=== PATIENT | female | born 1995 | race Caucasian/White ===

== ENCOUNTER 2024-04-29 18:01 | Emergency (ER) | payer MEDICAID, SELFPAY ==
[2024-04-29 18:05] VITALS: BP 157/106; PULSE 69; RESP 18; TEMP 36.6; O2SAT 100; BMI 26.2
[2024-04-29 18:58] VITALS: BMI 26.4
[2024-04-29 18:59] VITALS: BP 113/78; PULSE 74; O2SAT 100
--- NOTE | 2024-04-29 19:07 | RAD_ITS ---
PROCEDURE: CHEST 1 VIEW (PORTABLE) REASON FOR EXAM: 28-year-old female, chest pain, hypertension. TECHNIQUE: Frontal view of the chest. COMPARISON: None. FINDINGS: The heart size is normal. No focal consolidation, pleural effusion or pneumothorax. The bones are unremarkable. RAD/Chest 1 View (Portable) IMPRESSION: NEGATIVE CHEST. Reading Location: [id number]
--- NOTE | 2024-04-29 19:07 | EKG12_ITS ---
Test Reason : DYSRHYTHMIA Blood Pressure : */* mmHG Vent. Rate : 63 BPM Atrial Rate : 63 BPM P-R Int : 142 ms QRS Dur : 82 ms QT Int : 408 ms P-R-T Axes : 72 68 65 degrees QTcB Int : 417 ms Normal sinus rhythm with sinus arrhythmia Normal ECG Confirmed by Darrell Siddiqi ([id number]), news videotape editor JAS CALLEJAS ([id number]) on 04/30/2024 10:59:47 AM Referred By: MAXWELL Confirmed By: Darrell Siddiqi
--- NOTE | 2024-04-29 19:09 | EX.ED.DYSGE1 ---
HPI History of Present Illness Chief Complaint: Neuro S/Sx Narrative Narrative: 28-year-old female past medical history of ADHD recently changed to Concerta, presents with headache that she rates 9 out of 10 as well as chest pain and pressure and left facial numbness as well as left arm pain and numbness. The symptoms began while she was at work at [employer]. 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 She is not really describing numbness but states that it feels funky. No exacerbating or alleviating factors. She was concerned because her blood pressure was elevated as well. This was after she had taken Excedrin. She said her blood pressure was in the 140s to 150s. [facility] Medical History no medical history Home Medications ?Medication ?Instructions ?Recorded ?Last Taken ?Type buspirone 15 mg tablet 15 mg PO DAILY 04/29/24 Unknown History desvenlafaxine succinate 25 mg 25 mg PO DAILY 04/29/24 Unknown History tablet,extended release 24 hr (Pristiq) Allergy/AdvReac Type Severity Reaction Status Date / Time acetaminophen (From Percocet) Allergy Anaphylaxis Verified 04/29/24 18:05 cephalexin (From Keflex) Allergy Hives Verified 04/29/24 18:05 codeine Allergy Anaphylaxis Verified 04/29/24 18:05 oxycodone (From Percocet) Allergy Anaphylaxis Verified 04/29/24 18:05 Family History no significant family his Surgical History no surgical history Social History Smoking Status: Former smoker ROS ROS ED ROS Narrative Constitutional: No fever, no chills. HEENT: No sore throat. No neck pain. No loss of vision. Cardiovascular: Positive chest pain. No palpitations. No pedal edema. Respiratory: No cough, no shortness of breath. Abdominal: No abdominal pain. No nausea. No vomiting. Genitourinary: No dysuria. No hematuria. Musculoskeletal: No myalgias. No arthralgias. Neurologic: Positive headaches. No dizziness. No lightheadedness. Left facial feeling funny/numbness, left arm pain and numbness. Skin: No rash. No change in color. EXAM Physical Exam Narrative Exam Narrative: Afebrile. Vital signs noted. Nontoxic-appearing. Cardiovascular examination reveals a regular rate and rhythm. Lungs are clear to auscultation bilaterally. Abdomen is soft and nontender without guarding or rebound. Positive bowel sounds. Neurological examination is nonfocal and nonlateralizing. NIH stroke scale is 0. No pedal edema. Patient was tearful prior to examination. Const Vital Signs: 04/29/24 18:05 04/29/24 18:59 04/29/24 19:10 Temperature 98 F Temperature Source Temporal Pulse Rate 69 74 Respiratory Rate 18 Blood Pressure 157/106 H 113/78 Blood Pressure Mean 123 89 Pulse Ox 100 100 100 Oxygen Delivery Method Room Air Room Air Room Air 04/29/24 20:03 04/29/24 22:00 Temperature Temperature Source Pulse Rate 58 L 67 Respiratory Rate 18 18 Blood Pressure 127/78 H 110/70 Blood Pressure Mean 94 83 Pulse Ox 100 99 Oxygen Delivery Method Room Air Room Air MDM MDM MDM Narrative Medical decision making narrative: Differential diagnosis includes but not limited to stroke versus intracranial hemorrhage versus mass versus atypical migraine. Her blood pressure may be elevated from her ADH meds in combination with her taking Excedrin which has caffeine. Her blood pressure has normalized to 113/78 currently and was 117 systolic while I was in the room. I do not feel that she meets stroke team criteria, and she is outside the window for [place] K greater than 4 hours. Additionally she does not have a debilitating deficit. She will be given Compazine and Benadryl as well as IV fluids and comprehensive workup was pursued. I will obtain a CT of the brain to rule out mass or hemorrhage. Regarding her chest pain, comprehensive workup was pursued EKG was obtained and interpreted by myself independently as normal sinus rhythm with sinus arrhythmia at 63 bpm without other ectopy, no acute ST changes, no STEMI. I reviewed her laboratory work and she has normal white count of 5.7 with hemoglobin 12.2, hematocrit 35.5, platelet count normal at 159. BMP is grossly unremarkable, initial high-sensitivity troponin is less than 6. Chest x-ray interpreted by myself independently in 1 view shows no acute process, no pneumonia or pneumothorax. I reviewed the radiology report which confirms my independent interpretation. Additionally I reviewed the radiology report of the CT of the brain and there is no acute process, no hemorrhage or mass. Upon repeat examination, she states she is feeling improved. She no longer has facial numbness or arm pain. She thinks the IV fluids helped. She has normal blood pressure currently. At this point in time, as well as her second troponin is normal, I do feel that she could be discharged to follow-up. I feel this is probably more of an atypical migraine as her headache has improved with Compazine and Benadryl as well as the IV fluids. Her symptoms have essentially resolved. I do not feel that she requires observation or admission for stroke workup as she had a negative NIH stroke scale as well. Her repeat troponin is also less than 6. Her initial 1 had been less than 6 as stated previously. At this point in time, as her symptoms have essentially resolved I feel she can be discharged to follow-up with her primary care provider. Return instructions reviewed. Disposition is discharged home in stable condition. History & Record Review Discussion w/independent historian: Patient Lab Data Attestation: I reviewed the patient's lab results. Labs: Laboratory Results - last 24 hr 04/29/24 04/29/24 19:23 21:31 WBC 5.7 RBC 3.98 L Hgb 12.2 Hct 35.5 L MCV 89.2 MCH 30.7 MCHC 34.4 RDW Std Deviation 40.3 RDW Coeff of Kimberly 12.4 Plt Count 159 MPV 11.6 Immature Gran % (Auto) 0.400 Neut % (Auto) 62.8 Lymph % (Auto) 28.4 [place] % (Auto) 8.2 Eos % (Auto) 0.0 Baso % (Auto) 0.2 Absolute Neuts (auto) 3.6 Absolute Lymphs (auto) 1.62 Nucleated RBC % 0 Sodium 136 Potassium 4.2 Chloride 103 Carbon Dioxide 21.5 Anion Gap 11 BUN 11 Creatinine 0.70 Estim Creat Clear Calc 133.14 Est GFR (MDRD) Non-Af 121 BUN/Creatinine Ratio 15.9 Glucose 97 Calcium 8.9 Troponin T High Sens < 6 Troponin T Hi Sens 2 Hr < 6 Radiography Diagnostic Testing: Clinical Impression(s) from Imaging Studies Chest X-Ray 04/29/24 19:07 IMPRESSION: NEGATIVE CHEST. Reading Location: [id number] Brain CT 04/29/24 19:35 IMPRESSION: 1. No acute intracranial finding. 2. 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 If not recently performed, nonemergent brain MRI could be obtained for further characterization. Reading Location: [facility] Discharge Plan Triage Chief Complaint: Neuro S/Sx ED Provider: Moody Serrano Dx/Rx/DC Orders Clinical Impression: Chest pain, Headache, Facial paresthesia, Left arm pain Instructions: ED Chest Pain, Uncertain Cause, ED Pain, Acute, Uncertain Cause, ED Paraesthesias Prescriptions: No Action buspirone 15 mg tablet 15 mg PO DAILY desvenlafaxine succinate [Pristiq] 25 mg tablet extended release 24 hr 25 mg PO DAILY Primary Care Provider: Vianney Morse Referrals: Vianney Morse, [employer] [facility] [Primary Care Provider] - 3-5 Days if not improving Activity Restrictions/Additional Instructions: Return to the emergency department with new or worsening symptoms including chest pain, shortness of breath, fever, increased numbness or pain of your arm or face. Print Language: Palestinian Disposition Disposition: Home, Self Care
[2024-04-29 19:10] VITALS: O2SAT 100
[2024-04-29] MEDS: 0.9% Normal Saline (1000mL) 1,000 ML 999 ML IV (19:24)
[2024-04-29] MEDS: DiphenhydrAMINE 50 MG/ML Syringe 25 MG IV (19:25)
[2024-04-29] MEDS: proCHLORPERazine 10 MG/2 ML Vial IV (19:25)
--- NOTE | 2024-04-29 19:35 | CT_ITS ---
EXAM: BRAIN/HEAD WITHOUT CONTRAST CLINICAL HISTORY: 28 y/o F with HEADACHE. Left sided facial and arm numbness. COMPARISON: None. TECHNIQUE: Routine CT imaging of the head without IV contrast. Additional multiplanar reformats were obtained. Dose reduction techniques were used including intermediate exposure control (AEC),iterative reconstruction technique, and/or mA and/or KV dose adjustments based on patient's size. FINDINGS: No acute intracranial hemorrhage or mass effect. The lepe-white matter interfaces are maintained. Tiny pineal cyst. Mild scattered secretions throughout the visualized paranasal sinuses. Trace fluid within the right mastoid air cells. The orbits are unremarkable. No acute calvarial fracture or scalp hematoma. CT/Brain/Head without Contrast IMPRESSION: 1. No acute intracranial finding. 2. 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 If not recently performed, nonemergent brain MRI could be obtained for further characterization. Reading Location: [id number]
[2024-04-29 19:46] LABS: Absolute Lymphocyte Count 1.62 X10^3/uL (0.83-4.51); Absolute Neutrophil Count 3.6 X10^3/uL (2.0-7.7); Basophil# 0.01 X10^3/uL; Basophil% 0.2 % (0-1); Hematocrit 35.5 % (37-47); Hemoglobin 12.2 g/dL (12.0-15.0); Lymphocyte # 1.62 X10^3/ul (0.83-4.51); Lymphocyte % 28.4 % (19-41); Mean Corp Hgb Conc 34.4 g/dL (32-36); Mean Corpuscular Hgb 30.7 pg (27.0-32.0); Mean Corpuscular Volume 89.2 fL (81-99); Mean Platelet Vol. 11.6 fl (6.2-12.0); Monocyte# 0.47 X10^3/uL; Monocyte% 8.2 % (0-10); NRBC Flagged by Analyzer 0 % (0-5); Neutrophil # 3.58 X10^3/uL (2.7-7.7); Neutrophil % 62.8 % (47-70); Platelet Count 159 K/mm3 (150-450); RBC Distribution Width CV 12.4 % (11.6-14.6); RBC Distribution Width SD 40.3 fl (35.1-43.9); Red Blood Count 3.98 M/mm3 (4.2-5.4); White Blood Count 5.7 K/mm3 (4.4-11.0)
[2024-04-29 20:03] VITALS: BP 127/78; PULSE 58; RESP 18; O2SAT 100
[2024-04-29 20:24] LABS: Troponin T High Sensitivity < 6 ng/L (<=14)
[2024-04-29 20:39] LABS: Anion Gap 11 (5-15); BUN 11 mg/dL (4-19); BUN/Creat Ratio 15.9 RATIO (10-20); Calcium,Total 8.9 mg/dL (7.6-11.0); Carbon Dioxide 21.5 mmol/L (21.0-32.0); Chloride 103 mmol/L (98-108); EST Glomerular Filtration Rate 121 (>60); Estimated Creatinine Clearance 133.14 ml/min (50-250); Glucose 97 mg/dL (70-99); Potassium 4.2 mmol/L (3.3-5.1); Sodium Level 136 mmol/L (133-145)
[2024-04-29 22:00] VITALS: BP 110/70; PULSE 67; RESP 18; O2SAT 99
[2024-04-29 22:27] LABS: Troponin T High Sens 2 HR < 6 ng/L (<=14)
[2024-04-29 22:35] VITALS: BP 110/70; PULSE 58; RESP 18; TEMP 36.6; O2SAT 99
== END 2024-04-29 22:38 | disposition home or self-care (01) ==
PROVIDERS: Emergency Provider Emergency Medicine; PCP Nurse Practitioner Family; Visit Provider Emergency Medicine
DX: R07.9 Chest pain, unspecified (principal); R51.9 Headache, unspecified; M79.602 Pain in left arm; R20.2 Paresthesia of skin; Z79.899 Other long term (current) drug therapy; Z87.891 Personal history of nicotine dependence
CPT/HCPCS: 70450; 71045; 80048; 84484; 85025; 93005; 96361; 96374; 96375; 96376; 99285; A4216

== ENCOUNTER 2024-12-13 17:26 | Emergency (ER) | payer MEDICAID, SELFPAY ==
[2024-12-13 17:27] VITALS: BP 127/76; PULSE 76; RESP 16; TEMP 37.1; O2SAT 99; BMI 26.6
--- NOTE | 2024-12-13 17:44 | EDS_ITS ---
HPI HPI - Female History of Present Illness Chief Complaint: Vag Bleeding Detail of Chief Complaint: Vaginal bleeding started this afternoon Informant: patient Pain Pain: Positive for Pelvic Pain Onset: Today Context: Sudden Onset Timing: Continuous and Waxes and wanes Quality: Positive for Cramping Location: - (Pelvic region) Current Severity: Mild Maximum Severity: Severe Worsened by: Movement, [place] and - (Passage of clots while on the restroom) Relieved by: - (Nothing) Bleeding Issue: Positive for Vaginal bleeding and Passing clots Onset: Today and Hours Context: Sudden Onset Timing: Continuous Current Severity: Heavy Maximum Severity: Heavy Associated Symptoms Associated Symptoms: Positive for Dysuria, Frequency and Missed Period (Last normal menstrual period November 09.); Negative for Urgency or Hematuria Test: - Sexually: Positive for Active Control: No control P: 2 Ab: 2 Narrative Narrative: Patient is a 29-year-old G4, P2 Ab2 female who was last spontaneous miscarriage was 1 year ago. Youngest child is 5 years of age. She does not know her blood type. Her PERIANESTHESIA MANAGER is located in [place]. She states she lives in the area. She had abrupt onset of cramping pain with vaginal bleeding and passage of clots. She does not use any form of control. She is sexually active. She does not report frequency, dysuria. He denies nausea, vomit or diarrhea. She reported orthostatic symptoms. Prior similar symptoms: Yes Recent Illness/Hospitalization: No PFSH PFSH Home Medications ?Medication ?Instructions ?Recorded ?Last Taken ?Type NK 12/13/24 Unknown History Allergy/AdvReac Type Severity Reaction Status Date / Time acetaminophen (From Percocet) Allergy Anaphylaxis Verified 04/29/24 18:05 cephalexin (From Keflex) Allergy Hives Verified 12/13/24 17:29 codeine Allergy Anaphylaxis Verified 12/13/24 17:29 oxycodone (From Percocet) Allergy Anaphylaxis Verified 12/13/24 17:29 Family History no significant family his Surgical History no surgical history Social History (Updated 12/13/24 @ 17:[address] Osvaldo Mccauley MD) household members: children Smoking Status: Former smoker ROS ROS ED Constitutional Constitutional ED: Denies chills, fever(s), subjective or sweats Cardiovascular Cardiovascular: Denies chest pain or palpitations Respiratory/Chest Respiratory/Chest: Denies cough, dyspnea or dyspnea on exertion Gastrointestinal Gastrointestinal: Reports abdominal pain; Denies constipation, diarrhea, melena, nausea or vomiting Genitourinary Genitourinary ED: Reports dysuria and urinary frequency Musculoskeletal Musculoskeletal: Denies arthralgias, myalgias or neck pain Integumentary Denies rash Hematologic/Lymphatic Hematologic/Lymphatic: Denies easy bleeding or easy bruising EXAM Physical Exam Const Vital Signs: 12/13/24 17:27 Temperature 98.8 F Temperature Source Oral Pulse Rate 76 Respiratory Rate 16 Blood Pressure 127/76 H Blood Pressure Mean 93 Pulse Ox 99 Oxygen Delivery Method Room Air Positive well nourished and well developed Constitutional Narrative: Patient is diet. She is pale. She is fair skinned. General Appearance ED: well developed and pallor HEENT Reports moist mucous membranes Negative for trauma or tenderness Eyes PERRL and EOMs intact bilaterally General Eye ED: Negative for pale conjunctiva Neck no lymphadenopathy, supple and no JVD Resp normal respiratory effort and clear to auscultation bilaterally Cardio regular rate, regular rhythm, S1 normal heart sound, no murmurs and no JVD GI soft to palpation, non-distended and no masses; Negative for normal to inspection, nondistended, normoactive bowel sounds or non-tender Auscultation: hypoactive bowel sounds Palpation: tender suprapubic Narrative: External genitalia normal. Vaginal mucosa is normal. There is some slight blood coming from the os. Os is irregular in shape. Negative Sandeep's sign. Uterus is upper end of normal in size. No adnexal mass or tenderness noted. Back/Spine no CVA tenderness Extremity normal to inspection and full ROM Neuro oriented x3 and CN's II-XII intact bilaterally Sensorium / Orientation: alert Psych Psych Narrative: Quiet. Affect is flat. Skin no rashes or lesions noted and no wounds General Skin Exam: pallor; Negative for jaundice MDM MDM MDM Narrative Medical decision making narrative: Patient with abnormal vaginal bleeding since she is late with respect to her menses will obtain hCG to rule out . If this may represent complete versus incomplete or threatened AB. If not may represent dysfunctional uterine bleeding. Will need to perform pelvic exam. Pending on laboratory results and pelvic exam findings patient may need an ultrasound Lab Data Attestation: I reviewed the patient's lab results. Lab results narrative: CBC is unremarkable. Prior H&H was 12.2 and 35.5. Urine reveals microscopic hematuria. There is no evidence infection. Serum test is negative. Labs: Laboratory Results - last 24 hr 12/13/24 17:55 WBC 7.3 RBC 4.37 Hgb 13.8 Hct 39.9 MCV 91.3 MCH 31.6 MCHC 34.6 RDW Std Deviation 40.8 RDW Coeff of Kimberly 12.2 Plt Count 187 MPV 10.9 Immature Gran % (Auto) 0.300 Neut % (Auto) 63.6 Lymph % (Auto) 26.8 [place] % (Auto) 6.3 Eos % (Auto) 2.9 Baso % (Auto) 0.1 Absolute Neuts (auto) 4.6 Absolute Lymphs (auto) 1.95 Nucleated RBC % 0 Serum , Qual NEGATIVE Urine Color Straw Urine Clarity Clear Urine pH 7.0 Ur Specific [place] 1.010 Urine Protein 15 H Urine Glucose (UA) Normal Urine Ketones Negative Urine Occult Blood 250 H Urine Nitrite Negative Urine Bilirubin Negative Urine Urobilinogen Normal Ur Leukocyte Esterase Negative Urine RBC 25-50 SEEN Urine WBC 0 SEEN Ur Squamous Epith Cells 0 SEEN Urine Bacteria 0 SEEN Urine Mucus 0 SEEN Blood Type A POSITIVE Treatment and Re-Evaluation Narrative: Patient was informed of the negative test negative anemia that she has dysfunctional uterine bleeding. Recommend follow-up with her PERIANESTHESIA MANAGER. She was given specific indications to return Discharge Plan Triage Chief Complaint: Vag Bleeding ED Provider: Osvaldo Mccauley Dx/Rx/DC Orders Clinical Impression: Bleeding, uterine, dysfunctional, Pelvic cramping Instructions: ED Dysfunctional Uterine Bleeding Prescriptions: No Action NK Primary Care Provider: Vianney Morse Referrals: Vianney Morse, [employer]ATOR-C [Primary Care Provider, Family Practice] - As Needed Print Language: Mongolian Disposition Disposition: Home, Self Care
--- OUTSIDE RECORDS SUMMARY | 2024-12-13 17:47 | XMS RPT_ITS | CCD ---
Author Organization [facility] Team Providers Care Professor Of Surgery Name Role Phone ROMULO ASHLI Blank Unavailable Unavailable REFERRED, SELF Unavailable Unavailable JUSTIN SEBASTIANBRIAN Blank Unavailable Unavailable COOPERRIDER II, ANNE MARIE H Unavailable Unavailabl e COOPERRIDER II, ANNE MARIE H Unavailable Unavailabl e Vianney Morse Unavailable Vianney Morse Primary Care Provider Vianney Morse Primary Care Provider NORMA DO, LUISA N Admitting Unavailable NORMA DO, LUISA N Attending Unavailable NORMA DO, LUISA N Consulting Unavailable NONE, NONE Consulting Unavailable MORSE, VIANNEY Primary Care Unavailable NORMA DO, LUISA N Admitting Unavailable NORMA DO, LUISA N Attending Unavailable NORMA DO, LUISA N Consulting Unavailable MORSE, VIANNEY Consulting Unavailable MORSE, VIANNEY Primary Care Unavailable NORMA DO, LUISA N Admitting Unavailable NORMA DO, LUISA N Attending Unavailable NORMA DO, LUISA N Consulting Unavailable MORSE, VIANNEY Consulting Unavailable Johanna [phone], [place] [phone] Co nsulting Unavailable MORSE, VIANNEY Primary Care Unavailable NORMA DO, LUISA N Admitting Unavailable NORMA DO, LUISA N Attending Unavailable NORMA DO, LUISA N Consulting Unavailable MORSE, VIANNEY Consulting Unavailable MORSE, VIANNEY Primary Care Unavailable DIPAK VIVAS Attending Unavailable DIPAK VIVAS Consulting Unavailable DIPAK VIVAS Admitting Unavailable NORMA DO, LUISA N Consulting Unavailable DIPAK VIVAS Procedure Practitioner Unavail able BENITO HAMILTON MD Consulting Unavailabl e MORSE, VIANNEY Consulting Unavailable MORSE, VIANNEY Primary Care Unavailable NORMA DO, LUISA N Consulting Unavailable NORMA DO, LUISA N Admitting Unavailable NORMA DO, LUISA N Attending Unavailable MORSE, VIANNEY Consulting Unavailable REINA MIRELES MD Attending Unavailable CHI ZIEGLER, REINA Barry Consulting Unavailable CHI ZIEGLER, REINA Barry Admitting Unavailable NONE, NONE Primary Care Unavailable NONE, NONE Consulting Unavailable NORMA DO, LUISA N Consulting Unavailable NORMA DO, LUISA N Admitting Unavailable NORMA DO, LUISA N Attending Unavailable NONE, NONE Consulting Unavailable NORMA DO, LUISA N Consulting Unavailable NORMA DO, LUISA N Admitting Unavailable NORMA DO, LUISA N Attending Unavailable NONE, NONE Consulting Unavailable Free, Text Entry Unavailable Unavailable Inman, Brady Unavailable Unavailable Morse HIGH SCALER-TWO NEEDLE MACHINE OPERATOR, Vianney Primary Care Provider Norma DO, Luisa Unavailable Norma DO, Luisa Unavailable Morse HIGH SCALER-TWO NEEDLE MACHINE OPERATOR, Vianney Primary Care Provider Norma DO, Luisa Unavailable [phone] Morse HIGH SCALER - [facility], Vianney Primary Care Provider TONI PHAM Referring Unavailable VIANNEY MORSE Primary Care Unavailable TONI PHAM Referring Unavailable LITO, VIANNEY Primary Care Unavailable Vianney Morse Unavailable Tee Loyd Unavailable Unavailable Morse H[facility] SCALER-[facility], Vianney Primary Care Provider Norma DO, Luisa N Unavailable [phone] Tee Loyd Attending Unavaila ble Pending, Provider Primary Care Unavailable Morse HIGH SCALER-TWO NEEDLE MACHINE OPERATOR, Vianney Obregon Primary Care Provi yanna Morse H[facility] SCALER-[facility], Vianney Primary Care Provider JANELLE BARRAGAN Referring Unavailable VIANNEY MORSE Primary Care Unavailable JANELLE BARRAGAN Referring Unavailable VIANNEY MORSE Primary Care Unavailable Moody Serrano MD Emergency Provider [phone] Lito CHARGEBACK ANALYST-C, Vianney Primary Care Provider [phone] Morse [facility] SCALER-[facility], Vianney Primary Care Provider Norma DO, Luisa N Unavailable STACI SOLIZ Attending Unavailable SELF, SELF Referring Unavailable VIANNEY MORSE Primary Care Unavailable TONI BURCH Attending Unavailable TONI BURCH Admitting Unavailable MORSE, VIANNEY Primary Care Unavailable TONI BURCH Referring Unavailable TONI BURCH Attending Unavailable MORSE, VIANNEY Primary Care Unavailable MORSE, VIANNEY Primary Care Unavailable TENNILLE BOYCE Attending Unavailable MORSE, VIANNEY Referring Unavailable TONI BURCH Referring Unavailable TONI BURCH Attending Unavailable MORSE, VIANNEY Primary Care Unavailable Morse HIGH SCALER-TWO NEEDLE MACHINE OPERATOR, Vianney Primary Care Provider Luisa Green DO Bree Unavailable MORSE, VIANNEY Primary Care Unavailable TONI BURCH Admitting Unavailable MORSE, VIANNEY Primary Care Unavailable MARCIN, TONI Attending Unavailable BURCH, TONI Referring Unavailable SELF, SELF Referring Unavailable MORSE, VIANNEY Attending Unavailable MORSE, VIANNEY Primary Care Unavailable STACI SOLIZ Attending Unavailable MORSE, VIANNEY Primary Care Unavailable SELF, SELF Referring Unavailable MORSE, VIANNEY Attending Unavailable MORSE, VIANNEY Primary Care Unavailable SELF, SELF Referring Unavailable MORSE, VIANNEY Attending Unavailable MORSE, VIANNEY Primary Care Unavailable SELF, SELF Referring Unavailable MARCIN, TONI Attending Unavailable MORSE, VIANNEY Primary Care Unavailable MORSE, VIANNEY Referring Unavailable SELF, SELF Referring Unavailable MORSE, VIANNEY Primary Care Unavailable MORSE, VIANNEY Attending Unavailable SELF, SELF Referring Unavailable MORSE, VIANNEY Primary Care Unavailable TONI BURCH Attending Unavailable MORSE, VIANNEY Primary Care Unavailable Moody Serrano Attending Unavailable Morse, Vianney Primary Care Unavailable Allergies Allergy Classification Reported Allergen(s) Allergy Type Date of Onset Reaction(s) Facility Acetaminophen / oxyCODONE (3 sources) Acetaminophen / oxyCODONE Drug Allergy 4 Anaphylaxis, Hives, Itching, Swelling [facility] Repository Cephalosporins (antibiotic) (1 source) Cephalexin Drug Allergy 1 Diarrhea [facility] Work Phone: Opioid Agonists (1 source) Codeine Drug Allergy [facility] (20 sources) acetaminophen / oxyCODONE; Translations: [OXYCODONE-ACETAM INOPHEN] Drug Allergy 4 Anaphylaxis, Hives, Itching, Swelling [facility] Repository (20 sources) codeine; Translations: [CODEINE] Drug Allergy 3 Itching [facility] Repository (20 sources) Cephalexin Drug Allergy 1 Diarrhea [facility] Work Phone: (1 source) Acetaminophen / oxyCODONE Drug Allergy Facial Swelling [facility] (1 source) ALLERGIES NOT ON FILE; Translations: [ALLERGIES NOT ON FILE] Propensity to adverse reactions (disorder) [facility] 2 Repository (1 source) Acetaminophen Drug Allergy 5 Anaphylaxis [facility] (1 source) oxyCODONE Drug Allergy 5 Anaphylaxis [facility] (1 source) Acetaminophen Drug Allergy 5 [facility] Repository (1 source) Cephalexin Drug Allergy 5 [facility] Repository (1 source) oxyCODONE Drug Allergy 5 [facility] Repository Medications Current Medications Medication Drug Class(es) Dates Sig (Normalized) Sig (Original) amLODIPine 2.5 mg oral tablet (3 sources) Dihydropyridine Calcium Channel Kiera Start: 06-05-2024 take 1 tablet by mouth once daily amLODIPine (Norvasc) 2.5 MG tablet Indications: Raynaud's phenomenon without gangrene , Fluctuating blood pressure Take 1 tablet by mouth daily. 30 tablet 5 06/05/2024 Active amoxicillin 875 mg / clavulanate 125 mg oral tablet (1 source) Penicillin-class Antibacterial Start: 10-11-2018 End: 10-21-2018 take 1 tablet by mouth every twelve hours amoxicillin-clavu lanate 875-125 MG Tab tablet Indications: Acute recurrent maxillary sinusitis Take 1 tablet by mouth every 12 hours for 10 days. 20 tablet 0 10/11/2018 10/21/2018 Active Azithromycin 250 Mg Po Tabs (1 source) Macrolide Antimicrobial Start: 02-05-2018 End: 02-10-2018 azithromycin (ZITHROMAX Z-JEFF) 250 MG Tab tablet Indications: Upper respiratory tract infection, unspecified type Take 2 tablets on Day 1, then 1 tablet every day (days 2 to 5) until gone. 6 tablet 0 02/05/2018 02/10/2018 Active busPIRone hydrochloride 15 mg oral tablet (20 sources) Start: 06-16-2024 take 1 tablet by mouth twice daily busPIRone 15 MG tablet Take 1 tablet by mouth 2 times daily. 06/16/2024 Active Start: 04-29-2024 take 1 tablet by kobe once daily Buspirone 15 mg tablet Active 15 mg PO DAILY April 29, 2024 12:00am Start: 11-09-2023 End: 06-05-2024 take 1 tablet by mouth twice daily busPIRone 15 MG tablet Indications: Anxiety Take 1 tablet by mouth 2 times daily. 180 tablet 1 11/09/2023 06/05/2024 Discontinued (Duplicate (suppress cancel msg)) Start: 11-15-2022 End: 11-07-2023 take 1 tablet by mouth three times daily busPIRone 10 MG tablet Indications: Anxiety Take 1 tablet by mouth 3 times daily. 270 tablet 1 05/23/2023 Active Start: 09-27-2021 End: 11-14-2022 take 1 tablet by mouth twice daily busPIRone 10 MG tablet Indications: Anxiety and depression Take 1 tablet by mouth 2 times daily. 60 tablet 5 09/27/2021 11/14/2022 Discontinued (Reorder) End: 07-05-2024 take 10 mg by mouth twice daily busPIRone HCl 7.5 MG t ablet Take 10 mg by mouth 2 times daily. 07/05/2024 Discontinued End: 05-23-2023 take 1 tablet by mouth three times daily as needed busPIRone 15 MG tablet Take 1 tablet by mouth 3 times daily as needed. 05/23/2023 Discontinued (Therapy completed) cefdinir 300 mg oral capsule (1 source) Cephalosporin Antibacterial Start: 06-05-2024 End: 06-15-2024 take 1 capsule by mouth every twelve hours Cefdinir (OMNICEF) 300 MG capsule Indications: Infection of left inner ear Take 1 capsule by mouth every 12 hours for 10 days. 20 capsule 06/05/2024 06/15/2024 Active ciprofloxacin 500 mg oral tablet (1 source) Quinolone Antimicrobial Start: 03-16-2022 End: 03-23-2022 take 1 tablet by mouth twice daily ciprofloxacin (CIPRO) 500 MG tablet Indications: Frequent UTI Take 1 tablet by mouth 2 times daily for 7 days 14 tablet 0 03/16/2022 03/23/2022 Active colestipol hydrochloride 1000 mg oral tablet (6 sources) Bile Acid Sequestrant Start: 11-09-2023 End: 11-09-2023 take 1 tablet by mouth twice daily colestipol 1 g tablet Indications: Diarrhea, unspecified type Take 1 tablet by mouth 2 times daily. 60 tablet 5 11/09/2023 Active 24 hr desvenlafaxine succinate 25 mg extended release oral tablet (20 sources) Serotonin and Norepinephrine Reuptake Inhibitor Start: 04-29-2024 take 1 tablet by mouth once daily, then take 1 tablet by mouth every twenty-four hours Desvenlafaxine Succinate (Pristiq) 25 mg tablet extended release 24 hr Active 25 mg PO DAILY April 29, 2024 12:00am Start: 11-09-2023 End: 06-05-2024 take 1 tablet by mouth once daily desvenlafaxine succinate 50 MG Tab SR 24 HR Indications: Moderate episode of recurrent major depressive disorder Take 1 tablet by mouth daily. 90 tablet 1 11/09/2023 06/05/2024 Discontinued (Duplicate (suppress cancel msg)) Start: 11-15-2022 End: 11-07-2023 take 1 tablet by mouth once daily desvenlafaxine succinate 50 MG Tab SR 24 HR Indications: Moderate episode of recurrent major depressive disorder Take 1 tablet by mouth daily. 90 tablet 1 05/23/2023 Active Start: 11-02-2022 End: 11-15-2022 desvenlafaxine succinate 50 MG Tab SR 24 HR Start: 05-11-2022 End: 05-23-2023 take 1 tablet by mouth once daily desvenlafaxine succinate 25 MG Tab SR 24 HR Take 1 tablet by mouth daily. 05/11/2022 05/23/2023 Discontinued (Therapy completed) Desvenlafaxine E R 50 MG Tab SR 24 HR Take by mouth. Active diclofenac sodium 75 mg delayed release oral tablet (2 sources) Nonsteroidal Anti-inflammatory Drug Start: 07-05-2024 take 1 tablet by mouth every twelve hours as needed for pain diclofenac EC [address] tablet Indications: Chronic bilateral low back pain, unspecified whether sciatica present Take 1 tablet by mouth every 12 hours as needed for Moderate Pain. 60 tablet 07/05/2024 Active hydrOXYzine hydrochloride 25 mg oral tablet (14 sources) Antihistamine Start: 10-16-2017 End: 04-09-2019 take 1 tablet by mouth three times daily as needed for anxiety hydrOXYzine HCl 25 MG Tab tablet Indications: Anxiety Take 1 tablet by mouth 3 times daily as needed for Anxiety or Insomnia. 60 tablet 5 07/30/2018 Active metroNIDAZOLE 500 mg oral tablet (3 sources) Nitroimidazole Antimicrobial Start: 08-08-2023 metroNIDAZOLE 500 MG tablet 08/08/2023 Active Multiple Vitamin (multivitamin) tablet (6 sources) take 1 tablet by mouth once daily Multiple Vitamin (multivitamin) tablet Take 1 tablet by mouth daily. Active naratriptan 2.5 mg oral tablet (20 sources) Serotonin-1b and Serotonin-1d Receptor Agonist Start: 10-11-2018 End: 08-09-2023 take 1 tablet by mouth once daily as needed naratriptan 2.5 MG tablet Indications: Chronic migraine without aura without status migrainosus, not intractable Take 1 tablet by mouth daily as needed (migraine). max 5mg/day; may repeat in 4 hr x1 5 tablet 11 08/09/2023 Active omeprazole 20 mg delayed release oral capsule (20 sources) Proton Pump Inhibitor Start: 11-09-2023 take 1 capsule by mouth once daily omeprazole [address] capsule Indications: Gastroesophageal reflux disease without esophagitis , Hiatal hernia Take 1 capsule by mouth daily. 90 capsule 1 11/09/2023 Active Start: 05-13-2023 End: 11-07-2023 take 1 capsule by mouth once daily omeprazole [address] capsule Indications: Gastroesophageal reflux disease without esophagitis , Hiatal hernia Take 1 capsule by mouth daily. 90 capsule 1 05/23/2023 Active Start: 09-27-2021 End: 11-15-2022 take 1 capsule by mouth once daily omeprazole [address] capsule Indications: Epigastric pain Take 1 capsule by mouth daily. 30 capsule 2 09/27/2021 11/15/2022 Discontinued (Patient Preference) Start: 11-06-2020 End: 04-21-2021 take 1 capsule by mouth once daily omeprazole [address] capsule Take 1 capsule by mouth daily. 14 capsule 0 11/06/2020 04/21/2021 Discontinued (Therapy completed) sulfamethoxazole 800 mg / trimethoprim 160 mg oral tablet (3 sources) Dihydrofolate Reductase Inhibitor Antibacterial, Sulfonamide Antimicrobial Start: 02-21-2023 End: 02-28-2023 take 1 tablet by mouth twice daily Sulfamethoxazole-trimethoprim (Bactrim DS) 800-160 MG per tablet Indications: Acute cystitis without hematuria Take 1 tablet by mouth 2 times daily for 7 days. 14 tablet 0 02/21/2023 02/28/2023 Active Start: 09-27-2021 End: 10-04-2021 take 1 tablet by mouth twice daily sulfamethoxazole-trimethoprim (Bactrim D S) 800-160 MG per tablet Indications: Acute cystitis with hematuria Take 1 tablet by mouth 2 times daily for 7 days. 14 tablet 0 09/27/2021 10/04/2021 Active Start: 09-14-2020 End: 09-21-2020 take 1 tablet by mouth twice daily sulfamethoxazole-trimethoprim 800-160 MG per tablet Indications: Acute cystitis without hematuria Take 1 tablet by mouth 2 times daily for 7 days. 14 tablet 0 09/14/2020 09/21/2020 Active traZODone hydrochloride 50 mg oral tablet (15 sources) Serotonin Reuptake Inhibitor Start: 10-16-2017 End: 04-09-2019 take 1 tablet by mouth at bedtime traZODone 50 MG Tab Indications: Primary insomnia Take 1 tablet by mouth at bedtime. 90 tablet 1 07/30/2018 Active 24 hr venlafaxine 75 mg extended release oral capsule (11 sources) Serotonin and Norepinephrine Reuptake Inhibitor Start: 07-30-2018 End: 04-09-2019 take 1 capsule by mouth once daily venlafaxine (Effexor XR) 75 MG Cap SR 24HR capsule XR Indications: Anxiety , Moderate episode of recurrent major depressive disorder Take 1 capsule by mouth daily. 90 capsule 1 04/09/2019 Active Completed/Discontinued Medications Medication Drug Class(es) Dates Sig (Normalized) Sig (Original) 24 hr amphetamine aspartate 5 mg / amphetamine sulfate 5 mg / dextroamphetamine saccharate 5 mg / dextroamphetamine sulfate 5 mg extended release oral capsule (3 sources) Central Nervous System Stimulant Start: 07-20-2023 End: 08-19-2023 take 1 capsule by mouth once daily in the morning amphetamine-dextro amphetamine XR 20 MG Cap SR 24HR capsule Indications: Attention deficit hyperactivity disorder (ADHD), unspecified ADHD type Take 1 capsule by mouth daily every morning. 30 capsule 07/20/2023 08/09/2023 Discontinued (Therapy completed) Atogepant (Qulipta) 30 MG tablet (4 sources) Start: 08-09-2023 End: 09-08-2023 take 1 tablet by mouth once daily Atogepant (Qulipta) 30 MG tablet Indications: Chronic migraine without aura without status migrainosus, not intractable Take 30 mg by mouth daily. 30 tablet 3 08/09/2023 09/08/2023 Discontinued (Stop Taking at Discharge) Start: 08-09-2023 take 1 tablet by kobe th once daily Atogepant (Qulipta) 30 MG tablet Indications: Chronic migraine without aura without status migrainosus, not intractable Take 30 mg by mouth daily. 30 tablet 3 08/09/2023 Active 24 hr buPROPion hydrochloride 300 mg extended release oral tablet (8 sources) Aminoketone Start: 06-24-2021 End: 11-15-2022 take 1 tablet by mouth once daily in the morning buPROPion 300 MG tablet XL Indications: Anxiety and depression Take 1 tablet by mouth daily every morning. 90 tablet 1 09/27/2021 11/15/2022 Discontinued (Patient Preference) Start: 04-21-2021 take 1 tablet by kobe th once daily in the morning buPROPion 150 MG tablet XL Indications: Anxiety and depression Take 1 tablet by mouth daily every morning. 30 tablet 0 04/21/2021 Active calcium chloride 0.0014 meq/ml / potassium chloride 0.004 meq/ml / sodium chloride 0.103 meq/ml / sodium lactate 0.028 meq/ml injectable solution (1 source) Start: 04-28-2022 End: 04-29-2022 Lactated ringers IV solution cephalexin 500 mg oral capsule (2 sources) Cephalosporin Antibacterial Start: 09-06-2020 End: 09-15-2020 take 1 capsule by mouth three times daily cephalexin 500 mg oral capsule ; 1 cap(s) orally 3 times a day Quantity: 30 Refills: 0 Ordered: 05-Sep-2020 Brady Inman Start: 05-Sep-2020 End: 14-Sep-2020 Generic Substitution Allowed Comments: Finish all this medication unless otherwise directed by prescriber. Comment on above: Finish all this medi cation unless otherwise directed by prescriber. chlordiazePOXIDE hydrochloride 5 mg / clidinium bromide 2.5 mg oral capsule (1 source) Anticholinergic, Benzodiazepine Start: 04-28-2022 End: 11-15-2022 chlordiazepoxide- clidinium (Librax) 5-2.5 MG capsule Indications: Irritable bowel syndrome with diarrhea Take 1 capsule by mouth 3 times daily. 30 capsule 1 04/28/2022 11/15/2022 Discontinued (Patient Preference) citalopram 40 mg oral tablet (11 sources) Serotonin Reuptake Inhibitor Start: 04-08-2021 End: 11-15-2022 take 1 tablet by mouth once daily citalopram 40 MG tablet Indications: Anxiety and depression Take 1 tablet by mouth daily. 90 tablet 1 09/27/2021 11/15/2022 Discontinued (Patient Preference) Start: 08-18-2020 take 1 tablet by kobe th once daily citalopram 40 MG tablet Take 40 mg by mouth daily. 0 08/18/2020 Active Start: 11-19-2019 End: 09-14-2020 take 1 tablet by mouth once daily citalopram 20 MG tablet Take 1 tablet by mouth daily. 0 11/19/2019 09/14/2020 Discontinued (Patient Preference) dextromethorphan hydrobromide 15 mg / guaiFENesin 400 mg / pseudoephedrine hydrochloride 60 mg oral tablet (8 sources) alpha-Adrenergic Agonist, Uncompetitive A-anhhop-B-aspartate Receptor Antagonist, Sigma-1 Agonist Start: 01-08-2024 End: 06-05-2024 take 1 tablet by mouth every six hours as needed axdkdspxrayhsno-etgbwwlmredsmflz-zllkZVK esin (Capmist DM) 60-15-400 MG tablet Indications: Viral illness Take 1 tablet by mouth every 6 hours as needed for Cold Symptoms. 30 tablet 01/08/2024 06/05/2024 Discontinued (Therapy completed) Start: 03-05-2023 End: 08-09-2023 take 1 tablet by mouth every six hours as needed iuivxiyxbcgambc-hgpycrsnqnpyumtk-sorzYIH esin (Capmist DM) 60-15-400 MG tablet Indications: Upper respiratory tract infection, unspecified type Take 1 tablet by mouth every 6 hours as needed. 30 tablet 03/05/2023 08/09/2023 Discontinued (Therapy completed) dicyclomine hydrochloride 20 mg oral tablet (4 sources) Anticholinergic Start: 01-19-2022 End: 11-15-2022 take 1 tablet by mouth every six hours dicyclomine 20 MG tablet TAKE 1 TABLET BY MOUTH EVERY 6 HOURS 360 tablet 1 01/19/2022 11/15/2022 Discontinued (Patient Preference) Start: 12-08-2021 take 1 tablet by kobe th every six hours dicyclomine 20 MG tablet Take 1 tablet by mouth every 6 hours. 120 tablet 1 12/08/2021 Active escitalopram 20 mg oral tablet (5 sources) Serotonin Reuptake Inhibitor Start: 02-05-2018 End: 07-30-2018 take 1 tablet by mouth once daily escitalopram 20 MG Tab tablet Indications: Anxiety , Severe episode of recurrent major depressive disorder, without psychotic features Take 1 tablet by mouth daily. 90 tablet 1 02/05/2018 07/30/2018 Discontinued (Alternate therapy) Start: 10-16-2017 End: 02-05-2018 take 1 tablet by mouth once daily escitalopram (LEXAPRO) 10 MG Tab tablet Indications: Anxiety , Severe episode of recurrent major depressive disorder, without psychotic features Take 1 tablet by mouth daily. 30 tablet 1 10/16/2017 02/05/2018 Discontinued Ethinyl Estradiol / ethynodiol (12 sources) Progestin, Estrogen Start: 10-11-2018 End: 04-09-2019 take 1 tablet by mouth once daily ethynodiol-ethinyl estradiol (ZOVIA 1/35E, 28,) 1-35 MG-MCG Tab Indications: Dysfunctional uterine bleeding Take 1 tablet by mouth daily. 3 Package 3 10/11/2018 04/09/2019 Discontinued (Therapy completed) Start: 10-11-2018 take 1 tablet by kobe th once daily ethynodiol-ethinyl estradiol (ZOVIA 1/35E, 28,) 1-35 MG-MCG Tab Indications: Dysfunctional uterine bleeding Take 1 tablet by mouth daily. 3 Package 3 10/11/2018 Active Start: 07-30-2018 End: 10-11-2018 take 1 tablet by mouth once daily ethynodiol-ethinyl estradiol (ZOVIA 1/35E, 28,) 1-35 MG-MCG Tab Indications: Dysfunctional uterine bleeding Take 1 tablet by mouth daily. 3 Package 3 07/30/2018 10/11/2018 Discontinued (Reorder) Start: 07-30-2018 take 1 tablet by kobe th once daily ethynodiol-ethinyl estradiol (ZOVIA 1/35E, 28,) 1-35 MG-MCG Tab Indications: Dysfunctional uterine bleeding Take 1 tablet by mouth daily. 3 Package 3 07/30/2018 Active Start: 06-28-2018 End: 07-30-2018 take 1 tablet by mouth once daily, then take 1 tablet by mouth three times daily, then take 1 tablet by mouth twice daily, then take 1 tablet by mouth once daily ethynodiol-ethinyl estradiol (ZOVIA 1/35E, 28,) 1-35 MG-MCG Tab Indications: Dysfunctional uterine bleeding Take 1 tablet by mouth daily. 1 tab PO tid x3 days, then 1 tab PO bid 5 days, then 1 tab PO qd until all active tabs given, skip inert tabs 1 Package 0 06/28/2018 07/30/2018 Discontinued (Reorder) Start: 06-28-2018 take 1 tablet by kobe th once daily, then take 1 tablet by mouth three times daily, then take 1 tablet by mouth twice daily, then take 1 tablet by mouth once daily ethynodiol-ethinyl estradiol (ZOVIA 1/35E, 28,) 1-35 MG-MCG Tab Indications: Dysfunctional uterine bleeding Take 1 tablet by mouth daily. 1 tab PO tid x3 days, then 1 tab PO bid 5 days, then 1 tab PO qd until all active tabs given, skip inert tabs 1 Package 0 06/28/2018 Active Ethinyl Estradiol / norgestimate (3 sources) Progestin, Estrogen Start: 02-05-2018 End: 06-28-2018 take 1 tablet by mouth once daily norgestimate-ethinyl estradiol (ORTHO TRI-CYCLEN LO) 0.18/0.215/0.25 MG-25 MCG Tab Indications: Encounter for initial prescription of contraceptive pills Take 1 tablet by mouth daily. Note for RPh: Generic for Ortho Tri-Cyclen Lo 3 Package 3 02/05/2018 06/28/2018 Discontinued Start: 02-05-2018 take 1 tablet by kobe th once daily norgestimate-ethinyl estradiol (ORTHO TRI-CYCLEN LO) 0.18/0.215/0.25 MG-25 MCG Tab Indications: Encounter for initial prescription of contraceptive pills Take 1 tablet by mouth daily. Note for RPh: Generic for Ortho Tri-Cyclen Lo 3 Package 3 02/05/2018 Active famotidine 20 mg oral tablet (1 source) Histamine-2 Receptor Antagonist Start: 11-21-2019 End: 09-14-2020 take 1 tablet by mouth twice daily faMOTIdine (Pepcid) 20 MG tablet Indications: Gastroesophageal reflux disease without esophagitis Take 1 tablet by mouth 2 times daily. 60 tablet 2 11/21/2019 09/14/2020 Discontinued (Patient Preference) fluconazole 150 mg oral tablet (4 sources) Azole Antifungal Start: 06-05-2024 End: 06-05-2024 take 1 tablet by mouth once Fluconazole (Diflucan) 150 MG tablet Indications: Yeast infection Take 1 tablet by mouth once for 1 dose. 1 tablet 06/05/2024 06/05/2024 Start: 09-27-2021 End: 09-27-2021 take 1 tablet by mouth once fluconazole (Diflucan) 150 MG tablet Indications: Antibiotic-induced yeast infection Take 1 tablet by mouth once for 1 dose. 1 tablet 0 09/27/2021 09/27/2021 Start: 09-14-2020 End: 09-15-2020 take 1 tablet by mouth once daily fluconazole 150 MG tablet Take 1 tablet by mouth daily for 1 day. 1 tablet 0 09/14/2020 09/15/2020 Active Start: 10-11-2018 End: 10-11-2018 take 1 tablet by mouth once fluconazole (DIFLUCAN) 150 MG Tab tablet Indications: Antibiotic-induced yeast infection Take 1 tablet by mouth once for 1 dose. 1 tablet 0 10/11/2018 10/11/2018 GI cocktail: alum/mag hydrox-simethicone(30ml)+lidocaine 2%(10ml) oral suspension 40 mL (1 source) Start: 05-13-2023 End: 05-13-2023 take 1 dose by mouth once 40 mL, Oral, ONCE, 1 dose, On Mon05/13/23 at 1900 1 ml HYDROmorphone hydrochlo ride 1 mg/ml cartridge (2 sources) Opioid Agonist Start: 09-08-2023 End: 09-08-2023 0.5 mg, Intravenous, EVERY 15 MINUTES NEEDED, 3 doses, Starting on Mon09/08/23 at 1432, Until Mon09/08/23 at 1907, Severe Pain, Recovery Start: 08-04-2023 End: 08-04-2023 1 mg, Intravenous, ONCE, 1 d ose, On Mon08/04/23 at 1600 Indocyanine green (IC-GREEN) topical/IV 1.25 mg (1 source) Start: 09-08-2023 End: 09-08-2023 take 1 dose intravenously once 1.25 mg, Intravenous, ONCE, 1 dose, On Mon09/08/23 at 1030, Give as soon as iv is placed in preop , Pre-op/Pre-Proc iohexol (OMNIPAQUE) 350 MG/ML injection 75 mL (1 source) Start: 09-15-2023 End: 09-15-2023 75 mL, Intravenous, ONCE, 1 dose, On Mon09/15/23 at 1815, Extravasation Risk, Radiology Procedure 24 hr methylphenidate hydrochloride 36 mg extended release oral tablet (20 sources) Central Nervous System Stimulant Start: 12-16-2023 End: 06-05-2024 take 1 tablet by mouth once daily in the morning methylphenidate ER 36 MG tablet Take 1 tablet by mouth daily every morning. 12/16/2023 06/05/2024 Discontinued Start: 12-08-2023 End: 07-05-2024 take 1 tablet by mouth once daily in the morning methylphenidate ER 18 MG tablet Take 1 tablet by mouth daily every morning. 12/08/2023 07/05/2024 Discontinued Start: 11-09-2023 End: 02-07-2024 take 1 capsule by mouth once daily methylphenidate LA 20 MG capsule Indications: Attention deficit hyperactivity disorder (ADHD), unspecified ADHD type Take 1 capsule by mouth daily. 30 capsule 01/08/2024 02/07/2024 Active Start: 11-07-2023 End: 09-08-2023 take 1 capsule by mouth once daily methylphenidate LA 20 MG capsule Indications: Attention deficit hyperactivity disorder (ADHD), unspecified ADHD type Take 1 capsule by mouth daily. 30 capsule 11/07/2023 09/08/2023 Discontinued (Stop Taking at Discharge) Start: 10-08-2023 End: 09-08-2023 take 1 capsule by mouth once daily methylphenidate LA 20 MG capsule Indications: Attention deficit hyperactivity disorder (ADHD), unspecified ADHD type Take 1 capsule by mouth daily. 30 capsule 10/08/2023 09/08/2023 Discontinued (Stop Taking at Discharge) Start: 09-08-2023 End: 12-07-2023 take 1 capsule by mouth once daily methylphenidate LA 20 MG capsule Indications: Attention deficit hyperactivity disorder (ADHD), unspecified ADHD type Take 1 capsule by mouth daily. 30 capsule 09/08/2023 11/07/2023 Discontinued (Reorder) Start: 07-24-2023 End: 08-09-2023 methylphenidate LA 10 MG cap susanna 07/24/2023 08/09/2023 Discontinued (Therapy completed) Start: 02-21-2023 End: 09-01-2023 take 1 capsule by mouth once daily methylphenidate LA 20 MG capsule Indications: Attention deficit hyperactivity disorder (ADHD), unspecified ADHD type Take 1 capsule by mouth daily. 30 capsule 05/05/2023 05/22/2023 Discontinued (Reorder) Start: 11-15-2022 End: 02-14-2023 take 1 capsule by mouth once daily methylphenidate LA 20 MG capsule Indications: Attention deficit hyperactivity disorder (ADHD), unspecified ADHD type Take 1 capsule by mouth daily. 30 capsule 0 01/14/2023 02/14/2023 Discontinued (Reorder) Start: 10-17-2022 End: 11-15-2022 methylphenidate LA 10 MG cap susanna Multiple Vitamin (multivitamin) capsule (1 source) End: 09-14-2020 take 1 capsule by mouth once daily Multiple Vitamin (multivitamin) capsule Take 1 capsule by mouth daily. vitamin 0 09/14/2020 Discontinued (Patient Preference) norethindrone 0.35 mg oral tablet (1 source) Start: 11-19-2019 End: 09-14-2020 take 1 tablet by mouth once daily norethindrone 0.35 MG tablet Take 1 tablet by mouth daily. 0 11/19/2019 09/14/2020 Discontinued (Patient Preference) 2 ml ondansetron 2 mg/ml injection (20 sources) Serotonin-3 Receptor Antagonist Start: 09-08-2023 End: 09-08-2023 4 mg, Intravenous, ONCE NEEDED, 1 dose, Starting on Mon09/08/23 at 1432, Until Mon09/08/23 at 1504, Nausea / Vomiting, Recovery Start: 08-04-2023 End: 08-04-2023 4 mg, Intravenous, ONCE, 1 d ose, On Mon08/04/23 at 1600 Start: 08-04-2023 take 1 tablet by kobe th every eight hours as needed Ondansetron 4 MG Tab Dispersible tablet Take 1 tablet by mouth every 8 hours as needed for Nausea / Vomiting. 21 tablet 08/04/2023 Active Start: 05-13-2023 End: 05-13-2023 take 1 dose by mouth once 4 mg, Oral, ONCE, 1 dose, On 05/13/23 at 1900 Start: 10-28-2020 End: 11-15-2022 take 1 tablet by mouth every eight hours as needed for nausea and nausea ondansetron (Zofran ODT) 4 MG Tab Dispersible tablet Indications: Nausea Take 1 tablet by mouth every 8 hours as needed for Nausea / Vomiting. 30 tablet 0 04/21/2021 11/15/2022 Discontinued (Patient Preference) pantoprazole 40 mg delayed release oral tablet (1 source) Proton Pump Inhibitor Start: 05-13-2023 End: 05-13-2023 take 1 dose by mouth once 40 mg, Oral, ONCE, 1 dose, On 05/13/23 at 1945, Swallow whole; do not crush or chew., Indications: GERD promethazine hydrochloride 25 mg oral tablet (1 source) Phenothiazine Start: 11-06-2020 End: 04-21-2021 take 1 tablet by mouth every six hours as needed promethazine 25 MG tablet Take 1 tablet by mouth every 6 hours as needed (Nausea/Vomiting). 10 tablet 1 11/06/2020 04/21/2021 Discontinued (Therapy completed) sincalide (KINEVAC) 1.2 mcg in Sodium chloride 0.9%, with overfill 111.2 mL (total volume) IVPB (1 source) Start: 08-17-2023 End: 08-17-2023 1.2 mcg (rounded from 1.218 mcg = 0.015 mcg/kg 81.2 kg Order-specific weight), Intravenous, at 148.3 mL/hr, Administer over 45 Minutes, ONCE, 1 dose, On April 08/17/23 at 0830, 134mL/hour over 45 minutes, Radiology Procedure 1000 ml sodium chloride 9 mg/ml injection (4 sources) Start: 09-15-2023 End: 09-15-2023 75 mL, Intravenous, ONCE, 1 dose, On 09/15/23 at 1815, Radiology Procedure Start: 09-08-2023 End: 09-08-2023 Intravenous, at 100 mL/hr, C ONTINUOUS, Starting on Mon09/08/23 at 1030, Until Mon09/08/23 at 1907, With extension tubing, Pre-op/Pre-Proc Start: 08-04-2023 End: 08-04-2023 1,000 mL, Intravenous, at 99 9 mL/hr, ONCE, 1 dose, On Mon08/04/23 at 1600 Tc-99 mebrofenin (CHOLETEC) 1.5-5 millicurie (1 source) Start: 08-17-2023 End: 08-17-2023 1.5-5 millicurie, Intravenous, ONCE, 1 dose, On Mon08/17/23 at 0830 traMADol hydrochloride 50 mg oral tablet (12 sources) Opioid Agonist Start: 09-08-2023 take 1 dose by mouth once 50 mg, Oral, ONCE NEEDED, 1 dose, Starting on Mon09/08/23 at 1435, Until Mon09/08/23 at 1505, Moderate Pain, Severe Pain Start: 08-04-2023 End: 06-05-2024 take 1 tablet by mouth every six hours as needed traMADol 50 MG tablet Indications: Acute postoperative abdominal pain Take 1 tablet by mouth every 6 hours as needed for up to 3 days. 10 tablet 09/15/2023 06/05/2024 Discontinued (Therapy completed) VERIFY LINKED PATCH PLACEMEN T (1 source) Start: 09-08-2023 End: 09-08-2023 Other, EVERY 12 HOURS, First dose on Mon09/08/23 at 1100, Until Discontinued, Confirm continued adhesion of scopolamine 1.5 mg/72hr patch at documented site. Problems Active Problems Problem Classification Problem Date Documented Da te Episodic/Chronic Abdominal hernia (4 sources) Hiatal hernia; Translations: [Diaphragmatic hernia without obstruction or gangrene] Onset: 5 05-23-2023 Episodic Anxiety disorders (12 sources) Anxiety; Translations: [Mixed anxiety and depressive disorder] Onset: Chronic Attention-deficit, conduct, and disruptive behavior disorders (5 sources) Attention deficit hyperactivity disorder; Translations: [Attention-deficit hyperactivity disorder, unspecified type] 11-15-2022 Chronic Attention-deficit, conduct, and disruptive behavior disorders (2 sources) Attention-deficit hyperactivity disorder, unspecified type; Translations: [Attention-deficit hyperactivity disorder, unspecified type] Onset: 4 Chronic Calculus of urinary tract (2 sources) Renal colic; Translations: [Unspecified renal colic] Onset: 3 Episodic Conditions associated with dizziness or vertigo (1 source) Infection involving inner ear; Translations: [Labyrinthitis, left ear] 06-05-2024 Episodic Contraceptive and procreative management (1 source) Contraception Episodic E Codes: Natural/environment (1 source) Overexertion from prolonged static or awkward postures, initial encounter; Translations: [Overexertion from prolonged static or awkward postures, init] Onset: 3 Episodic Esophageal disorders (5 sources) Gastroesophageal reflux disease; Translations: [Gastro-esophageal reflux disease without esophagitis] Onset: 5 05-13-2023 Chronic Headache; including migraine (3 sources) Migraine without aura, not refractory ; Translations: [Chronic migraine without aura, not intractable, without status migrainosus] Chronic Headache; including migraine (1 source) Headache; Translations: [Headache] 04-29-2024 Episodic Menstrual disorders (2 sources) Irregular periods; Translations: [Irregular menstruation, unspecified] 11-09-2023 Chronic Miscellaneous mental health disorders (3 sources) Primary insomnia; Translations: [Primary insomnia] Chronic Mood disorders (10 sources) Severe recurrent major depression without psychotic features; Translations: [Recurrent major depressive episodes, moderate ] Onset: 5 11-15-2022 Chronic Mycoses (3 sources) Mycosis; Translations: [Opportunistic mycosis] Episodic Nausea and vomiting (1 source) Nausea; Translations: [Nausea] Episodic Nonmalignant breast conditions (1 source) Breast tenderness; Translations: [Breast tenderness] Episodic Nonspecific chest pain (2 sources) Chest pain; Translations: [Chest pain, unspecified] Onset: 5 04-29-2024 Episodic Other bone disease and musculoskeletal deformities (3 sources) Osteochondropathy; Translations: [Other specified osteochondropathies, right ankle and foot] Onset: 4 03-06-2023 Chronic Other bone disease and musculoskeletal deformities (1 source) Other specified osteochondropathies, right ankle and foot; Translations: [Other specified osteochondropathies, right ankle and foot] Onset: 4 Chronic Other circulatory disease (2 sources) Raynaud's phenomenon; Translations: [Raynaud's syndrome without gangrene] 06-05-2024 Chronic Other circulatory disease (2 sources) Raynaud's syndrome without gangrene; Translations: [Raynaud's syndrome without gangrene] Onset: 5 Chronic Other circulatory disease (2 sources) Blood pressure alteration; Translations: [Other disorder of circulatory system] 06-05-2024 Episodic Other circulatory disease (2 sources) Other disorder of circulatory system; Translations: [Other disorder of circulatory system] Onset: 5 Episodic Other connective tissue disease (1 source) Pain in left arm; Translations: [Pain in left arm] 04-29-2024 Episodic Other female genital disorders (3 sources) Dysfunctional uterine bleeding; Translations: [Dysfunctional uterine bleeding] Chronic Other gastrointestinal disorders (3 sources) Irritable bowel syndrome with diarrhea; Translations: [Irritable bowel syndrome with diarrhea] Chronic Other gastrointestinal disorders (3 sources) Abdominal bloating; Translations: [Abdominal distension (gaseous)] Episodic Other gastrointestinal disorders (3 sources) Constipation; Translations: [Constipation, unspecified] Episodic Other gastrointestinal disorders (2 sources) Functional diarrhea; Translations: [Functional diarrhea] Episodic Other gastrointestinal disorders (1 source) Diarrhea; Translations: [Diarrhea, unspecified] 11-09-2023 Episodic Other gastrointestinal disorders (2 sources) Diarrhea, unspecified; Translations: [Diarrhea, unspecified] Onset: 5 Episodic Other injuries and conditions due to external causes (1 source) Personal history of other (healed) physical injury and trauma; Translations: [Personal history of oth (healed) physical injury and trauma] Onset: 3 Episodic Other injuries and conditions due to external causes (1 source) Unspecified injury of right ankle, initial encounter; Translations: [Unspecified injury of right ankle, initial encounter] Onset: 3 Episodic Other lower respiratory disease (1 source) Cough; Translations: [Acute cough] 03-05-2023 Episodic Other nervous system disorders (3 sources) Difficulty walking; Translations: [Difficulty in walking, not elsewhere classified] Onset: 4 03-06-2023 Chronic Other nervous system disorders (1 source) Difficulty in walking, not elsewhere classified; Translations: [Difficulty in walking, not elsewhere classified] Onset: 4 Chronic Other nervous system disorders (1 source) Facial paresthesia; Translations: [Paresthesia of skin] 04-29-2024 Episodic Other nervous system disorders (1 source) Numbness of hand; Translations: [Anesthesia of skin] 06-05-2024 Episodic Other nervous system disorders (2 sources) Anesthesia of skin; Translations: [Anesthesia of skin] Onset: 5 Episodic Other nervous system disorders (2 sources) Paresthesia of skin; Translations: [Paresthesia of skin] Onset: 5 Episodic Other nervous system disorders (2 sources) Paresthesia of lower extremity; Translations: [Anesthesia of skin] 07-24-2024 Episodic Other non-traumatic joint disorders (1 source) Pain in right ankle and joints of right foot; Translations: [Pain in right ankle] Onset: 3 Episodic Other nutritional; endocrine; and metabolic disorders (20 sources) Obesity, unspecified; Translations: [Obese class I] Onset: 8 10-16-2017 Chronic Other nutritional; endocrine; and metabolic disorders (1 source) Body mass index 30+ - obesity; Translations: [Obesity (BMI 30-39.9)] Chronic Other nutritional; endocrine; and metabolic disorders (20 sources) Obese class II; Translations: [Obesity, unspecified] Onset: 0 08-08-2019 Chronic Other nutritional; endocrine; and metabolic disorders (1 source) Weight loss; Translations: [Abnormal weight loss] Episodic Other nutritional; endocrine; and metabolic disorders (8 sources) Obese class I; Translations: [Obesity (BMI 30.0-34.9)] Onset: 8 10-16-2017 Other upper respiratory infections (4 sources) Upper respiratory infection; Translations: [Sore throat symptom] 03-05-2023 Episodic Residual codes; unclassified (1 source) Tobacco use; Translations: [Tobacco use] Onset: 3 Episodic Residual codes; unclassified (1 source) Other specified postprocedural states; Translations: [Other specified postprocedural states] Onset: 3 Episodic Spondylosis; intervertebral disc disorders; other back problems (1 source) Chronic low back pain; Translations: [Chronic bilateral low back pain, unspecified whether sciatica present] 07-05-2024 Episodic Unclassified (2 sources) LOWER BACK AND ABD PAIN LEG PAIN 09-06-2020 Comment on above: LOWER BACK AND ABD P AIN LEG PAIN Unclassified (2 sources) RIGHT FOOT PAIN - FELL 11-16-2022 Comment on above: RIGHT FOOT PAIN - FE LL Unclassified (1 source) Sprain of right ankle, unspecified ligament, initial encounter 11-16-2022 Unclassified (1 source) Sprain of right foot, initial encounter 11-16-2022 Urinary tract infections (7 sources) Urinary tract infectious disease; Translations: [Urinary tract infection, site not specified] Onset: 3 09-06-2020 Episodic Past or Other Problems Problem Classification Problem Date Documented Date Episodic/Chronic Abdominal pain (13 sources) Suprapubic pain; Translations: [Epigastric pain] Onset: 08-04-2023 Episodic Biliary tract disease (6 sources) Biliary colic; Translations: [Calculus of bile duct without cholangitis or cholecystitis without obstruction] Onset: 09-06-2023 08-31-2023 Episodic Blindness and vision defects (2 sources) Regular astigmatism, unspecified eye; Translations: [Myopia, bilateral] Onset: 12-18-2013 Episodic Early or threatened labor (20 sources) labor without delivery, third trimester; Translations: [Threatened premature labor - not delivered ] Onset: 08-09-2019 Episodic Genitourinary symptoms and ill-defined conditions (11 sources) Other nonspecific findings on examination of urine; Translations: [Scalding pain on urination ] Onset: 09-02-2019 Episodic Mood disorders (20 sources) Mood disorders Onset: 04-21-2021 Resolved: 11-09-2023 04-21-2021 Other complications of (2 sources) Cervical incompetence, antepartum condition or complication; Translations: [CERV INCOMPETENCE-AP] Onset: 08-15-2019 Episodic Other connective tissue disease (3 sources) Pain in right foot; Translations: [Pain in right foot] Onset: 09-27-2023 Episodic Other female genital disorders (1 source) Vaginal bleeding; Translations: [Vaginal bleeding] Episodic Other nervous system disorders (1 source) Acute abdominal pain; Translations: [Other acute postprocedural pain] 09-15-2023 Episodic Other nervous system disorders (2 sources) Other acute postprocedural pain; Translations: [Other acute postprocedural pain] Onset: 09-15-2023 Episodic Other non-traumatic joint disorders (3 sources) Instability of joint of right ankle; Translations: [Other instability, right ankle] Onset: 03-06-2023 03-06-2023 Episodic Other non-traumatic joint disorders (1 source) Other instability, right ankle; Translations: [Other instability, right ankle] Onset: 03-06-2023 Episodic Other and delivery including normal (8 sources) Encounter for supervision of other normal , third trimester; Translations: [ state, incidental] Onset: 07-23-2019 Episodic Sprains and strains (8 sources) Sprain of ankle; Translations: [Sprain of ankle, unspecified site] Onset: 11-16-2022 11-16-2022 Episodic Viral infection (3 sources) Viral disease; Translations: [Viral infection, unspecified] Onset: 01-08-2024 01-08-2024 Episodic Results Test Name Value Interpretation Reference Range Facility EMG & NERVE CONDUCTIONon Tennille Boyce MD 07/24/2024 11:43 AM Tennille Boyce MD 07/24/2024 11:42 AM Study: EMG/NCS right lower extremity Date: 07/24/2024 Patient Name: Ashlie Malvae Patient : 1995 Reason for study: 28 y.o. female who presents with lower back pain radiating into the right leg. Preliminary Impression: This is a normal study. There is no electrodiagnostic evidence found of a neuropathy or of a lumbar radiculopathy involving the right lower extremity. Final, full report to be scanned as soon as possible. [facility] 12 Lead EKGon 04-29-2024 12 Lead EKG [facility] Cardi[facility] Services [address] [place] [address] 12 Lead EKG 04/29/24 1916 MR#: [id number] Acct: [id number] Name: ASHLIE MALAVE Rep #: [id number] : 1995 28 From: Dipak Siddiqi MD Attending Dr: Status: DEP ER Ordering Dr: Moody Serrano MD Date: 04/29/24 Location: ED Sex: F C Admitted: Test Reason : DYSRHYTHMIA Blood Pressure : */* mmHG Vent. Rate : 63 BPM Atrial Rate : 63 BPM P-R Int : 142 ms QRS Dur : 82 ms QT Int : 408 ms P-R-T Axes : 72 68 65 degrees QTcB Int : 417 ms Normal sinus rhythm with sinus arrhythmia Normal ECG Confirmed by Dipak Siddiqi ([id number]), design editor JAS CALLEJAS ([id number]) on 04/30/2024 10:59:47 AM Referred By: AR Confirmed By: Dipak Siddiqi 04/30/24 1059 Date Dipak Siddiqi MD CC: MANOJ Morse; Dr. Moody Serrano MD Signed Normal [facility] Absolute neutrophil countOrd ered By: Moody Serrano on 04-29-2024 Neutrophils (Bld) [#/Vol] 3.6 10*3/uL 2.0-7.7 [facility] Anion gap in Serum or Plasma Ordered By: Moody Serrano on 04-29-2024 Anion gap [Moles/Vol] 11 mmol/L 07-04 [facility] BUN/creatinine ratioOrdered By: Moody Serrano on 04-29-2024 Urea nitrogen/Creatinine [Mass ratio] 15.9 mg/mg 12-09 [facility] Basic Metabolic Profile (BMP )on 04-29-2024 BUN/CRE 15.9 RATIO Normal 12-09 [facility] Comment on above: Performed By: #### L 100.0100, L500.2500, L501.4021 #### [facility] [address] [place], [place], [id number] Calcium [Mass/Vol] 8.9 mg/dL Normal 7.6-11.0 [facility] Comment on above: Performed By: #### L 100.0100, L500.2500, L501.4021 #### [facility] [address] [place], [address] Chloride [Moles/Vol] 103 mmol/L Normal 98-[address] [facility] Comment on above: Performed By: #### L 100.0100, L500.2500, [id number] #### [facility] [address] [place], [address] CO2 [Moles/Vol] 21.5 mmol/L Normal 21.0-32.0 [facility] Comment on above: Performed By: #### L 100.0100, L500.2500, [id number] #### [facility] [address] [place], [address] Creatinine [Mass/Vol] 0.70 mg/dL Normal 0.70-1.20 [facility] Comment on above: Performed By: #### L 100.0100, L500.2500, [id number] #### [facility] [address] [place], [address] ECRCL 133.14 ml/min Normal 50-250 [facility] Comment on above: Performed By: #### L 100.0100, L500.2500, [id number] #### [facility] [address] [place], [address] GAP 11 Normal 5-15 [facility] Comment on above: Performed By: #### L 100.0100, L500.2500, [id number] #### [facility] [address] [place], [address] GFR/1.73 sq M.predicted among non-blacks MDRD (S/P/Bld) [Vol rate/Area] 121 mL/min/{1.73_m2} Normal >60 [facility] Comment on above: Result Comment: mL/m in/1.73m2 CKD-EPI Creatinine Equation (2020) Performed By: #### L 100.0100, L500.2500, [id number] #### [facility] [address] [place], [address] Glucose [Mass/Vol] 97 mg/dL Normal 70-99 [facility] Comment on above: Performed By: #### L 100.0100, L500.2500, [id number] #### [facility] [address] [place], [address] Potassium [Moles/Vol] 4.2 mmol/L Normal 3.3-5.1 [facility] Comment on above: Performed By: #### L 100.0100, L500.2500, [id number] #### [facility] [address] [place], [address] Sodium [Moles/Vol] 136 mmol/L Normal 133-145 [facility] Comment on above: Performed By: #### L 100.0100, L500.2500, [id number] #### [facility] [address] [place], [address] Urea nitrogen [Mass/Vol] 11 mg/dL Normal 4-19 [facility] Comment on above: Performed By: #### L 100.0100, L500.2500, [id number] #### [facility] [address] [place], [address] Basophil percentageOrdered B y: Moody Reodica on 04-29-2024 Basophils/100 WBC (Bld) 0.2 % 0-1 [facility] Brain/Head without Contrasto n 04-29-2024 Brain/Head without Contrast [facility] Imaging Services [address] [place] [address] Brain/Head without Contrast MR#: [id number] Acct: [id number] Name: CHINOASHLIE DEBORAH Rep #: [id number] : 1995 F 28 From: Marlyn Gamble nd, MD PCP: MANOJ Mackay Status: REG ER Study: Brain/Head without Contrast Date of Exam: 04/20 Exam# [id number] Ordering Dr: Moody Serrano MD EXAM: BRAIN/HEAD WITHOUT CONTRAST CLINICAL HISTORY: 28 y/o F with HEADACHE. Left sided facial and arm numbness. COMPARISON: None. TECHNIQUE: Routine CT imaging of the head without IV contrast. Additional multiplanar reformats were obtained. Dose reduction techniques were used including intermediate exposure control (AEC),iterative reconstruction technique, and/or mA and/or KV dose adjustments based on patient's size. FINDINGS: No acute intracranial hemorrhage or mass effect. The lepe-white matter interfaces are maintained. Tiny pineal cyst. Mild scattered secretions throughout the visualized paranasal sinuses. Trace fluid within the right mastoid air cells. The orbits are unremarkable. No acute calvarial fracture or scalp hematoma. CT/Brain/Head without Contrast IMPRESSION: 1. No acute intracranial finding. 2. 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 If not recently performed, nonemergent brain MRI could be obtained for further characterization. Reading Location: [facility] CC: JEANETTE-C Vianney Morse; Dr. Moody Serrano MD Pulmonology Technician: Signed Normal [facility] CBC W/Diff, Automatedon 04-20 Absolute Lymph 1.62 X10 3/uL Normal 0.83-4.51 [facility] Comment on above: Performed By: #### L 100.0100, L500.2500, L501.4021 #### [facility] [address] [place], [address] Absolute Neut 3.6 X10 3/uL Normal 2.0-7.7 [facility] Comment on above: Performed By: #### L 100.0100, L500.2500, L501.4021 #### [facility] [address] [place], [address] Basophils/100 WBC (Bld) 0.2 % Normal 0-1 [facility] Comment on above: Performed By: #### L 100.0100, L500.2500, L501.4021 #### [facility] [address] [place], [address] Eosinophils/100 WBC (Bld) 0.0 % Normal 0-5 [facility] Comment on above: Performed By: #### L 100.0100, L500.2500, L501.4021 #### [facility] [address] [place], [address] Erythrocyte distribution width (RBC) [Ratio] 12.4 % Normal 11.6-14.6 [facility] Comment on above: Performed By: #### L 100.0100, L500.2500, L501.4021 #### [facility] [address] [place], [address] Hematocrit (Bld) [Volume fraction] 35.5 % Low 37-47 [facility] Comment on above: Performed By: #### L 100.0100, L500.2500, L501.4021 #### [facility] [address] [place], [address] Hemoglobin (Bld) [Mass/Vol] 12.2 g/dL Normal 12.0-15.0 [facility] Comment on above: Performed By: #### L 100.0100, L500.2500, L501.4021 #### [facility] [address] [place], [address] IG% 0.400 Normal 0.0-0.9 [facility] Comment on above: Result Comment: IG% - Immature Granulocytes (promyelocytes, myelocytes and metamyelocytes) > 1% indicates that a LEFT SHIFT is Present. Performed By: #### L 100.0100, L500.2500, L501.4021 #### [facility] [address] [place], [address] Lymphocytes/100 WBC (Bld) 28.4 % Normal 19-41 [facility] Comment on above: Performed By: #### L 100.0100, L500.2500, L501.4021 #### [facility] [address] [place], [address] MCH (RBC) [Entitic mass] 30.7 pg Normal 27.0-32.0 [facility] Comment on above: Performed By: #### L 100.0100, L500.2500, L501.4021 #### [facility] [address] [place], [address] MCHC (RBC) [Mass/Vol] 34.4 g/dL Normal 32-36 [facility] Comment on above: Performed By: #### L 100.0100, L500.2500, L501.4021 #### [facility] [address] [place], [address] MCV (RBC) [Entitic vol] 89.2 fL Normal 81-99 [facility] Comment on above: Performed By: #### L 100.0100, L500.2500, L501.4021 #### [facility] [address] [place], [address] Monocytes/100 WBC (Bld) 8.2 % Normal 0-10 [facility] Comment on above: Performed By: #### L 100.0100, L500.2500, L501.4021 #### [facility] [address] [place], [address] Neutrophils/100 WBC (Bld) 62.8 % Normal 47-70 [facility] Comment on above: Performed By: #### L 100.0100, L500.2500, L501.4021 #### [facility] [address] [place], [address] Nucleated RBC (Bld) [#/Vol] 0 10*3/uL Normal 0-5 [facility] Comment on above: Performed By: #### L 100.0100, L500.2500, L501.4021 #### [facility] [address] [place], [address] Platelet mean volume (Bld) [Entitic vol] 11.6 fL Normal 6.2-12.0 [facility] Comment on above: Performed By: #### L 100.0100, L500.2500, L501.4021 #### [facility] [address] [place], [address] Platelets (Bld) [#/Vol] 159 10*3/uL Normal 150-450 [facility] Comment on above: Performed By: #### L 100.0100, L500.2500, L501.4021 #### [facility] [address] [place], [address] RBC (Bld) [#/Vol] 3.98 10*6/uL Low 4.2-5.4 [facility] Comment on above: Performed By: #### L 100.0100, L500.2500, L501.4021 #### [facility] [address] [place], [address] RDW SD 40.3 fl Normal 35.1-43.9 [facility] Comment on above: Performed By: #### L 100.0100, L500.2500, L501.4021 #### [facility] [address] [place], [address] WBC (Bld) [#/Vol] 5.7 10*3/uL Normal 4.4-11.0 [facility] Comment on above: Performed By: #### L 100.0100, L500.2500, L501.4021 #### [facility] [address] [place], [address] Carbon dioxide, total [Moles /volume] in Central venous bloodOrdered By: Moody Serrano on 04-29-2024 CO2 [Moles/Vol] 21.5 mmol/L 21.0-32.0 [facility] Chest 1 View (Portable)on Chest 1 View (Portable) [facility] [address] [place] [address] Chest 1 View (Portable) MR#: [id number] Acct: [id number] Name: ASHLIE MALAVE Rep #: [id number] : 1995 F 28 From: Marlyn Gamble nd, MD PCP: MANOJ Mackay Status: REG ER Study: Chest 1 View (Portable) Date of Exam: 04/29/24 Exam# [id number] Ordering Dr: Moody Serrano MD PROCEDURE: CHEST 1 VIEW (PORTABLE) REASON FOR EXAM: 28-year-old female, chest pain, hypertension. TECHNIQUE: Frontal view of the chest. COMPARISON: None. FINDINGS: The heart size is normal. No focal consolidation, pleural effusion or pneumothorax. The bones are unremarkable. RAD/Chest 1 View (Portable) IMPRESSION: NEGATIVE CHEST. Reading Location: [facility] CC: CHARGEBACK ANALYST-C Vianney Morse; Dr. Moody Serrano MD Pulmonology Technician: Signed Normal [facility] Chloride assayOrdered By: Roc Serrano on 04-29-2024 Chloride [Moles/Vol] 103 mmol/L 98-[address] [facility] Emergency Department Summary on 04-29-2024 Emergency Department Summary [facility] Medical Records Department [address] [place] [address] Emergency Department Summary 04/29/24 MR#: [id number] Acct: [id number] Name: ASHLIE MALAVE Rep #: [id number] : 1995 28 From: Moody Serrano MD PCP: MANOJ Mackay Status:REG ER Location: ED HPI History of Present Illness Chief Complaint: Neuro S/Sx Narrative Narrative: 28-year-old female past medical history of ADHD recently changed to Concerta, presents with headache that she rates 9 out of 10 as well as chest pain and pressure and left facial numbness as well as left arm pain and numbness. The symptoms began while she was at work at [employer]. 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 She is not really describing numbness but states that it feels funky. No exacerbating or alleviating factors. She was concerned because her blood pressure was elevated as well. This was after she had taken Excedrin. She said her blood pressure was in the 140s to 150s. PFSH [facility] Medical History no medical history Home Medications ???Medication ???Instructions ???Recorded ???Last Taken ???Type buspirone 15 mg tablet 15 mg PO DAILY 04/29/24 Unknown Hi story desvenlafaxine succinate 25 mg 25 mg PO DAILY 04/29/24 Unknown Hi story tablet,extended release 24 hr (Pristiq) Allergy/AdvReac Type Severity Reaction Status Date / Time acetaminophen (From Percocet) Allergy Anaphylaxis Verified 04/29/24 18:05 cephalexin (From Keflex) Allergy Hives Verified 04/29/24 18:05 codeine Allergy Anaphylaxis Verified 04/29/24 18:05 oxycodone (From Percocet) Allergy Anaphylaxis Verified 04/29/24 18:05 Family History no significant family his Surgical History no surgical history Social History Smoking Status: Former smoker ROS ROS ED ROS Narrative Constitutional: No fever, no chills. HEENT: No sore throat. No neck pain. No loss of vision. Cardiovascular: Positive chest pain. No palpitations. No pedal edema. Respiratory: No cough, no shortness of breath. Abdominal: No abdominal pain. No nausea. No vomiting. Genitourinary: No dysuria. No hematuria. Musculoskeletal: No myalgias. No arthralgias. Neurologic: Positive headaches. No dizziness. No lightheadedness. Left facial feeling funny/numbness, left arm pain and numbness. Skin: No rash. No change in color. EXAM Physical Exam Narrative Exam Narrative: Afebrile. Vital signs noted. Nontoxic-appearing. Cardiovascular examination reveals a regular rate and rhythm. Lungs are clear to auscultation bilaterally. Abdomen is soft and nontender without guarding or rebound. Positive bowel sounds. Neurological examination is nonfocal and nonlateralizing. NIH stroke scale is 0. No pedal edema. Patient was tearful prior to examination. Const Vital Signs: 04/29/24 18:05 04/29/24 18:59 04/29/24 19:10 Temperature 98 F Temperature Source Temporal Pulse Rate 69 74 Respiratory Rate 18 Blood Pressure 157/106 H 113/78 Blood Pressure Mean 123 89 Pulse Ox 100 100 100 Oxygen Delivery Method Room Air Room Air Room Air 04/29/24 20:03 04/29/24 22:00 Temperature Temperature Source Pulse Rate 58 L 67 Respiratory Rate 18 18 Blood Pressure 127/78 H 110/70 Blood Pressure Mean 94 83 Pulse Ox 100 99 Oxygen Delivery Method Room Air Room Air MDM MDM MDM Narrative Medical decision making narrative: Differential diagnosis includes but not limited to stroke versus intracranial hemorrhage versus mass versus atypical migraine. Her blood pressure may be elevated from her ADH meds in combination with her taking Excedrin which has caffeine. Her blood pressure has normalized to 113/78 currently and was 117 systolic while I was in the room. I do not feel that she meets stroke team criteria, and she is outside the window for [place] K greater than 4 hours. Additionally she does not have a debilitating deficit. She will be given Compazine and Benadryl as well as IV fluids and comprehensive workup was pursued. I will obtain a CT of the brain to rule out mass or hemorrhage. Regarding her chest pain, comprehensive workup was pursued EKG was obtained and interpreted by myself independently as normal sinus rhythm with sinus arrhythmia at 63 bpm without other ectopy, no acute ST changes, no STEMI. I reviewed her laboratory work and she has normal white count of 5.7 with hemoglobin 12.2, hematocrit 35.5, platelet count normal at 159. BMP is grossly unremarkable, initial high-sensitivity troponin is less than 6. Chest x-ray interpreted by myself (more content not included)... Normal [facility] Eosinophil percentageOrdered By: Moody Serrano on 04-29-2024 Eosinophils/100 WBC (Bld) 0.0 % 0-5 [facility] Erythrocyte distribution wid th ratioOrdered By: Moody Serrano on 04-29-2024 Erythrocyte distribution width (RBC) [Ratio] 12.4 % 11.6-14.6 [facility] Erythrocyte distribution wid th standard deviationOrdered By: Moody Serrano on 04-29-2024 Erythrocyte distribution width (RBC) [Entitic vol] 40.3 fL 35.1-43.9 [facility] Estimation of creatinine milagro aranceOrdered By: Moody Serrano on 04-29-2024 Estimated Creatinine Clearance Calc 133.14 ml/min 50-250 [facility] GFR/1.73 sq M.predicted rosa g non-blacks MDRD (S/P/Bld) [Vol rate/Area]Ordered By: Moody Serrano on 04-29-2024 Estimated GFR (MDRD) Non-Af Amer 121 >60 [facility] Comment on above: mL/min/1.73m2 CKD-EP I Creatinine Equation (2020) Hematocrit Auto (Bld) [Volum e fraction]Ordered By: Moody Serrano on 04-29-2024 Hematocrit (Bld) [Volume fraction] 35.5 % Low 37-47 [facility] Hemoglobin measurementOrdere d By: Moody Serrano on 04-29-2024 Hemoglobin (Bld) [Mass/Vol] 12.2 g/dL 12.0-15.0 [facility] Immature granulocytes/100 WB C Auto (Bld)Ordered By: Moody Serrano on 04-29-2024 Immature granulocytes/100 WBC (Bld) 0.400 % 0.0-0.9 [facility] Comment on above: IG% - Immature Granu locytes (promyelocytes, myelocytes and metamyelocytes) > 1% indicates that a LEFT SHIFT is Present. L499.0042on 04-29-2024 Trop T High Sen < 6 Normal <=14 [facility] Comment on above: Performed By: #### L 499.0042 #### [facility] [address] [place], [address] L499.0043on 04-29-2024 Trop T High Sen Normal <=14 [facility] Comment on above: Result Comment: Canc elled via OM: Order cancelled - Patient discharged Performed By: #### L 499.0043 #### [facility] [address] [place], [address] L501.4021on 04-29-2024 Trop T High Sen < 6 Normal <=14 [facility] Comment on above: Performed By: #### L 100.0100, L500.2500, L501.4021 #### [facility] [address] [place], [address] Lymphocytes Auto (Unsp spec) [#/Vol]Ordered By: Moody Serrano on 04-29-2024 Lymphocytes (Bld) [#/Vol] 1.62 10*3/uL 0.83-4.51 [facility] Lymphocytes/100 WBC Auto (Un sp spec)Ordered By: Moody Serrano on 04-29-2024 Lymphocytes/100 WBC (Bld) 28.4 % 19-41 [facility] MCV (mean corpuscular volume ) determinationOrdered By: Moody Serrano on 04-29-2024 MCV (RBC) [Entitic vol] 89.2 fL 81-99 [facility] Mean corpuscular hemoglobin (MCH) determinationOrdered By: Moody Serrano on 04-29-2024 MCH (RBC) [Entitic mass] 30.7 pg 27.0-32.0 [facility] Mean corpuscular hemoglobin concentration (MCHC) determinationOrdered By: Moody Serrano on 04-29-2024 MCHC (RBC) [Mass/Vol] 34.4 g/dL 32-36 [facility] Mean platelet volume determi nationOrdered By: Moody Serrano on 04-29-2024 Platelet mean volume (Bld) [Entitic vol] 11.6 fL 6.2-12.0 [facility] Monocyte percentageOrdered B y: Moody Serrano on 04-29-2024 Monocytes/100 WBC (Bld) 8.2 % 0-10 [facility] Neutrophil percentageOrdered By: Moody Serrano on 04-29-2024 Neutrophils/100 WBC (Bld) 62.8 % 47-70 [facility] No Panel InformationOrdered By: Moody Serrano on 04-29-2024 Troponin T High Sensitivity < 6 ng/L <14 [facility] Nucleated red blood cell per centageOrdered By: Moody Serrano on 04-29-2024 Nucleated RBC/100 WBC (Bld) [Ratio] 0 % 0-5 [facility] Platelet countOrdered By: Roc Serrano on 04-29-2024 Platelets (Bld) [#/Vol] 159 10*3/uL 150-450 [facility] Potassium (Unsp spec) [Mass/ Vol]Ordered By: Moody Serrano on 04-29-2024 Potassium [Moles/Vol] 4.2 mmol/L 3.3-5.1 [facility] RBC Auto (Bld) [#/Vol]Ordere d By: Moody Serrano on 04-29-2024 RBC (Bld) [#/Vol] 3.98 10*6/uL Low 4.2-5.4 [facility] Serum creatinine measurement (mass/volume)Ordered By: Moody Serrano on 04-29-2024 Creatinine [Mass/Vol] 0.70 mg/dL 0.70-1.20 [facility] Serum glucose measurement (m ass/volume)Ordered By: Moody Serrano on 04-29-2024 Glucose [Mass/Vol] 97 mg/dL 70-99 [facility] Serum or plasma calcium rudy urement (mass/volume)Ordered By: Moody Serrano on 04-29-2024 Calcium [Mass/Vol] 8.9 mg/dL 7.6-11.0 [facility] Serum or plasma urea nitroge n measurement (mass/volume)Ordered By: Moody Serrano on 04-29-2024 Urea nitrogen [Mass/Vol] 11 mg/dL 4-19 [facility] Sodium levelOrdered By: Moody Serrano on 04-29-2024 Sodium [Moles/Vol] 136 mmol/L 133-145 [facility] Troponin T.cardiac High sens itivity method [Mass/Vol]Ordered By: Moody Serrano on 04-29-2024 Troponin T High Sensitivity 2 Hour < 6 ng/L <14 [facility] White blood cell (WBC) count Ordered By: Moody Serrano on 04-29-2024 WBC (Bld) [#/Vol] 5.7 10*3/uL 4.4-11.0 [facility] HCG ( test) Ql (U)O rdered By: Pita Suazo on 01-08-2024 HCG.beta subunit [Moles/Vol] Negative [facility] Interpretation and review of laboratory results Normal [facility] POCT URINE DIPSTICK AUTOMATE DOrdered By: Camelia Pelletier on 01-08-2024 Amorphous sediment LM Ql (Urine sed) [facility] Appearance (U) clear [facility] Bacteria LM Ql (Urine sed) [facility] Bilirubin Ql (U) Negative [facility] Casts LM.LPF (Urine sed) [#/Area] [facility] Color (U) yellow [facility] Crystals LM Nom (Urine sed) [facility] Epithelial cells.squamous LM.HPF (Urine sed) [#/Area] [facility] Flow cytometry specialist review [place] (Unsp spec) [Interp] [facility] Glucose Auto test strip (U) [Mass/Vol] Negative mg/dL [facility] Ketones [Mass/Vol] Negative mg/dL [facility] Leukocyte esterase Qn (U) [facility] Leukocyte esterase Test strip Ql (U) Negative [facility] Microscopic observation Gram stain Nom (Bronch spec) [facility] Nitrite Ql (U) Negative [facility] pH (U) 6.0 [pH] 5 - 7 [facility] Protein Ql (U) Negative mg/dL [facility] RBC LM.HPF (Urine sed) [#/Area] [facility] RBC Ql (U) Negative [facility] Specific gravity (U) [Rel density] 1.015 1.001 - 1.035 [facility] Transitional cells LM Ql (Urine sed) [facility] Urobilinogen Qn (U) 0.2 [facility] WBC LM.HPF (Urine sed) [#/Area] [facility] URINE CULTUREon 01-08-2024 Bacteria identified Cx Nom (U) SPECIMEN DESCRIPTION URINE CLEAN CATCH CULTURE NO GROWTH 2 DAYS * Result Note: Testing performed at [place], [place] [address] * REPORT STATUS 01/10/2024 * Result Note: FINAL * Normal [facility] Comment on above: Performed By: #### A URNC #### Testing performed at [address] [address] BETA HCG, QUAL, BLOODon - HCG ( test) Ql Negative NEGATIVE A [facility] CBCon 09-15-2023 ABSOLUTE BAS 0.0 10*3/uL Normal 0.0-0.2 [facility] Comment on above: Performed By: #### C MPF, ACBC #### Testing performed at [address] [address] ABSOLUTE EOS 0.0 10*3/uL Normal 0.0-0.7 [facility] Comment on above: Performed By: #### C MPF, ACBC #### Testing performed at [address] [address] ABSOLUTE NEUTROPHIL COUNT 5.6 10*3/uL Normal 1.4-6.5 [facility] Comment on above: Performed By: #### C MPF, ACBC #### Testing performed at [address] [address] Basophils/100 WBC (Bld) 0.0 % Normal 0.0-2.0 [facility] Comment on above: Performed By: #### C MPF, ACBC #### Testing performed at [address] [place] [address] DTYPE AUTO DIFF Normal [facility] Comment on above: Performed By: #### C MPF, ACBC #### Testing performed at [address] [address] Eosinophils/100 WBC (Bld) 0.0 % Normal 0.0-11.0 [facility] Comment on above: Performed By: #### C MPF, ACBC #### Testing performed at [address] [address] Lymphocytes (Bld) [#/Vol] 0.2 10*3/uL Low 1.2-3.4 [facility] Comment on above: Performed By: #### C MPF, ACBC #### Testing performed at [address] [place] [address] Lymphocytes/100 WBC (Bld) 3.2 % Low 20.0-55.0 [facility] Comment on above: Performed By: #### C MPF, ACBC #### Testing performed at [address] [address] Monocytes (Bld) [#/Vol] 0.5 10*3/uL Normal 0.0-0.7 [facility] Comment on above: Performed By: #### C MPF, ACBC #### Testing performed at [address] [place] [address] Monocytes/100 WBC (Bld) 7.7 % Normal 0.0-10.0 [facility] Comment on above: Performed By: #### C MPF, ACBC #### Testing performed at [address] [place] [address] Neutrophils/100 WBC (Bld) 89.1 % High 37.0-75.0 [facility] Comment on above: Performed By: #### C MPF, ACBC #### Testing performed at [address] [place] [address] Erythrocyte distribution width (RBC) [Ratio] 12.8 % Normal 11.5-14.5 [facility] Comment on above: Performed By: #### C MPF, ACBC #### Testing performed at [address] [place] [address] Hematocrit (Bld) [Volume fraction] 38.3 % Normal 36.0-48.0 [facility] Comment on above: Performed By: #### C MPF, ACBC #### Testing performed at [address] [place] [address] Hemoglobin (Bld) [Mass/Vol] 13.1 g/dL Normal 12.0-16.0 [facility] Comment on above: Performed By: #### C MPF, ACBC #### Testing performed at [address] [place] [address] MCH (RBC) [Entitic mass] 30.3 pg Normal 26.0-35.0 [facility] Comment on above: Performed By: #### C MPF, ACBC #### Testing performed at [address] [address] MCHC (RBC) [Mass/Vol] 34.1 g/dL Normal 27.0-37.0 [facility] Comment on above: Performed By: #### C MPF, ACBC #### Testing performed at [address] [address] MCV (RBC) [Entitic vol] 88.7 fL Normal 80.0-100.0 [facility] Comment on above: Performed By: #### C MPF, ACBC #### Testing performed at [address] [address] Platelet mean volume (Bld) [Entitic vol] 9.0 fL Normal 7.4-11.0 [facility] Comment on above: Performed By: #### C MPF, ACBC #### Testing performed at [address] [address] Platelets (Bld) [#/Vol] 146 10*3/uL Normal 130-400 [facility] Comment on above: Performed By: #### C MPF, ACBC #### Testing performed at [address] [address] RBC (Bld) [#/Vol] 4.32 10*6/uL Normal 4.0-5.4 [facility] Comment on above: Performed By: #### C MPF, ACBC #### Testing performed at [address] [address] WBC (Bld) [#/Vol] 6.3 10*3/uL Normal 3.6-11.0 [facility] Comment on above: Performed By: #### C MPF, ACBC #### Testing performed at [address] [address] CBC, EDIF, PLATELETon 2023 ABSOLUTE BASOPHIL COUNT 0.0 10*3/uL 0.0 - 0.2 10*3/uL [facility] Basophils/100 WBC (Bld) 0.0 % 0.0 - 2.0 % [facility] Differential cell count method Nom (Bld) AUTO DIFF % [facility] Eosinophils (Bld) [#/Vol] 0.0 10*3/uL 0.0 - 0.7 10*3/uL [facility] Eosinophils/100 WBC (Bld) 0.0 % 0.0 - 11.0 % [facility] Erythrocyte distribution width (RBC) [Ratio] 12.8 % 11.5 - 14.5 % [facility] Hematocrit (Bld) [Volume fraction] 38.3 % 36.0 - 48.0 % [facility] Hemoglobin (Bld) [Mass/Vol] 13.1 g/dL [facility] Interpretation and review of laboratory results Abnormal [facility] Lymphocytes (Bld) [#/Vol] 0.2 10*3/uL Low 1.2 - 3.4 10*3/uL [facility] [facility] Lymphocytes/100 WBC (Bld) 3.2 % Low 20.0 - 55.0 % [facility] MCH (RBC) [Entitic mass] 30.3 pg 26.0 - 35.0 PG [facility] MCHC (RBC) [Mass/Vol] 34.1 g/dL [facility] MCV (RBC) [Entitic vol] 88.7 fL A [facility] Monocytes (Bld) [#/Vol] 0.5 10*3/uL 0.0 - 0.7 10*3/uL [facility] Monocytes/100 WBC (Bld) 7.7 % 0.0 - 10.0 % [facility] Neutrophils (Bld) [#/Vol] 5.6 10*3/uL 1.4 - 6.5 10*3/uL [facility] Neutrophils/100 WBC (Bld) 89.1 % High 37.0 - 75.0 % [facility] Platelet mean volume (Bld) [Entitic vol] 9.0 fL [facility] Platelets (Bld) [#/Vol] 146 10*3/uL 130 - 400 10*3/uL [facility] RBC (Bld) [#/Vol] 4.32 10*6/uL 4.0 - 5.4 10*6/uL [facility] WBC (Bld) [#/Vol] 6.3 10*3/uL 3.6 - 11.0 10*3/uL [facility] CHEM 7 FASTINGon 09-15-2023 Chloride [Moles/Vol] 104 mmol/L Normal 98-107 [facility] Comment on above: Result Comment: Tito raya note: Triglyceride levels of 600mg/dL or higher may positively bias chloride results by approximately 2.1 mmol Performed By: #### C ESTEBAN, DIVYA #### Testing performed at [address] [address] CO2 [Moles/Vol] 23 mmol/L Normal 22-30 [facility] Comment on above: Performed By: #### C MPF, ACBC #### Testing performed at [address] [address] Creatinine [Mass/Vol] 0.70 mg/dL Normal 0.70-1.20 [facility] Comment on above: Performed By: #### C MPF, ACANJEL #### Testing performed at [address] [address] EST. GFR, 130 ml/min/1.73sq.m [facility] Comment on above: Performed By: #### C MPF, ACBC #### Testing performed at [address] [address] EST. GFR,Non 108 ml/min/1.73sq.m [facility] Comment on above: Performed By: #### C MPF, ACANJEL #### Testing performed at [address] [address] GFR Information Average GFR for 20-2 9 years old = 116. Normal [facility] Comment on above: Result Comment: Director Of Recreation Therapy alonzo Kidney disease, GFR = <60. Kidney failure, GFR = <15. The GFR estimate is not adjusted for extreme body surface area or acute process, nor has it been validated for women or ethnic groups other than and . Performed By: #### C MPF, ACBC #### Testing performed at [address] [address] Glucose [Mass/Vol] 103 mg/dL High 70-100 [facility] Comment on above: Result Comment: NORMAL <100 mg/dL PREDIABETES 101-126 mg/dL DIABETES 126 mg/dL or higher Performed By: #### C ESTEBAN, ACBC #### Testing performed at [facility] [address] [place] [address], [place] [address] Potassium [Moles/Vol] 4.1 mmol/L Normal 3.5-5.1 [facility] Comment on above: Performed By: #### C MPF, ACBC #### Testing performed at [address] [address] Sodium [Moles/Vol] 134 mmol/L Low 137-145 [facility] Comment on above: Performed By: #### C MPF, ACBC #### Testing performed at [address] [address] Urea nitrogen [Mass/Vol] 9 mg/dL Normal 7-20 [facility] Comment on above: Performed By: #### C MPF, ACBC #### Testing performed at [address] [address] CHEM 7 (LYTES,BUN,CREA,GLUC) on 09-15-2023 Chloride [Moles/Vol] 104 mmol/L [facility] Comment on above: Please note: Triglyc eride levels of 600mg/dL or higher may positively bias chloride results by approximately 2.1 mmol CO2 [Moles/Vol] 23 mmol/L [facility] Creatinine [Mass/Vol] 0.70 mg/dL [facility] GFR COMMENT Average GFR for 20-2 9 years old = 116. [facility] Comment on above: Chronic Kidney disea se, GFR = <60. Kidney failure, GFR = <15. The GFR estimate is not adjusted for extreme body surface area or acute process, nor has it been validated for women or ethnic groups other than and . GFR/1.73 sq M.predicted among blacks MDRD (S/P/Bld) [Vol rate/Area] 130 mL/min/{1.73_m2} ml/min/1.73sq .m [facility] GFR/1.73 sq M.predicted among non-blacks MDRD (S/P/Bld) [Vol rate/Area] 108 mL/min/{1.73_m2} ml/min/1.73sq .m [facility] Glucose post fast [Mass/Vol] 103 mg/dL High [facility] Comment on above: NORMAL <100 mg/dL PREDIABETES 101-126 mg/dL DIABETES 126 mg/dL or higher Potassium [Moles/Vol] 4.1 mmol/L [facility] Sodium [Moles/Vol] 134 mmol/L Low [facility] Urea nitrogen [Mass/Vol] 9 mg/dL [facility] CT ABDOMEN/PELVIS WITH CONTR Viktor 09-15-2023 CT ABDOMEN/PELVIS WITH CONTRAST EXAMINATION: CT ABDOMEN/PELVIS WITH CONTRAST, 09/15/2023 4:19 PM CDT HISTORY: post op pain . Recent cholecystectomy. COMPARISON: Ultrasound right upper quadrant 08/04/2023. CT abdomen pelvis 10/28/2020. TECHNIQUE: CT scan of the abdomen and pelvis was performed with 75 mL Omnipaque [address] dose reduction technique was used, including Automated Exposure Control. FINDINGS: Lower chest: Lung bases clear, no acute process. ABDOMEN: Normal liver enhancement. Previous cholecystectomy without fluid collection in the stu hepatis or around the liver right upper quadrant area. No biliary dilatation. Minimal pneumoperitoneum. Adrenal glands, pancreas, spleen and straight normal enhancement. Spleen mildly prominent at 14.3 cm craniocaudad similar to previous. Normal symmetric renal enhancement without mass or hydronephrosis. Normal ureters. Graft no bowel distention wall thickening or edema. Normal-appearing appendix. Pelvis: Free fluid in the cul-de-sac and adnexal areas. Low-density without walled off rim-enhancing collection. No definite uterine or ovarian pathology. Normal fluid-filled bladder. Minimal pneumoperitoneum underneath the right pelvic wall. No inguinal pathology. MUSCULOSKELETAL: Subcutaneous gas pelvic wall without fluid collection, hematoma or abscess. IMPRESSION: 1. Interval cholecystectomy without right upper quadrant stu hepatis fluid collection. No biliary dilatation. No acute abnormality in the abdomen. Spleen is enlarged similar to previous. 2. Small amount of low-density free fluid in the pelvis with walled off rim-enhancing collection. Possible be due to unrelated ruptured ovarian cyst are similar finding although no cyst seen on CT. 3. Subcutaneous emphysema abdominal pelvic wall and minimal pneumoperitoneum likely related to surgery. No subcutaneous fluid collection suggesting abscess or hematoma. Normal [facility] CT Abdomen and Pelvis W cont rast Malachi 09-15-2023 IMPRESSION: 1. Interval cholecystectomy without right upper quadrant stu hepatis fluid collection. No biliary dilatation. No acute abnormality in the abdomen. Spleen is enlarged similar to previous. 2. Small amount of low-density free fluid in the pelvis with walled off rim-enhancing collection. Possible be due to unrelated ruptured ovarian cyst are similar finding although no cyst seen on CT. 3. Subcutaneous emphysema abdominal pelvic wall and minimal pneumoperitoneum likely related to surgery. No subcutaneous fluid collection suggesting abscess or hematoma. RADIOLOGY EXAMINATION: CT ABDOMEN/PELVIS WITH CONTRAST, 09/15/2023 4:19 PM CDT HISTORY: post op pain . Recent cholecystectomy. COMPARISON: Ultrasound right upper quadrant 08/04/2023. CT abdomen pelvis 10/28/2020. TECHNIQUE: CT scan of the abdomen and pelvis was performed with 75 mL Omnipaque [address] dose reduction technique was used, including Automated Exposure Control. FINDINGS: Lower chest: Lung bases clear, no acute process. ABDOMEN: Normal liver enhancement. Previous cholecystectomy without fluid collection in the stu hepatis or around the liver right upper quadrant area. No biliary dilatation. Minimal pneumoperitoneum. Adrenal glands, pancreas, spleen and straight normal enhancement. Spleen mildly prominent at 14.3 cm craniocaudad similar to previous. Normal symmetric renal enhancement without mass or hydronephrosis. Normal ureters. Graft no bowel distention wall thickening or edema. Normal-appearing appendix. Pelvis: Free fluid in the cul-de-sac and adnexal areas. Low-density without walled off rim-enhancing collection. No definite uterine or ovarian pathology. Normal fluid-filled bladder. Minimal pneumoperitoneum underneath the right pelvic wall. No inguinal pathology. MUSCULOSKELETAL: Subcutaneous gas pelvic wall without fluid collection, hematoma or abscess. RADIOLOGY Stefano Morse MD - 09/15/2023 EXAMINATION: CT ABDOMEN/PELVIS WITH CONTRAST, 09/15/2023 4:19 PM CDT HISTORY: post op pain . Recent cholecystectomy. COMPARISON: Ultrasound right upper quadrant 08/04/2023. CT abdomen pelvis 10/28/2020. TECHNIQUE: CT scan of the abdomen and pelvis was performed with 75 mL Omnipaque [address] dose reduction technique was used, including Automated Exposure Control. FINDINGS: Lower chest: Lung bases clear, no acute process. ABDOMEN: Normal liver enhancement. Previous cholecystectomy without fluid collection in the stu hepatis or around the liver right upper quadrant area. No biliary dilatation. Minimal pneumoperitoneum. Adrenal glands, pancreas, spleen and straight normal enhancement. Spleen mildly prominent at 14.3 cm craniocaudad similar to previous. Normal symmetric renal enhancement without mass or hydronephrosis. Normal ureters. Graft no bowel distention wall thickening or edema. Normal-appearing appendix. Pelvis: Free fluid in the cul-de-sac and adnexal areas. Low-density without walled off rim-enhancing collection. No definite uterine or ovarian pathology. Normal fluid-filled bladder. Minimal pneumoperitoneum underneath the right pelvic wall. No inguinal pathology. MUSCULOSKELETAL: Subcutaneous gas pelvic wall without fluid collection, hematoma or abscess. IMPRESSION IMPRESSION: 1. Interval cholecystectomy without right upper quadrant stu hepatis fluid collection. No biliary dilatation. No acute abnormality in the abdomen. Spleen is enlarged similar to previous. 2. Small amount of low-density free fluid in the pelvis with walled off rim-enhancing collection. Possible be due to unrelated ruptured ovarian cyst are similar finding although no cyst seen on CT. 3. Subcutaneous emphysema abdominal pelvic wall and minimal pneumoperitoneum likely related to surgery. No subcutaneous fluid collection suggesting abscess or hematoma. [facility] Radiology Study observation (narrative) [facility] CT Abdomen and Pelvis W cont rast IVOrdered By: Stefano Morse on 09-15-2023 [facility] Work Phone: HCG ( test) Qlon [facility] HEPATIC FUNCTION PANELon Albumin [Mass/Vol] 4.8 g/dL [facility] ALP [Catalytic activity/Vol] 70 U/L [facility] ALT [Catalytic activity/Vol] 101 U/L High BANNERF [facility] AST [Catalytic activity/Vol] 97 U/L High [facility] Bilirubin [Mass/Vol] 1.2 mg/dL [facility] Bilirubin.direct [Mass/Vol] 0.0 mg/dL [facility] Protein [Mass/Vol] 7.9 g/dL [facility] LIPASEon 09-15-2023 Lipase [Catalytic activity/Vol] 38 U/L 23 - 300 U/L [facility] LIPASE,SERUMon 09-15-2023 LIPASE,SERUM 38 U/L Normal 23-300 [facility] Comment on above: Performed By: #### C MPF, ACBC #### Testing performed at [address] [place] [address] LIVER PANELon 09-15-2023 Albumin [Mass/Vol] 4.8 g/dL Normal 2.9-5.3 [facility] Comment on above: Performed By: #### C MPF, ACBC #### Testing performed at [address] [place] [address] ALP [Catalytic activity/Vol] 70 U/L Normal 38-126 [facility] Comment on above: Performed By: #### C MPF, ACBC #### Testing performed at [address] [place] [address] ALT [Catalytic activity/Vol] 101 U/L High <35 [facility] Comment on above: Performed By: #### C MPF ACBC #### Testing performed at [address] [address] AST [Catalytic activity/Vol] 97 U/L High 14-36 [facility] Comment on above: Performed By: #### C MPF ACBC #### Testing performed at [address] [place] [address] Bilirubin [Mass/Vol] 1.2 mg/dL Normal 0.2-1.3 [facility] Comment on above: Performed By: #### C MPF ACBC #### Testing performed at [address] [address] Bilirubin.indirect [Mass/Vol] 0.0 mg/dL Normal 0.0-0.4 [facility] Comment on above: Performed By: #### C MPF, ACBC #### Testing performed at [address] [place] [address] Protein [Mass/Vol] 7.9 g/dL Normal 6.3-8.2 [facility] Comment on above: Performed By: #### C MPF, ACBC #### Testing performed at [address] [place] [address] No Panel Informationon 09-14 Interpretation and review of laboratory results Abnormal [facility] SERUM HCG QUALon 09-15-2023 SERUM BETA HCG,QUAL Negative Normal NEGATIVE [facility] Comment on above: Performed By: #### DIVYA PEREZ #### Testing performed at [address] [place] [address] URINALYSIS, MACROon 09-15-19 24 Bilirubin Ql (U) Negative NEGATIVE [facility] Clarity (U) CLEAR CLEAR [facility] Color (U) YELLOW YELLOW [facility] Glucose Test strip (U) [Mass/Vol] Negative NEGATIVE mg/dl [facility] Hemoglobin Ql (U) Negative NEGATIVE [facility] Interpretation and review of laboratory results Abnormal [facility] Ketones (U) [Mass/Vol] mg/dL Abnormal NEGAT DB mg/dl [facility] Leukocyte esterase Test strip Ql (U) Negative NEGATIVE [facility] Nitrite Ql (U) Negative NEGATIVE [facility] pH (U) 6.0 [pH] 5.0 - 7.0 [facility] Protein Ql (U) Negative NEGATIVE mg/dl [facility] Specific gravity (U) [Rel density] 1.025 1.010 - 1.025 [facility] Urobilinogen (U) [Mass/Vol] 0.2 mg/dL [facility] URINE MACROSCOPICon 09-15-19 24 Bilirubin Ql (U) Negative Normal NEGATIVE [facility] Comment on above: Performed By: #### DIVYA PEREZ #### Testing performed at [address] [place] [address] Clarity (U) CLEAR Normal CLEAR [facility] Comment on above: Performed By: #### DIVYA PEREZ #### Testing performed at [address] [place] [address] Color (U) YELLOW Normal YELLOW [facility] Comment on above: Performed By: #### DIVYA PEREZ #### Testing performed at [address] [place] [address] Glucose Ql (U) Negative Normal NEGATIVE [facility] Comment on above: Performed By: #### DIVYA PEREZ #### Testing performed at [address] [place] [address] pH (U) 6.0 [pH] Normal 5.0-7.0 [facility] Comment on above: Performed By: #### C MPF, ACBC #### Testing performed at [address] [place] [address] URINE HEMOGLOBIN Negative Normal NEGATIVE [facility] Comment on above: Performed By: #### C MPF, ACBC #### Testing performed at [address] [place] [address] URINE KETONE >160 Abnormal NEGATIVE [facility] Comment on above: Performed By: #### C MPF, ACBC #### Testing performed at [address] [place] [address] URINE LEUKOTEST Negative Normal NEGATIVE [facility] Comment on above: Performed By: #### C MPF, ACBC #### Testing performed at [address] [address] URINE NITRATES Negative Normal NEGATIVE [facility] Comment on above: Performed By: #### C MPF, ACBC #### Testing performed at [address] [address] URINE SPEC GRAVITY 1.025 Normal 1.010-1.025 [facility] Comment on above: Performed By: #### C MPF, ACBC #### Testing performed at [address] [place] [address] URINE TOTAL PROTEIN Negative Normal NEGATIVE [facility] Comment on above: Performed By: #### C MPF, ACBC #### Testing performed at [address] [place] [address] Urobilinogen Qn (U) 0.2 {Dunia'U}/dL Normal 0.2-1.0 [facility] Comment on above: Performed By: #### C MPF, ACBC #### Testing performed at [address] [place] [address] CBCon 09-08-2023 ABSOLUTE BAS 0.0 10*3/uL Normal 0.0-0.2 [facility] Comment on above: Performed By: #### C MPF, ACBC #### Testing performed at [address] [place] [address] ABSOLUTE EOS 0.0 10*3/uL Normal 0.0-0.7 [facility] Comment on above: Performed By: #### C MPF, ACBC #### Testing performed at [address] [place] [address] ABSOLUTE NEUTROPHIL COUNT 3.9 10*3/uL Normal 1.4-6.5 [facility] Comment on above: Performed By: #### C MPF, ACBC #### Testing performed at [address] [place] [address] Basophils/100 WBC (Bld) 0.0 % Normal 0.0-2.0 [facility] Comment on above: Performed By: #### C MPF, ACBC #### Testing performed at [address] [place] [address] DTYPE AUTO DIFF Normal [facility] Comment on above: Performed By: #### C MPF, ACBC #### Testing performed at [address] [place] [address] Eosinophils/100 WBC (Bld) 0.0 % Normal 0.0-11.0 [facility] Comment on above: Performed By: #### C MPF, ACBC #### Testing performed at [address] [place] [address] Lymphocytes (Bld) [#/Vol] 1.4 10*3/uL Normal 1.2-3.4 [facility] Comment on above: Performed By: #### C MPF, ACBC #### Testing performed at [address] [place] [address] Lymphocytes/100 WBC (Bld) 24.6 % Normal 20.0-55.0 [facility] Comment on above: Performed By: #### C MPF, ACBC #### Testing performed at [address] [place] [address] Monocytes (Bld) [#/Vol] 0.3 10*3/uL Normal 0.0-0.7 [facility] Comment on above: Performed By: #### C MPF, ACBC #### Testing performed at [address] [place] [address] Monocytes/100 WBC (Bld) 6.0 % Normal 0.0-10.0 [facility] Comment on above: Performed By: #### C MPF, ACBC #### Testing performed at [address] [place] [address] Neutrophils/100 WBC (Bld) 69.4 % Normal 37.0-75.0 [facility] Comment on above: Performed By: #### C MPF, ACBC #### Testing performed at [address] [place] [address] Erythrocyte distribution width (RBC) [Ratio] 13.0 % Normal 11.5-14.5 [facility] Comment on above: Performed By: #### C MPF, ACBC #### Testing performed at [address] [place] [address] Hematocrit (Bld) [Volume fraction] 39.7 % Normal 36.0-48.0 [facility] Comment on above: Performed By: #### C MPF, ACBC #### Testing performed at [address] [place] [address] Hemoglobin (Bld) [Mass/Vol] 13.3 g/dL Normal 12.0-16.0 [facility] Comment on above: Performed By: #### C MPF, ACBC #### Testing performed at [address] [place] [address] MCH (RBC) [Entitic mass] 30.2 pg Normal 26.0-35.0 [facility] Comment on above: Performed By: #### C MPF, ACBC #### Testing performed at [address] [place] [address] MCHC (RBC) [Mass/Vol] 33.4 g/dL Normal 27.0-37.0 [facility] Comment on above: Performed By: #### C MPF, ACBC #### Testing performed at [address] [place] [address] MCV (RBC) [Entitic vol] 90.6 fL Normal 80.0-100.0 [facility] Comment on above: Performed By: #### C MPF, ACBC #### Testing performed at [address] [place] [address] Platelet mean volume (Bld) [Entitic vol] 9.3 fL Normal 7.4-11.0 [facility] Comment on above: Performed By: #### C MPF, ACBC #### Testing performed at [address] [place] [address] Platelets (Bld) [#/Vol] 153 10*3/uL Normal 130-400 [facility] Comment on above: Performed By: #### C MPF, ACBC #### Testing performed at [address] [address] RBC (Bld) [#/Vol] 4.39 10*6/uL Normal 4.0-5.4 [facility] Comment on above: Performed By: #### C MPF, ACBC #### Testing performed at [address] [address] WBC (Bld) [#/Vol] 5.6 10*3/uL Normal 3.6-11.0 [facility] Comment on above: Performed By: #### C MPF, ACBC #### Testing performed at [address] [address] CBC, EDIF, PLATELETon 2023 ABSOLUTE BASOPHIL COUNT 0.0 10*3/uL 0.0 - 0.2 10*3/uL [facility] Basophils/100 WBC (Bld) 0.0 % 0.0 - 2.0 % [facility] Differential cell count method Nom (Bld) AUTO DIFF % [facility] Eosinophils (Bld) [#/Vol] 0.0 10*3/uL 0.0 - 0.7 10*3/uL [facility] Eosinophils/100 WBC (Bld) 0.0 % 0.0 - 11.0 % [facility] Erythrocyte distribution width (RBC) [Ratio] 13.0 % 11.5 - 14.5 % [facility] Hematocrit (Bld) [Volume fraction] 39.7 % 36.0 - 48.0 % [facility] Hemoglobin (Bld) [Mass/Vol] 13.3 g/dL [facility] Lymphocytes (Bld) [#/Vol] 1.4 10*3/uL 1.2 - 3.4 10*3/uL [facility] Lymphocytes/100 WBC (Bld) 24.6 % 20.0 - 55.0 % [facility] MCH (RBC) [Entitic mass] 30.2 pg 26.0 - 35.0 PG [facility] MCHC (RBC) [Mass/Vol] 33.4 g/dL [facility] MCV (RBC) [Entitic vol] 90.6 fL A [facility] Monocytes (Bld) [#/Vol] 0.3 10*3/uL 0.0 - 0.7 10*3/uL [facility] Monocytes/100 WBC (Bld) 6.0 % 0.0 - 10.0 % [facility] Neutrophils (Bld) [#/Vol] 3.9 10*3/uL 1.4 - 6.5 10*3/uL [facility] Neutrophils/100 WBC (Bld) 69.4 % 37.0 - 75.0 % [facility] Platelet mean volume (Bld) [Entitic vol] 9.3 fL [facility] Platelets (Bld) [#/Vol] 153 10*3/uL 130 - 400 10*3/uL [facility] RBC (Bld) [#/Vol] 4.39 10*6/uL 4.0 - 5.4 10*6/uL [facility] WBC (Bld) [#/Vol] 5.6 10*3/uL 3.6 - 11.0 10*3/uL [facility] CMP FASTINGon 09-08-2023 A:G RATIO 1.5 RATIO Normal [facility] Comment on above: Performed By: #### C MPF ACBC #### Testing performed at [address] [address] ALBUMIN 4.5 G/dl Normal 3.5-5.0 [facility] Comment on above: Performed By: #### C MPF ACBC #### Testing performed at [address] [address] ALP [Catalytic activity/Vol] 29 U/L Low 38-126 [facility] Comment on above: Performed By: #### C MPF, ACBC #### Testing performed at [address] [address] ALT [Catalytic activity/Vol] 17 U/L Normal <35 [facility] Comment on above: Performed By: #### C MPF, ACBC #### Testing performed at [address] [place] [address] AST [Catalytic activity/Vol] 28 U/L Normal 14-36 [facility] Comment on above: Performed By: #### C MPF, ACBC #### Testing performed at [address] [place] [address] Bilirubin [Mass/Vol] 0.8 mg/dL Normal 0.2-1.3 [facility] Comment on above: Performed By: #### C MPF, ACBC #### Testing performed at [address] [address] Calcium [Mass/Vol] 9.1 mg/dL Normal 8.4-10.2 [facility] Comment on above: Performed By: #### C MPF, ACBC #### Testing performed at [address] [address] Chloride [Moles/Vol] 107 mmol/L Normal 98-107 [facility] Comment on above: Result Comment: Tito raya note: Triglyceride levels of 600mg/dL or higher may positively bias chloride results by approximately 2.1 mmol Performed By: #### C MPF, ACBC #### Testing performed at [address] [address] CO2 [Moles/Vol] 25 mmol/L Normal 22-30 [facility] Comment on above: Performed By: #### C MPF, ACBC #### Testing performed at [address] [address] Creatinine [Mass/Vol] 0.63 mg/dL Low 0.70-1.20 [facility] Comment on above: Performed By: #### C MPF, ACBC #### Testing performed at [address] [place] [address] EST. GFR, 147 ml/min/1.73sq.m [facility] Comment on above: Performed By: #### C MPF, ACBC #### Testing performed at [address] [place] [address] EST. GFR,Non 121 ml/min/1.73sq.m [facility] Comment on above: Performed By: #### C MPF, ACBC #### Testing performed at [address] [address] GFR Information Average GFR for 20-2 9 years old = 116. Normal [facility] Comment on above: Result Comment: Director Of Recreation Therapy alonzo Kidney disease, GFR = <60. Kidney failure, GFR = <15. The GFR estimate is not adjusted for extreme body surface area or acute process, nor has it been validated for women or ethnic groups other than and . Performed By: #### C MPF, ACBC #### Testing performed at [address] [address] Glucose [Mass/Vol] 94 mg/dL Normal 70-100 [facility] Comment on above: Result Comment: NORMAL <100 mg/dL PREDIABETES 101-126 mg/dL DIABETES 126 mg/dL or higher Performed By: #### C MPF, ACBC #### Testing performed at [address] [address] Potassium [Moles/Vol] 4.2 mmol/L Normal 3.5-5.1 [facility] Comment on above: Performed By: #### C MPF, ACBC #### Testing performed at [address] [address] Protein [Mass/Vol] 7.5 g/dL Normal 6.3-8.2 [facility] Comment on above: Performed By: #### C MPF, ACBC #### Testing performed at [address] [address] Sodium [Moles/Vol] 138 mmol/L Normal 137-145 [facility] Comment on above: Performed By: #### C MPF, ACBC #### Testing performed at [address] [address] Urea nitrogen [Mass/Vol] 10 mg/dL Normal 7-20 [facility] Comment on above: Performed By: #### C MPF, ACBC #### Testing performed at [address] [address] COMPREHENSIVE METABOLIC PANE Kevin 09-08-2023 Albumin [Mass/Vol] 4.5 G/dl 3.5 - 5.0 G/dl [facility] Albumin/Globulin [Mass ratio] 1.5 {ratio} RATIO [facility] ALP [Catalytic activity/Vol] 29 U/L Low [facility] ALT [Catalytic activity/Vol] 17 U/L NINF [facility] AST [Catalytic activity/Vol] 28 U/L [facility] Bilirubin [Mass/Vol] 0.8 mg/dL [facility] Calcium [Mass/Vol] 9.1 mg/dL [facility] Chloride [Moles/Vol] 107 mmol/L [facility] Comment on above: Please note: Triglyc eride levels of 600mg/dL or higher may positively bias chloride results by approximately 2.1 mmol CO2 [Moles/Vol] 25 mmol/L [facility] Creatinine [Mass/Vol] 0.63 mg/dL Low [facility] GFR COMMENT Average GFR for 20-2 9 years old = 116. [facility] Comment on above: Chronic Kidney disea se, GFR = <60. Kidney failure, GFR = <15. The GFR estimate is not adjusted for extreme body surface area or acute process, nor has it been validated for women or ethnic groups other than and . GFR/1.73 sq M.predicted among blacks MDRD (S/P/Bld) [Vol rate/Area] 147 mL/min/{1.73_m2} ml/min/1.73sq .m [facility] GFR/1.73 sq M.predicted among non-blacks MDRD (S/P/Bld) [Vol rate/Area] 121 mL/min/{1.73_m2} ml/min/1.73sq .m [facility] Glucose post fast [Mass/Vol] 94 mg/dL [facility] Comment on above: NORMAL <100 mg/dL PREDIABETES 101-126 mg/dL DIABETES 126 mg/dL or higher Interpretation and review of laboratory results Abnormal [facility] Potassium [Moles/Vol] 4.2 mmol/L [facility] Protein [Mass/Vol] 7.5 g/dL [facility] Sodium [Moles/Vol] 138 mmol/L [facility] Urea nitrogen [Mass/Vol] 10 mg/dL [facility] HCG ( test) Ql (U)o n 09-08-2023 HCG.beta subunit [Moles/Vol] Negative [facility] Comment on above: lot#[id number],exp,internal control OK [facility] TYPE AND SCREEN CROSSMATCH C ONVERTIBLEon 09-08-2023 TYPE AND SCREEN CROSSMATCH CONVERTIBLE WORKUP EXPIRES 09/11/2023,2359 ABO/RH(D) A POSITIVE ANTIBODY SCREEN NEGATIVE ARM BAND NUMBER [id number] Normal [facility] Comment on above: Performed By: #### C MPF, ACBC #### Testing performed at [facility] [address] [place] [address] TYPE AND SCREEN - POSSIBLE T RANSFUSIONon 09-08-2023 ABO and Rh group Nom (Bld ) Positive [facility] ARM BAND NUMBER [id number] [facility] Blood group antibody screen Ql Negative [facility] EXPIRATION DATE 09/11/2023,235 [facility] BMP FASTINGon 09-01-2023 Anion gap [Moles/Vol] 6 mmol/L Low 8-16 [facility] Comment on above: Performed By: #### P T, BMPF, HEMOG, SHCGT, PTT #### Testing performed at [address] [address] Calcium [Mass/Vol] 9.3 mg/dL Normal 8.4-10.2 [facility] Comment on above: Performed By: #### P T, BMPF, HEMOG, SHCGT, PTT #### Testing performed at [address] [address] Chloride [Moles/Vol] 104 mmol/L Normal 98-107 [facility] Comment on above: Result Comment: Pleracheal raya note: Triglyceride levels of 600mg/dL or higher may positively bias chloride results by approximately 2.1 mmol Performed By: #### P T, BMPF, HEMOG, SHCGT, PTT #### Testing performed at [address] [address] CO2 [Moles/Vol] 28 mmol/L Normal 22-30 [facility] Comment on above: Performed By: #### P T, BMPF, HEMOG, SHCGT, PTT #### [place] [address] Creatinine [Mass/Vol] 0.80 mg/dL Normal 0.7-1.2 [facility] Comment on above: Performed By: #### P T, BMPF, HEMOG, SHCGT, PTT #### [place] [address] EST. GFR, 112 ml/min/1.73sq.m [facility] Comment on above: Performed By: #### P T, BMPF, HEMOG, SHCGT, PTT #### [place] [address] EST. GFR,Non 92 ml/min/1.73sq.m [facility] Comment on above: Performed By: #### P T, BMPF, HEMOG, SHCGT, PTT #### [place] [address] GFR Information Average GFR for 20-2 9 years old = 116. Normal [facility] Comment on above: Result Comment: Director Of Recreation Therapy alonzo Kidney disease, GFR = <60. Kidney failure, GFR = <15. The GFR estimate is not adjusted for extreme body surface area or acute process, nor has it been validated for women or ethnic groups other than and . Testing performed at [place] [address] Performed By: #### P T, BMPF, HEMOG, SHCGT, PTT #### [place] [address] Glucose [Mass/Vol] 113 mg/dL High 70-100 [facility] Comment on above: Result Comment: NORMAL <100 mg/dL PREDIABETES 101-126 mg/dL DIABETES 126 mg/dL or higher Performed By: #### P T, BMPF, HEMOG, SHCGT, PTT #### [place] [address] Potassium [Moles/Vol] 4.1 mmol/L Normal 3.5-5.1 [facility] Comment on above: Performed By: #### P T, BMPF, HEMOG, SHCGT, PTT #### [place] [address] Sodium [Moles/Vol] 138 mmol/L Normal 137-145 [facility] Comment on above: Performed By: #### P T, BMPF, HEMOG, SHCGT, PTT #### [place] [address] Urea nitrogen [Mass/Vol] 11 mg/dL Normal 7-20 [facility] Comment on above: Performed By: #### P T, BMPF, HEMOG, SHCGT, PTT #### [place] [address] CBC(NO DIFF)on 09-01-2023 Erythrocyte distribution width (RBC) [Ratio] 13.1 % Normal 11.5-14.5 [facility] Comment on above: Performed By: #### P T, BMPF, HEMOG, SHCGT, PTT #### [place] [address] Hematocrit (Bld) [Volume fraction] 40.0 % Normal 36.0-48.0 [facility] Comment on above: Performed By: #### P T, BMPF, HEMOG, SHCGT, PTT #### [place] [address] Hemoglobin (Bld) [Mass/Vol] 13.3 g/dL Normal 12.0-16.0 [facility] Comment on above: Performed By: #### P T, BMPF, HEMOG, SHCGT, PTT #### [place] [address] MCH (RBC) [Entitic mass] 30.7 pg Normal 26.0-35.0 [facility] Comment on above: Performed By: #### P T, BMPF, HEMOG, SHCGT, PTT #### [place] [address] MCHC (RBC) [Mass/Vol] 33.3 g/dL Normal 27.0-37.0 [facility] Comment on above: Performed By: #### P T, BMPF, HEMOG, SHCGT, PTT #### [place] [address] MCV (RBC) [Entitic vol] 92.2 fL Normal 80.0-100.0 [facility] Comment on above: Performed By: #### P T, BMPF, HEMOG, SHCGT, PTT #### [place] [address] Platelet mean volume (Bld) [Entitic vol] 9.3 fL Normal 7.4-11.0 [facility] Comment on above: Result Comment: Test ing performed at [place] [address] Performed By: #### P T, BMPF, HEMOG, SHCGT, PTT #### [place] [address] Platelets (Bld) [#/Vol] 171 10*3/uL Normal 130-400 [facility] Comment on above: Performed By: #### P T, BMPF, HEMOG, SHCGT, PTT #### [place] [address] RBC (Bld) [#/Vol] 4.34 10*6/uL Normal 4.0-5.4 [facility] Comment on above: Performed By: #### P T, BMPF, HEMOG, SHCGT, PTT #### [place] [address] WBC (Bld) [#/Vol] 5.3 10*3/uL Normal 3.6-11.0 [facility] Comment on above: Performed By: #### P T, BMPF, HEMOG, SHCGT, PTT #### [place] [address] PROTIMEon 09-01-2023 INR Coag (PPP) [Relative time] 1.01 {INR} Normal 0.85-1.10 [facility] Comment on above: Result Comment: 2.0-3.0 THERAPEUTIC RANGE 2.5-3.5 MECHANICAL VALVE RANGE Testing performed at [place] [address] Performed By: #### P T, BMPF, HEMOG, SHCGT, PTT #### [place] [address] PT Coag (PPP) [Time] 13.4 s Normal 11.8-14.4 [facility] Comment on above: Performed By: #### P T, BMPF, HEMOG, SHCGT, PTT #### [place] [address] PTTon 09-01-2023 aPTT Coag (Bld) [Time] 29.0 s Normal 22.4-34.7 [facility] Comment on above: Result Comment: CARDIAC AND PE/DVT THERAPUTIC RANGE 69-97 SEC VASCULAR/THREATENED LIMB THERAPUTIC RANGE 80-112 SEC Testing performed at [place] [address] Performed By: #### P T, BMPF, HEMOG, SHCGT, PTT #### [place] [address] SERUM HCG QUALon 09-01-2023 SERUM BETA HCG,QUAL Negative Normal [facility] Comment on above: Result Comment: Test ing performed at [place] [address] Performed By: #### P T, BMPF, HEMOG, SHCGT, PTT #### [place] [address] TYPE AND SCREEN CROSSMATCH C ONVERTIBLEon 09-01-2023 TYPE AND SCREEN CROSSMATCH CONVERTIBLE WORKUP EXPIRES 09/09/2023,2359 ABO/RH(D) A POSITIVE ANTIBODY SCREEN NEGATIVE ARM BAND NUMBER [id number] Testing performed at [place] [address] Normal [facility] Comment on above: Performed By: #### T SCC #### [place] [address] NM Liver and Biliary ducts a nd Gallbladder Views W sincalide and W radionuclide Malachi 08-17-2023 IMPRESSION: Normal hepatic biliary scintigraphy and gallbladder ejection fraction. RADIOLOGY HIDA SCAN WITH GALLBLADDER EJECTION FRACTION HISTORY: Abdominal Pain. COMPARISON: Ultrasound 08/04/2023. METHOD: Following IV injection of 4.26 mCi of [id number]-Bwypzjt c, anterior imaging of the abdomen was acquired for 60 minutes. After the gallbladder was visualized the patient was injected IV with 1.2 mcg of Kinevac and the gallbladder ejection fraction was calculated. FINDINGS: There is satisfactory uptake of radiopharmaceutical by the liver. The gallbladder, bile duct, and bowel are seen in the expected period of time and sequence. The gallbladder ejection fraction is normal at 53%. RADIOLOGY Umberto Tavares MD - 08/17/2023 HIDA SCAN WITH GALLBLADDER EJECTION FRACTION HISTORY: Abdominal Pain. COMPARISON: Ultrasound 08/04/2023. METHOD: Following IV injection of 4.26 mCi of lulckqvmsf-29w-Agvqlze c, anterior imaging of the abdomen was acquired for 60 minutes. After the gallbladder was visualized the patient was injected IV with 1.2 mcg of Kinevac and the gallbladder ejection fraction was calculated. FINDINGS: There is satisfactory uptake of radiopharmaceutical by the liver. The gallbladder, bile duct, and bowel are seen in the expected period of time and sequence. The gallbladder ejection fraction is normal at 53%. IMPRESSION IMPRESSION: Normal hepatic biliary scintigraphy and gallbladder ejection fraction. [facility] Radiology Study observation (narrative) [facility] NM Liver and Biliary ducts a nd Gallbladder Views W sincalide and W radionuclide IVOrdered By: Umberto Tavares on 08-17-2023 [facility] Work Phone: NUC HEPATOBILIARY WITH EJECT ION FRACTIONon 08-17-2023 NUC HEPATOBILIARY WITH EJECTION FRACTION HIDA SCAN WITH GALLBLADDER EJECTION FRACTION HISTORY: Abdominal Pain. COMPARISON: Ultrasound 08/04/2023. METHOD: Following IV injection of 4.26 mCi of rgqfdbfpyh-79d-Xtxwccy c, anterior imaging of the abdomen was acquired for 60 minutes. After the gallbladder was visualized the patient was injected IV with 1.2 mcg of Kinevac and the gallbladder ejection fraction was calculated. FINDINGS: There is satisfactory uptake of radiopharmaceutical by the liver. The gallbladder, bile duct, and bowel are seen in the expected period of time and sequence. The gallbladder ejection fraction is normal at 53%. IMPRESSION: Normal hepatic biliary scintigraphy and gallbladder ejection fraction. Normal [facility] C REACTIVE PROTEINon 024 CRP [Mass/Vol] 6.5 mg/L 0 - 10 MG/L [facility] CRP [Mass/Vol] 6.5 mg/L Normal 0-10 [facility] Comment on above: Performed By: #### E SR, CMPF, PT, LIPA2, CREACT, MG, ACBC #### Testing performed at [address] [address] CBCon 08-04-2023 ABSOLUTE BAS 0.0 10*3/uL Normal 0.0-0.2 [facility] Comment on above: Performed By: #### E SR, CMPF, PT, LIPA2, CREACT, MG, ACBC #### Testing performed at [address] [address] ABSOLUTE EOS 0.0 10*3/uL Normal 0.0-0.7 [facility] Comment on above: Performed By: #### E SR, CMPF, PT, LIPA2, CREACT, MG, ACBC #### Testing performed at [address] [address] ABSOLUTE NEUTROPHIL COUNT 4.7 10*3/uL Normal 1.4-6.5 [facility] Comment on above: Performed By: #### E SR, CMPF, PT, LIPA2, CREACT, MG, ACBC #### Testing performed at [address] [address] Basophils/100 WBC (Bld) 0.0 % Normal 0.0-2.0 [facility] Comment on above: Performed By: #### E SR, CMPF, PT, LIPA2, CREACT, MG, ACBC #### Testing performed at [address] [address] DTYPE AUTO DIFF Normal [facility] Comment on above: Performed By: #### E SR, CMPF, PT, LIPA2, CREACT, MG, ACBC #### Testing performed at [address] [address] Eosinophils/100 WBC (Bld) 0.0 % Normal 0.0-11.0 [facility] Comment on above: Performed By: #### E SR, CMPF, PT, LIPA2, CREACT, MG, ACBC #### Testing performed at [address] [address] Lymphocytes (Bld) [#/Vol] 1.4 10*3/uL Normal 1.2-3.4 [facility] Comment on above: Performed By: #### E SR, CMPF, PT, LIPA2, CREACT, MG, ACBC #### Testing performed at [address] [address] Lymphocytes/100 WBC (Bld) 21.8 % Normal 20.0-55.0 [facility] Comment on above: Performed By: #### E SR, CMPF, PT, LIPA2, CREACT, MG, ACBC #### Testing performed at [address] [address] Monocytes (Bld) [#/Vol] 0.4 10*3/uL Normal 0.0-0.7 [facility] Comment on above: Performed By: #### E SR, CMPF, PT, LIPA2, CREACT, MG, ACBC #### Testing performed at [address] [address] Monocytes/100 WBC (Bld) 6.6 % Normal 0.0-10.0 [facility] Comment on above: Performed By: #### E SR, CMPF, PT, LIPA2, CREACT, MG, ACBC #### Testing performed at [address] [address] Neutrophils/100 WBC (Bld) 71.6 % Normal 37.0-75.0 [facility] Comment on above: Performed By: #### E SR, CMPF, PT, LIPA2, CREACT, MG, ACBC #### Testing performed at [address] [address] Erythrocyte distribution width (RBC) [Ratio] 13.4 % Normal 11.5-14.5 [facility] Comment on above: Performed By: #### E SR, CMPF, PT, LIPA2, CREACT, MG, ACBC #### Testing performed at [address] [address] Hematocrit (Bld) [Volume fraction] 39.7 % Normal 36.0-48.0 [facility] Comment on above: Performed By: #### E SR, CMPF, PT, LIPA2, CREACT, MG, ACBC #### Testing performed at [address] [address] Hemoglobin (Bld) [Mass/Vol] 13.3 g/dL Normal 12.0-16.0 [facility] Comment on above: Performed By: #### E SR, CMPF, PT, LIPA2, CREACT, MG, ACBC #### Testing performed at [address] [address] MCH (RBC) [Entitic mass] 30.4 pg Normal 26.0-35.0 [facility] Comment on above: Performed By: #### E SR, CMPF, PT, LIPA2, CREACT, MG, ACBC #### Testing performed at [address] [address] MCHC (RBC) [Mass/Vol] 33.5 g/dL Normal 27.0-37.0 [facility] Comment on above: Performed By: #### E SR, CMPF, PT, LIPA2, CREACT, MG, ACBC #### Testing performed at [address] [address] MCV (RBC) [Entitic vol] 90.7 fL Normal 80.0-100.0 [facility] Comment on above: Performed By: #### E SR, CMPF, PT, LIPA2, CREACT, MG, ACBC #### Testing performed at [address] [address] Platelet mean volume (Bld) [Entitic vol] 8.8 fL Normal 7.4-11.0 [facility] Comment on above: Performed By: #### E SR, CMPF, PT, LIPA2, CREACT, MG, ACBC #### Testing performed at [address] [address] Platelets (Bld) [#/Vol] 205 10*3/uL Normal 130-400 [facility] Comment on above: Performed By: #### E SR, CMPF, PT, LIPA2, CREACT, MG, ACBC #### Testing performed at [address] [address] RBC (Bld) [#/Vol] 4.37 10*6/uL Normal 4.0-5.4 [facility] Comment on above: Performed By: #### E SR, CMPF, PT, LIPA2, CREACT, MG, ACBC #### Testing performed at [address] [address] WBC (Bld) [#/Vol] 6.6 10*3/uL Normal 3.6-11.0 [facility] Comment on above: Performed By: #### E SR, CMPF, PT, LIPA2, CREACT, MG, ACBC #### Testing performed at [address] [address] CBC, EDIF, PLATELETon 2023 ABSOLUTE BASOPHIL COUNT 0.0 10*3/uL 0.0 - 0.2 10*3/uL [facility] Basophils/100 WBC (Bld) 0.0 % 0.0 - 2.0 % [facility] Differential cell count method Nom (Bld) AUTO DIFF % [facility] Eosinophils (Bld) [#/Vol] 0.0 10*3/uL 0.0 - 0.7 10*3/uL [facility] Eosinophils/100 WBC (Bld) 0.0 % 0.0 - 11.0 % [facility] Erythrocyte distribution width (RBC) [Ratio] 13.4 % 11.5 - 14.5 % [facility] Hematocrit (Bld) [Volume fraction] 39.7 % 36.0 - 48.0 % [facility] Hemoglobin (Bld) [Mass/Vol] 13.3 g/dL [facility] Lymphocytes (Bld) [#/Vol] 1.4 10*3/uL 1.2 - 3.4 10*3/uL [facility] Lymphocytes/100 WBC (Bld) 21.8 % 20.0 - 55.0 % [facility] MCH (RBC) [Entitic mass] 30.4 pg 26.0 - 35.0 PG [facility] MCHC (RBC) [Mass/Vol] 33.5 g/dL [facility] MCV (RBC) [Entitic vol] 90.7 fL A [facility] Monocytes (Bld) [#/Vol] 0.4 10*3/uL 0.0 - 0.7 10*3/uL [facility] Monocytes/100 WBC (Bld) 6.6 % 0.0 - 10.0 % [facility] Neutrophils (Bld) [#/Vol] 4.7 10*3/uL 1.4 - 6.5 10*3/uL [facility] Neutrophils/100 WBC (Bld) 71.6 % 37.0 - 75.0 % [facility] Platelet mean volume (Bld) [Entitic vol] 8.8 fL [facility] Platelets (Bld) [#/Vol] 205 10*3/uL 130 - 400 10*3/uL [facility] RBC (Bld) [#/Vol] 4.37 10*6/uL 4.0 - 5.4 10*6/uL [facility] WBC (Bld) [#/Vol] 6.6 10*3/uL 3.6 - 11.0 10*3/uL [facility] CMP FASTINGon 08-04-2023 A:G RATIO 1.6 RATIO Normal [facility] Comment on above: Performed By: #### E SR, CMPF, PT, LIPA2, CREACT, MG, ACBC #### [place] [address] ALBUMIN 5.1 G/dl High 3.5-5.0 [facility] Comment on above: Performed By: #### E SR, CMPF, PT, LIPA2, CREACT, MG, ACBC #### [place] [address] ALP [Catalytic activity/Vol] 41 U/L Normal 38-126 [facility] Comment on above: Performed By: #### E SR, CMPF, PT, LIPA2, CREACT, MG, ACBC #### Testing performed at [address] [address] ALT [Catalytic activity/Vol] 22 U/L Normal <35 [facility] Comment on above: Performed By: #### E SR, CMPF, PT, LIPA2, CREACT, MG, ACBC #### Testing performed at [address] [address] AST [Catalytic activity/Vol] 24 U/L Normal 14-36 [facility] Comment on above: Performed By: #### E SR, CMPF, PT, LIPA2, CREACT, MG, ACBC #### Testing performed at [address] [address] Bilirubin [Mass/Vol] 1.0 mg/dL Normal 0.2-1.3 [facility] Comment on above: Performed By: #### E SR, CMPF, PT, LIPA2, CREACT, MG, ACBC #### Testing performed at [address] [address] Calcium [Mass/Vol] 9.6 mg/dL Normal 8.4-10.2 [facility] Comment on above: Performed By: #### E SR, CMPF, PT, LIPA2, CREACT, MG, ACBC #### Testing performed at [address] [address] Chloride [Moles/Vol] 104 mmol/L Normal 98-107 [facility] Comment on above: Result Comment: Tito raya note: Triglyceride levels of 600mg/dL or higher may positively bias chloride results by approximately 2.1 mmol Performed By: #### E SR, CMPF, PT, LIPA2, CREACT, MG, ACBC #### Testing performed at [address] [address] CO2 [Moles/Vol] 28 mmol/L Normal 22-30 [facility] Comment on above: Performed By: #### E SR, CMPF, PT, LIPA2, CREACT, MG, ACBC #### Testing performed at [address] [address] Creatinine [Mass/Vol] 0.80 mg/dL Normal 0.70-1.20 [facility] Comment on above: Performed By: #### E SR, CMPF, PT, LIPA2, CREACT, MG, ACBC #### Testing performed at [address] [address] EST. GFR, 112 ml/min/1.73sq.m [facility] Comment on above: Performed By: #### E SR, CMPF, PT, LIPA2, CREACT, MG, ACBC #### Testing performed at [address] [address] EST. GFR,Non 92 ml/min/1.73sq.m [facility] Comment on above: Performed By: #### E SR, CMPF, PT, LIPA2, CREACT, MG, ACBC #### Testing performed at [address] [address] GFR Information Average GFR for 20-2 9 years old = 116. [facility] Comment on above: Result Comment: Director Of Recreation Therapy alonzo Kidney disease, GFR = <60. Kidney failure, GFR = <15. The GFR estimate is not adjusted for extreme body surface area or acute process, nor has it been validated for women or ethnic groups other than and . Performed By: #### E SR, CMPF, PT, LIPA2, CREACT, MG, ACBC #### Testing performed at [address] [address] Glucose [Mass/Vol] 111 mg/dL High 70-100 [facility] Comment on above: Result Comment: NORMAL <100 mg/dL PREDIABETES 101-126 mg/dL DIABETES 126 mg/dL or higher Performed By: #### E SR, CMPF, PT, LIPA2, CREACT, MG, ACBC #### Testing performed at [address] [address] Potassium [Moles/Vol] 3.6 mmol/L Normal 3.5-5.1 [facility] [facility] Comment on above: Performed By: #### E SR, CMPF, PT, LIPA2, CREACT, MG, ACBC #### Testing performed at [address] [address] Protein [Mass/Vol] 8.2 g/dL Normal 6.3-8.2 [facility] Comment on above: Performed By: #### E SR, CMPF, PT, LIPA2, CREACT, MG, ACBC #### Testing performed at [address] [address] Sodium [Moles/Vol] 140 mmol/L Normal 137-145 [facility] Comment on above: Performed By: #### E SR, CMPF, PT, LIPA2, CREACT, MG, ACBC #### Testing performed at [address] [address] Urea nitrogen [Mass/Vol] 10 mg/dL Normal 7-20 [facility] Comment on above: Performed By: #### E SR, CMPF, PT, LIPA2, CREACT, MG, ACBC #### Testing performed at [address] [address] COMPREHENSIVE METABOLIC PANE Kevin 08-04-2023 Albumin [Mass/Vol] 5.1 G/dl High 3.5 - 5.0 G/dl [facility] Albumin/Globulin [Mass ratio] 1.6 {ratio} RATIO [facility] ALP [Catalytic activity/Vol] 41 U/L [facility] ALT [Catalytic activity/Vol] 22 U/L NINF [facility] AST [Catalytic activity/Vol] 24 U/L [facility] Bilirubin [Mass/Vol] 1.0 mg/dL [facility] Calcium [Mass/Vol] 9.6 mg/dL [facility] Chloride [Moles/Vol] 104 mmol/L [facility] Comment on above: Please note: Triglyc eride levels of 600mg/dL or higher may positively bias chloride results by approximately 2.1 mmol CO2 [Moles/Vol] 28 mmol/L [facility] Creatinine [Mass/Vol] 0.80 mg/dL [facility] GFR COMMENT Average GFR for 20-2 9 years old = 116. [facility] Comment on above: Chronic Kidney disea se, GFR = <60. Kidney failure, GFR = <15. The GFR estimate is not adjusted for extreme body surface area or acute process, nor has it been validated for women or ethnic groups other than and . GFR/1.73 sq M.predicted among blacks MDRD (S/P/Bld) [Vol rate/Area] 112 mL/min/{1.73_m2} ml/min/1.73sq .m [facility] GFR/1.73 sq M.predicted among non-blacks MDRD (S/P/Bld) [Vol rate/Area] 92 mL/min/{1.73_m2} ml/min/1.73sq .m [facility] Glucose post fast [Mass/Vol] 111 mg/dL High [facility] Comment on above: NORMAL <100 mg/dL PREDIABETES 101-126 mg/dL DIABETES 126 mg/dL or higher Interpretation and review of laboratory results Abnormal [facility] Potassium [Moles/Vol] 3.6 mmol/L [facility] Protein [Mass/Vol] 8.2 g/dL [facility] Sodium [Moles/Vol] 140 mmol/L [facility] Urea nitrogen [Mass/Vol] 10 mg/dL [facility] ESRon 08-04-2023 ESR (Bld) [Velocity] 4 mm/h Normal 0-15 [facility] Comment on above: Performed By: #### E SR, CMPF, PT, LIPA2, CREACT, MG, ACBC #### Testing performed at [address] [address] LACTATE, BLOODon 08-04-2023 Lactate [Moles/Vol] 0.7 mmol/L 0.7 - 2. 0 mmol/L [facility] LACTATE,BLOODon 08-04-2023 Lactate [Moles/Vol] 0.7 mmol/L Normal 0.7-2.0 [facility] Comment on above: Performed By: #### C MPF, ACBC #### Testing performed at [address] [address] LIPASEon 08-04-2023 Lipase [Catalytic activity/Vol] 43 U/L 23 - 300 U/L [facility] LIPASE,SERUMon 08-04-2023 LIPASE,SERUM 43 U/L Normal 23-300 [facility] Comment on above: Performed By: #### E SR, CMPF, PT, LIPA2, CREACT, MG, ACBC #### Testing performed at [address] [address] MAGNESIUMon 08-04-2023 Magnesium [Mass/Vol] 2.1 mg/dL [facility] Magnesium [Mass/Vol] 2.1 mg/dL Normal 1.6-2.3 [facility] Comment on above: Performed By: #### E SR, CMPF, PT, LIPA2, CREACT, MG, ACBC #### Testing performed at [address] [address] No Panel Informationon 08-03 [facility] PROTIMEon 08-04-2023 INR Coag (PPP) [Relative time] 0.94 {INR} Normal 0.85-1.10 [facility] Comment on above: Result Comment: 2.0-3.0 THERAPEUTIC RANGE 2.5-3.5 MECHANICAL VALVE RANGE Performed By: #### E SR, CMPF, PT, LIPA2, CREACT, MG, ACBC #### Testing performed at [address] [address] PT Coag (PPP) [Time] 12.7 s Normal 11.8-14.4 [facility] Comment on above: Performed By: #### E SR, CMPF, PT, LIPA2, CREACT, MG, ACBC #### Testing performed at [address] [place] [address] PROTIME-INRon 08-04-2023 INR Coag (PPP) [Relative time] 0.94 {INR} 0.85 - 1.10 [facility] Comment on above: 2.0-3.0 THERAPEUTIC RANGE 2.5-3.5 MECHANICAL VALVE RANGE PT Coag (PPP) [Time] 12.7 s [facility] SEDIMENTATION RATE, AUTOMATE Don 08-04-2023 ESR (Bld) [Velocity] 4 mm/h [facility] US ABDOMEN RUQ/LIVER/GBon US ABDOMEN RUQ/LIVER/GB EXAM: US ABDOMEN RUQ/LIVER/GB HISTORY: ruq abd pain r/o cholecystitis COMPARISON: 11/06/2020 TECHNIQUE: Limited right upper quadrant ultrasound, utilizing grayscale and Doppler imaging. FINDINGS: Right pleural space: No effusion. Liver: Increased echogenicity and coarse echotexture. Gallbladder: No gallbladder wall thickening or pericholecystic fluid. No cholelithiasis. Focal tenderness: No right upper quadrant tenderness. Intrahepatic biliary ducts: No intrahepatic biliary duct dilatation. Extra hepatic biliary duct measures 2 mm. Pancreas: No abnormality demonstrated. Right kidney: Normal cortical echogenicity. No hydronephrosis. The right kidney measures 12.3 cm in length. Peritoneal space: No ascites visualized within the right upper quadrant. Additional findings: None. IMPRESSION: No cholelithiasis. Hepatic steatosis. Normal [facility] US Abdomen RUQon 08-04-2023 IMPRESSION: No cholelithiasis. Hepatic steatosis. RADIOLOGY EXAM: US ABDOMEN RUQ/LIVER/GB HISTORY: ruq abd pain r/o cholecystitis COMPARISON: 11/06/2020 TECHNIQUE: Limited right upper quadrant ultrasound, utilizing grayscale and Doppler imaging. FINDINGS: Right pleural space: No effusion. Liver: Increased echogenicity and coarse echotexture. Gallbladder: No gallbladder wall thickening or pericholecystic fluid. No cholelithiasis. Focal tenderness: No right upper quadrant tenderness. Intrahepatic biliary ducts: No intrahepatic biliary duct dilatation. Extra hepatic biliary duct measures 2 mm. Pancreas: No abnormality demonstrated. Right kidney: Normal cortical echogenicity. No hydronephrosis. The right kidney measures 12.3 cm in length. Peritoneal space: No ascites visualized within the right upper quadrant. Additional findings: None. RADIOLOGY Sarah Dwyer MD - 08/04/2023 EXAM: US ABDOMEN RUQ/LIVER/GB HISTORY: ruq abd pain r/o cholecystitis COMPARISON: 11/06/2020 TECHNIQUE: Limited right upper quadrant ultrasound, utilizing grayscale and Doppler imaging. FINDINGS: Right pleural space: No effusion. Liver: Increased echogenicity and coarse echotexture. Gallbladder: No gallbladder wall thickening or pericholecystic fluid. No cholelithiasis. Focal tenderness: No right upper quadrant tenderness. Intrahepatic biliary ducts: No intrahepatic biliary duct dilatation. Extra hepatic biliary duct measures 2 mm. Pancreas: No abnormality demonstrated. Right kidney: Normal cortical echogenicity. No hydronephrosis. The right kidney measures 12.3 cm in length. Peritoneal space: No ascites visualized within the right upper quadrant. Additional findings: None. IMPRESSION IMPRESSION: No cholelithiasis. Hepatic steatosis. [facility] Radiology Study observation (narrative) [facility] US Abdomen RUQOrdered By: Aarti triana Reymundo on 08-04-2023 [employer] Work Phone: MR ANKLE RIGHT WO IV CONTRAS Ton 03-06-2023 MR ANKLE RIGHT WO IV CONTRAST Interpreted By: Sam Sommer, STUDY: MRI of the right ankle without IV contrast; 03/06/2023 2:52 pm INDICATION: Signs/Symptoms:RIGHT ANKLE INSTABILITY RIGHT ANKLE SPRAIN RIGHT ANKLE PAIN. COMPARISON: 12/26/2022 ACCESSION NUMBER(S): [id number] ORDERING CLINICIAN: JANELLE BARRAGAN TECHNIQUE: MR imaging of the right ankle was obtained without the administration of intravenous contrast medium. FINDINGS: TENDONS: The extensor tendons are intact and demonstrate a normal course. There is mild tibialis posterior tenosynovitis. Otherwise, the flexor tendons are intact and demonstrate a normal course. Postsurgical changes favoring prior peroneal retinacular reconstruction. There is a supramalleolar peroneus brevis split tear with distal reconstitution. The peroneus longus tendon is intact. The peroneal tendons are intact and demonstrate a normal course. There is mild Achilles tendinosis. Otherwise, the Achilles tendon is intact. The plantar aponeurosis is intact. LIGAMENTS: The anterior talofibular ligament is mildly irregular suggestive of chronic sprain and likely reconstruction given fibular hardware. The calcaneofibular, and posterior talofibular ligaments are intact. The anterior and posterior tibiofibular ligaments are intact. The deep and superficial components of the deltoid ligament are intact. The spring ligament is intact. JOINTS: There is no dislocation. There is no joint effusion. The articular cartilage of the ankle joint is normal. There is no osteochondral defect in the talar dome. OSSEOUS STRUCTURES: The bone marrow signal is normal. There is no fracture or contusion. There is no marrow replacing lesion. SOFT TISSUES: There is no muscle atrophy or tear. The tarsal tunnel is normal. The sinus tarsi is normal with preservation of fat signal. IMPRESSION: Postsurgical changes in the region of the anterior talofibular ligament and superior peroneal retinaculum. No complication is evident. 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 Supramalleolar peroneus brevis split tear with distal reconstitution. Mild Achilles tendinosis. Mild tibialis posterior tenosynovitis. MACRO: None Signed by: Sam Sommer 03/06/2023 5:19 PM Dictation workstation: [id number] [facility] MR Ankle - right WO contrast on 03-06-2023 Postsurgical changes in the region of the anterior talofibular ligament and superior peroneal retinaculum. No complication is evident. 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 Supramalleolar peroneus brevis split tear with distal reconstitution. Mild Achilles tendinosis. Mild tibialis posterior tenosynovitis. MACRO: None Signed by: Sam Sommer 03/06/2023 5:19 PM Dictation workstation: [id number] MMODAL Interpreted By: Sam Sommer, STUDY: MRI of the right ankle without IV contrast; 03/06/2023 2:52 pm INDICATION: Signs/Symptoms:RIGHT ANKLE INSTABILITY RIGHT ANKLE SPRAIN RIGHT ANKLE PAIN. COMPARISON: 12/26/2022 ACCESSION NUMBER(S): [id number] ORDERING CLINICIAN: JANELLE BARRAGAN TECHNIQUE: MR imaging of the right ankle was obtained without the administration of intravenous contrast medium. FINDINGS: TENDONS: The extensor tendons are intact and demonstrate a normal course. There is mild tibialis posterior tenosynovitis. Otherwise, the flexor tendons are intact and demonstrate a normal course. Postsurgical changes favoring prior peroneal retinacular reconstruction. There is a supramalleolar peroneus brevis split tear with distal reconstitution. The peroneus longus tendon is intact. The peroneal tendons are intact and demonstrate a normal course. There is mild Achilles tendinosis. Otherwise, the Achilles tendon is intact. The plantar aponeurosis is intact. LIGAMENTS: The anterior talofibular ligament is mildly irregular suggestive of chronic sprain and likely reconstruction given fibular hardware. The calcaneofibular, and posterior talofibular ligaments are intact. The anterior and posterior tibiofibular ligaments are intact. The deep and superficial components of the deltoid ligament are intact. The spring ligament is intact. JOINTS: There is no dislocation. There is no joint effusion. The articular cartilage of the ankle joint is normal. There is no osteochondral defect in the talar dome. OSSEOUS STRUCTURES: The bone marrow signal is normal. There is no fracture or contusion. There is no marrow replacing lesion. SOFT TISSUES: There is no muscle atrophy or tear. The tarsal tunnel is normal. The sinus tarsi is normal with preservation of fat signal. [facility] Sam Sommer MD - 03/06/2023 Interpreted By: Sam Sommer, STUDY: MRI of the right ankle without IV contrast; 03/06/2023 2:52 pm INDICATION: Signs/Symptoms:RIGHT ANKLE INSTABILITY RIGHT ANKLE SPRAIN RIGHT ANKLE PAIN. COMPARISON: 12/26/2022 ACCESSION NUMBER(S): [id number] ORDERING CLINICIAN: JANELLE BARRAGAN TECHNIQUE: MR imaging of the right ankle was obtained without the administration of intravenous contrast medium. FINDINGS: TENDONS: The extensor tendons are intact and demonstrate a normal course. There is mild tibialis posterior tenosynovitis. Otherwise, the flexor tendons are intact and demonstrate a normal course. Postsurgical changes favoring prior peroneal retinacular reconstruction. There is a supramalleolar peroneus brevis split tear with distal reconstitution. The peroneus longus tendon is intact. The peroneal tendons are intact and demonstrate a normal course. There is mild Achilles tendinosis. Otherwise, the Achilles tendon is intact. The plantar aponeurosis is intact. LIGAMENTS: The anterior talofibular ligament is mildly irregular suggestive of chronic sprain and likely reconstruction given fibular hardware. The calcaneofibular, and posterior talofibular ligaments are intact. The anterior and posterior tibiofibular ligaments are intact. The deep and superficial components of the deltoid ligament are intact. The spring ligament is intact. JOINTS: There is no dislocation. There is no joint effusion. The articular cartilage of the ankle joint is normal. There is no osteochondral defect in the talar dome. OSSEOUS STRUCTURES: The bone marrow signal is normal. There is no fracture or contusion. There is no marrow replacing lesion. SOFT TISSUES: There is no muscle atrophy or tear. The tarsal tunnel is normal. The sinus tarsi is normal with preservation of fat signal. IMPRESSION: Postsurgical changes in the region of the anterior talofibular ligament and superior peroneal retinaculum. No complication is evident. 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 Supramalleolar peroneus brevis split tear with distal reconstitution. Mild Achilles tendinosis. Mild tibialis posterior tenosynovitis. MACRO: None Signed by: Sam Sommer 03/06/2023 5:19 PM Dictation workstation: [id number] [facility] Work Phone: Radiology Study observation (narrative) [facility] Work Phone: MR Ankle - right WO contrast Ordered By: Sam Sommer on 03-06-2023 [facility] Work Phone: POCT INFLUENZA, A Bon 2023 FLUAV RNA JAVIER+probe Ql (Unsp spec) Negative Negative, Not Tested, Invalid [facility] FLUBV RNA JAVEIR+probe Ql (Unsp spec) Negative Negative, Not Tested, Invalid [facility] Interpretation and review of laboratory results Normal [facility] POCT RAPID STREP Aon 024 Interpretation and review of laboratory results Normal [facility] S. pyogenes Ag Ql (Throat) Negative (+/-) [facility] SARS-CoV-2 (COVID-19) RNA NA A+probe Ql (Unsp spec)on 03-05-2023 NARRATIVE -1 This test was performed using lateral flow immunoassay and has been approved as Emergency Use Authorization (EUA). This test does not differentiate between SARS-CoV and SARS-CoV2. [facility] SARS-CoV-2 (COVID-19) Ag IA.rapid Ql (Resp) Not detected NOT DETECTED [facility] Comment on above: Negative results verenice uld be treated as presumptive and confirmation with a molecular assay, if necessary, for patient management, may be performed. Negative results do not rule out SARSCoV-2 infection and should not be used as the sole basis for treatment or patient management decisions, including infection control decisions. Negative results should be considered in the context of a patient's recent exposures, history and the presence of clinical signs and symptoms consistent with COVID-19. [facility] XR ANKLE RIGHT 3+ VIEWSon XR ANKLE RIGHT 3+ VIEWS Interpreted By: Mariluz Moyer, STUDY: XR ANKLE RIGHT 3+ VIEWS; 12/26/2022 11:32 am INDICATION: Signs/Symptoms:pain in rt ankle. COMPARISON: 11/16/2022 ACCESSION NUMBER(S): [id number] ORDERING CLINICIAN: JANELLE BARRAGAN FINDINGS: 2 screws are again noted transfixing the lateral malleolus. The hardware is intact. No perihardware lucency is seen. No acute fracture or dislocation is noted. Well corticated bony density seen adjacent to the medial malleolus. IMPRESSION: Postsurgical changes in the distal fibula with intact hardware. MACRO: None Signed by: Mariluz Moyer 12/27/2022 5:39 PM Dictation workstation: [id number] [facility] Comment on above: Order Comment: stand ing ANKLE, COMPLETE, MIN 3 VIEWS on 11-16-2022 ANKLE, COMPLETE, MIN 3 VIEWS STUDY: Right foot and ankle radiographs; [INSERT month/day/year xx/x/xxxx and Time x:xx using AM or PM)] HISTORY: Pain in right ankle, and joints of right foot, post rolled ankle. TECHNIQUE: Three views of the right foot and three views of the right ankle. COMPARISON: None Available. FINDINGS: Right Foot: There is no displaced fracture. The alignment is anatomic. No soft tissue abnormality is seen. Right Ankle: There are postoperative changes to the distal fibula. There is no displaced fracture. The alignment is anatomic. No soft tissue abnormality is seen. IMPRESSION: Right Foot: No acute osseous abnormalities. Right Ankle: No acute osseous abnormalities. Signed by Richie Minor MD Electronically signed by: RICHIE MINOR MD [facility] FOOT COMPLETE, MIN 3 VIEWSon 11-16-2022 FOOT COMPLETE, MIN 3 VIEWS STUDY: Right foot and ankle radiographs; [INSERT month/day/year xx/x/xxxx and Time x:xx using AM or PM)] HISTORY: Pain in right ankle, and joints of right foot, post rolled ankle. TECHNIQUE: Three views of the right foot and three views of the right ankle. COMPARISON: None Available. FINDINGS: Right Foot: There is no displaced fracture. The alignment is anatomic. No soft tissue abnormality is seen. Right Ankle: There are postoperative changes to the distal fibula. There is no displaced fracture. The alignment is anatomic. No soft tissue abnormality is seen. IMPRESSION: Right Foot: No acute osseous abnormalities. Right Ankle: No acute osseous abnormalities. Signed by Richie Minor MD Electronically signed by: RICHIE MINOR MD [facility] Provider Note - ED v3on 09 Provider Note - ED v3 Provider Note: Results/Vital Signs: Pediatric Clinical Scoring (JADEN) is no recent JADEN charted on this account Chart Review: ED NOTES ED NOTES: Source of Information: Patient. EMR was reviewed for previous records. HPI: Injury to right ankle and foot. This 27-year-old white female presents to the ED with complaint of injury to her right ankle and foot that occurred last night when she stepped off of arrival to high and rolled her right ankle she continues to have pain of her ankle and the dorsal aspect of her foot. She states that she is working her ankle a couple of times and has had 2 ankle surgeries due to ligament injuries. Denies any numbness tingling weakness or loss of function. She denies any other injuries. PMH: Anxiety, depression, ADHD, ankle fracture x2 PSH: Surgery x2 Social Hx: The patient denies any use of alcohol or illicit drugs. Patient admits to vaping nicotine. Fam: MEDS: Noted in the EMR. ALLERGIES: Percocet PHYSICAL EXAM: General: Patient alert, awake, oriented X3, appears to be in no obvious distress, nontoxic, cooperative Skin: Warm. Dry. Intact. No rash. Eyes: PEARTLA, EOMIs intact, sclera white, conjunctiva clear HEENT: Atraumatic. Normo-cephalic. Oral and nasal mucosa pink and moist. Neck: Supple without meningismus, no lymphadenopathy. CV: Regular rate and rhythm without murmurs, heaves, lifts or thrills. Respiratory: Nonlabored breathing. There are no retractions or tachypnea. Lungs are clear to auscultation bilaterally. GI: Soft, nontender, without gross distention, bowel sounds present in all 4 quadrants. There is no pulsatile masses. There is no CVA tenderness. No rebound, rigidity or guarding. MUSC: Evaluation of right lower extremity reveals distal pulses are +2/4 and present at the dorsalis pedis and tibialis. Cap refill less than 2 seconds and light touch sensations intact. Patient has no proximal fibular tenderness. Patient has minimal swelling without obvious deformity of the ankle patient does complain of pain with palpation of the medial and lateral malleolus as well as the dorsal aspect of the foot. There is no tenderness along the fifth metatarsal. Neuro: Cranial nerves II - XII grossly intact. No focal neurologic deficits are noted on exam. Lower extremities: There is no peripheral edema bilaterally, negative Homans sign. No palpable cords. Distal pulses are +2/4 and present in both lower extremities. Psych: Maintains eye contact. Cooperative. ED course: This 27-year-old white female complains of injury to her right ankle and foot that occurred last night after she stepped off of a curb. Patient admits to having 2 previous ankle surgeries due to ligament injuries. On exam she had no obvious deformity of the ankle and she does tenderness of the medial lateral malleolus and also over the dorsal aspect of the foot. No proximal fibular tenderness noted. Patient had x-rays of the foot and ankle performed these were negative for acute abnormality. Patient was treated with an Aircast and crutches and referred to orthopedic surgeon for follow-up. This chart was dictated with the use of [employer] software within the framework of the current electronic medical records software. Attempts were made to edit in real time, given time constraints there is the potential for inaccuracies in my dictation. Tee Loyd, HISTORY OF PRESENTING ILLNESS ASHLIE is a 27 year old Female and was seen by me at 16-Nov-2022 09:07 for a chief complaint of ankle pain/injury (Patient to ED reference ankle pain. Patient was stepping off railroad tie and rolled her right ankle. She is still having pain and has history of 2 surgeries on the ankle in the past. Treated with Tylenol.)(1). Triage Information: Most recent Vital Sign Value Date Temp (F): 97.2 11-16-2022 09:02 Temp (C): 36.2 11-16-2022 09:02 Heart Rate (beats/min): 80 11-16-2022 09:02 Respirations (breaths/min): 16 11-16-2022 09:02 SpO2 (%): 100 11-16-2022 09:02 BP Systolic (mm Hg): 145 11-16-2022 09:02 BP Diastolic (mm Hg): 96 11-16-2022 09:02 PAST MEDICAL HISTORY CURRENT OR FORMER SUBSTANCE USE: Tobacco/Nicotine Use: light user (uses <10 cig/day, OR <0.5 ppd, OR 1 can/pouch loose leaf tobacco per week, OR <0.5 vape pods per day) Alcohol Use: denies Drug Use: denies,ALLERGIES/I (more content not included)... Normal [facility] Risk Screen - Adult Emergenc yon 11-16-2022 Risk Screen - Adult Emergency Preferred Language: Preferred Language: Preferred Language for Discussing Health Care (patient/designee)Engl sharon Patient Preferred Pharmacy: Patient Preferred Pharmacy Statement: I have reviewed and updated the patient's preferred pharmacy selection for today's visit. Advanced Directives: Advance Directive/DNRno Advance Directive Information Givenpatient/family declined Family Violence Adult: Abuse Screen: Are you or have you been threatened or abused physically, emotionally, or sexually by anyoneno Learning Assessment (Patient): Learning Assessment (Patient): Patient is Able to be Assessed for Learningyes Factors Influencing Readiness to Learnacuteness of illness Factors that Impact Ability to Learnnone Devices/Methods Used to Communicatenone Learning Preferenceswritten material; verbal instruction Cultural Considerationsnone Developmental Considerationsnone Yarsani Considerationsnone Learning Assessment (Other Learner): Learning Assessment (Other Learner): Other learner availableno Pressure Injury/TB/Substance: Pressure Injury: Do you have a coughno Smoking Statuslight user (uses <10 cig/day, OR <0.5 ppd, OR 1 can/pouch loose leaf tobacco per week, OR <0.5 vape pods per day) Tobacco Cessation Education (provide if tobacco use within the last 12 mos) patient declined Alcohol Usedenies Drug Usedenies Drug 2 Usedenies Admission Risk Screen: Significant IndicatorsComplete CAGE: CAGE: Is this an injured [place] a [place] [place]): no Electronic Signatures: Hillary Michel) (Signed 16-Nov-2022 09:08) Authored: Preferred Language, Patient Preferred Pharmacy, Advanced Directives, Family Violence Adult, Learning Assessment (Patient), Learning Assessment (Other Learner), Pressure Injury/TB/Substance, Pressure Injury, CAGE Last Updated: 16-Nov-2022 09:08 by Hillary Michel (RN) [facility] Triage - EDon 11-16-2022 Triage - ED Quick Triage: Are You no Have You Given In The Last 6 Weeksno Are You Currently Breastfeedingno The patient and/or guardian verbally acknowledges placement for services into the following (when Urgent Care Service hours are operating):emergency department Chart Review: ARRIVAL INFORMATION Mode of Arrival: private vehicle CHIEF COMPLAINT ASHLIE MALAVE is a Female patient with a chief complaint of ankle pain/injury (Patient to ED reference ankle pain. Patient was stepping off railroad tie and rolled her right ankle. She is still having pain and has history of 2 surgeries on the ankle in the past. Treated with Tylenol.). Onset of the Complaint: 15-Nov-2022 20:00 Triage Date/Time: 16-Nov-2022 09:02 NATA: 4 Pain Rating (0-10): 7 = Severe Vital Signs: Temperature: 97.2F ( 36.2C) taken temporal Blood Pressure: 145/96 Mean: Heart Rate: 80 Respiratory Rate: 16 Pulse Oximetry: 100% on room air, no respiratory support. Height: 5 feet 8.00 inches. 172.7 CM Weight: 205.6 pounds. Calculated 93.3 kg. (stated) Calculated BMI (kg/m2): 31.282 Calculated BSA (m2) 2.12 Manisha Coma Scale: Best Eye Response: (E4) spontaneous Best Motor Response: (M6) obeys commands Best Verbal Response: (V5) oriented Manisha Score: 15 Manisha Assessment Qualifiers: patient not sedated/intubated Cough lasting greater than 3 weeks: no Allergies: yes Last menstrual period: 14-Nov-2022 Patient has homicidal thoughts: no Risk Screens Suicide Risk Screen In the Past Month: Have you wished you were or wished you could go to sleep and not wake up no In the Past Month: Have you had any actual thoughts of killing yourself no In Your Lifetime: Have you ever done anything, started to do anything, or prepared to do anything to end your life no Ventura Fall Scale Screening Has the patient fallen before (or is the patient in the ED as a result of a fall) has not had a fall Does the patient have an impaired gait does not have impaired gait Is the patient cognitively impaired not cognitively impaired Interventions: Ventura Fall Interventions: LOW INTERVENTIONS: *patient oriented to surroundings and call system, * patient/family falls education completed and documented, *patients fall status communicated during bedside handoff, *whiteboard updated, *mode of toileting discussed with patient, *bed in low position with brakes locked, *call light in reach, * non-skid footwear TRAVEL HISTORY Travel History Coronavirus Screening: no exposure or symptoms Travel Exposure History: NO travel to International locations in the past 30 days PAIN Pain Scale Used: KAREN Pain Rating (0-10): 7 = Severe Past Medical History: Past Medical History Reviewedyes Electronic Signatures: Mick Guthrie (EMT-P) (Signed 16-Nov-2022 09:05) Entered: Risk Screens, Pain, Travel History, Chart Review, Scores Authored: Quick Triage, Risk Screens, Pain, Travel History, Chart Review, Scores Hillary Michel (RN) (Signed 16-Nov-2022 09:12) Authored: Quick Triage, Chart Review, Past Medical History Last Updated: 16-Nov-2022 09:12 by Hillary Michel (RN) [facility] DIAGNOSTIC COLONOSCOPYon [facility] Gastroenterology Patient Name: Ashile Malave Procedure Date: 04/28/2022 11:00 AM Date of : 1995 Admit Type: Outpatient Age: 26 Room: Procedure Room #2 Gender: Female Note Status: Finalized Attending MD: Stefano Cuadra Jr., DO, [id number] Instrument Name: [id number] Procedure: Colonoscopy Attending Participation: I personally performed the entire procedure. Indications: Screening for colorectal malignant neoplasm, Incidental - Generalized abdominal pain Providers: Stefano Cuadra Jr., DO Referring MD: Vianney Morse APRN-TOREY Complications: No immediate complications. Estimated Blood Loss: Estimated blood loss: none. Medicines: See the Anesthesia note for documentation of the administered medications Procedure: Pre-Anesthesia Assessment: - Prior to the procedure, a History and Physical was performed, and patient medications and allergies were reviewed. The patient is competent. The risks and benefits of the procedure and the sedation options and risks were discussed with the patient. All questions were answered and informed consent was obtained. Patient identification and proposed procedure were verified by the physician in the pre-procedure area. Mental Status Examination: alert and oriented. Respiratory Examination: clear to auscultation. CV Examination: normal. Prophylactic Antibiotics: The patient does not require prophylactic antibiotics. Prior Anticoagulants: The patient has taken no anticoagulant or antiplatelet agents. ASA Grade Assessment: II - A patient with mild systemic disease. After reviewing the risks and benefits, the patient was deemed in satisfactory condition to undergo the procedure. The anesthesia plan was to use moderate sedation / analgesia (conscious sedation). Immediately prior to administration of medications, the patient was re-assessed for adequacy to receive sedatives. The heart rate, respiratory rate, oxygen saturations, blood pressure, adequacy of pulmonary ventilation, and response to care were monitored throughout the procedure. The physical status of the patient was re-assessed after the procedure. After I obtained informed consent, the scope was passed under direct vision. Throughout the procedure, the patient's blood pressure, pulse, and oxygen saturations were monitored continuously. CO2 was used. The Colonoscope was introduced through the anus and advanced to the cecum, identified by the appendiceal orifice, ileocecal valve and palpation. The colonoscopy was performed without difficulty. The patient tolerated the procedure well. The quality of the bowel preparation was good. Anatomical landmarks were photographed. Findings: The perianal and digital rectal examinations were normal. The colon (entire examined portion) appeared normal. Impression: - The entire examined colon is normal. - No specimens collected. Recommendation: - Discharge patient to home (ambulatory). - Resume previous diet. - Continue present medications. - Repeat colonoscopy in 7 years for surveillance. Procedure Code(s): --- Professional --- 24932, Colonoscopy, flexible; diagnostic, including collection of specimen(s) by brushing or washing, when performed (separate procedure) Diagnosis Code(s): --- Professional --- Z12.11, Encounter for screening for malignant neoplasm of colon CPT copyright 2021 [employer]. All rights reserved. The codes documented in this report are preliminary and upon private branch exchange repairer review may be revised to meet current compliance requirements. Dr. Stefano Cuadra Jr, D.O. Stefano Cuadra Jr., DO 04/28/2022 11:20:30 AM This report freeman (more content not included)... LAB, [facility] DIAGNOSTIC UPPER ENDOSCOPYon 04-28-2022 [facility] Gastroenterology Patient Name: Ashlie Malave Procedure Date: 04/28/2022 10:42 AM Date of : 1995 Admit Type: Outpatient Age: 26 Room: Procedure Room #2 Gender: Female Note Status: Finalized Attending MD: Stefano Cuadra Jr., DO, [id number] Instrument Name: [id number] - [id number] Procedure: Upper GI endoscopy Attending Participation: I personally performed the entire procedure. Indications: Epigastric abdominal pain, Heartburn Providers: Stefano Cuadra Jr., DO Referring MD: Stefano Cuadra Jr., DO, Amber Campbell, HIGH SCALER-TOREY Complications: No immediate complications. Estimated Blood Loss: Estimated blood loss: none. Medicines: See the Anesthesia note for documentation of the administered medications Procedure: Pre-Anesthesia Assessment: - Prior to the procedure, a History and Physical was performed, and patient medications and allergies were reviewed. The patient is competent. The risks and benefits of the procedure and the sedation options and risks were discussed with the patient. All questions were answered and informed consent was obtained. Patient identification and proposed procedure were verified by the physician in the pre-procedure area. Mental Status Examination: alert and oriented. Airway Examination: normal oropharyngeal airway and neck mobility. Respiratory Examination: clear to auscultation. CV Examination: normal. Prophylactic Antibiotics: The patient does not require prophylactic antibiotics. Prior Anticoagulants: The patient has taken no anticoagulant or antiplatelet agents. ASA Grade Assessment: II - A patient with mild systemic disease. After reviewing the risks and benefits, the patient was deemed in satisfactory condition to undergo the procedure. The anesthesia plan was to use moderate sedation / analgesia (conscious sedation). Immediately prior to administration of medications, the patient was re-assessed for adequacy to receive sedatives. The heart rate, respiratory rate, oxygen saturations, blood pressure, adequacy of pulmonary ventilation, and response to care were monitored throughout the procedure. The physical status of the patient was re-assessed after the procedure. After obtaining informed consent, the endoscope was passed under direct vision. Throughout the procedure, the patient's blood pressure, pulse, and oxygen saturations were monitored continuously. CO2 was used. The Endoscope was introduced through the mouth, and advanced to the third part of duodenum. The upper GI endoscopy was accomplished without difficulty. The patient tolerated the procedure well. Findings: The nasopharynx was normal. A gaping lower esophageal sphincter was found. A medium-sized hiatal hernia was present. The entire examined stomach was normal. The examined duodenum was normal. Impression: - Normal nasopharynx. - Gaping lower esophageal sphincter. - Medium-sized hiatal hernia. - Normal stomach. - Normal examined duodenum. - No specimens collected. Recommendation: - Discharge patient to home (ambulatory). - Resume previous diet. Procedure Code(s): --- Professional --- 08435, Esophagogastroduodenos copy, flexible, transoral; diagnostic, including collection of specimen(s) by brushing or washing, when performed (separate procedure) Diagnosis Code(s): --- Professional --- K22.89, Other specified disease of esophagus K44.9, Diaphragmatic hernia without obstruction or gangrene R10.13, Epigastric pain R12, Heartburn CPT copyright 2021 [employer]. All right (more content not included)... LAB, [facility] No Panel Informationon 04-28 Radiology Study observation (narrative) [facility] CT ABDOMEN PELVIS WO CONTRAS Ton 03-31-2022 CT ABDOMEN PELVIS WO CONTRAST EXAMINATION: CT OF THE ABDOMEN AND PELVIS WITHOUT CONTRAST 03/30/2022 3:33 pm TECHNIQUE: CT of the abdomen and pelvis was performed without the administration of intravenous contrast. Multiplanar reformatted images are provided for review. Automated exposure control, iterative reconstruction, and/or weight based adjustment of the mA/kV was utilized to reduce the radiation dose to as low as reasonably achievable. COMPARISON: None. HISTORY: ORDERING SYSTEM PROVIDED HISTORY: Frequent UTI TECHNOLOGIST PROVIDED HISTORY: Is the patient ?->No FINDINGS: Lower Chest: Visualized portion of the lower chest demonstrates no acute abnormality. Organs: Unenhanced spleen, liver, pancreas adrenal glands gallbladder and kidneys are unremarkable. GI/Bowel: Stomach and small bowel normal. Appendix normal. Large bowel not well-distended distally otherwise unremarkable. No inflammatory change, free fluid or air within the abdomen or pelvis. Pelvis: Urinary bladder and uterus unremarkable. Peritoneum/Retroperito neum: Negative Bones/Soft Tissues: Negative IMPRESSION: Unremarkable unenhanced CT abdomen and pelvis. No nephrolithiasis. Interpreted by: Corey Khan DO Signed by: Corey Khan DO 03/31/22 Final result Normal [facility] Cult,Urineon 03-18-2022 Cult,Urine Specimen Description .URINE Culture NO SIGNIFICANT GROWTH Report Status FINAL 03/17/2022 Normal [facility] Comment on above: Performed By: #### U RC #### [facility] [address] [place] [id number] Director Of Science: Nigel Morales MD [facility] [address] [place] [address] Director Of Science: Mick Del Toro MD Urinalysis w/ Microon 2022 Bacteria 2+ Abnormal NONE [facility] Comment on above: Performed By: #### U AMIC #### [facility] [address] [place] [address] Director Of Science: Mick Del Toro MD Bilirubin, SemiQt,Ur Negative Normal NEG [facility] Comment on above: Performed By: #### U AMIC #### [facility] [address] [place] [address] Director Of Science: Mick Del Toro MD Blood, Urine Negative Normal NEG [facility] Comment on above: Performed By: #### U AMIC #### [facility] [address] [place] [address] Dr[address] [place], [place] [id number] Director Of Science: Mick Del Toro MD Clarity (U) Clear Normal CLEAR [facility] Comment on above: Performed By: #### U AMIC #### [facility] [address] [place] [address] Director Of Science: Mick Del Toro MD Color (U) Yellow Normal YEL [facility] Comment on above: Performed By: #### U AMIC #### [facility] [address] [place] [address] Director Of Science: Mick Del Toro MD Epithelial cells LM Ql (Urine sed) 2 TO 5 Normal 0-25 [facility] Comment on above: Performed By: #### U AMIC #### [facility] [address] [place] [address] Director Of Science: Mick Del Toro MD Glucose Ql (U) Negative Normal NEG [facility] Comment on above: Performed By: #### U AMIC #### [facility] [address] [place] [address] Dr[place], [place] [id number] Director Of Science: Mick Del Toro MD Ketones Ql (U) Negative Normal NEG [facility] in Hospital Comment on above: Performed By: #### U AMIC #### [facility] [address] [place] [address] [place], [place] [id number] Director Of Science: Mick Del Toro MD Leukocyte esterase Test strip Ql (U) Negative Normal NEG [facility] Comment on above: Performed By: #### U AMIC #### [facility] [address] [place] [address] Dr. [place], [place] [id number] Director Of Science: Mick Del Toro MD Nitrite,Ur Negative Normal [facility] Comment on above: Performed By: #### U AMIC #### [facility] [address] [place] [address] [place] [address] Director Of Science: Mick Del Toro MD PH,Ur 6.0 Normal 5.0-9.0 [facility] Comment on above: Performed By: #### U AMIC #### [facility] [address] [place] [address] [place] [address] Director Of Science: Mick Del Toro MD Protein Ql (U) Negative Normal NEG [facility] Comment on above: Performed By: #### U AMIC #### [facility] [address] [place] [address] [place], [place] [id number] Director Of Science: Mick Del Toro MD Spec. [place],Ur >1.030 High 1.010-1.020 [facility] Comment on above: Performed By: #### U AMIC #### [facility] [address] [place] [address] [place], [place] [id number] Director Of Science: Mick Del Toro MD Urine RBC's None Normal 0-2 [facility] Comment on above: Performed By: #### U AMIC #### [facility] [address] [place], [place] [id number] Director Of Science: Mick Del Toro MD Urine WBC's 0 TO 2 Normal 0-5 [facility] Comment on above: Performed By: #### U AMIC #### [facility] [address] [place], [place] [id number] Director Of Science: Mick Del Toro MD Urobilinogen,Ur Normal Normal NORM [facility] Comment on above: Performed By: #### U AMIC #### [facility] [address] [place], [place] [id number] Director Of Science: Mick Del Toro MD Urinalysis with Microscopico n 03-16-2022 Bacteria, UA 2+ Abnormal None [facility] Bilirubin Urine Negative NEGATIVE [facility] Color, UA Yellow Yellow [facility] Epithelial Cells UA 2 TO 5 [facility] Glucose, Ur Negative NEGATIVE [facility] Interpretation and review of laboratory results Abnormal [facility] Ketones Ql (U) Negative NEGATIVE [facility] Leukocyte esterase Test strip Ql (U) Negative NEGATIVE [facility] Nitrite, Urine Negative NEGATIVE [facility] pH, UA 6.0 5.0 - 9.0 [facility] Protein, UA Negative NEGATIVE [facility] RBC, UA None [facility] Specific [place], UA High 1.010 - 1.020 B ON [facility] Turbidity UA Clear Clear [facility] Urine Hgb Negative NEGATIVE [facility] Urobilinogen, Urine Normal Normal [facility] WBC, UA 0 TO 2 [facility] POCT URINE DIPSTICK AUTOMATE Don 09-27-2021 Amorphous sediment LM Ql (Urine sed) [facility] Appearance (U) Cloudy [facility] Bacteria LM Ql (Urine sed) [facility] Bilirubin Ql (U) Negative [facility] Casts LM.LPF (Urine sed) [#/Area] [facility] Color (U) Dark Yellow [facility] Crystals LM Nom (Urine sed) [facility] Epithelial cells.squamous LM.HPF (Urine sed) [#/Area] [facility] Flow cytometry specialist review [place] (Unsp spec) [Interp] [facility] Glucose Auto test strip (U) [Mass/Vol] Negative mg/dL [facility] Ketones [Mass/Vol] Negative mg/dL [facility] Leukocyte esterase Qn (U) [facility] Leukocyte esterase Test strip Ql (U) Negative [facility] Microscopic observation Gram stain Nom (Bronch spec) [facility] Nitrite Ql (U) Negative [facility] pH (U) 6.0 [pH] [facility] Protein Ql (U) Negative mg/dL [facility] RBC LM.HPF (Urine sed) [#/Area] [facility] RBC Ql (U) Mod [facility] Specific gravity (U) [Rel density] >=1.030 [facility] Transitional cells LM Ql (Urine sed) [facility] Urobilinogen Qn (U) 0.2 [facility] WBC LM.HPF (Urine sed) [#/Area] [facility] CBC W Auto Differential pane l (Bld)on 09-08-2019 Basophils (Bld) [#/Vol] 0.01 10*3/uL Normal <=0.70 [facility] Comment on above: Performed By: #### H IVRAP, #### [facility] [address] [place] [address] Staff Radiation Therapist - Fabiola CERDA [id number] Basophils/100 WBC (Bld) 0.1 % Normal <=2.0 [facility] Comment on above: Performed By: #### H IVRAP, #### [facility] [address] [place] [address] Staff Radiation Therapist - Fabiola CERDA [id number] Eosinophils (Bld) [#/Vol] 0.00 10*3/uL Normal <=0.70 [facility] Comment on above: Performed By: #### Ben IVBERNARD, #### [address] [place] [address] Staff Radiation Therapist - Fabiola CERDA [id number] Eosinophils/100 WBC (Bld) 0.0 % Normal <=10.0 [facility] Comment on above: Performed By: #### Ben BOSTONRACourtney, #### [address] [place] [address] Staff Radiation Therapist - Fabiola CERDA [id number] Erythrocyte distribution width (RBC) [Entitic vol] 47.0 fL High 36.4-46.3 [facility] Comment on above: Performed By: #### Ben IVRACourtney, #### [place] [address] Staff Radiation Therapist - Fabiola CERDA [id number] Hematocrit (Bld) [Volume fraction] 36.0 % Low 37.0-47.0 [facility] Comment on above: Performed By: #### Ben STUART, #### [place] [address] Staff Radiation Therapist - Fabiola CERDA [id number] Hemoglobin (Bld) [Mass/Vol] 12.1 g/dL Normal 12.0-16.0 [facility] Comment on above: Performed By: #### Ben IVRACourtney, #### [address] [place] [address] Staff Radiation Therapist - Fabiola CERDA [id number] Immature granulocytes (Bld) [#/Vol] 0.09 10*3/uL Normal <=0.10 [facility] Comment on above: Performed By: #### Ben IVRACourtney, #### [address] [place] [address] Staff Radiation Therapist - Fabiola BLAKEIA [id number] Immature granulocytes/100 WBC (Bld) 0.70 % Normal <=1.50 [facility] Comment on above: Performed By: #### Ben STUART, #### [place] [address] [place] [address] Staff Radiation Therapist - Fabiola CERDA [id number] Lymphocytes (Bld) [#/Vol] 1.71 10*3/uL Normal 1.20-3.40 [facility] Comment on above: Performed By: #### Ben STUART, #### [address] [place] [address] Staff Radiation Therapist - Fabiola [id number] Lymphocytes/100 WBC (Bld) 13.6 % Low 20.0-40.0 [facility] Comment on above: Performed By: #### Ben IVBERNARD, #### [address] [place] [address] Staff Radiation Therapist - Fabiola CERDA [id number] MCH (RBC) [Entitic mass] 29.4 pg Normal 27.0-31.0 [facility] Comment on above: Performed By: #### Ben STUART, #### [address] [place] [address] Staff Radiation Therapist - Fabiola CERDA [id number] MCHC (RBC) [Mass/Vol] 33.6 g/dL Normal 32.0-36.0 [facility] Comment on above: Performed By: #### Ben STUART, #### [address] [place] [address] Staff Radiation Therapist - Fabiola CERDA [id number] MCV (RBC) [Entitic vol] 87.4 fL Normal 80.0-100.0 [facility] Comment on above: Performed By: #### Ben IVRACourtney, #### [address] [place] [address] Staff Radiation Therapist - Fabiola BLAKEIA [id number] Monocytes (Bld) [#/Vol] 0.86 10*3/uL High 0.10-0.60 [facility] Comment on above: Performed By: #### Ben STUART, #### [address] [facility] [address] [facility] [place] [address] Staff Radiation Therapist - Fabiola BLAKEIA [id number] Monocytes/100 WBC (Bld) 6.9 % Normal <=8.0 [facility] Comment on above: Performed By: #### Ben STUART, #### [address] [place] [address] Staff Radiation Therapist - Fabiola BLAKEIA [id number] Neutrophils (Bld) [#/Vol] 9.87 10*3/uL High 1.40-6.50 [facility] Comment on above: Performed By: #### Ben STUART, #### [address] [place] [address] Staff Radiation Therapist - Fabiola BLAKEIA [id number] Neutrophils/100 WBC (Bld) 78.7 % High 50.0-70.0 [facility] Comment on above: Performed By: #### Ben STUART, #### [address] [place] [address] Staff Radiation Therapist - Fabiola CERDA [id number] Nucleated RBC (Bld) [#/Vol] 0.00 10*3/uL Normal <=0.10 [facility] Comment on above: Performed By: #### Ben STUART, #### [address] [place] [address] Staff Radiation Therapist - Fabiola CERDA [id number] Platelet mean volume (Bld) [Entitic vol] 10.6 fL Normal 9.0-13.0 [facility] Comment on above: Performed By: #### Ben STUART, #### [address] [place] [address] Staff Radiation Therapist - Fabiola BLAKEIA [id number] Platelets (Bld) [#/Vol] 158 10*3/uL Normal 130-400 [facility] Comment on above: Performed By: #### Ben STUART, #### [facility] [address] [place] [address] Staff Radiation Therapist - Fabiola CERDA [id number] RBC (Bld) [#/Vol] 4.12 10*6/uL Normal 4.00-6.30 [facility] Comment on above: Performed By: #### Ben STUART, #### [place] [address] [place] [address] Staff Radiation Therapist - Fabiola CERDA [id number] WBC (Bld) [#/Vol] 12.54 10*3/uL High 4.80-10.80 [facility] Comment on above: Performed By: #### Ben STUART, #### [address] [place] [address] Staff Radiation Therapist - Fabiola CERDA [id number] Drugs identified Screen Nom (U)on 09-08-2019 Amphetamines Ql (U) Not detected Normal CUTOFF = 500 K [facility] Comment on above: Performed By: #### Ben STUART, #### [place] [address] [place] [address] Staff Radiation Therapist - Fabiola CERDA [id number] Barbiturates Ql (U) Not detected Normal CUTOFF = 200 K [facility] Comment on above: Performed By: #### Ben IVBERNARD, #### [facility] [address] [place] [address] Staff Radiation Therapist - Fabiola CERDA [id number] Benzodiazepines Ql (U) Not detected Normal CUTOFF = 15 0 [facility] Comment on above: Performed By: #### Ben IVBERNARD, #### [facility] [address] [place] [address] Staff Radiation Therapist - Fabiola CERDA [id number] Cocaine Ql (U) Not detected Normal CUTOFF = 150 [facility] Comment on above: Performed By: #### H IVRAP, #### [facility] [address] [place] [address] Staff Radiation Therapist - Fabiola CERDA [id number] [facility] abuse screening provides only a preliminary analytical test result. A more specific alternate chemical method must be used in order to obtain a confimed analytical result. Clinical consideration and professional judgment should be applied to any drug of abuse test result, particularly when preliminary positive results are obtained. Normal [facility] Comment on above: Performed By: #### H IVRAP, #### [facility] [address] [place] [address] Staff Radiation Therapist - Fabiola CERDA [id number] Methadone Ql (U) Not detected Normal CUTOFF = 200 [facility] Comment on above: Performed By: #### H IVRACourtney, #### [facility] [address] [place] [address] Staff Radiation Therapist - Fabiola CERDA [id number] Opiates Ql (U) Not detected Normal CUTOFF = 300 [facility] Comment on above: Performed By: #### H IVRAP, #### [facility] [address] [place] [address] Staff Radiation Therapist - Fabiola CERDA [id number] oxyCODONE Ql (U) Not detected Normal CUTOFF = 100 [facility] Comment on above: Performed By: #### H IVRAP, #### [facility] [address] [place] [address] Staff Radiation Therapist - Fabiola CERDA [id number] Phencyclidine Ql (U) Not detected Normal CUTOFF = 25 [facility] Comment on above: Performed By: #### H IVRAP, #### [facility] [address] [place] [address] Staff Radiation Therapist - Fabiola CERDA [id number] Tetrahydrocannabinol Ql (U) Not detected Normal CUTOFF = 50 [facility] Comment on above: Performed By: #### H IVRAP, 47636-8 #### [facility] [address] [place] [address] Staff Radiation Therapist - Fabiola CERDA [id number] Urinalysis panel Auto (U)on 09-08-2019 Bacteria LM.HPF (Urine sed) [#/Area] Negative Normal TRACE [facility] Comment on above: Performed By: #### 4 0667-8 #### [facility] [address] [place] [address] Staff Radiation Therapist - Fabiola CERDA [id number] Bilirubin Ql (U) Negative Normal NEGATIVE [facility] Comment on above: Performed By: #### 4 0667-8 #### [facility] [address] [place] [address] Staff Radiation Therapist - Fabiola CERDA [id number] Clarity (U) CLEAR Normal CLEAR [facility] Comment on above: Performed By: #### 4 0667-8 #### [facility] [address] [place] [address] Staff Radiation Therapist - Fabiola CEDRA [id number] Color (U) YELLOW Normal YELLOW [facility] Comment on above: Performed By: #### 4 0667-8 #### [facility] [address] [place] [address] Staff Radiation Therapist - Fabiola CERDA [id number] Glucose Ql (U) Negative Normal NEGATIVE [facility] Comment on above: Performed By: #### 4 0667-8 #### [facility] [address] [place] [address] Staff Radiation Therapist - Fabiola CERDA [id number] Hemoglobin Ql (U) Negative Normal NEGATIVE [facility] Comment on above: Performed By: #### 4 0667-8 #### [facility] [address] [place] [address] Staff Radiation Therapist - Fabiola CERDA [id number] HMICRO MICROSCOPIC Normal [facility] Comment on above: Performed By: #### 4 0667-8 #### [facility] [address] [place] [address] Staff Radiation Therapist - Fabiola CERDA [id number] Hyaline casts (Urine sed) [#/Area] 0-8 Normal 0-8 [facility] Comment on above: Performed By: #### 4 0667-8 #### [facility] [address] [place] [address] Staff Radiation Therapist - Fabiola CERDA [id number] KETONE 2+ Abnormal NEGATIVE [facility] Comment on above: Performed By: #### 4 0667-8 #### [facility] [address] [place] [address] Staff Radiation Therapist - Fabiola CERDA [id number] Leukocyte esterase Test strip Ql (U) 1+ Abnormal TRACE [facility] Comment on above: Performed By: #### 4 0667-8 #### [facility] [address] [place], [place] [address] [place] [address] Staff Radiation Therapist - Fabiola BLAKEIA [id number] Nitrite Ql (U) Negative Normal NEGATIVE [facility] Comment on above: Performed By: #### 4 0667-8 #### [facility] [address] [place] [address] Staff Radiation Therapist - Fabiola BLAKEIA [id number] pH (U) 7.5 [pH] Normal 5.5-7.5 [facility] Comment on above: Performed By: #### 4 0667-8 #### [facility] [address] [place] [address] Staff Radiation Therapist - Fabiola BLAKEIA [id number] Protein Ql (U) Negative Normal NEGATIVE [facility] Comment on above: Performed By: #### 4 0667-8 #### [facility] [address] [place], [place] [address] [place] [address] Staff Radiation Therapist - Fabiola CERDA [id number] RBC LM.HPF (Urine sed) [#/Area] NONE SEEN Normal 0-4 [facility] Comment on above: Performed By: #### 4 0667-8 #### [facility] [address] [place] [address] Staff Radiation Therapist - Fabiola CERDA [id number] Specific gravity (U) [Rel density] 1.019 Normal 1.010-1.035 [facility] Comment on above: Performed By: #### 4 0667-8 #### [facility] [address] [place] [address] Staff Radiation Therapist - Fabiola CERDA [id number] SQUAMOUS EPITHELIALS 6-10 Abnormal 0-5 [facility] Comment on above: Performed By: #### 4 0667-8 #### [facility] [address] [place] [address] Staff Radiation Therapist - Fabiola CERDA [id number] Urobilinogen Qn (U) 1.0 {Dunia'U}/dL Normal <=1.0 [facility] Comment on above: Result Comment: 1.0 E.U./dL Performed By: #### 4 0667-8 #### [place] [address] [place] [address] Staff Radiation Therapist - aFbiola CERDA [id number] WBC LM.HPF (Urine sed) [#/Area] 6-10 Abnormal 0-5 [facility] Comment on above: Performed By: #### 4 0667-8 #### [facility] [address] [place] [address] Staff Radiation Therapist - Faibola CERDA [id number] CULTURE URINEon 09-04-2019 CULTURE URINE COLONY COUNT = ZERO COLONY FORMING UNITS, ML ISOL NO GROWTH OBSERVED AFTER 1 DAY NO PATHOGENS GROWN AFTER 2 DAYS Normal [facility] Comment on above: Performed By: #### H IVRAP, #### [facility] [address] [place] [address] Staff Radiation Therapist - Fabiola CERDA [id number] CULTURE GROUP B STREP ONLYon 09-03-2019 CULTURE GROUP B STREP ONLY Negative Normal [facility] Comment on above: Performed By: #### H IVRAP, #### [facility] [address] [place] [address] Staff Radiation Therapist - Fabiola CERDA [id number] CBC W Auto Differential pane l (Bld)on 09-01-2019 Basophils (Bld) [#/Vol] 0.01 10*3/uL Normal <=0.70 [facility] Comment on above: Performed By: #### H IVRACourtney, #### [facility] [address] [place] [address] Staff Radiation Therapist - Fabiola BLAKEIA [id number] Basophils/100 WBC (Bld) 0.1 % Normal <=2.0 [facility] Comment on above: Performed By: #### Ben IVRACourtney, #### [address] [place] [address] Staff Radiation Therapist - Fabiola CERDA [id number] Eosinophils (Bld) [#/Vol] 0.00 10*3/uL Normal <=0.70 [facility] Comment on above: Performed By: #### Ben IVRACourtney, #### [address] [facility] [place] [address] Staff Radiation Therapist - Fabiola BLAKEIA [id number] Eosinophils/100 WBC (Bld) 0.0 % Normal <=10.0 [facility] Comment on above: Performed By: #### Ben IVRACourtney, #### [address] [place] [address] Staff Radiation Therapist - Fabiola CERDA [id number] Erythrocyte distribution width (RBC) [Entitic vol] 46.6 fL High 36.4-46.3 [facility] Comment on above: Performed By: #### Ben IVRAP, #### [address] [place] [address] Staff Radiation Therapist - Fabiola CERDA [id number] Hematocrit (Bld) [Volume fraction] 32.8 % Low 37.0-47.0 [facility] Comment on above: Performed By: #### Ben IVRAP, #### [address] [place] [address] Staff Radiation Therapist - Fabiola BLAKEIA [id number] Hemoglobin (Bld) [Mass/Vol] 11.3 g/dL Low 12.0-16.0 [facility] Comment on above: Performed By: #### Ben STUART, #### [place] [address] [place] [address] Staff Radiation Therapist - Fabiola BLAKEIA [id number] Immature granulocytes (Bld) [#/Vol] 0.07 10*3/uL Normal <=0.10 [facility] Comment on above: Performed By: #### Ben STUART, #### [address] [place] [address] Staff Radiation Therapist - Fabiola CERDA [id number] Immature granulocytes/100 WBC (Bld) 0.80 % Normal <=1.50 [facility] Comment on above: Performed By: #### Ben STUART, #### [address] [place] [address] Staff Radiation Therapist - Fabiola CERDA [id number] Lymphocytes (Bld) [#/Vol] 1.47 10*3/uL Normal 1.20-3.40 [facility] Comment on above: Performed By: #### Ben STUART, #### [address] [place] [address] Staff Radiation Therapist - Fabiola CERDA [id number] Lymphocytes/100 WBC (Bld) 16.5 % Low 20.0-40.0 [facility] Comment on above: Performed By: #### Ben IVBERNARD, #### [address] [place] [address] Staff Radiation Therapist - Fabiola CERDA [id number] MCH (RBC) [Entitic mass] 30.0 pg Normal 27.0-31.0 [facility] Comment on above: Performed By: #### Ben STUART, #### [address] [place] [address] Staff Radiation Therapist - Fabiola CERDA [id number] MCHC (RBC) [Mass/Vol] 34.5 g/dL Normal 32.0-36.0 [facility] Comment on above: Performed By: #### Ben STUART, #### [place] [address] [place] [address] Staff Radiation Therapist - Fabiola CERDA [id number] MCV (RBC) [Entitic vol] 87.0 fL Normal 80.0-100.0 [facility] Comment on above: Performed By: #### Ben STUART, #### [address] [place] [address] Staff Radiation Therapist - Fabiola CERDA [id number] Monocytes (Bld) [#/Vol] 0.68 10*3/uL High 0.10-0.60 [facility] Comment on above: Performed By: #### Ben STUART, #### [place] [address] [place] [address] Staff Radiation Therapist - Fabiola CERDA [id number] Monocytes/100 WBC (Bld) 7.6 % Normal <=8.0 [facility] Comment on above: Performed By: #### Ben STUART, #### [address] [place] [address] Staff Radiation Therapist - Fabiola CERDA [id number] Neutrophils (Bld) [#/Vol] 6.70 10*3/uL High 1.40-6.50 [facility] Comment on above: Performed By: #### Ben STUART, #### [place] [address] [place] [address] Staff Radiation Therapist - Fabiola CERDA [id number] Neutrophils/100 WBC (Bld) 75.0 % High 50.0-70.0 [facility] Comment on above: Performed By: #### Ben STUART, #### [place] [address] [place] [address] Staff Radiation Therapist - Fabiola CERDA [id number] Nucleated RBC (Bld) [#/Vol] 0.00 10*3/uL Normal <=0.10 [facility] Comment on above: Performed By: #### Ben STUART, #### [facility] [address] [place] [address] Staff Radiation Therapist - Fabiola CERDA [id number] Platelet mean volume (Bld) [Entitic vol] 10.9 fL Normal 9.0-13.0 [facility] Comment on above: Performed By: #### Ben STUART, #### [address] [place] [address] Staff Radiation Therapist - Fabiola CERDA [id number] Platelets (Bld) [#/Vol] 156 10*3/uL Normal 130-400 [facility] Comment on above: Performed By: #### Ben STUART, #### [place] [address] [place] [address] Staff Radiation Therapist - Fabiola CERDA [id number] RBC (Bld) [#/Vol] 3.77 10*6/uL Low 4.00-6.30 [facility] Comment on above: Performed By: #### Ben IVBERNARD, #### [address] [place] [address] Staff Radiation Therapist - Fabiola CERDA [id number] WBC (Bld) [#/Vol] 8.93 10*3/uL Normal 4.80-10.80 [facility] Comment on above: Performed By: #### Ben IVRACourtney, #### [address] [place] [address] Staff Radiation Therapist - Fabiola ECRDA [id number] CREATININEon 09-01-2019 Creatinine [Mass/Vol] 0.46 mg/dL Low 0.51-0.95 [facility] Comment on above: Performed By: #### 4 0667-8 #### [address] [place] [address] Staff Radiation Therapist - [facility] [id number] Creatinine [Mass/Vol]on 08-20 GFR/1.73 sq M.predicted MDRD (S/P/Bld) [Vol rate/Area] mL/min/{1.73_m2} Normal >=59 [facility] Comment on above: Performed By: #### 4 0667-8 #### [facility] [address] [place] [address]. [place] [address] Staff Radiation Therapist - [facility] [id number] HGFR GLOMERULAR FILTRATIO N RATE INTERPRETATION~The eGFR is calculated using the MDRD equation.~This equation has been validated in patients with chronic kidney disease;~however, it underestimates the GFR in healthy patients with GFR's over 60 mL/min.~The equation is not valid in children under the age of 18.~NOTE: Criteria for Chronic Kidney Disease:~ ~1. Kidney damage for at least three months, as defined~by structural or functional abnormalities of the kidney,~with or without decreased glomerular filtration rate, manifested by either:~* Pathological abnormalities or~* Markers of Kidney damage, including abnormalities in~the composition of the blood or urine or abnormalities in imaging tests.~ ~2. GFR <60 mL/min/1.73 m squared for at least three months, with or without kidney damage.~ Normal [facility] Comment on above: Performed By: #### 4 0667-8 #### [address] [place] [address] Staff Radiation Therapist - [facility] [id number] LDHon 09-01-2019 LDH Pyruvate to lactate reaction [Catalytic activity/Vol] 175 U/L Normal 84-246 [facility] Comment on above: Performed By: #### 5 7021-8 #### [address] [place] [address] Staff Radiation Therapist - [facility] [id number] ROM TESTon 09-01-2019 ROM Negative Normal NEGATIVE [facility] Comment on above: Performed By: #### H IVRAP, [address]-1 #### [address], [place] [address] Staff Radiation Therapist - Fabiola CERDA [id number] SGOT Viktor 09-01-2019 AST [Catalytic activity/Vol] 15 U/L Normal 15-37 [facility] Comment on above: Performed By: #### 4 0667-8 #### [facility] [address] [place] [address] Staff Radiation Therapist - Fabiola CERDA [id number] SGPT Crow 09-01-2019 ALT [Catalytic activity/Vol] 14 U/L Normal 14-59 [facility] Comment on above: Performed By: #### 4 0667-8 #### [facility] [address] [place] [address] Staff Radiation Therapist - Fabiola CERDA [id number] URIC ACIDon 09-01-2019 Urate [Mass/Vol] 4.9 mg/dL Normal 2.6-6.0 [facility] Comment on above: Performed By: #### 4 0667-8 #### [facility] [address] [place] [address] Staff Radiation Therapist - Fabiola CERDA [id number] URINALYSIS with MICROSCOPICo n 09-01-2019 AMMONIUM URATES Normal NONE SEEN [facility] Comment on above: Performed By: #### H IVRAP, #### [facility] [address] [place] [address] Staff Radiation Therapist - Fabiola CERDA [id number] AMORPHOUS PHOSPHATES Normal NONE SEEN [facility] Comment on above: Performed By: #### H IVRAP, #### [facility] [address] [place] [address] Staff Radiation Therapist - Fabiola CERDA [id number] AMORPHOUS URATES Normal NONE SEEN [facility] Comment on above: Performed By: #### H IVRAP, #### [facility] [address] [place] [address] Staff Radiation Therapist - Fabiola CERDA [id number] BACTERIA TRACE Normal TRACE [facility] Comment on above: Performed By: #### H IVRAP, #### [facility] [address] [place] [address] Staff Radiation Therapist - [facility]St[facility] CenterR[facility] [id number] Bilirubin Ql (U) Negative Normal NEGATIVE [facility] Comment on above: Performed By: #### H IVRAP, #### [facility] [address] [place] [address] Staff Radiation Therapist - [facility] [id number] CALCIUM CARBONATES Normal NONE SEEN [facility] Comment on above: Performed By: #### H IVRAP, #### [facility] [address] [place] [address] Staff Radiation Therapist - [facility] [id number] CALCIUM OXALATES Normal FEW [facility] Comment on above: Performed By: #### H IVRAP, #### [facility] [address] [place] [address] Staff Radiation Therapist - [place] [id number] CALCIUM PHOSPHATES Normal NONE SEEN [facility] Comment on above: Performed By: #### H IVRAP, #### [facility] [address] [place] [address] Staff Radiation Therapist - [facility] [id number] CHOLESTEROL CRYSTALS Normal NONE SEEN [facility] Comment on above: Performed By: #### H IVRAP, #### [facility] [address] [place] [address] Staff Radiation Therapist - [facility] [id number] Clarity (U) CLOUDY Abnormal CLEAR [facility] Comment on above: Performed By: #### H IVRAP, #### [facility] [address] [place] [address] Staff Radiation Therapist - [facility] [id number] Coarse Granular Casts LM.LPF (Urine sed) [#/Area] Normal NONE SEEN [facility] Comment on above: Performed By: #### H IVRAP, #### [facility] [address] [place] [address] Staff Radiation Therapist - Fabiola BLAKEIA [id number] Color (U) YELLOW Normal YELLOW [facility] Comment on above: Performed By: #### H IVRACourtney, #### [facility] [address] [place] [address] Staff Radiation Therapist - Fabiola CERDA [id number] CYSTINE CRYSTALS Normal NONE SEEN [facility] Comment on above: Performed By: #### H IVRACourtney, #### [facility] [address] [place] [address] Staff Radiation Therapist - Fabiola CERDA [id number] Epithelial cells.renal LM.HPF (Urine sed) [#/Area] 0-5 Abnormal NONE SEEN [facility] Comment on above: Performed By: #### Ben IVRACourtney, #### [facility] [address] [place] [address] Staff Radiation Therapist - Fabiola CERDA [id number] Fatty casts LM.LPF (Urine sed) [#/Area] Normal NONE SEEN [facility] Comment on above: Performed By: #### Ben IVBERNARD, #### [facility] [address] [place] [address] Staff Radiation Therapist - [place] CERDA [id number] Fine Granular Casts LM.LPF (Urine sed) [#/Area] Normal NONE SEEN [facility] Comment on above: Performed By: #### Ben IVRACourtney, #### [facility] [address] [place] [address] Staff Radiation Therapist - Fabiola BLAKEIA [id number] Glucose Ql (U) Negative Normal NEGATIVE [facility] Comment on above: Performed By: #### H IVRACourtney, #### [facility] [address] [place] [address] Staff Radiation Therapist - Fabiola CERDA [id number] Hemoglobin Ql (U) Negative Normal NEGATIVE [facility] Comment on above: Performed By: #### H IVRAP, #### [facility] [address] [place] [address] Staff Radiation Therapist - Fabiola [id number] HIPPURIC ACID AI Normal NONE SEEN [facility] Comment on above: Performed By: #### H IVRAP, #### [facility] [address] [place] [address] Staff Radiation Therapist - Fabiola CERDA [id number] HMICRO MICROSCOPIC Normal [facility] Comment on above: Performed By: #### H IVRAP, #### [facility] [address] [place] [address] Staff Radiation Therapist - Fabiola [id number] Hyaline casts (Urine sed) [#/Area] 0-8 Normal 0-8 [facility] Comment on above: Performed By: #### H IVRACourtney, #### [facility] [address] [place] [address] Staff Radiation Therapist - Fabiola [id number] KETONE TRACE Abnormal NEGATIVE [facility] Comment on above: Performed By: #### H IVRACourtney, #### [facility] [address] [place] [address] Staff Radiation Therapist - Fabiola [id number] LEUCINE CRYSTALS Normal NONE SEEN [facility] Comment on above: Performed By: #### H IVRAP, #### [facility] [address] [place] [address] Staff Radiation Therapist - Fabiola CERDA [id number] Leukocyte esterase Test strip Ql (U) 2+ Abnormal TRACE [facility] Comment on above: Performed By: #### H IVRAP, #### [facility] [address] [place] [address] Staff Radiation Therapist - Fabiola CERDA [id number] MONOSODIUM URATES Normal NONE SEEN [facility] Comment on above: Performed By: #### H IVRAP, #### [facility] [address] [place] [address] Staff Radiation Therapist - Fabiola CERDA [id number] MUCOUS TRACE Normal TRACE [facility] Comment on above: Performed By: #### Ben STUART, #### [facility] [address] [place] [address] Staff Radiation Therapist - Fabiola CERDA [id number] Nitrite Ql (U) Negative Normal NEGATIVE [facility] Comment on above: Performed By: #### Ben STUART, #### [facility] [address] [place] [address]. [place] [address] Staff Radiation Therapist - Fabiola CERDA [id number] pH (U) 6.5 [pH] Normal 5.5-7.5 [facility] Comment on above: Performed By: #### Ben STUART, #### [facility] [address] [place] [address] Staff Radiation Therapist - Fabiola CERDA [id number] Protein Ql (U) Negative Normal NEGATIVE [facility] Comment on above: Performed By: #### Ben STUART, #### [facility] [address] [place] [address]. [place] [address] Staff Radiation Therapist - Fabiola CERDA [id number] RBC casts LM.LPF (Urine sed) [#/Area] Normal NONE SEEN [facility] Comment on above: Performed By: #### Ben STUART, #### [facility] [address] [place] [address]. [place] [address] Staff Radiation Therapist - Fabiola CERDA [id number] RBC LM.HPF (Urine sed) [#/Area] 0-4 Normal 0-4 [facility] Comment on above: Performed By: #### Ben STUART, #### [facility] [address] [place] [address]. [place] [address] Staff Radiation Therapist - Fabiola CERDA [id number] Specific gravity (U) [Rel density] 1.017 Normal 1.010-1.035 [facility] Comment on above: Performed By: #### H IVRAP, #### [facility] [address] [place] [address] Staff Radiation Therapist - Fabiola CERDA [id number] SPERM Normal [facility] Comment on above: Performed By: #### H IVRAP, #### [facility] [address] [place] [address] Staff Radiation Therapist - Fabiola CERDA [id number] SQUAMOUS EPITHELIALS >15 Abnormal 0-5 [facility] Comment on above: Performed By: #### H IVRAP, #### [facility] [address] [place] [address] Staff Radiation Therapist - Fabiola CERDA [id number] STARCH CRYSTALS Normal NONE SEEN [facility] Comment on above: Performed By: #### Ben IVRAP, #### [facility] [address] [place] [address] Staff Radiation Therapist - Fabiola CERDA [id number] SULFONAMIDES Normal NONE SEEN [facility] Comment on above: Performed By: #### H IVRAP, #### [facility] [address] [place] [address] Staff Radiation Therapist - Fabiola CERDA [id number] Transitional cells LM.LPF (Urine sed) [#/Area] Normal NONE SEEN [facility] Comment on above: Performed By: #### H IVRAP, #### [facility] [address] [place] [address] Staff Radiation Therapist - Fabiola CERDA [id number] TRICHOMONAS Normal NONE SEEN [facility] Comment on above: Performed By: #### H IVRAP, #### [facility] [address] [place] [address] Staff Radiation Therapist - Fabioal CERDA [id number] TRIPLE PHOSPHATES Normal NONE SEEN [facility] Comment on above: Performed By: #### H IVRAP, #### [facility] [address] [place] [address] Staff Radiation Therapist - Fabiola CERDA [id number] TYROSINE CRYSTALS Normal NONE SEEN [facility] Comment on above: Performed By: #### Ben IVBERNARD, #### [facility] [address] [place] [address] Staff Radiation Therapist - Fabiola CERDA [id number] URIC ACID CRYSTALS Normal NONE SEEN [facility] Comment on above: Performed By: #### Ben IVRACourtney, #### [facility] [address] [place] [address] Staff Radiation Therapist - Fabiola CERDA [id number] Urobilinogen Qn (U) 1.0 {Dunia'U}/dL Normal <=1.0 [facility] Comment on above: Result Comment: 1.0 E.U./dL Performed By: #### Ben STUART, #### [facility] [address] [place] [address] Staff Radiation Therapist - Fabiola CERDA [id number] Waxy casts LM Ql (Urine sed) Normal NONE SEEN [facility] Comment on above: Performed By: #### Ben IVBERNARD, #### [facility] [address] [place] [address] Staff Radiation Therapist - Fabiola CERDA [id number] WBC casts LM.LPF (Urine sed) [#/Area] Normal NONE SEEN [facility] Comment on above: Performed By: #### Ben IVRACourtney, #### [facility] [address] [place] [address] Staff Radiation Therapist - Fabiola CERDA [id number] WBC LM.HPF (Urine sed) [#/Area] 20-50 Abnormal 0-5 [facility] Comment on above: Performed By: #### Ben IVRACourtney, #### [facility] [address] [place] [address] Staff Radiation Therapist - Fabiola [id number] YEAST BUDDING Normal NONE SEEN [facility] Comment on above: Performed By: #### Ben STUART, #### [facility] [address] [place] [address] Staff Radiation Therapist - Fabiola CERDA [id number] YEAST PSEUDOHYPHAE Normal NONE SEEN [facility] Comment on above: Performed By: #### Ben STUART, #### [facility] [address] [place] [address] Staff Radiation Therapist - Fabiola CERDA [id number] URINE PROTEIN to CREAT RATIO RANDOMon 09-01-2019 Creatinine (U) [Mass/Vol] 154.00 mg/dL Normal [facility] Comment on above: Performed By: #### Ben STUART, #### [facility] [address] [place] [address] Staff Radiation Therapist - Fabiola CERDA [id number] Protein Ql (U) 13 mg/dL High <=12 [facility] Comment on above: Performed By: #### Ben STUART, #### [facility] [address] [place] [address] Staff Radiation Therapist - Fabiola CERDA [id number] URINE MA/CR RATIO 0.1 mg/mg Normal <=0.2 [facility] Comment on above: Result Comment: A mi lligram per milligram protein to creatinine ratio of 0.2 or less is normal, whereas a ratio of 3.5 or greater is in the nephrotic range. Performed By: #### H SADE, #### [facility] [address] [place] [address] Staff Radiation Therapist - Fabiola CERDA [id number] CULTURE URINEon 08-17-2019 Bacteria identified Cx Nom (U) NO GROWTH OBSERVED AFTER 2 DAYS Normal [facility] Comment on above: Performed By: #### 4 0667-8 #### [facility] [address] [place] [address] Staff Radiation Therapist - Fabiola CERDA [id number] CULTURE GROUP B STREP ONLYon 08-16-2019 CULTURE GROUP B STREP ONLY Negative Normal [facility] Comment on above: Performed By: #### H IVRAP, 98372-8 #### [facility] [address] [place] [address] Staff Radiation Therapist - Fabiola CERDA [id number] GLUCOSE CHALLENGEon 08-15-19 20 Glucose 1 Hr post dose glucose [Mass/Vol] 112 mg/dL Normal 70-140 [facility] Comment on above: Performed By: #### 5 7021-8 #### [place] [address] [place] [address] Staff Radiation Therapist - Faboila CERDA [id number] Glucose 1 Hr post dose gluco se [Mass/Vol]on 08-15-2019 HGLUCHAL NOTE: If patient massiel ue is equal to or exceeds 140 mg/dL, the 3 HR Oral Glucose Tolerance Test is recommended. Normal [facility] Comment on above: Performed By: #### 5 7021-8 #### [address] [place] [address] Staff Radiation Therapist - Fabiola CERDA [id number] CULTURE URINEon 08-10-2019 Bacteria identified Cx Nom (U) COLONY COUNT = ZERO COLONY FORMING UNITS, ML ISOL NO GROWTH OBSERVED AFTER 1 DAY NO GROWTH OBSERVED AFTER 2 DAYS Normal [facility] Comment on above: Performed By: #### 4 0667-8 #### [address] [place] [address] Staff Radiation Therapist - Fabiola CERDA [id number] CBC W Auto Differential pane l (Bld)on 08-08-2019 Basophils (Bld) [#/Vol] 0.01 10*3/uL Normal <=0.70 [facility] Comment on above: Performed By: #### 5 7021-8 #### [facility] [address] [place] [address] Staff Radiation Therapist - Fabiola CERDA [id number] Basophils/100 WBC (Bld) 0.1 % Normal <=2.0 [facility] Comment on above: Performed By: #### 5 7021-8 #### [facility] [address] [place] [address] Staff Radiation Therapist - Fabiola BLAKEIA [id number] Eosinophils (Bld) [#/Vol] 0.00 10*3/uL Normal <=0.70 [facility] Comment on above: Performed By: #### 5 7021-8 #### [place] [address] [place] [address] Staff Radiation Therapist - Fabiola BLAKEIA [id number] Eosinophils/100 WBC (Bld) 0.0 % Normal <=10.0 [facility] Comment on above: Performed By: #### 5 7021-8 #### [address] [place] [address] Staff Radiation Therapist - Fabiola BLAKEIA [id number] Erythrocyte distribution width (RBC) [Entitic vol] 44.1 fL Normal 36.4-46.3 [facility] Comment on above: Performed By: #### 5 7021-8 #### [address] [facility] [place] [address] Staff Radiation Therapist - Fabiola BLAKEIA [id number] Hematocrit (Bld) [Volume fraction] 33.6 % Low 37.0-47.0 [facility] Comment on above: Performed By: #### 5 7021-8 #### [address] [place] [address] Staff Radiation Therapist - aFbiola BLAKEIA [id number] Hemoglobin (Bld) [Mass/Vol] 11.4 g/dL Low 12.0-16.0 [facility] Comment on above: Performed By: #### 5 7021-8 #### [address] [place] [address] Staff Radiation Therapist - Fabiola BLAKEIA [id number] Immature granulocytes (Bld) [#/Vol] 0.06 10*3/uL Normal <=0.10 [facility] Comment on above: Performed By: #### 5 7021-8 #### [address] [place] [address] Staff Radiation Therapist - Fabiola BLAKEIA [id number] Immature granulocytes/100 WBC (Bld) 0.70 % Normal <=1.50 [facility] Comment on above: Performed By: #### 5 7021-8 #### [place] [address] [place] [address] Staff Radiation Therapist - Fabiola BLAKEIA [id number] Lymphocytes (Bld) [#/Vol] 1.51 10*3/uL Normal 1.20-3.40 [facility] Comment on above: Performed By: #### 5 7021-8 #### [place] [address] [place] [address] Staff Radiation Therapist - Fabiola BLAKEIA [id number] Lymphocytes/100 WBC (Bld) 17.2 % Low 20.0-40.0 [facility] Comment on above: Performed By: #### 5 7021-8 #### [place] [address] [place] [address] Staff Radiation Therapist - Fabiola BLAKEIA [id number] MCH (RBC) [Entitic mass] 29.8 pg Normal 27.0-31.0 [facility] Comment on above: Performed By: #### 5 7021-8 #### [address] [place] [address] Staff Radiation Therapist - Fabiola BLAKEIA [id number] MCHC (RBC) [Mass/Vol] 33.9 g/dL Normal 32.0-36.0 [facility] Comment on above: Performed By: #### 5 7021-8 #### [address] [place] [address] Staff Radiation Therapist - Fabiola BLAKEIA [id number] MCV (RBC) [Entitic vol] 88.0 fL Normal 80.0-100.0 [facility] Comment on above: Performed By: #### 5 7021-8 #### [place] [address] [place] [address] Staff Radiation Therapist - Fabiola Beatty CLIA [id number] Monocytes (Bld) [#/Vol] 0.64 10*3/uL High 0.10-0.60 [facility] Comment on above: Performed By: #### 5 7021-8 #### [address] [place] [address] Staff Radiation Therapist - Fabiola BLAKEIA [id number] Monocytes/100 WBC (Bld) 7.3 % Normal <=8.0 [facility] Comment on above: Performed By: #### 5 7021-8 #### [address] [place] [address] Staff Radiation Therapist - Fabiola BLAKEIA [id number] Neutrophils (Bld) [#/Vol] 6.56 10*3/uL High 1.40-6.50 [facility] Comment on above: Performed By: #### 5 7021-8 #### [address] [place] [address] Staff Radiation Therapist - Fabiola BLAKEIA [id number] Neutrophils/100 WBC (Bld) 74.7 % High 50.0-70.0 [facility] Comment on above: Performed By: #### 5 7021-8 #### [address] [place] [address] Staff Radiation Therapist - Fabiola BLAKEIA [id number] Nucleated RBC (Bld) [#/Vol] 0.00 10*3/uL Normal <=0.10 [facility] Comment on above: Performed By: #### 5 7021-8 #### [address] [place] [address] Staff Radiation Therapist - Fabiola BLAKEIA [id number] Platelet mean volume (Bld) [Entitic vol] 10.8 fL Normal 9.0-13.0 [facility] Comment on above: Performed By: #### 5 7021-8 #### [address] [place] [address] Staff Radiation Therapist - Fabiola BLAKEIA [id number] Platelets (Bld) [#/Vol] 132 10*3/uL Normal 130-400 [facility] Comment on above: Performed By: #### 5 7021-8 #### [facility] [address] [place] [address] Staff Radiation Therapist - Fabiola CERDA [id number] RBC (Bld) [#/Vol] 3.82 10*6/uL Low 4.00-6.30 [facility] Comment on above: Performed By: #### 5 7021-8 #### [facility] [address] [place] [address] Staff Radiation Therapist - Fabiola CERDA [id number] WBC (Bld) [#/Vol] 8.78 10*3/uL Normal 4.80-10.80 [facility] Comment on above: Performed By: #### 5 7021-8 #### [facility] [address] [place] [address] Staff Radiation Therapist - Fabiola CERDA [id number] CREATININEon 08-08-2019 Creatinine [Mass/Vol] 0.49 mg/dL Low 0.51-0.95 [facility] Comment on above: Performed By: #### 1 742-6, 2160-0, 1919-8, 3083-1, 22257-6 #### [facility] [address] [place] [address] Staff Radiation Therapist - Fabiola CERDA [id number] Creatinine [Mass/Vol]on 07-21 GFR/1.73 sq M.predicted MDRD (S/P/Bld) [Vol rate/Area] mL/min/{1.73_m2} Normal >=59 [facility] Comment on above: Performed By: #### 1 742-6, 2160-0, 0-8, 3083-1, 33181-9 #### [facility] [address] [place] [address] Staff Radiation Therapist - Fabiola CERDA [id number] HGFR GLOMERULAR FILTRATIO N RATE INTERPRETATION~The eGFR is calculated using the MDRD equation.~This equation has been validated in patients with chronic kidney disease;~however, it underestimates the GFR in healthy patients with GFR's over 60 mL/min.~The equation is not valid in children under the age of 18.~NOTE: Criteria for Chronic Kidney Disease:~ ~1. Kidney damage for at least three months, as defined~by structural or functional abnormalities of the kidney,~with or without decreased glomerular filtration rate, manifested by either:~* Pathological abnormalities or~* Markers of Kidney damage, including abnormalities in~the composition of the blood or urine or abnormalities in imaging tests.~ ~2. GFR <60 mL/min/1.73 m squared for at least three months, with or without kidney damage.~ Normal [facility] Comment on above: Performed By: #### 1 742-6, 2160-0, 1919-8, 3083-, 44278-2 #### [facility] [address] [place] [address] Staff Radiation Therapist - Fabiola CERDA [id number] LDHon 08-08-2019 LDH Pyruvate to lactate reaction [Catalytic activity/Vol] 182 U/L Normal 84-246 [facility] Comment on above: Performed By: #### 1 742-6, 2160-0, 1919-8, 3083-, 09257-4 #### [facility] [address] [place] [address] Staff Radiation Therapist - Fabiola Rogerio CERDA [id number] SGOT Viktor 08-08-2019 AST [Catalytic activity/Vol] 11 U/L Low 15-37 [facility] Comment on above: Performed By: #### 1 742-6, 2160-0, 8, 3083-, 35037-4 #### [facility] [address] [place] [address] Staff Radiation Therapist - Fabiola CERDA [id number] SGPT Crow 08-08-2019 ALT [Catalytic activity/Vol] 18 U/L Normal 14-59 [facility] Comment on above: Performed By: #### 1 742-6, 2160-0, 0-8, 3084-1, 25099-1 #### [facility] [address] [place] [address] Staff Radiation Therapist [facility] [id number] URIC ACIDon 08-08-2019 Urate [Mass/Vol] 4.8 mg/dL Normal 2.6-6.0 [facility] Comment on above: Performed By: #### 1 742-6, 2160-0, 1920-8, 3084-1, 28239-3 #### [facility] [address] [facility] [place] [address] Staff Radiation Therapist - [facility] [id number] URINE PROTEIN to CREAT RATIO RANDOMon 08-08-2019 Creatinine (U) [Mass/Vol] 253.00 mg/dL Normal [facility] Comment on above: Performed By: #### 4 0667-8 #### [address] [place] [address] Staff Radiation Therapist - [facility] [id number] Protein Ql (U) 29 mg/dL High <=12 [facility] Comment on above: Performed By: #### 4 0667-8 #### [facility] [address] [place] [address] Staff Radiation Therapist - [facility] [id number] URINE MA/CR RATIO 0.1 mg/mg Normal <=0.2 [facility] Comment on above: Result Comment: A mi lligram per milligram protein to creatinine ratio of 0.2 or less is normal, whereas a ratio of 3.5 or greater is in the nephrotic range. Performed By: #### 4 0667-8 #### [facility] [address] [place] [address] Staff Radiation Therapist - [facility] [id number] Urinalysis panel Auto (U)on 08-08-2019 Bacteria LM.HPF (Urine sed) [#/Area] Negative Normal TRACE [facility] Comment on above: Performed By: #### 5 0564-4 #### [facility] [address] [facility] [place] [address] Staff Radiation Therapist - [facility] [id number] Bilirubin Ql (U) Negative Normal NEGATIVE [facility] Comment on above: Performed By: #### 5 0564-4 #### [facility] [address] [place] [address] Staff Radiation Therapist - Fabiola CERDA [id number] Clarity (U) CLEAR Normal CLEAR [facility] Comment on above: Performed By: #### 5 0564-4 #### [facility] [address] [place] [address] Staff Radiation Therapist - Fabiola CERDA [id number] Color (U) YELLOW Normal YELLOW [facility] Comment on above: Performed By: #### 5 0564-4 #### [facility] [address] [place] [address] Staff Radiation Therapist - Fabiola CERDA [id number] Glucose Ql (U) Negative Normal NEGATIVE [facility] Comment on above: Performed By: #### 5 0564-4 #### [facility] [address] [place] [address] Staff Radiation Therapist - Fabiola CERDA [id number] Hemoglobin Ql (U) Negative Normal NEGATIVE [facility] Comment on above: Performed By: #### 5 0564-4 #### [facility] [address] [place] [address] Staff Radiation Therapist - Fabiola CERDA [id number] HMICRO MICROSCOPIC Normal [facility] Comment on above: Performed By: #### 5 0564-4 #### [facility] [address] [place] [address] Staff Radiation Therapist - Fabiola CERDA [id number] Hyaline casts (Urine sed) [#/Area] 10-20 Abnormal 0-8 [facility] Comment on above: Performed By: #### 5 0564-4 #### [facility] [address] [place] [address] Staff Radiation Therapist - Fabiola CERDA [id number] KETONE 3+ Abnormal NEGATIVE [facility] Comment on above: Performed By: #### 5 0564-4 #### [facility] [address] [place] [address] Staff Radiation Therapist - Fabiola CERDA [id number] Leukocyte esterase Test strip Ql (U) TRACE Normal TRACE [facility] Comment on above: Performed By: #### 5 0564-4 #### [facility] [address] [place] [address] Staff Radiation Therapist - Fabiola CERDA [id number] MUCOUS MODERATE Abnormal TRACE [facility] Comment on above: Performed By: #### 5 0564-4 #### [facility] [address] [place] [address] Staff Radiation Therapist - Fabiola BLAKEIA [id number] Nitrite Ql (U) Negative Normal NEGATIVE [facility] Comment on above: Performed By: #### 5 0564-4 #### [facility] [address] [place] [address]. [place] [address] Staff Radiation Therapist - Fabiola CERDA [id number] pH (U) 5.5 [pH] Normal 5.5-7.5 [facility] Comment on above: Performed By: #### 5 0564-4 #### [facility] [address] [place] [address]. [place] [address] Staff Radiation Therapist - Fabiola CERDA [id number] Protein Ql (U) Negative Normal NEGATIVE [facility] Comment on above: Performed By: #### 5 0564-4 #### [facility] [address] [place] [address]. [place] [address] Staff Radiation Therapist - Fabiola CERDA [id number] RBC LM.HPF (Urine sed) [#/Area] 0-4 Normal 0-4 [facility] Comment on above: Performed By: #### 5 0564-4 #### [facility] [address] [place] [address]. [place] [address] Staff Radiation Therapist - Fabiola CERDA [id number] Specific gravity (U) [Rel density] 1.023 Normal 1.010-1.035 [facility] Comment on above: Performed By: #### 5 0564-4 #### [facility] [address] [place] [address]. [place] [address] Staff Radiation Therapist - Fabiola CERDA [id number] SQUAMOUS EPITHELIALS 6-10 Abnormal 0-5 [facility] Comment on above: Performed By: #### 5 0564-4 #### [place] [address] [facility]. [place] [address] Staff Radiation Therapist - Fabiola CERDA [id number] Urobilinogen Qn (U) 1.0 {Dunia'U}/dL Normal <=1.0 [facility] Comment on above: Result Comment: 1.0 E.U./dL Performed By: #### 5 0564-4 #### [address] [place] [address] Staff Radiation Therapist - Fabiola CERDA [id number] WBC LM.HPF (Urine sed) [#/Area] 0-5 Normal 0-5 [facility] Comment on above: Performed By: #### 5 0564-4 #### [address] [place] [address] Staff Radiation Therapist - Fabiola CERDA [id number] CBC W Auto Differential pane l (Bld)on 07-23-2019 Basophils (Bld) [#/Vol] 0.01 10*3/uL Normal <=0.70 [facility] Comment on above: Performed By: #### 5 7021-8 #### [address] [place] [address] Staff Radiation Therapist - Fabiola BLAKEIA [id number] Basophils/100 WBC (Bld) 0.1 % Normal <=2.0 [facility] Comment on above: Performed By: #### 5 7021-8 #### [address] [place] [address] Staff Radiation Therapist - Fabiola BLAKEIA [id number] Eosinophils (Bld) [#/Vol] 0.00 10*3/uL Normal <=0.70 [facility] Comment on above: Performed By: #### 5 7021-8 #### [address] [place] [address] Staff Radiation Therapist - Fabiola BLAKEIA [id number] Eosinophils/100 WBC (Bld) 0.0 % Normal <=10.0 [facility] Comment on above: Performed By: #### 5 7021-8 #### [facility] [address] [facility]. [place] [address] Staff Radiation Therapist - Fabiola BLAKEIA [id number] Erythrocyte distribution width (RBC) [Entitic vol] 44.7 fL Normal 36.4-46.3 [facility] Comment on above: Performed By: #### 5 7021-8 #### [address] [place] [address] Staff Radiation Therapist - Fabiola BLAKEIA [id number] Hematocrit (Bld) [Volume fraction] 33.8 % Low 37.0-47.0 [facility] Comment on above: Performed By: #### 5 7021-8 #### [address] [place] [address] Staff Radiation Therapist - Fabiola BLAKEIA [id number] Hemoglobin (Bld) [Mass/Vol] 11.5 g/dL Low 12.0-16.0 [facility] Comment on above: Performed By: #### 5 7021-8 #### [place] [address] [facility]. [place] [address] Staff Radiation Therapist - Fabiola BLAKEIA [id number] Immature granulocytes (Bld) [#/Vol] 0.09 10*3/uL Normal <=0.10 [facility] Comment on above: Performed By: #### 5 7021-8 #### [address] [place] [address] Staff Radiation Therapist - Fabiola BLAKEIA [id number] Immature granulocytes/100 WBC (Bld) 1.00 % Normal <=1.50 [facility] Comment on above: Performed By: #### 5 7021-8 #### [address] [place] [address] Staff Radiation Therapist - Fabiola BLAKEIA [id number] Lymphocytes (Bld) [#/Vol] 1.57 10*3/uL Normal 1.20-3.40 [facility] Comment on above: Performed By: #### 5 7021-8 #### [facility] [address] [place] [address] Staff Radiation Therapist - Fabiola CERDA [id number] Lymphocytes/100 WBC (Bld) 17.8 % Low 20.0-40.0 [facility] Comment on above: Performed By: #### 5 7021-8 #### [facility] [address] [place] [address] Staff Radiation Therapist - Fabiola CERDA [id number] MCH (RBC) [Entitic mass] 30.7 pg Normal 27.0-31.0 [facility] Comment on above: Performed By: #### 5 7021-8 #### [place] [address] [place] [address] Staff Radiation Therapist - Fabiola CERDA [id number] MCHC (RBC) [Mass/Vol] 34.0 g/dL Normal 32.0-36.0 [facility] Comment on above: Performed By: #### 5 7021-8 #### [place] [address] [place] [address] Staff Radiation Therapist - Fabiola CERDA [id number] MCV (RBC) [Entitic vol] 90.1 fL Normal 80.0-100.0 [facility] Comment on above: Performed By: #### 5 7021-8 #### [place] [address] [place] [address] Staff Radiation Therapist - Fabiola CERDA [id number] Monocytes (Bld) [#/Vol] 0.54 10*3/uL Normal 0.10-0.60 [facility] Comment on above: Performed By: #### 5 7021-8 #### [place] [address] [place] [address] Staff Radiation Therapist - Fabiola CERDA [id number] Monocytes/100 WBC (Bld) 6.1 % Normal <=8.0 [facility] Comment on above: Performed By: #### 5 7021-8 #### [place] [address] [place] [address] Staff Radiation Therapist - Fabiola CERDA [id number] Neutrophils (Bld) [#/Vol] 6.62 10*3/uL High 1.40-6.50 [facility] Comment on above: Performed By: #### 5 7021-8 #### [facility] [address] [place] [address] Staff Radiation Therapist - Fabiola BLAKEIA [id number] Neutrophils/100 WBC (Bld) 75.0 % High 50.0-70.0 [facility] Comment on above: Performed By: #### 5 7021-8 #### [facility] [address] [place] [address] Staff Radiation Therapist - Fabiola CERDA [id number] Nucleated RBC (Bld) [#/Vol] 0.00 10*3/uL Normal <=0.10 [facility] Comment on above: Performed By: #### 5 7021-8 #### [address] [place] [address] Staff Radiation Therapist - Fabiola CERDA [id number] Platelet mean volume (Bld) [Entitic vol] 10.4 fL Normal 9.0-13.0 [facility] Comment on above: Performed By: #### 5 7021-8 #### [place] [address] [place] [address] Staff Radiation Therapist - Fabiola CERDA [id number] Platelets (Bld) [#/Vol] 133 10*3/uL Normal 130-400 [facility] Comment on above: Performed By: #### 5 7021-8 #### [facility] [address] [place], [place] [address] [place] [address] Staff Radiation Therapist - Fabiola BLAKEIA [id number] RBC (Bld) [#/Vol] 3.75 10*6/uL Low 4.00-6.30 [facility] Comment on above: Performed By: #### 5 7021-8 #### [facility] [address] [place], [place] [address] [place] [address] Staff Radiation Therapist - Fabiola BLAKEIA [id number] WBC (Bld) [#/Vol] 8.83 10*3/uL Normal 4.80-10.80 [facility] Comment on above: Performed By: #### 5 7021-8 #### [facility] [address] [place] [address] Staff Radiation Therapist - Fabiola Beatty CLRIP [id number] HEP B SURFACE Agon 0 HBV surface Ag Ql (S) Non-Reactive Normal NONREACTIVE [facility] Comment on above: Performed By: #### 4 0667-8 #### [facility] [address] [place] [address] Staff Radiation Therapist [facility] PRASHANT [id number] HHBVSAG INTERPRETATION OF RESULTS A NONREACTIVE test result means that the specimen is presumed to be negative for HBsAg. A REACTIVE test result means that the specimen is reactive for HBsAg. All reactive results will be followed up with confirmatory testing. Normal [facility] Comment on above: Performed By: #### 4 0667-8 #### [address] [place] [address] Staff Radiation Therapist - Fabiola CERDA [id number] HEP C Ab with REFLEX CONFIRM ATIONon 07-23-2019 HEP C Ab Non-Reactive Normal [facility] Comment on above: Performed By: #### 4 0667-8 #### [address] [place] [address] Staff Radiation Therapist [facility] PRASHANT [id number] HHCV INTERPRETATION OF RESULTS A NONREACTIVE test result means that the specimen is presumed to be negative for Hep C Ab. A REACTIVE test result means that the specimen is reactive for Hep C Ab. All reactive results will be followed up with confirmatory testing. Normal [facility] Comment on above: Performed By: #### 4 0667-8 #### [address] [place] [address] Staff Radiation Therapist - [facility]olaSt[facility] CenterRIP [id number] HIV RAPID W/CONFIRMATIONon 0 07-23-2019 HHIV INTERPRETATION OF RESULTS A NON REACTIVE test result means that HIV-1 and HIV-2 antibodies and p24 antigen have not been detected in the specimen. A REACTIVE test result means that HIV-1 and HIV-2 antibodies and/or p24 antigen have been detected in the specimen. This HIV 1,2 and p24 antigen test is a rapid screen for the presence of HIV 1 and 2 antibodies and p24 antigen. All reactive test results will be followed up with confirmatory testing. Normal [facility] Comment on above: Performed By: #### H IVRACourtney, #### [facility] [address] [place] [address] Staff Radiation Therapist - [place] [facility] [id number] HIV 1+2 Ab Ql (S) Non-Reactive Normal NON REACTIVE [facility] Comment on above: Performed By: #### H IVRACourtney, #### [facility] [address] [place] [address] Staff Radiation Therapist - [place] [facility] HospitalIA [id number] Non-Reactive Normal NON REACTIVE [facility] Comment on above: Performed By: #### H DARVINRACourtney, #### [facility] [address] [place] [address] Staff Radiation Therapist - [place] [facility] [id number] RPRon 07-23-2019 Reagin Ab RPR Ql (S) Non-Reactive Normal NON REACTIVE [facility] Comment on above: Performed By: #### H SADE, #### [facility] [address] [place] [address] Staff Radiation Therapist - [place] [facility] Hospital[facility] [id number] RUBELLA Ab IgGon 07-23-2019 Rubella virus IgG IA Ql 17.3 IU/mL Normal [facility] Comment on above: Performed By: #### 4 0667-8 #### [facility] [address] [place] [address] Staff Radiation Therapist - [place] [facility] HospitalIA [id number] Reagin Ab RPR Ql (S)on 07-22 HRPR All reactive test results will be followed up with confirmatory testing. The diagnosis of syphilis should not be made on a single reactive result without the support of a positive history or clinical evidence. Therefore, as with any serological testing procedure, Reactive card test specimens should be subjected to further serologic study. [facility] Comment on above: Performed By: #### H IVRAP, 12659-2 #### [facility] [address] [place] [address] Staff Radiation Therapist - Fabiola CERDA [id number] Rubella virus IgG IA Qlon HRUBELLA RUBELLA IgG INTERPRETATION <5.0 IU/mL Non-immune 5.0-9.9 IU/mL Equivocal >10.0 IU/mL Immune Normal [facility] Comment on above: Performed By: #### 4 0667-8 #### [facility] [address] [place] [address] Staff Radiation Therapist - Fabiola CERDA [id number] POCT RAPID STREP Aon 019 S. pyogenes Ag Ql (Throat) Negative (+/-) [facility] HCG QUALITATIVE, URINEon HCG ( test) Ql (U) Negative NEGATIVE [facility] Otheron 10-09-2018 Interpretation and review of laboratory results Abnormal [facility] URINALYSIS, MACROon 10-10-19 19 Bilirubin Ql (U) SMALL Abnormal NEGATIVE [facility] Clarity (U) SLIGHTLY CLOUDY Abnormal CLEAR [facility] Color (U) VIANNEY Abnormal YELLOW [facility] Glucose Test strip (U) [Mass/Vol] Negative NEGATIVE mg/dl [facility] Hemoglobin Ql (U) MODERATE Abnormal NEGATIVE [facility] Ketones (U) [Mass/Vol] TRACE Abnormal NEGAT DB mg/dl [facility] Leukocyte esterase Test strip Ql (U) Negative NEGATIVE [facility] Nitrite Ql (U) Negative NEGATIVE [facility] pH (U) 5.5 [pH] [facility] Protein Ql (U) 30 mg/dl Abnormal NEGATIVE [facility] Specific gravity (U) [Rel density] >1.030 High [facility] Urobilinogen (U) [Mass/Vol] 0.2 [facility] URINE MICROSCOPICon 10-10-19 19 Bacteria LM.HPF (Urine sed) [#/Area] 1+ Abnormal NEGATIVE [facility] Casts LM.LPF (Urine sed) [#/Area] NONE NONE /LPF [facility] Crystals LM Nom (Urine sed) NONE NONE [facility] Epithelial cells LM Ql (Urine sed) 10 TO 20 /HPF [facility] Mucus Ql (Urine sed) TRACE Abnormal NEGATIVE [facility] RBC LM.HPF (Urine sed) [#/Area] TOO NUMEROUS TO COUNT Abnormal NEGATIVE /HPF [facility] Urine sediment comments LM Virgil (Urine sed) POSSIBLY CONTAMINATED SPECIMEN, CULTURE MUST BE ORDERED SEPARATELY IF DEEMED NECESSARY. [facility] WBC LM.HPF (Urine sed) [#/Area] 1 TO 5 NEGATIVE /HPF [facility] POCT URINALYSIS DIPSTICK AUT OMATED W/O SCOPon 07-30-2018 Amorphous sediment LM Ql (Urine sed) [facility] Appearance Nom (Body fld) clear [facility] Bacteria LM Ql (Urine sed) [facility] Bilirubin Ql (U) Negative [facility] Casts LM.LPF #/area (Urine sed) [facility] Color Nom (U) yellow [facility] Crystals LM Nom (Urine sed) [facility] Epithelial cells.squamous LM.HPF #/area (Urine sed) [facility] Flow cytometry specialist review Interp Virgil (Unsp spec) [facility] Ketones mass conc Negative mg/dL [facility] Leukocyte esterase Qn (U) [facility] Leukocyte esterase Test strip Ql (U) Negative [facility] Nitrite Ql (U) Negative [facility] pH (U) 7.0 [pH] [facility] POCT GLUCOSE, URINE Negative mg/dL [facility] Protein Ql (U) Negative mg/dL [facility] TH RBC LM.HPF #/area (Urine sed) [facility] RBC Ql (U) trace-intact [facility] Specific gravity Relative Density (U) 1.020 [facility] H Transitional cells LM Ql (Urine sed) [facility] Urobilinogen mass conc (U) 0.2 [facility] WBC LM.HPF #/area (Urine sed) [facility] POCT URINE PREGNANCYon 07-30 HCG.beta subunit Qn Negative [facility] PROGRESSon 09-12-2017 Protein HNO ID: [id number]: Anne Marie Munoz IIService: (none)Author Type: OPTOMETRISTType: Progress NotesFiled: 09/12/2017 3:08 PMNote Text:ASSESSMENT/PLAN:1 . Regular astigmatism, unspecified laterality - ICD9: 367.21, ICD10:H52.229 (primary diagnosis)2. Myopia of both eyes - ICD9: 367.1, ICD10: H52.13Increasing astigmatic correction. 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 I have seen andexamined Ashlie Malave. I have discussed the examination findings,diagnosis, and treatment options with the patient and/or the patient'sfamily. I have also reviewed and agree with the assessment and plan asstated above and agree with all its relevant components. I gave thepatient the opportunity to ask questions about the findings, diagnosis,and treatment options.Anne Marie Munoz, II, OD Normal [facility] C Urineon 08-24-2017 C Urine Final Report: Light growth of Mixed skin contaminants Normal [facility] Comment on above: Performed By: #### 2 [id number] #### SIGIFREDO Microbiology Subsection [facility] [place] [address] Chlamydia GC by PCRon 2017 Chlamydia by PCR. Not Detected Normal Not Detected [facility] Comment on above: Result Comment: Xper t CT/NG Assay performance has not been evaluated in patients less than 14 years of age. Performed By: #### 3 [id number] #### SIGIFREDO Misc Micro SubSection , Gonorrhoeae by PCR Not Detected Normal Not Detected [facility] Comment on above: Result Comment: Xper t CT/NG Assay performance has not been evaluated in patients less than 14 years of age. Performed By: #### 3 [id number] #### SIGIFREDO Misc Micro SubSection , Hep Bs Agon 08-23-2017 Hep Bs Ag Negative Normal Negative [facility] Comment on above: Result Comment: Perf ormed At: [facility] [address] [id number] Ruth Asencio PhD Ph:[phone] Performed By: #### 2 [id number] #### SIGIFREDO Send Outs Subsection [facility] [place] [id number] RPRon 08-23-2017 Reagin Ab RPR Ql (S) Non-Reactive Normal Non-Reactive [facility] Comment on above: Performed By: #### 2 158963 #### SIGIFREDO Chemistry Manual Subsection [address] [place] [address] Rubella IgG Lvlon 08-23-2017 Rubella IgG Lvl 9.6 (NEG) Normal [facility] Comment on above: Result Comment: <10I U/ml NON REACTIVE: NOT IMMUNE 10-15 IU/ml RUBELLA SPECIFIC AB PRESENT, EVALUATE FURTHER TO DETERMINE IMMUNE STATUS >15 IU/ml REACTIVE, IMMUNE Performed By: #### 2 [id number] #### SIGIFREDO [employer] [address] [place] [address] ABO/Rh Echoon 08-22-2017 ABO/Rh E Interp... Positive Normal [facility] Comment on above: Performed By: #### 8 [id number] #### SIGIFREDO Blood Bank Subsection [address] [place] [address] Antibody Screen Cap...on Screen Interp... Negative Normal [facility] Comment on above: Performed By: #### 8 [id number] #### SIGIFREDO Blood Bank Subsection [address] [place] [address] Auto Diffon 08-22-2017 Basophils (Bld) [#/Vol] 0.1 E3/mcL Normal 0.0-0.2 [facility] Comment on above: Order Comment: Order Added by Discern Expert. Performed By: #### 2 823741 #### SIGIFREDO RemHemo [address] [place] [address] Basophils/100 WBC (Bld) 0.6 % Normal 0.0-2.0 [facility] Comment on above: Order Comment: Order Added by Discern Expert. Performed By: #### 2 266765 #### SIGIFREDO RemHemo [address] [place] [address] Eos Absolute 0.1 E3/mcL Normal 0.0-0.7 [facility] Comment on above: Order Comment: Order Added by Discern Expert. Performed By: #### 2 088487 #### SIGIFREDO RemHemo [address] [place] [address] Eosinophils/100 WBC (Bld) 0.9 % Normal 0.0-11.0 [facility] Comment on above: Order Comment: Order Added by Discern Expert. Performed By: #### 2 721383 #### SIGIFREDO EstradaHemo [address] [place] [address] Lymphocytes (Bld) [#/Vol] 1.6 E3/mcL Normal 1.2-3.4 [facility] Comment on above: Order Comment: Order Added by Discern Expert. Performed By: #### 2 256333 #### SIGIFREDO EstradaHemo [address] [place] [address] Lymphocytes/100 WBC (Bld) 17.9 % Low 20.0-55.0 [facility] Comment on above: Order Comment: Order Added by Discern Expert. Performed By: #### 2 145546 #### SIGIFREDO RemHemo [address] [place] [address] [place] Absolute 0.5 E3/mcL Normal 0.0-0.7 [facility] Comment on above: Order Comment: Order Added by Discern Expert. Performed By: #### 2 218569 #### SIGIFREDO EstradaHemo [address] [place] [address] Monocytes/100 WBC (Bld) 5.8 % Normal 0.0-10.0 [facility] Comment on above: Order Comment: Order Added by Discern Expert. Performed By: #### 2 505576 #### SIGIFREDO RemHemo [address] [place] [address] Neutro Absolute 6.8 E3/mcL High 1.4-6.5 [facility] Comment on above: Order Comment: Order Added by Discern Expert. Performed By: #### 2 357889 #### SIGIFREDO RemHemo [address] [place] [address] Neutro Auto 74.8 % Normal 37.0-75.0 [facility] Comment on above: Order Comment: Order Added by Discern Expert. Performed By: #### 2 058977 #### SIGIFREDO RemHemo [address] [place] [address] CBC w/ Auto Diffon 8 Erythrocyte distribution width (RBC) [Ratio] 13.0 % Normal 11.5-14.5 [facility] Comment on above: Performed By: #### 2 132000 #### SIGIFREDO RemHemo [address] [place] [address] Hematocrit (Bld) [Volume fraction] 38.1 % Normal 36.0-48.0 [facility] Comment on above: Performed By: #### 2 964962 #### SIGIFREDO RemHemo [address] [place] [address] Hemoglobin (Bld) [Mass/Vol] 12.7 g/dL Normal 12.0-16.0 [facility] Comment on above: Performed By: #### 2 576899 #### SIGIFREDO RemHemo [address] [place] [address] MCH (RBC) [Entitic mass] 29.6 pg Normal 27.0-31.0 [facility] Comment on above: Performed By: #### 2 257872 #### SIGIFREDO RemHemo [address] [place] [address] MCHC (RBC) [Mass/Vol] 33.3 g/dL Normal 33.0-37.0 [facility] Comment on above: Performed By: #### 2 913858 #### SIGIFREDO RemHemo [address] [place] [address] MCV (RBC) [Entitic vol] 88.8 fL Normal 78.0-100.0 [facility] Comment on above: Performed By: #### 2 939812 #### SIGIFREDO RemHemo [address] [place] [address] Platelet mean volume (Bld) [Entitic vol] 9.4 fL Normal 7.4-11.0 [facility] Comment on above: Performed By: #### 2 511188 #### SIGIFREDO RemHemo [address] [place] [address] Platelets (Bld) [#/Vol] 182 E3/mcL Normal 130-400 [facility] Comment on above: Performed By: #### [id number] #### SIGIFREDO RemHemo [address] [place] [address] RBC (Bld) [#/Vol] 4.29 E6/mcL Normal 3.90-5.40 [facility] Comment on above: Performed By: #### [id number] #### SIGIFREDO RemHemo [address] [place] [address] WBC (Bld) [#/Vol] 9.1 E3/mcL Normal 3.6-11.0 [facility] Comment on above: Performed By: #### [id number] #### SIGIFREDO RemHemo [facility] [place] [id number] HIV-1/2 Ag/Abon 08-22-2017 HIV-1/2 Ag/Ab Non-Reactive Normal Non-Reactive [facility] Comment on above: Performed By: #### [id number] #### SIGIFREDO Chemistry Manual Subsection [facility] [place] [id number] Progress Noteon 05-30-2017 Modeling Analyst Authentication Interface Message Text Patient ID: Ashlie Malave is a 21 y.o. female. Her chief complaint(s)include: ED Follow Up.Assessment:1. Sprain of right ankle, unspecified ligament, initial encounterPlan:Ashlie was seen today for ed follow up.Diagnoses and all orders for this visit:Sprain of right ankle, unspecified ligament, initial encounterReturn if symptoms worsen or fail to improve.Instructed to continue with crutches and no weight bearing until sees Dr Lind 2 days. Discussed RICE treatment.Subjective:S he is accompanied by her mother.ED Follow UpThe course is unchanging (ankle still swollen and unbale to bear weight.). Thepatient was discharged 2 days ago. The patient was treated at [facility]. Her diagnosis was injury (right ankle sprain). Treatment: crutches.Has appointment scheduled with Dr Hood orthopedics in 2 days.I have reviewed the discharge summary. (Fell on steps twisting ankle. Feltlike something went out. History of surgery to this ankle 6 years ago.).Additional Parental Concerns: Needs work excuse.Primary Care Review of SystemsObjective:Physi kayleigh ExamConstitutional: She appears well. She is active. No distress.HENT:Head: Atraumatic.Right Ear: Tympanic membrane normal.Left Ear: Tympanic membrane normal.Mouth/Throat: Mucous membranes are moist.Eyes: Conjunctivae are normal.Cardiovascular: Normal rate and regular rhythm.No murmur heard.Pulmonary/Chest: Breath sounds normal. There is normal air entry.Musculoskeletal: Right ankle: She exhibits decreased range of motion and swelling(surrounding lateral malleolus and lateral forefoot.). She exhibits noecchymosis, no deformity, no laceration and normal pulse. Tenderness. Lateralmalleolus and medial malleolus tenderness found.Neurological: She is alert. Normal [facility] Vital Signs Date Time Vital Sign Value Performing Clinician Facility 07-05-2024 11:31-0400 Body height 172.7 cm Vianney MAJOR Work Phone: [facility] 07-05-2024 11:31-0400 Body mass index (BMI) [Ratio] 26.21 kg/m2 Vianney MAJOR Work Phone: [facility] 07-05-2024 11:31-0400 Body temperature 97.11 [degF] Vianney MAJOR Work Phone: [facility] 07-05-2024 11:31-0400 Body weight 78.2 kg Vianney MAJOR Work Phone: [facility] 07-05-2024 11:31-0400 Diastolic blood pressure 64 mm[Hg] Vianney MAJOR Work Phone: [facility] 07-05-2024 11:31-0400 Heart rate 86 /min Vianney MAJOR Work Phone: [facility] 07-05-2024 11:31-0400 Respiratory rate 16 /min Vianney Morse APRN-TWO NEEDLE MACHINE OPERATOR Work Phone: [facility] 07-05-2024 11:31-0400 SaO2% (BldA) [Mass fraction] 99 % Vianney MAJOR Work Phone: [facility] 07-05-2024 11:31-0400 Systolic blood pressure 120 mm[Hg] Vianney Morse APRN-TWO NEEDLE MACHINE OPERATOR Work Phone: [facility] 06-05-2024 11:27-0400 Body height 172.7 cm Vianney Morse APRN-TWO NEEDLE MACHINE OPERATOR Work Phone: [facility] 06-05-2024 11:27-0400 Body mass index (BMI) [Ratio] 26.52 kg/m2 Vianney Morse APRN-TWO NEEDLE MACHINE OPERATOR Work Phone: [facility] 06-05-2024 11:27-0400 Body temperature 97.9 [degF] Vianney Morse APRN-TWO NEEDLE MACHINE OPERATOR Work Phone: [facility] 06-05-2024 11:27-0400 Body weight 79.11 kg Vianney Morse HIGH SCALER-TWO NEEDLE MACHINE OPERATOR Work Phone: [facility] 06-05-2024 11:27-0400 Diastolic blood pressure 66 mm[Hg] Vianney Morse APRN-TWO NEEDLE MACHINE OPERATOR Work Phone: [facility] 06-05-2024 11:27-0400 Heart rate 67 /min Vianney Morse APRN-TWO NEEDLE MACHINE OPERATOR Work Phone: [facility] 06-05-2024 11:27-0400 Respiratory rate 20 /min Vianney Morse APRN-TWO NEEDLE MACHINE OPERATOR Work Phone: [facility] 06-05-2024 11:27-0400 SaO2% (BldA) [Mass fraction] 98 % Vianney Morse APRN-TWO NEEDLE MACHINE OPERATOR Work Phone: [facility] 06-05-2024 11:27-0400 Systolic blood pressure 104 mm[Hg] Vianney Lito LYNNEN-TWO NEEDLE MACHINE OPERATOR Work Phone: [facility] 04-29-2024 22:35-0400 Body temperature 98 [degF] Moody Serrano MD Work Phone: [facility] 04-29-2024 22:35-0400 Diastolic blood pressure 70 mm[Hg] Moody Serrano MD Work Phone: [facility] 04-29-2024 22:35-0400 Heart rate 58 /min Moody Serrano MD Work Phone: [facility] 04-29-2024 22:35-0400 Respiratory rate 18 /min Moody Serrano MD Work Phone: [facility] 04-29-2024 22:35-0400 SaO2% (BldA) [Mass fraction] 99 % Moody Serrano MD Work Phone: [facility] 04-29-2024 22:35-0400 Systolic blood pressure 110 mm[Hg] Moody Serrano MD Work Phone: [facility] 04-29-2024 18:58-0400 Body height 172.72 cm Moody Serrano MD Work Phone: [facility] 04-29-2024 18:58-0400 Body mass index (BMI) [Ratio] 26.4 kg/m2 Moody Serrano MD Work Phone: [facility] 04-29-2024 18:58-0400 Body weight 78.8 kg Moody Serrano MD Work Phone: [facility] 01-08-2024 17:52-0500 Body height 172.7 cm Staci Dackin PA Work Phone: [facility] 01-08-2024 17:52-0500 Body mass index (BMI) [Ratio] 26.32 kg/m2 Staci Dackin PA Work Phone: [facility] [employer] [facility] 01-08-2024 17:52-0500 Body temperature 98.49 [degF] Staci Dackin PA Work Phone: [facility] [employer] [facility] 01-08-2024 17:52-0500 Body weight 78.52 kg Staci Dackin PA Work Phone: [facility] 01-08-2024 17:52-0500 Diastolic blood pressure 79 mm[Hg] Staci Dackin PA Work Phone: [employer] [facility] 01-08-2024 17:52-0500 Heart rate 88 /min Staci Dackin PA Work Phone: [facility] 01-08-2024 17:52-0500 Respiratory rate 16 /min Staci Dackin PA Work Phone: [facility] 01-08-2024 17:52-0500 SaO2% (BldA) [Mass fraction] 99 % Staci Soliz PA Work Phone: [facility] 01-08-2024 17:52-0500 Systolic blood pressure 121 mm[Hg] Staci Soliz PA Work Phone: [facility] 11-09-2023 10:50-0400 Body height 172.7 cm Vianney Morse HIGH SCALER-TWO NEEDLE MACHINE OPERATOR Work Phone: [facility] 11-09-2023 10:50-0400 Body mass index (BMI) [Ratio] 25.54 kg/m2 Vianney Morse HIGH SCALER-TWO NEEDLE MACHINE OPERATOR Work Phone: [facility] 11-09-2023 10:50-0400 Body temperature 97.7 [degF] Vianney Morse HIGH SCALER-TWO NEEDLE MACHINE OPERATOR Work Phone: [facility] 11-09-2023 10:50-0400 Body weight 76.2 kg Vianney Morse HIGH SCALER-TWO NEEDLE MACHINE OPERATOR Work Phone: [facility] 11-09-2023 10:50-0400 Diastolic blood pressure 70 mm[Hg] Vianney Morse HIGH SCALER-TWO NEEDLE MACHINE OPERATOR Work Phone: [facility] 11-09-2023 10:50-0400 Heart rate 75 /min Vianney Morse HIGH SCALER-TWO NEEDLE MACHINE OPERATOR Work Phone: [facility] 11-09-2023 10:50-0400 Respiratory rate 16 /min Vianney Morse HIGH SCALER-TWO NEEDLE MACHINE OPERATOR Work Phone: [facility] 11-09-2023 10:50-0400 SaO2% (BldA) [Mass fraction] 99 % Vianney Morse HIGH SCALER-TWO NEEDLE MACHINE OPERATOR Work Phone: [facility] 11-09-2023 10:50-0400 Systolic blood pressure 118 mm[Hg] Vianney Morse HIGH SCALER-TWO NEEDLE MACHINE OPERATOR Work Phone: [facility] 09-15-2023 19:12-0400 Heart rate 74 /min Vianney Morse HIGH SCALER-TWO NEEDLE MACHINE OPERATOR Work Phone: [facility] 09-15-2023 19:12-0400 Respiratory rate 16 /min Vianney Morse HIGH SCALER-TWO NEEDLE MACHINE OPERATOR Work Phone: [facility] 09-15-2023 19:12-0400 SaO2% (BldA) [Mass fraction] 99 % Vianney Morse HIGH SCALER-TWO NEEDLE MACHINE OPERATOR Work Phone: [facility] 09-15-2023 17:22-0400 Diastolic blood pressure 64 mm[Hg] Vianney Morse HIGH SCALER-TWO NEEDLE MACHINE OPERATOR Work Phone: [facility] 09-15-2023 17:22-0400 Systolic blood pressure 128 mm[Hg] Vianney Morse HIGH SCALER-TWO NEEDLE MACHINE OPERATOR Work Phone: [facility] 09-15-2023 15:25-0400 Body height 172.7 cm Vianney Morse HIGH SCALER-TWO NEEDLE MACHINE OPERATOR Work Phone: [facility] 09-15-2023 15:23-0400 Body temperature 97.59 [degF] Vianney Morse HIGH SCALER-TWO NEEDLE MACHINE OPERATOR Work Phone: [facility] 09-08-2023 16:30-0400 Diastolic blood pressure 59 mm[Hg] Toni Burch DO Work Phone: [facility] 09-08-2023 16:30-0400 Heart rate 76 /min Toni Burch DO Work Phone: [facility] 09-08-2023 16:30-0400 Respiratory rate 20 /min Toni Burch DO Work Phone: [facility] 09-08-2023 16:30-0400 SaO2% (BldA) [Mass fraction] 97 % Toni Burch DO Work Phone: [facility] 09-08-2023 16:30-0400 Systolic blood pressure 125 mm[Hg] Toni Burch DO Work Phone: [facility] 09-08-2023 14:15-0400 Body temperature 97 [degF] Toni Burch DO Work Phone: [facility] 09-08-2023 11:22-0400 Body height 172.7 cm Toni Burch DO Work Phone: [employer] 09-08-2023 11:22-0400 Body mass index (BMI) [Ratio] 27.37 kg/m2 Toni Burch DO Work Phone: [employer] 09-08-2023 11:22-0400 Body weight 81.65 kg Toni Burch DO Work Phone: [employer] 08-31-2023 10:32-0400 Body height 175.3 cm Toni Burch DO Work Phone: [employer] 08-31-2023 10:32-0400 Body mass index (BMI) [Ratio] 26.76 kg/m2 Toni Burch DO Work Phone: [employer] 08-31-2023 10:32-0400 Body weight 82.19 kg Toni Burch DO Work Phone: [employer] 08-31-2023 10:32-0400 Diastolic blood pressure 83 mm[Hg] Toni Burch DO Work Phone: [employer] 08-31-2023 10:32-0400 Heart rate 93 /min Toni Burch DO Work Phone: [employer] 08-31-2023 10:32-0400 Respiratory rate 20 /min Toni Burch DO Work Phone: [employer] 08-31-2023 10:32-0400 SaO2% (BldA) [Mass fraction] 98 % Toni Burch DO Work Phone: [employer] 08-31-2023 10:32-0400 Systolic blood pressure 121 mm[Hg] Toni Burch DO Work Phone: [employer] 08-09-2023 13:53-0400 Body height 175.3 cm Vianney Morse HIGH SCALER-TWO NEEDLE MACHINE OPERATOR Work Phone: [employer] 08-09-2023 13:53-0400 Body mass index (BMI) [Ratio] 27.17 kg/m2 Vianney Morse HIGH SCALER-TWO NEEDLE MACHINE OPERATOR Work Phone: [facility] 08-09-2023 13:53-0400 Body temperature 99 [degF] Vianney Morse HIGH SCALER-TWO NEEDLE MACHINE OPERATOR Work Phone: [facility] 08-09-2023 13:53-0400 Body weight 83.46 kg Vianney Morse HIGH SCALER-TWO NEEDLE MACHINE OPERATOR Work Phone: [facility] 08-09-2023 13:53-0400 Diastolic blood pressure 70 mm[Hg] Vianney Morse HIGH SCALER-TWO NEEDLE MACHINE OPERATOR Work Phone: [facility] 08-09-2023 13:53-0400 Heart rate 115 /min Vianney Morse HIGH SCALER-TWO NEEDLE MACHINE OPERATOR Work Phone: [facility] 08-09-2023 13:53-0400 Respiratory rate 16 /min Vianney Morse HIGH SCALER-TWO NEEDLE MACHINE OPERATOR Work Phone: [facility] 08-09-2023 13:53-0400 SaO2% (BldA) [Mass fraction] 100 % Vianney Morse HIGH SCALER-TWO NEEDLE MACHINE OPERATOR Work Phone: [facility] 08-09-2023 13:53-0400 Systolic blood pressure 122 mm[Hg] Vianney Morse HIGH SCALER-TWO NEEDLE MACHINE OPERATOR Work Phone: [facility] 08-04-2023 17:23-0400 Diastolic blood pressure 73 mm[Hg] Vianney Morse HIGH SCALER-TWO NEEDLE MACHINE OPERATOR Work Phone: [facility] 08-04-2023 17:23-0400 Heart rate 84 /min Vianney Morse HIGH SCALER-TWO NEEDLE MACHINE OPERATOR Work Phone: [facility] 08-04-2023 17:23-0400 Respiratory rate 16 /min Vianney Morse HIGH SCALER-TWO NEEDLE MACHINE OPERATOR Work Phone: [facility] 08-04-2023 17:23-0400 SaO2% (BldA) [Mass fraction] 100 % Vianney Morse HIGH SCALER-TWO NEEDLE MACHINE OPERATOR Work Phone: [facility] 08-04-2023 17:23-0400 Systolic blood pressure 118 mm[Hg] Vianney Morse HIGH SCALER-TWO NEEDLE MACHINE OPERATOR Work Phone: [facility] [employer] [facility] 08-04-2023 15:18-0400 Body height 175.3 cm Vianney Morse HIGH SCALER-TWO NEEDLE MACHINE OPERATOR Work Phone: [facility] 08-04-2023 15:18-0400 Body mass index (BMI) [Ratio] 26.58 kg/m2 Vianney Lito HIGH SCALER-TWO NEEDLE MACHINE OPERATOR Work Phone: [facility] 08-04-2023 15:18-0400 Body weight 81.65 kg Vianney Lito HIGH SCALER-TWO NEEDLE MACHINE OPERATOR Work Phone: [facility] 08-04-2023 15:17-0400 Body temperature 98.71 [degF] Vianney Morse HIGH SCALER-TWO NEEDLE MACHINE OPERATOR Work Phone: [facility] 08-03-2023 13:51-0400 Body height 175.3 cm Toni Burch Work Phone: [facility] 08-03-2023 13:51-0400 Body mass index (BMI) [Ratio] 27.7 kg/m2 Toni Burch DO Work Phone: [facility] [employer] [facility] 08-03-2023 13:51-0400 Body weight 85.09 kg Toni Burch DO Work Phone: [facility] 08-03-2023 13:51-0400 Diastolic blood pressure 80 mm[Hg] Toni Burch DO Work Phone: [facility] 08-03-2023 13:51-0400 Systolic blood pressure 118 mm[Hg] Toni Burch DO Work Phone: [facility] 05-23-2023 10:53-0400 Body height 175.3 cm Vianney Lito HIGH SCALER-TWO NEEDLE MACHINE OPERATOR Work Phone: [facility] 05-23-2023 10:53-0400 Body mass index (BMI) [Ratio] 29.65 kg/m2 Vianney Lito HIGH SCALER-TWO NEEDLE MACHINE OPERATOR Work Phone: [facility] 05-23-2023 10:53-0400 Body weight 91.08 kg Vianney Morse HIGH SCALER-TWO NEEDLE MACHINE OPERATOR Work Phone: [employer] [facility] 05-23-2023 10:53-0400 Diastolic blood pressure 90 mm[Hg] Vianney Morse HIGH SCALER-TWO NEEDLE MACHINE OPERATOR Work Phone: [employer] [facility] 05-23-2023 10:53-0400 Heart rate 89 /min Vianney Morse HIGH SCALER-TWO NEEDLE MACHINE OPERATOR Work Phone: [employer] [facility] 05-23-2023 10:53-0400 Respiratory rate 16 /min Vianney Morse HIGH SCALER-TWO NEEDLE MACHINE OPERATOR Work Phone: [employer] [facility] 05-23-2023 10:53-0400 SaO2% (BldA) [Mass fraction] 98 % Vianney Morse HIGH SCALER-TWO NEEDLE MACHINE OPERATOR [facility] Phone: [facility] 05-23-2023 10:53-0400 Systolic blood pressure 118 mm[Hg] Vianney Morse HIGH SCALER-TWO NEEDLE MACHINE OPERATOR Work Phone: [facility] [employer] [facility] 05-13-2023 19:24-0400 Diastolic blood pressure 60 mm[Hg] Adin Thakkar MD Work Phone: [employer] [facility] 05-13-2023 19:24-0400 Heart rate 95 /min Adin Thakkar MD Work Phone: [employer] [facility] 05-13-2023 19:24-0400 Respiratory rate 16 /min Adin Thakkar MD Work Phone: [employer] [facility] 05-13-2023 19:24-0400 SaO2% (BldA) [Mass fraction] 99 % Adin Thakkar MD Work Phone: [employer] 05-13-2023 19:24-0400 Systolic blood pressure 136 mm[Hg] Adin Thakkar MD Work Phone: [employer] 05-13-2023 18:23-0400 Body height 175.3 cm Adin Thakkar MD Work Phone: [employer] 05-13-2023 18:23-0400 Body mass index (BMI) [Ratio] 29.31 kg/m2 Adin Thakkar MD Work Phone: [facility] 05-13-2023 18:23-0400 Body weight 90.04 kg Adin Thakkar MD Work Phone: [facility] 05-13-2023 18:20-0400 Body temperature 98.8 [degF] Adin Thakkar MD Work Phone: [facility] 03-05-2023 15:44-0500 Body height 175.3 cm [facility] 03-05-2023 15:44-0500 Body mass index (BMI) [Ratio] 30.27 kg/m2 [facility] 03-05-2023 15:44-0500 Body temperature 97.7 [degF] [facility] 03-05-2023 15:44-0500 Body weight 92.99 kg [facility] 03-05-2023 15:44-0500 Diastolic blood pressure 70 mm[Hg] [facility] 03-05-2023 15:44-0500 Heart rate 91 /min [facility] 03-05-2023 15:44-0500 Respiratory rate 16 /min [facility] 03-05-2023 15:44-0500 SaO2% (BldA) [Mass fraction] 100 % [facility] 03-05-2023 15:44-0500 Systolic blood pressure 122 mm[Hg] [facility] 02-21-2023 11:25-0500 Body mass index (BMI) [Ratio] 31.72 kg/m2 Vianney MAJOR Work Phone: [facility] 02-21-2023 11:25-0500 Body temperature 97.2 [degF] Vianney MAJOR Work Phone: [facility] 02-21-2023 11:25-0500 Body weight 94.62 kg Vianney MAJOR Work Phone: [facility] 02-21-2023 11:25-0500 Diastolic blood pressure 68 mm[Hg] Vianney Morse HIGH SCALER-TWO NEEDLE MACHINE OPERATOR Work Phone: [facility] 02-21-2023 11:25-0500 Heart rate 104 /min Vianney Morse HIGH SCALER-TWO NEEDLE MACHINE OPERATOR Work Phone: [facility] 02-21-2023 11:25-0500 Respiratory rate 18 /min Vianney Morse HIGH SCALER-TWO NEEDLE MACHINE OPERATOR Work Phone: [facility] 02-21-2023 11:25-0500 SaO2% (BldA) [Mass fraction] 97 % Vianney Morse HIGH SCALER-TWO NEEDLE MACHINE OPERATOR Work Phone: [facility] 02-21-2023 11:25-0500 Systolic blood pressure 108 mm[Hg] Vianney Morse HIGH SCALER-TWO NEEDLE MACHINE OPERATOR Work Phone: [facility] 11-16-2022 13:20-0400 Diastolic blood pressure 87 mm[Hg] Vianney Morse Other Phone: [facility] 11-16-2022 13:20-0400 Heart rate 85 /min Vianney Morse Other Phone: [facility] 11-16-2022 13:20-0400 Respiratory rate 20 /min Vianney Morse Other Phone: [facility] 11-16-2022 13:20-0400 SaO2% (BldA) [Mass fraction] 99 % Vianney Morse Other Phone: [facility] 11-16-2022 13:20-0400 Systolic blood pressure 111 mm[Hg] Vianney Morse Other Phone: [facility] 11-16-2022 11:02-0400 Body height 172.7 cm Vianney Morse Other Phone: [facility] 11-16-2022 11:02-0400 Body temperature 97.16 [degF] Vianney Morse Other Phone: [facility] 11-16-2022 11:02-0400 Body weight 93.3 kg Vianney Morse Other Phone: [facility] 11-15-2022 12:01-0400 Body height 172.7 cm Vianney Morse HIGH SCALER-TWO NEEDLE MACHINE OPERATOR Work Phone: [facility] 11-15-2022 12:01-0400 Body mass index (BMI) [Ratio] 31.38 kg/m2 Vianney Morse HIGH SCALER-TWO NEEDLE MACHINE OPERATOR Work Phone: [facility] 11-15-2022 12:01-0400 Body temperature 97.39 [degF] Vianney Morse HIGH SCALER-TWO NEEDLE MACHINE OPERATOR Work Phone: [facility] 11-15-2022 12:01-0400 Body weight 93.62 kg Vianney Morse HIGH SCALER-TWO NEEDLE MACHINE OPERATOR Work Phone: [facility] 11-15-2022 12:01-0400 Diastolic blood pressure 72 mm[Hg] Vianney Morse HIGH SCALER-TWO NEEDLE MACHINE OPERATOR Work Phone: [facility] 11-15-2022 12:01-0400 Heart rate 82 /min Vianney Morse HIGH SCALER-TWO NEEDLE MACHINE OPERATOR Work Phone: [facility] 11-15-2022 12:01-0400 Respiratory rate 18 /min Vianney Mosre HIGH SCALER-TWO NEEDLE MACHINE OPERATOR Work Phone: [facility] 11-15-2022 12:01-0400 SaO2% (BldA) [Mass fraction] 97 % Vianney Morse HIGH SCALER-TWO NEEDLE MACHINE OPERATOR Work Phone: [facility] 11-15-2022 12:01-0400 Systolic blood pressure 132 mm[Hg] Vianney Morse HIGH SCALER-TWO NEEDLE MACHINE OPERATOR Work Phone: [facility] 04-28-2022 11:56-0500 Diastolic blood pressure 75 mm[Hg] Stefano Cuadra Jr., DO Work Phone: [facility] 04-28-2022 11:56-0500 Heart rate 64 /min Stefano Cuadra Jr., DO Work Phone: [facility] 04-28-2022 11:56-0500 Respiratory rate 16 /min Stefano Cuadra Jr., DO Work Phone: [facility] 04-28-2022 11:56-0500 SaO2% (BldA) [Mass fraction] 100 % Stefano Cuadra Jr., DO Work Phone: 9(461)358-[address] [place] [address] 04-28-2022 11:56-0500 Systolic blood pressure 116 mm[Hg] Stefano Cuadra Jr., DO Work Phone: 2(709)178-043341 [place] [address] 04-28-2022 11:36-0500 Body temperature 97.7 [degF] Stefano Cuadra Jr., DO Work Phone: 0(068)315-415420 [place] [address] 04-28-2022 10:00-0500 Body height 172.7 cm Stefano Cuadra Jr., DO Work Phone: 8(918)[phone] [place] [address] 04-28-2022 10:00-0500 Body mass index (BMI) [Ratio] 35.43 kg/m2 Stefano Cuadra Jr., DO Work Phone: [facility] 04-28-2022 10:00-0500 Body weight 105.69 kg Stefano Cuadra Jr., DO Work Phone: [facility] 09-27-2021 15:21-0400 Body height 172.7 cm Vianney Mores APRN-TWO NEEDLE MACHINE OPERATOR Work Phone: [facility] 09-27-2021 15:21-0400 Body mass index (BMI) [Ratio] 35.46 kg/m2 Vianney Morse APRN-TWO NEEDLE MACHINE OPERATOR Work Phone: [facility] 09-27-2021 15:21-0400 Body temperature 96.91 [degF] Vianney Morse APRN-TWO NEEDLE MACHINE OPERATOR Work Phone: [facility] 09-27-2021 15:21-0400 Body weight 105.78 kg Vianney Morse APRN-TWO NEEDLE MACHINE OPERATOR Work Phone: [facility] 09-27-2021 15:21-0400 Diastolic blood pressure 76 mm[Hg] Vianney Morse HIGH SCALER-TWO NEEDLE MACHINE OPERATOR Work Phone: [facility] 09-27-2021 15:21-0400 Heart rate 88 /min Vianney Morse HIGH SCALER-TWO NEEDLE MACHINE OPERATOR Work Phone: [facility] 09-27-2021 15:21-0400 Respiratory rate 16 /min Vianney Lito HIGH SCALER-TWO NEEDLE MACHINE OPERATOR Work Phone: [facility] 09-27-2021 15:21-0400 SaO2% (BldA) [Mass fraction] 98 % Vianney Morse HIGH SCALER-TWO NEEDLE MACHINE OPERATOR Work Phone: [facility] 09-27-2021 15:21-0400 Systolic blood pressure 124 mm[Hg] Vianney Morse HIGH SCALER-TWO NEEDLE MACHINE OPERATOR Work Phone: [facility] 04-21-2021 15:34-0500 Body height 172.7 cm Vianney Morse HIGH SCALER-TWO NEEDLE MACHINE OPERATOR Work Phone: [facility] 04-21-2021 15:34-0500 Body mass index (BMI) [Ratio] 34.48 kg/m2 Vianney Lito HIGH SCALER-TWO NEEDLE MACHINE OPERATOR Work Phone: [facility] [employer] [facility] 04-21-2021 15:34-0500 Body temperature 98.4 [degF] Vianney Lito HIGH SCALER-TWO NEEDLE MACHINE OPERATOR Work Phone: [facility] 04-21-2021 15:34-0500 Body weight 102.88 kg Vianney Morse HIGH SCALER-TWO NEEDLE MACHINE OPERATOR Work Phone: [facility] 04-21-2021 15:34-0500 Diastolic blood pressure 60 mm[Hg] Vianney Morse HIGH SCALER-TWO NEEDLE MACHINE OPERATOR Work Phone: [employer] [facility] 04-21-2021 15:34-0500 Heart rate 100 /min Vianney Morse HIGH SCALER-TWO NEEDLE MACHINE OPERATOR Work Phone: [facility] 04-21-2021 15:34-0500 Respiratory rate 18 /min Vianney Morse HIGH SCALER-TWO NEEDLE MACHINE OPERATOR Work Phone: [facility] 04-21-2021 15:34-0500 SaO2% (BldA) [Mass fraction] 98 % Vianney Morse HIGH SCALER-TWO NEEDLE MACHINE OPERATOR Work Phone: [facility] [employer] [facility] 04-21-2021 15:34-0500 Systolic blood pressure 110 mm[Hg] Vianney Morse HIGH SCALER-TWO NEEDLE MACHINE OPERATOR Work Phone: [facility] 09-14-2020 17:18-0400 Body height 172.7 cm Naz Arnold PA-C Work Phone: [facility] 09-14-2020 17:18-0400 Body mass index (BMI) [Ratio] 36.34 kg/m2 [place] Arnold PA-C Work Phone: [facility] 09-14-2020 17:18-0400 Body temperature 98.4 [degF] Naz Arnold PA-C Work Phone: [facility] 09-14-2020 17:18-0400 Body weight 108.41 kg Naz Arnold PA-C Work Phone: [facility] 09-14-2020 17:18-0400 Diastolic blood pressure 59 mm[Hg] Naz Arnold PA-C Work Phone: [facility] 09-14-2020 17:18-0400 Heart rate 61 /min Naz Arnold PA-C Work Phone: [facility] 09-14-2020 17:18-0400 Respiratory rate 18 /min [place] Arnold PA-C Work Phone: [facility] 09-14-2020 17:18-0400 SaO2% (BldA) [Mass fraction] 99 % [place] Arnold PA-C Work Phone: [facility] 09-14-2020 17:18-0400 Systolic blood pressure 100 mm[Hg] [place] Arnold PA-C Work Phone: [facility] 04-09-2019 14:22-0500 BMI (Body Mass Index) 34.18 kg/m2 Vianney Lito [employer] 04-09-2019 14:22-0500 Body Temperature 97.2 [degF] Vianney [employer] 04-09-2019 14:22-0500 Body weight 101.97 kg Vianney [employer] 04-09-2019 14:22-0500 BP Diastolic 72 mm[Hg] Vianney Morse [employer] 04-09-2019 14:22-0500 BP Systolic 124 mm[Hg] Vianney [employer] 04-09-2019 14:22-0500 Height 172.7 cm Vianney Morse [employer] 04-09-2019 14:22-0500 Pulse (Heart Rate) 117 /min Vianney Morse [employer] 04-09-2019 14:22-0500 Pulse Oximetry 99 % Vianney [employer] 04-09-2019 14:22-0500 Respiratory Rate 18 /min Vianney [employer] 10-11-2018 15:23-0400 BMI (Body Mass Index) 34.97 kg/m2 Vianney [employer] 10-11-2018 15:23-0400 Body Temperature 97.7 [degF] Vianney [employer] 10-11-2018 15:23-0400 Body weight 104.33 kg Vianney [employer] Comment on above: Weight correct today - 175 lbs incorrect at ER 10-11-2018 15:23-0400 BP Diastolic 80 mm[Hg] Vianney [employer] 10-11-2018 15:23-0400 BP Systolic 110 mm[Hg] Vianney Morse [employer] 10-11-2018 15:23-0400 Height 172.7 cm Vianney [employer] 10-11-2018 15:23-0400 Pulse (Heart Rate) 107 /min Vianney [employer] 10-11-2018 15:23-0400 Pulse Oximetry 96 % Vianney [employer] 10-11-2018 15:23-0400 Respiratory Rate 18 /min Vianney [employer] 10-09-2018 23:43-0400 BMI (Body Mass Index) 26.61 kg/m2 Adin [employer] 10-09-2018 23:43-0400 Body weight 79.38 kg Adin [employer] 10-09-2018 23:43-0400 Height 172.7 cm Adin [employer] 10-09-2018 23:42-0400 Body Temperature 98.1 [degF] [facility]in [employer] 10-09-2018 23:42-0400 BP Diastolic 80 mm[Hg] [facility] 10-09-2018 23:42-0400 BP Systolic 141 mm[Hg] [facility] 10-09-2018 23:42-0400 Pulse (Heart Rate) 83 /min [facility] 10-09-2018 23:42-0400 Pulse Oximetry 98 % [facility] 10-09-2018 23:42-0400 Respiratory Rate 18 /min [facility] 07-30-2018 13:50-0400 BMI (Body Mass Index) 37.13 kg/m2 Vianney [facility] [employer] 07-30-2018 13:50-0400 Body Temperature 97.81 [degF] Vianney [facility] 07-30-2018 13:50-0400 BP Diastolic 84 mm[Hg] Vianney [facility] 07-30-2018 13:50-0400 BP Systolic 130 mm[Hg] Vianney [facility] 07-30-2018 13:50-0400 Pulse (Heart Rate) 87 /min Vianney [facility] 07-30-2018 13:50-0400 Weight 110.77 kg [facility] [employer] Comment on above: Increased weight the last 5 months from 220.6lbs 02-05-2018 10:49-0500 BMI (Body Mass Index) 33.54 kg/m2 Vianney [facility] Work Phone: 02-05-2018 10:49-0500 Body Temperature 96.8 [degF] Vianney [facility] Work Phone: 02-05-2018 10:49-0500 BP Diastolic 74 mm[Hg] Vianney [facility] Work Phone: 02-05-2018 10:49-0500 BP Systolic 120 mm[Hg] Vianney [facility] Work Phone: 02-05-2018 10:49-0500 Height 172.7 cm Vianney [facility] Work Phone: 02-05-2018 10:49-0500 Pulse (Heart Rate) 89 /min Vianney [facility] Work Phone: 02-05-2018 10:49-0500 Pulse Oximetry 98 % Vianney [facility] Work Phone: 02-05-2018 10:49-0500 Respiratory Rate 18 /min Vianney [facility] Work Phone: 02-05-2018 10:49-0500 Weight 100.06 kg Vianney Morse [facility] Work Phone: Encounters Encounter Date Encounter Type Care Provider Facility Start: 07-24-2024 ambulatory VIANNEY [facility] Start: 07-24-2024 End: 07-24-2024 Subsequent hospital visit by physician Tennille Boyce MD Work Phone: [facility] [place] Start: 07-05-2024 ambulatory VIANNEY MORSE [facility] Start: 07-05-2024 End: 07-05-2024 Office outpatient visit 25 minutes Vianney Morse HIGH SCALER-TWO NEEDLE MACHINE OPERATOR Work Phone: [facility] Comment on above: Raynaud's phenomenon without gangrene (Primary Dx); Fluctuating blood pressure; Chronic bilateral low back pain, unspecified whether sciatica present; Spotting between menses Start: 06-05-2024 ambulatory VIANNEY MORSE [facility] Start: 06-05-2024 End: 06-05-2024 Office outpatient visit 25 minutes Vianney Morse HIGH SCALER-TWO NEEDLE MACHINE OPERATOR Work Phone: [facility] Comment on above: Infection of left in ner ear (Primary Dx); Anxiety; Yeast infection; Raynaud's phenomenon without gangrene; Fluctuating blood pressure; Bilateral hand numbness Start: 04-29-2024 End: 04-29-2024 Emergency department patient visit Moody Serrano MD Work Phone: -Emergency Department Work Phone: Start: 01-08-2024 End: 01-08-2024 Office outpatient visit 15 minutes Staci DAVID Work Phone: [facility] Comment on above: Viral illness (Prima ry Dx); Dysuria Start: 01-08-2024 ambulatory [facility] Start: 11-09-2023 End: 11-09-2023 Office outpatient visit 25 minutes Vianney Morse HIGH SCALER-TWO NEEDLE MACHINE OPERATOR Work Phone: [facility] Comment on above: Anxiety (Primary Dx) ; Moderate episode of recurrent major depressive disorder; Attention deficit hyperactivity disorder (ADHD), unspecified ADHD type; Gastroesophageal reflux disease without esophagitis; Hiatal hernia; Irregular menses; Diarrhea, unspecified type Start: 11-09-2023 ambulatory [facility] Start: 09-15-2023 End: 09-15-2023 Emergency department patient visit VIANNEY MORSE [facility] Emergency Department Start: 09-08-2023 End: 09-08-2023 ambulatory TONI [facility] Start: 09-08-2023 End: 09-08-2023 Encounter for other preprocedural examination TONI [facility] Start: 09-08-2023 End: 09-08-2023 Patient encounter status Toni Burch DO Work Phone: [facility] Start: 09-08-2023 End: 09-08-2023 Subsequent hospital visit by physician Toni Burch DO Work Phone: [facility] Comment on above: Biliary colic Start: 09-06-2023 ambulatory TONI BURCH [facility] Start: 09-01-2023 ambulatory TONI BURCH [facility] Start: 09-01-2023 Encounter for other preprocedural examination TONI [facility] Start: 08-31-2023 ambulatory [facility] Start: 08-31-2023 End: 08-31-2023 Office outpatient visit 25 minutes Toni Burch DO Work Phone: [facility] Comment on above: Biliary colic (Prima ry Dx) Start: 08-17-2023 ambulatory TONI Barry [facility] Start: 08-17-2023 End: 08-17-2023 Subsequent hospital visit by physician Toni Burch DO Work Phone: [facility] Comment on above: Arrived Start: 08-09-2023 End: 08-09-2023 Office outpatient visit 15 minutes Vianney Morse HIGH SCALER-TWO NEEDLE MACHINE OPERATOR Work Phone: [facility] Comment on above: Chronic migraine wit hout aura without status migrainosus, not intractable (Primary Dx); Attention deficit hyperactivity disorder (ADHD), unspecified ADHD type Start: 08-09-2023 ambulatory [facility]ELF SELF [facility] Start: 08-04-2023 End: 08-04-2023 Emergency department patient visit VIANNEY LITO [facility] Emergency Department Start: 08-03-2023 End: 08-03-2023 Office outpatient new 30 minutes Toni Burch DO Work Phone: [facility] Comment on above: Abdominal pain, epig astric (Primary Dx) Start: 08-03-2023 ambulatory TONI BURCH [facility] Start: 05-23-2023 End: 05-23-2023 Office outpatient visit 25 minutes Vianney Morse HIGH SCALER-TWO NEEDLE MACHINE OPERATOR Work Phone: [facility] Comment on above: Attention deficit hy peractivity disorder (ADHD), unspecified ADHD type (Primary Dx); Moderate episode of recurrent major depressive disorder; Anxiety; Gastroesophageal reflux disease without esophagitis; Hiatal hernia Start: 05-13-2023 End: 05-13-2023 Emergency department patient visit Adin Thakkar MD Work Phone: [facility] Emergency [facility] Start: 03-06-2023 End: 03-06-2023 ambulatory [facility] Start: 03-06-2023 End: 03-06-2023 Subsequent hospital visit by physician [facility] Comment on above: Other instability, r ight ankle; Difficulty in walking, not elsewhere classified; Sprain of other ligament of right ankle, initial encounter; Other specified osteochondropathies, right ankle and foot Start: 03-05-2023 End: 03-05-2023 Office outpatient visit 15 minutes Babatunde Dinero HIGH SCALER-TWO NEEDLE MACHINE OPERATOR Work Phone: [facility] Comment on above: Upper respiratory tr act infection, unspecified type (Primary Dx); Acute cough Start: 02-21-2023 End: 02-21-2023 Office outpatient visit 25 minutes Vianney Morse APRN-TOREY Work Phone: [facility] Comment on above: Attention deficit hy peractivity disorder (ADHD), unspecified ADHD type (Primary Dx); Moderate episode of recurrent major depressive disorder; Dysuria; Acute cystitis without hematuria Start: 12-26-2022 End: 12-26-2022 ambulatory [facility] Start: 11-16-2022 End: 11-16-2022 Emergency department patient visit Tee Loyd [facility] 10 Start: 11-15-2022 End: 11-15-2022 Office outpatient visit 25 minutes Vianney Morse APRN-TWO NEEDLE MACHINE OPERATOR Work Phone: [facility] Comment on above: Anxiety (Primary Dx) ; Moderate episode of recurrent major depressive disorder; Attention deficit hyperactivity disorder (ADHD), unspecified ADHD type Start: 04-28-2022 End: 04-28-2022 Subsequent hospital visit by physician Stefano Cuadra DO Work Phone: [facility] Start: 03-30-2022 ambulatory [facility] Start: 03-29-2022 End: 03-29-2022 Office outpatient visit 40 minutes Stefano Cuadra DO Work Phone: [facility] Comment on above: Irritable bowel synd [place] with diarrhea (Primary Dx); Bloating; Constipation, unspecified constipation type; Functional diarrhea Start: 03-16-2022 End: 03-17-[address] [facility] Start: 03-16-2022 End: 03-16-2022 Subsequent hospital visit by physician Vianney Morse APRN - TOREY Work Phone: [facility] Comment on above: Frequent UTI; Renal colic on right side Start: 12-08-2021 End: 12-08-2021 Office outpatient new 30 minutes Stefano Cuadra DO Work Phone: [facility] Comment on above: Irritable bowel synd [place] with diarrhea (Primary Dx); Bloating; Constipation, unspecified constipation type; Functional diarrhea; Abdominal pain, epigastric; Weight loss Start: 09-27-2021 End: 09-27-2021 Office outpatient visit 25 minutes Vianney Morse HIGH SCALER-TWO NEEDLE MACHINE OPERATOR Work Phone: [facility] Comment on above: Burning with urinati on (Primary Dx); Urgency of urination; Frequency of urination; Acute cystitis with hematuria; Anxiety and depression; Antibiotic-induced yeast infection; Epigastric pain Start: 04-21-2021 End: 04-21-2021 Office outpatient visit 25 minutes Vianney Morse HIGH SCALER-TWO NEEDLE MACHINE OPERATOR Work Phone: [facility] Comment on above: Anxiety and depressi on (Primary Dx); Chronic migraine without aura without status migrainosus, not intractable; Nausea Start: 09-14-2020 End: 09-14-2020 Office outpatient visit 15 minutes Naz Lu PA-C Work Phone: [facility] Comment on above: Acute cystitis witho ut hematuria (Primary Dx) Start: 09-06-2020 End: 09-06-2020 Emergency department patient visit Brady Inman [facility] Emergency 16 Start: 09-08-2019 End: 09-09-2019 Evaluation and management of inpatient VIANNEY MORSE Facility:[facility] Start: 09-02-2019 End: 09-02-2019 ambulatory LUISA GREEN DO Facility:[facility] Start: 09-01-2019 End: 09-01-2019 ambulatory VIANNEY MORSE Facility:[facility] Start: 08-15-2019 End: 08-15-2019 ambulatory VIANNEY MORSE Facility:[facility] Start: 08-08-2019 End: 08-08-2019 ambulatory REINA MIRELES MD Facility:[facility] Start: 07-26-2019 End: 07-27-2019 ambulatory [place] [phone] Johanna [id number] Facility:[facility] Start: 07-23-2019 End: 07-24-2019 ambulatory VIANNEY MORSE Facility:[facility] Start: 04-09-2019 End: 04-09-2019 Office outpatient visit 15 minutes Vianney Morse Work Phone: [facility] Comment on above: Moderate episode of recurrent major depressive disorder (Primary Dx); Anxiety Start: 10-11-2018 End: 10-11-2018 Office outpatient visit 25 minutes Vianney Morse Work Phone: [facility] Comment on above: Primary insomnia (Pr imary Dx); Anxiety; Moderate episode of recurrent major depressive disorder; Dysfunctional uterine bleeding; Chronic migraine without aura without status migrainosus, not intractable; Sore throat; Acute recurrent maxillary sinusitis; Antibiotic-induced yeast infection Start: 10-09-2018 End: 10-10-2018 Emergency department patient visit Adin Lehman Bijan Work Phone: [facility] Start: 10-09-2018 End: 10-09-2018 Telephone encounter Andie Nobles [facility] Comment on above: Other Start: 09-06-2018 End: 09-06-2018 Letter encounter Vianney Morse Work Phone: [facility] Start: 08-20-2018 End: 08-20-2018 Patient encounter procedure Other Other [facility] Start: 08-20-2018 End: 08-20-2018 Telephone encounter Shilpa Saldaña [facility] Comment on above: Menstrual Problem (e xcessive menstrual bleeding ) Start: 08-17-2018 End: 08-17-2018 Telephone encounter Nora Diego [facility] Comment on above: Menstrual Problem Start: 07-30-2018 End: 07-30-2018 Office outpatient visit 25 minutes Vianney Morse Work Phone: [facility] Comment on above: Suprapubic pressure (Primary Dx); Breast tenderness; Dysfunctional uterine bleeding; Anxiety; Moderate episode of recurrent major depressive disorder; Primary insomnia; Obesity (BMI 30-39.9) Start: 06-28-2018 End: 06-28-2018 Patient encounter procedure Vianney Morse Work Phone: [facility] Comment on above: Dysfunctional uterin e bleeding (Primary Dx) Start: 06-28-2018 End: 06-28-2018 Telephone encounter Shilpa Saldaña [facility] Comment on above: Irregular Menses Start: 02-05-2018 End: 02-05-2018 Office outpatient visit 25 minutes Vianney Morse Work Phone: [facility] Comment on above: Primary insomnia (Pr imary Dx); Anxiety; Severe episode of recurrent major depressive disorder, without psychotic features; Encounter for initial prescription of contraceptive pills; Upper respiratory tract infection, unspecified type Start: 09-12-2017 End: 09-15-2017 Patient encounter ANNE MARIE MUNOZ II [facility] Start: 08-22-2017 Patient encounter Facil [id number] Start: 07-21-2017 Patient encounter Facil [id number] Start: 05-30-2017 End: 05-30-2017 Ambulatory ASHLI MCKINLEYRDLE [facility] Procedures Date Procedure Procedure Detail Performing Clinician Start: 07-24-2024 Needle emg lmtd std musc 1 xtr/non-limb uni/bi Vianney Morse HIGH SCALER-TWO NEEDLE MACHINE OPERATOR Work Phone: Start: 04-29-2024 CT of head without contrast Moody Serrano MD Work Phone: Start: 04-29-2024 Plain chest X-ray Moody Serrano MD Work Phone: Start: 01-08-2024 End: 01-08-2024 Urnls dip stick/tablet rgnt auto w/o microscopy Staci DAVID Work Phone: Start: 09-15-2023 Ct abdomen & pelvis w/contrast material Margo Kelley PA-C Work Phone: Start: 09-15-2023 Albumin serum plasma/whole blood Margo Kelley PA-C Work Phone: Start: 09-15-2023 Complete blood count with white cell differential, automated Margo Kelley PA-C Work Phone: Start: 09-15-2023 Urinalysis, reagent strip without microscopy Margo Kelley PA-C Work Phone: Start: 09-08-2023 Blood typing serologic abo Toni whitehead DO Work Phone: Start: 09-08-2023 Complete blood count with white cell differential, automated Toni Burch DO Work Phone: Start: 09-08-2023 Comprehensive metabolic panel Toni brito DO Work Phone: Start: 09-08-2023 Urine test visual color cmprsn meths Toni Jhonny Marcin DO Work Phone: Start: 08-17-2023 Hepatobil syst imag inc gb w/pharma intervenj Toni Burch DO Work Phone: Start: 08-04-2023 Us abdominal real time w/image limited Anirudh Alvarez HIGH SCALER-TWO NEEDLE MACHINE OPERATOR Work Phone: Start: 08-04-2023 C-reactive protein Anirudh Alvarez HIGH SCALER-CN P Work Phone: Start: 08-04-2023 Complete blood count with white cell differential, automated Anirudh Alvarez HIGH SCALER-TWO NEEDLE MACHINE OPERATOR Work Phone: Start: 08-04-2023 Comprehensive metabolic panel Anirudh cotter HIGH SCALER-TWO NEEDLE MACHINE OPERATOR Work Phone: Start: 03-06-2023 MR ANKLE RIGHT WO IV CONTRAST JANELLE CALDERON Start: 03-06-2023 Mri any jt lower extrem w/o contrast matrl Janelle Barragan DPM Work Phone: Start: 03-05-2023 Iaadiadoo streptococcus group a Babatunde Dinero HIGH SCALER-TWO NEEDLE MACHINE OPERATOR Work Phone: Start: 03-05-2023 SARS-CoV-2 (COVID-19) RNA [Presence] in Unspecified specimen by JAVIER with probe detection Babatunde Dinero HIGH SCALER-TWO NEEDLE MACHINE OPERATOR Work Phone: Start: 12-26-2022 XR ANKLE RIGHT 3+ VIEWS JANELLE BARRAGAN Start: 04-28-2022 Colonoscopy flx dx w/collj spec when pfrmd Stefano Cuadra DO Work Phone: Start: 04-28-2022 DIAGNOSTIC UPPER ENDOSCOPY Stefano Vu ich DO Work Phone: Start: 03-16-2022 Urnls dip stick/tablet reagent auto microscopy Toni Pham MD Work Phone: Start: 09-27-2021 Urnls dip stick/tablet rgnt auto w/o microscopy Vianney Morse HIGH SCALER-TWO NEEDLE MACHINE OPERATOR Work Phone: Start: 09-08-2019 DELIVERY PRODUCTS OF CONCEPTION EXT LUISA NORMA DO Start: 09-08-2019 DRAIN AMNIO FLUID TX POC LARRY/ART OP LUISA NORMA DO Start: 09-08-2019 REPAIR PERINEUM MUSCLE OPEN LUISA WITH AM DO Start: 10-11-2018 Iaadiadoo streptococcus group a Vianney Morse Work Phone: Start: 10-10-2018 Choriogonadotropin ( test) [Presence] in Urine Adin Lehman Escue Work Phone: Start: 10-10-2018 Urinalysis microscopic only Adin Lehman Es cue Work Phone: Start: 10-10-2018 URINALYSIS, MACRO Adin Lehman Escue Work Phone: Start: 07-30-2018 Choriogonadotropin ( test) [Presence] in Urine Vianney Morse Work Phone: Start: 07-30-2018 Urnls dip stick/tablet rgnt auto w/o microscopy Vianney Morse Work Phone: Plan of Treatment Date Care Activity Detail Author Start: 2046 Zoster Vaccines (1 of 2) Zoster Vaccines (1 of 2) [facility] Start: 02-28-2027 DTaP/Tdap/Td vaccine (9 - Td or Tdap) DTaP/Tdap/Td vaccine (9 - Td or Tdap) [facility] Start: 02-28-2027 DTaP/Tdap/Td Vaccines (9 - Td or Tdap) DTaP/Tdap/Td Vaccines (9 - Td or Tdap) [facility] Start: 02-28-2027 Tetanus vaccination TETANUS [facility] Start: 05-29-2025 Screening for malignant neoplasm of cervix CERVICAL CANCER SCREENING DISCUSSION [facility] Start: 10-21-2024 Influenza vaccination INFLUENZA VACCINE (Season Ended) [facility] Start: 07-24-2024 End: 07-24-2024 Patient encounter procedure 07/24/2024 10:40 AM EDT Appointment [facility] [place] [address] [facility] [place] [address] Tennille Boyce MD [address] [place] [address] [facility] [place] Start: 07-05-2024 End: 07-05-2024 Patient encounter procedure 07/05/2024 11:15 AM EDT Office Visit [address] [place] [phone] Vianney Morse HIGH SCALER-TWO NEEDLE MACHINE OPERATOR [address] [place] [phone] [facility] Start: 04-29-2024 [facility] Start: 04-29-2024 [facility] Start: 02-01-2024 End: 02-01-2024 Patient encounter procedure 02/01/2024 10:45 AM EST Office Visit [address] [phone] Vianney Morse HIGH SCALER-TWO NEEDLE MACHINE OPERATOR [address] [place] [phone] [facility] Start: 01-08-2024 End: 01-07-2025 Bacteria identified in Urine by Culture [facility] Comment on above: Expected: 01/08/2024, Expires: Start: 11-02-2023 End: 11-02-2023 Patient encounter procedure 11/02/2023 1:45 PM EDT Office Visit [address] [place] [address] Vianney Morse HIGH SCALER-TWO NEEDLE MACHINE OPERATOR [address] [place] [address] [facility] Start: 10-22-2023 COVID-19 VACCINE ( season) COVID-19 VACCINE ( season) [facility] Start: 10-22-2023 COVID-19 VACCINE ( season) COVID-19 VACCINE ( season) [facility] Start: 10-22-2023 Influenza vaccination [facility] Start: 09-06-2023 End: 09-06-2023 Admission to same day surgery center 09/06/2023 7:30 AM EDT - 09/06/2023 9:00 AM EDT Surgery LILLY GAL Periop [address] [facility] [place] [phone] Toni Burch DO [address] [facility] [place] [address] CHOLECYSTECTOMY ROBOTIC [facility]ILLY GAL Periop Comment on above: CHOLECYSTECTOMY ROBOTIC Start: 09-06-2023 End: 09-06-2023 Laparoscopy surg cholecystectomy CHOLECYSTECTOMY ROBOTIC Biliary colic 09/06/2023 7:30 AM EDT [facility]ILLY [facility] OR Start: 09-06-2023 Subsequent hospital visit by physician 09/06/2023 7:30 AM EDT Hospital Encounter [facility] Periop [address] [facility] [place] [address] Toni Burch, [address] [place] [address] Biliary colic [facility] Periop Comment on above: Biliary colic Start: 09-01-2023 End: 09-01-2023 Admission to establishment 09/01/2023 8:30 AM EDT Pre-Operative Nurse Assessment [facility] Pre Admission Testing [address] [place] [address] Pre-op testing (Primary Dx) [facility] Pre Admission Testing Comment on above: Pre-op testing (Primary Dx) Start: 08-31-2023 End: 08-30-2024 aPTT in Blood by Coagulation assay PTT Lab Routine Biliary colic Expected: 08/31/2023, Expires: 08/30/2024 [facility] Comment on above: Expected: 08/31/2023, Expires: Start: 08-31-2023 End: 08-30-2024 Basic metabolic 2000 panel - Serum or Plasma BASIC METABOLIC PANEL Lab Routine Biliary colic Expected: 08/31/2023, Expires: 08/30/2024 [facility] Comment on above: Expected: 08/31/2023, Expires: Start: 08-31-2023 End: 08-30-2024 CBC,PLATELETS CBC,PLATELETS Lab Routine Biliary colic Expected: 08/31/2023, Expires: 08/30/2024 [facility] Comment on above: Expected: 08/31/2023, Expires: Start: 08-31-2023 End: 08-30-2024 PROTIME-INR PROTIME-INR Lab Routine Biliary colic Expected: 08/31/2023, Expires: 08/30/2024 [facility] Comment on above: Expected: 08/31/2023, Expires: Start: 08-31-2023 End: 08-30-2024 TYPE AND SCREEN - POSSIBLE TRANSFUSION TYPE AND SCREEN - POSSIBLE TRANSFUSION Blood Bank Routine Biliary colic Expected: 08/31/2023, Expires: 08/30/2024 [facility] Comment on above: Expected: 08/31/2023, Expires: Start: 08-09-2023 End: 08-09-2023 Patient encounter procedure [facility] Start: 08-03-2023 End: 08-02-2024 US Abdomen RUQ US ABDOMEN RUQ/LIVER/GB Imaging Routine Abdominal pain, epigastric Expected: 08/03/2023, Expires: 08/02/2024 [facility] Comment on above: Expected: 08/03/2023, Expires: Start: 06-22-2023 End: 06-22-2023 Patient encounter procedure 06/22/2023 2:00 PM EDT Office Visit [facility] [address] [place] [address] Toni Burch E, DO [address] [place] [address] [facility] Start: 05-23-2023 End: 05-23-2023 Patient encounter procedure 05/23/2023 10:45 AM EDT Office Visit [address] [place] [address] Vianney Morse APRN-TWO NEEDLE MACHINE OPERATOR [address] [place] [address] [facility] Start: 02-21-2023 End: 02-22-2024 Bacteria identified in Urine by Culture [facility] Comment on above: Expected: 02/21/2023, Expires: Start: 02-07-2023 End: 02-07-2023 Patient encounter procedure 02/07/2023 10:45 AM EST Office Visit [address] [place] [address] Vianney Morse APRN-TWO NEEDLE MACHINE OPERATOR [address] [place] [address] [facility] Start: 10-21-2022 COVID-19 VACCINE ( season) COVID-19 VACCINE ( season) [facility] Start: 10-21-2022 Influenza vaccination INFLUENZA VACCINE (#1) [facility] Start: 04-27-2022 End: 04-27-2022 Patient encounter procedure 04/27/2022 Appointment Radiology [facility] CT Scan Start: 04-14-2022 GONORRHEA SCREEN GONORRHEA SCREEN [facility] Start: 04-14-2022 Screening for Chlamydia trachomatis [facility] Start: 04-06-2022 End: 04-06-2022 Patient encounter procedure 04/06/2022 Office Visit Urology [facility] Start: 03-30-2022 End: 03-30-2022 Patient encounter procedure 03/30/2022 Office Visit Family Medicine Vianney Morse, HIGH SCALER-TWO NEEDLE MACHINE OPERATOR [address] [place] [address] [facility] Start: 12-18-2021 Screening for malignant neoplasm of cervix CERVICAL CANCER SCREENING DISCUSSION [facility] Start: 10-21-2021 Influenza vaccination INFLUENZA VACCINE (#1) [facility] Start: 09-27-2021 End: 09-27-2022 Bacteria identified in Urine by Culture [facility] Comment on above: Expected: 09/27/2021, Expires: Start: 09-20-2021 Influenza vaccination Flu vaccine (#1) [facility] Start: 07-21-2021 End: 07-21-2021 Patient encounter procedure 07/21/2021 Office Visit Family Medicine Vianney Morse APRN-TWO NEEDLE MACHINE OPERATOR [address] [place] [address] [facility] Start: 10-21-2020 Influenza vaccination INFLUENZA VACCINE (#1) [facility] Start: 08-08-2020 GONORRHEA SCREEN GONORRHEA SCREEN [facility] Start: 08-08-2020 Screening for Chlamydia trachomatis CHLAMYDIA SCREEN [facility] Start: 10-08-2019 End: 10-08-2019 Office Visit 10/08/2019 Office Visit Family Medicine Vianney Morse, HIGH SCALER-TWO NEEDLE MACHINE OPERATOR [address] [place] [address] [phone] [facility] Start: 04-09-2019 End: 04-09-2019 Office Visit 04/09/2019 Office Visit Family Medicine Vianney Morse, HIGH SCALER-TWO NEEDLE MACHINE OPERATOR [address] [place] [address] [phone] [facility] Start: 10-21-2018 Influenza vaccination [facility] Start: 10-11-2018 End: 10-11-2018 Office Visit 10/11/2018 Office Visit Family Medicine Vianney Morse HIGH SCALER-TWO NEEDLE MACHINE OPERATOR [address] [place] [address] [phone] [facility] Start: 08-31-2018 End: 08-31-2018 Office Visit 08/31/2018 Office Visit Family Medicine Vianney Morse, HIGH SCALER-TWO NEEDLE MACHINE OPERATOR [address] [place] [phone] [facility] Start: 08-26-2018 Tetanus vaccination TETANUS [facility] Start: 08-06-2018 End: 08-06-2018 Ambulatory 08/06/2018 Office Visit Family Medicine Vianney Morse, HIGH SCALER-TWO NEEDLE MACHINE OPERATOR [address] [place] [address] [phone] [facility] Start: 2017 Screening for malignant neoplasm of cervix [facility] Start: 10-21-2017 Influenza vaccination INFLUENZA VACCINE (#1) [facility] Work Phone: Start: 09-17-2015 HPV vaccine (3 - 3-dose series) HPV vaccine (3 - 3-dose series) [id number] Start: 09-17-2015 HPV Vaccines (3 - 3-dose series) HPV Vaccines (3 - 3-dose series) [facility] Start: 09-17-2015 Vaccination for human papillomavirus [facility] Start: 08-10-2015 HPV VACCINE (3 - 3-dose series) HPV VACCINE (3 - 3-dose series) [facility] Start: 08-10-2015 Vaccination for human papillomavirus [facility] Start: 2014 GONORRHEA SCREEN GONORRHEA SCREEN [facility] Work Phone: Start: 2014 [facility]atitis C [facility] Start: 2012 Screening for Chlamydia trachomatis CHLAMYDIA SCREEN [facility] Work Phone: Start: 11-05-2011 HIV screening HIV screen [facility] [employer] Start: 2009 HIV screening HIV SCREENING DISCUSSION [facility] Work Phone: Start: 2008 COVID-19 VACCINE (1) COVID-19 VACCINE (1) [facility] Start: 2008 Depression Screen Depression Screen [facility] Start: 08-20-2002 Varicella vaccination Varicella Vaccines (1 of 2 - 2-dose childhood series) [facility] Start: 2001 COVID-19 VACCINE (1) COVID-19 VACCINE (1) [facility] Start: 1997 Varicella vaccine (1 of 2 - 2-dose childhood series) Varicella vaccine (1 of 2 - 2-dose childhood series) [facility] Start: 05-04-1997 COVID-19 VACCINE (#1) COVID-19 VACCINE (#1) [facility] Start: 1996 GONORRHEA SCREEN GONORRHEA SCREEN [facility] Start: 1996 Hepatitis C antibody, confirmatory test HEPATITIS C VIRUS SCREENING [facility] Start: 1996 Hepatitis C screening HEPATITIS C VIRUS SCREENING [facility] Start: 1996 HIV screening HIV Screening [facility] Start: 1996 Lipid panel Lipid Panel [facility] Start: 1996 Yearly Adult Physical Yearly Adult Physical [facility] Choriogonadotropin ( test) [Presence] in Urine POCT URINE Point of Care Testing Routine 04/28/2022 10:50 AM EST [facility] Choriogonadotropin ( test) [Presence] in Urine POCT URINE Point of Care Testing Routine Irregular menses Ordered: 11/09/2023 [facility] Comment on above: Ordered: 11/09/2023 End: 03-16-2022 Culture, Urine [facility] Work Phone: Comment on above: 1 Occurrences starting 03/16/2022 until 03/16/2022 Once for 1 Occurrenc es starting 03/16/2022 until 03/16/2022 Patient Education ED Chest Pain, Uncertain Cause ED Pain, Acute, Uncertain Cause ED Paraesthesias [facility] Work Phone: Patient referral [facility] Work Phone: POCT URINALYSIS DIPS TICK AUTOMATED W/O SCOP POCT URINALYSIS DIPSTICK AUTOMATED W/O SCOP Point of Care Testing Routine Dysuria Ordered: 02/21/2023 [facility] Comment on above: Ordered: 02/21/2023 SURGICAL PATHOLOGY REQUEST SURGI [facility] PATHOLOGY REQUEST Surg Path Routine Biliary colic Release Upon Ordering for 1 Occurrences starting 09/08/2023 [facility] Comment on above: Release Upon Ordering for 1 Occurrences starting 09/08/2023 End: 03-16-2022 Urinalysis with Microscopic Urinalysis with Microscopic Lab Routine Frequent UTI Renal colic on right side 1 Occurrences starting 03/16/2022 until 03/16/2022 [facility] Work Phone: Comment on above: 1 Occurrences starting 03/16/2022 until 03/16/2022 Immunizations Immunization Date Immunization Notes Care Provider [facility] 12-10-2019 influenza, injectabl e, quadrivalent, contains preservative Vianney Morse HIGH SCALER-TWO NEEDLE MACHINE OPERATOR Work Phone: [facility] 12-10-2019 influenza virus vacc ine, unspecified formulation Vianney Morse HIGH SCALER-TWO NEEDLE MACHINE OPERATOR Work Phone: [facility] 02-28-2017 tetanus toxoid, redu porsha diphtheria toxoid, and acellular pertussis vaccine, adsorbed Vianney Morse HIGH SCALER-TWO NEEDLE MACHINE OPERATOR Work Phone: [facility] 01-01-2016 influenza, seasonal, injectable Vianney Morse HIGH SCALER-TWO NEEDLE MACHINE OPERATOR Work Phone: [facility] 01-01-2016 tetanus toxoid, redu porsha diphtheria toxoid, and acellular pertussis vaccine, adsorbed Vianney Morse HIGH SCALER-TWO NEEDLE MACHINE OPERATOR Work Phone: [facility] 05-18-2015 Human Papillomavirus 9-valent vaccine Vianney Morse [facility] Work Phone: 05-18-2015 Meningococcal Vaccin e IM (Conjugate) Vianney Morse [facility] Work Phone: 05-18-2015 HPV, unspecified formulation [facility] Work Phone: 03-17-2015 Human Papillomavirus 9-valent vaccine Vianney Morse [facility] Work Phone: 01-02-2015 Human Papillomavirus 9-valent vaccine Vianney Morse [facility] Work Phone: 10-05-2010 Meningococcal Vaccin e IM (Conjugate) Vianney [facility] Work Phone: 08-26-2008 tetanus toxoid, redu porsha diphtheria toxoid, and acellular pertussis vaccine, adsorbed Vianney [facility] Work Phone: 01-01-2007 influenza virus vacc ine, whole virus Vianney [facility] Work Phone: 01-01-2007 influenza virus vacc ine, unspecified formulation Vianney [facility] Work Phone: 07-23-2002 diphtheria, tetanus toxoids and acellular pertussis vaccine [facility] Work Phone: 07-23-2002 measles, mumps and rubella virus vaccine [facility] Work Phone: 07-23-2002 poliovirus vaccine, inactivated Vianney [facility] Work Phone: 10-23-1998 diphtheria, tetanus toxoids and acellular pertussis vaccine [facility] Work Phone: 10-23-1998 haemophilus influenz ae type b vaccine, conjugate unspecified formulation Vianney [facility] Work Phone: 03-09-1998 measles, mumps and rubella virus vaccine [facility] Work Phone: 05-21-1997 diphtheria, tetanus toxoids and acellular pertussis vaccine [facility] Work Phone: 05-21-1997 haemophilus influenz ae type b vaccine, conjugate unspecified formulation [facility] Work Phone: 05-21-1997 hepatitis B vaccine, pediatric or pediatric/adolescent dosage [facility] Work Phone: 05-21-1997 poliovirus vaccine, inactivated Vianney [facility] Work Phone: 03-03-1997 diphtheria, tetanus toxoids and acellular pertussis vaccine [facility] Work Phone: 03-03-1997 haemophilus influenz ae type b vaccine, conjugate unspecified formulation [facility] Work Phone: 03-03-1997 hepatitis B vaccine, pediatric or pediatric/adolescent dosage [facility] Work Phone: 03-03-1997 poliovirus vaccine, inactivated Vianney [facility] Work Phone: 01-08-1997 diphtheria, tetanus toxoids and acellular pertussis vaccine [facility] Work Phone: 01-08-1997 haemophilus influenz ae type b vaccine, conjugate unspecified formulation [facility] Work Phone: 01-08-1997 poliovirus vaccine, inactivated Vianney [facility] Work Phone: 1996 hepatitis B vaccine, pediatric or pediatric/adolescent dosage Vianney [facility] Work Phone: Payers Date Payer Category Payer Self-pay 2022 Medicaid MEDICAID MEDICAI D [id number] 2022-Present [address] [place] [address] [id number] 2022 Medicaid (Managed Care) [facility] PL[facility] [id number] 2022 Unknown [id number] 2018 Unknown [employer] ANTONIO xxxxxxxx 2018-Present xxxxxxxx [id number]. [id number] 2017 Unknown [employer] [place] xxxxxxxxxxx 2017-Present xxxxxxxxxxx [id number]. [id number] 2017 Unknown 2017 Unknown [facility] [facility] [id number] 2017-Present [address] [place] [address] [id number]. [id number] 2016 Private Health Insurance AETNA AETNA xxxxxxxxxx 2016-Present [id number]. [id number] 1996 Unknown [id number] 2.16.840.1.403873.3.579.2. 419 1996 Unknown [id number] 2.16.840.1.629052.3.579.2. 419 1996 Unknown [id number] 2.16.840.1.870256.3.579.2. 419 1996 Unknown [id number] 2.16.840.1.075167.3.579.2. 419 1996 Unknown [id number] 2.16.840.1.996071.3.579.2. 419 1996 Unknown [id number] 2.16.840.1.072594.3.579.2. 419 1996 Unknown [id number] 2.16.840.1.590440.3.579.2. 419 1996 Unknown [id number] 2.16.840.1.001258.3.579.2. 419 1996 Unknown [id number] 2.16.840.1.502891.3.579.2. 419 1996 Unknown [id number] 2.16.840.1.553049.3.579.2. 173 1996 Unknown [id number] 2.16.840.1.098179.3.579.2. 1069 1996 Unknown [id number] 2.16.840.1.676521.3.579.2. 1243 1996 Unknown [id number] 2.16.840.1.163137.3.579.2. 1243 1996 Unknown [id number] 2.16.840.1.015217.3.579.2. 983 1996 Unknown [id number] 2.16.840.1.070019.3.579.2. 983 1996 Unknown [id number] 2.16.840.1.673126.3.579.2. 983 1996 Unknown [id number] 2.16.840.1.030895.3.579.2. 98 1996 Unknown [id number] 2.16.840.1.673628.3.579.2. 983 1996 Unknown [id number] 2.16.840.1.874328.3.579.2. 983 1996 Unknown [id number] 2.16.840.1.310031.3.579.2. 983 1996 Unknown [id number] 2.16.840.1.581524.3.579.2. 983 1996 Unknown [id number] 2.16.840.1.161380.3.579.2. 983 1996 Unknown [id number] 2.16.840.1.246089.3.579.2. 983 1996 Unknown [id number] 2.16.840.1.037789.3.579.2. 983 1996 Unknown [id number] 2.16.840.1.198432.3.579.2. 983 1996 Unknown [id number] 2.16.840.1.191678.3.579.2. 983 1996 Unknown [id number] 2.16.840.1.354873.3.579.2. 983 1996 Unknown [id number] 2.16.840.1.298433.3.579.2. 983 1968 Unknown [id number] 2.16.840.1.313471.3.579.2. 173 1959 Unknown [id number] 1959 Unknown [id number] Private Health Insurance [id number] Private Health Insurance [id number] Unknown [id number] 2.16.840.1.828417.3.579.2. 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 Start: 11-06-2020 History SDOH Alcohol Comment here and there [facility] Start: 08-09-2019 History SDOH Stress 2 [employer] Start: 08-09-2019 History SDOH Financial [address] [facility] Start: 09-14-2020 End: 07-05-2024 Alcohol intake Current drinker of alcohol (finding) [facility] [employer] [facility] Start: 03-16-2022 End: 08-03-2023 Tobacco smoking status [facility] Ex-smoker [employer] Phone: End: 03-23-2021 History of tobacco use Current smoker [employer] Phone: End: 03-23-2021 History of tobacco use Cigarette Smoker [employer] Phone: Start: 08-08-2019 End: 11-09-2023 History of Social function [facility] Guest of a Guest In a typical week, h ow many times do you talk on the telephone with family, friends, or neighbors? Patient refused [employer] Are you now , , , , never or living with a partner? Refused [employer] How hard is it for y ou to pay for the very basics like food, housing, medical care, and heating Somewhat hard [facility] Do you feel stress - tense, restless, nervous, or anxious, or unable to sleep at night because your mind is troubled all the time - these days [OSQ] Only a little [employer] [facility] (I/We) worried salvatore er (my/our) food would run out before (I/we) got money to buy more. Sometimes true [employer] [facility] Start: 09-22-2016 Gender identity Identifies as female gender (finding) [facility] Start: 02-24-2023 End: 03-06-2023 Exposure to SARS-CoV-2 (event) Not sure [facility] Start: 05-13-2023 Alcohol Comment socially [facility] Active [employer] [facility] Start: 02-26-2016 End: 04-29-2024 Sex Female (finding) [facility] Start: 1995 Sex Assigned At Female [facility] How hard is it for y ou to pay for the very basics like food, housing, medical care, and heating Not very hard [facility] Functional Status Date Assessment Result Facility 08-09-2019 Are you deaf, or do you have serious difficulty hearing No 08/09/2019 4:30 AM EDT Shari Garvey, JUSTINE No [facility] 08-09-2019 Are you blind, or do you have serious difficulty seeing, even when wearing glasses No 08/09/2019 4:30 AM EDT Shari Garvey, JUSTINE [facility] 08-09-2019 Do you have serious difficulty walking or climbing stairs No 08/09/2019 4:30 AM EDT Shari Garvey RN [facility] 08-09-2019 Do you have difficul ty dressing or bathing No 08/09/2019 4:30 AM EDT Shari Garvey, JUSTINE [facility] 08-09-2019 Because of a physica l, mental, or emotional condition, do you have difficulty doing errands alone such as visiting a physician's office or shopping No 08/09/2019 4:30 AM EDT Shari Garvey, JUSTINE No [facility] Mental Status Date Assessment Result Facility 04-29-2024 Cognitive function Voice/Name [facility] Work Phone: 08-09-2019 Because of a physica l, mental, or emotional condition, do you have serious difficulty concentrating, remembering, or making decisions No 08/09/2019 4:30 AM EDT Shari Garvey, JUSTINE [facility] Clinical Notes 07-26-2019 to 07-24-2024 Addendum Note - Lisa Acevedo RCP - 07/24/2024 10:40 AM EDTAddendum Note - Lisa Acevedo RCP - 07/24/2024 10:40 AM EDAlicia Boyce MD - 07/24/2024 10:40 AM EDT Note Date & Type Note Facility 07-24-2024 Miscellaneous Notes Encounter addended by: Lisa Acevedo RCP on: 07/24/2024 11:59 AM Actions taken: Charge Capture section accepted documented in this encounter [facility] 07-24-2024 Note Encounter addended b y: Lisa Acevedo RCP on: 07/24/2024 11:59 AM Actions taken: Charge Capture section accepted [facility] 07-24-2024 Procedure note Associated Ord er(s): EMG & NERVE CONDUCTION Tennille Boyce MD 07/24/2024 11:42 AM Study: EMG/NCS right lower extremity Date: 07/24/2024 Patient Name: Ashlie Malave Patient : 1995 Reason for study: 28 y.o. female who presents with lower back pain radiating into the right leg. Preliminary Impression: This is a normal study. There is no electrodiagnostic evidence found of a neuropathy or of a lumbar radiculopathy involving the right lower extremity. Final, full report to be scanned as soon as possible. [facility] Work Phone: 07-24-2024 Procedure note Associated Ord er(s): EMG & NERVE CONDUCTION Tennille Boyce MD 07/24/2024 11:42 AM Study: EMG/NCS right lower extremity Date: 07/24/2024 Patient Name: Ashlie Malave Patient : 1995 Reason for study: 28 y.o. female who presents with lower back pain radiating into the right leg. Preliminary Impression: This is a normal study. There is no electrodiagnostic evidence found of a neuropathy or of a lumbar radiculopathy involving the right lower extremity. Final, full report to be scanned as soon as possible. documented in this encounter [facility] 07-05-2024 History of Presen t illness Narrative Fluctuating blood pressure/Raynaud's: She is taking her medication as ordered. She Is checking BP at home. Her readings are in normal range. She exercises 3 times a week for 1 hour. She admits to having headaches, admits to getting dizzy, denies getting chest pains, admits to palpitations. BP Readings from Last 3 Encounters: 07/05/24 120/64 06/05/24 104/66 01/08/24 121/79 Lumbago: She has been having low back pain for 2 day(s). Recent precipitating factors include: none recalled by the patient. Prior history of back problems: no prior back problems and recurrent self limited episodes of low back pain in the past. Pain severity:pain is perceived as moderate (4-6 pain scale). Pain quality: dull sharp. She reports numbness in the legs, and reports weakness of the legs. She denies pain with urination, and denies change in bowel movements. She has tried the following treatments: tylenol and ibuprofen and found them somewhat effective Vaginal Discharge: Ashlie states that she has had brownish discharge last 2 days. She describes it as after period but it has been about 6 days since her period stopped HISTORY OF PRESENT ILLNESS Ashlie Malave female 1995 presents today with Raynaud's Syndrome, Other (Fluctuating blood pressure), Vaginal Discharge, and Back Pain Fluctuating blood pressure/Raynaud's: She is taking her medication as ordered. She Is checking BP at home. Her readings are in normal range. She exercises 3 times a week for 1 hour. She admits to having headaches, admits to getting dizzy, denies getting chest pains, admits to palpitations which is all improved from previous. BP Readings from Last 3 Encounters: 07/05/24 120/64 06/05/24 104/66 01/08/24 121/79 Lumbago: She has been having low back pain for 2 day(s). When she was seen here on 06/05/2024 she had said her low back pain had been going on 1.5 months at that time. Recent precipitating factors include: none recalled by the patient. Prior history of back problems: no prior back problems and recurrent self limited episodes of low back pain in the past. Pain severity:pain is perceived as moderate (4-6 pain scale). Pain quality: dull sharp. She reports intermittent numbness in the legs, and reports intermittent weakness of the legs. She denies pain with urination, and denies change in bowel movements. She has tried the following treatments: tylenol and ibuprofen and found them somewhat effective. She is scheduled for her EMG on 07/24/2024. Vaginal Discharge: Ashlie states that she has had brownish discharge last 2 days. She describes it as after period but it has been about 6 days since her period stopped. She [facility] under [facility] of [facility] and just had her pap test on 05/29/2024. HISTORY/MEDICATIONS: Allergies Allergen Reactions Oxycodone-Acetaminophen Anaphylaxis, Hives, Itching and Swelling Throat swelling Throat swelled when given after surgery Keflex [Cephalexin] Diarrhea Codeine Itching Past Medical History: Diagnosis Date ADD (attention deficit disorder) without hyperactivity Depression takes effexor Generalized anxiety disorder GERD (gastroesophageal reflux disease) Migraine Past Surgical History: Procedure Laterality Date CHOLECYSTECTOMY ROBOTIC N/A 09/08/2023 Laterality: N/A; Surgeon: Toni Burch DO; Location: [facility] SURGERY Right 08/2010 x2 WISDOM TEETH EXTRACTION Family History Problem Relation Age of Onset Asthma Mother Depression Mother Diabetes Father Lipid Disorder Father Hypertension Father Asthma Maternal Grandmother Depression Maternal Grandmother Diabetes Maternal Grandmother Alcoholism Maternal Grandfather Cancer Maternal Grandfather Gout Maternal Grandfather Lipid Disorder Maternal Grandfather Hypertension Maternal Grandfather Lipid Disorder Paternal Grandmother Hypertension Paternal Grandmother Current Outpatient Medications: busPIRone 15 MG tablet, Take 1 tablet by mouth 2 times daily., Disp: , Rfl: amLODIPine (Norvasc) 2.5 MG tablet, Take 1 tablet by mouth daily., Disp: 30 tablet, Rfl: 5 colestipol 1 g tablet, Take 1 tablet by mouth 2 times daily. (Patient taking differently: Take 1 tablet by mouth 2 times daily. Takes as needed), Disp: 60 tablet, Rfl: 5 Desvenlafaxine ER 50 MG Tab SR 24 HR, Take by mouth., Disp: , Rfl: Multiple Vitamin (multivitamin) tablet, Take 1 tablet by mouth daily., Disp: , Rfl: naratriptan 2.5 MG tablet, Take 1 tablet by mouth daily as needed (migraine). max 5mg/day; may repeat in 4 hr x1, Disp: 5 tablet, Rfl: 11 omepraz[address] capsule, Take 1 capsule by mouth daily., Disp: 90 capsule, Rfl: 1 Ondansetron 4 MG Tab Dispersible tablet, Take 1 tablet by mouth every 8 hours as needed for Nausea / Vomiting., Disp: 21 tablet, Rfl: 0 ROS Review of Systems Constitutional: Negative for appetite change, chills, diaphoresis, fatigue, fever and unexpected weight change. HENT: Negative for congestion, ear pain, hearing loss, rhinorrhea, sore throat and trouble swallowing. Eyes: Negative for pain, discharge, redness and visual disturbance. Respiratory: Negative for apnea, cough, choking, chest tightness, shortness of breath and wheezing. Cardiovascular: Negative for chest pain, palpitations and leg swelling. Gastrointestinal: Negative for abdominal distention, abdominal pain, anal bleeding, blood in stool, constipation, diarrhea and nausea. Endocrine: Negative. Genitourinary: Positive for menstrual problem. Negative for decreased urine volume, difficulty urinating, dysuria, flank pain, frequency, hematuria and urgency. Musculoskeletal: Positive for back pain. Negative for arthralgias, gait problem, joint swelling, myalgias and neck pain. Skin: Negative. Allergic/Immunologic: Negative. Neurological: Positive for numbness. Negative for dizziness, tremors, syncope, weakness, light-headedness and headaches. Hematological: Negative. Psychiatric/Behavioral: Negative. VITALS: Vitals: 07/05/24 1131 BP: 120/64 Pulse: 86 Resp: 16 Temp: 97.1 degrees F (36.2 degrees C) SpO2: 99% Weight: 78.2 kg (172 lb 6.4 oz) Height: 1.727 m (5' 8) Body mass index is 26.21 kg/m . Wt Readings from Last 3 Encounters: 07/05/24 78.2 kg (172 lb 6.4 oz) 06/05/24 79.1 kg (174 lb 6.4 oz) 01/08/24 78.5 kg (173 lb 1.6 oz) PHYSICAL EXAM Physical Exam Vitals and nursing note reviewed. Constitutional: Appearance: Normal appearance. She is overweight. Cardiovascular: Rate and Rhythm: Normal rate and regular rhythm. Heart sounds: Normal heart sounds. Pulmonary: Effort: Pulmonary effort is normal. Breath sounds: Normal breath sounds. Skin: General: Skin is warm and dry. Neurological: Mental Status: She is alert and oriented to person, place, and time. Psychiatric: Mood and Affect: Mood normal. Behavior: Behavior normal. Thought Content: Thought content normal. Judgment: Judgment normal. ASSESSMENT/PLAN 1. Raynaud's phenomenon without gangrene (Primary) & 2. Fluctuating blood pressure Her MH provider had her place her ADHD medication on hold and her BP and Raynaud's symptoms have improved. Rx for amlodipine left active should she go back on an amphetamine for her ADHD symptoms. 3. Chronic bilateral low back pain, unspecified whether sciatica present Discussed conservative treatment measures. Rx for diclofenac. Discussed risks (side effects) and benefits of medication & encouraged to read about medication and take meds as directed. I advised her to not take any NSAID (neither Rx or OTC) including Ibuprofen and Naproxen. ASA 81 mg is OK if taking. - diclofenac EC [address] tablet; Take 1 tablet by mouth every 12 hours as needed for Moderate Pain. Dispense: 60 tablet; Refill: 0 4. Spotting between menses Advised if it continues for more than three cycles, to contact her [employer]. Call or return to clinic if symptoms worsen or fail to improve. documented in this encounter [facility] 06-05-2024 History of Presen t illness Narrative Ashlie is scheduled today for concerns she wants to go over. Lumbago: Describes the pain as sharp and achy. States 1.5 months ago, she fell down stairs, and her tailbone was in pain for weeks after. She believes this has led to her c/o left face numbness that she was seen in the ER. She reports today that her feet have been tingling in my toes and the heal of my foot. She states she feels light headed and she feels bleh, like I have no energy when her hands become tingly as well. She reports if she is on hr feet for more than an hour or two her back begins to hurt, and her hands go numb. States when I'm active, my legs are numb and weak. Blood Pressure: Ashlie states her psychiatrist is concerned about ashlie's bp as her bp has been all over the place. States her ADHD medication was changed due to some of her complaints, and bp readings. She also states that her psychiatrist also changed the buspirone order to 0.5 tab twice daily. She admits to having headaches, and dizziness. She also admits to chest pain and heart palpitations as well. She also reports that two weeks ago, she was seen at a [facility] for ear pain and diagnosed with bilateral ear infections. She states she was treated with an atb, and notes improvement, but the pain has not resolved in her left ear. . She denies fever, coughing, and sore throat. Reports congestion and states that when she blows her nose, she is seeing closer to clear in color. She states she completed a course of atb therapy. HISTORY OF PRESENT ILLNESS Ashlie Malave female 1995 presents today with Back Pain, Elevated Blood Pressure Without Diagnosis Of Hypertension, Tingling (Bilateral feet and hands), and Ear Pain (left) Ashlie is scheduled today for concerns she wants to go over. Lumbago: Describes the pain as sharp and achy. States 1.5 months ago, she fell down stairs, and her tailbone was in pain for weeks after. She believes this has led to her c/o left face numbness that she was seen in the ER. She reports today that her feet have been tingling in my toes and the heal of my foot. She states she feels light headed and she feels bleh, like I have no energy when her hands become tingly as well. She reports if she is on hr feet for more than an hour or two her back begins to hurt, and her hands go numb. States when I'm active, my legs are numb and weak. She is already under the care of orthopedics and has been ordered an EMG for her lower extremities. Blood Pressure: Ashlie states her psychiatrist is concerned about ashlie's bp as her bp has been all over the place. States her ADHD medication was changed due to some of her complaints, and bp readings. She also states that her psychiatrist also changed the buspirone order to 0.5 tab twice daily. She admits to having headaches, and dizziness. She also admits to chest pain and heart palpitations as well. She also reports that two weeks ago, she was seen at a [facility] for ear pain and diagnosed with bilateral ear infections. She states she was treated with an atb-Augmentin, and notes improvement, but the pain has not resolved in her left ear. . She denies fever, coughing, and sore throat. Reports congestion and states that when she blows her nose, she is seeing closer to clear in color. She states she completed a course of atb therapy. HISTORY/MEDICATIONS: Allergies Allergen Reactions Oxycodone-Acetaminophen Anaphylaxis, Hives, Itching and Swelling Throat swelling Throat swelled when given after surgery Keflex [Cephalexin] Diarrhea Codeine Itching Past Medical History: Diagnosis Date ADD (attention deficit disorder) without hyperactivity Depression takes effexor Generalized anxiety disorder GERD (gastroesophageal reflux disease) Migraine Past Surgical History: Procedure Laterality Date CHOLECYSTECTOMY ROBOTIC N/A 09/08/2023 Laterality: N/A; Surgeon: Toni Burch DO; Location: [facility] SURGERY Right 08/2010 x2 WISDOM TEETH EXTRACTION Family History Problem Relation Age of Onset Asthma Mother Depression Mother Diabetes Father Lipid Disorder Father Hypertension Father Asthma Maternal Grandmother Depression Maternal Grandmother Diabetes Maternal Grandmother Alcoholism Maternal Grandfather Cancer Maternal Grandfather Gout Maternal Grandfather Lipid Disorder Maternal Grandfather Hypertension Maternal Grandfather Lipid Disorder Paternal Grandmother Hypertension Paternal Grandmother Current Outpatient Medications: busPIRone 15 MG tablet, Take 1 tablet by mouth 2 times daily. (Patient taking differently: Take 1 tablet by mouth 2 times daily. Takes 0.5 tabs twice daily), Disp: 180 tablet, Rfl: 1 colestipol 1 g tablet, Take 1 tablet by mouth 2 times daily. (Patient taking differently: Take 1 tablet by mouth 2 times daily. Takes as needed), Disp: 60 tablet, Rfl: 5 desvenlafaxine succinate 50 MG Tab SR 24 HR, Take 1 tablet by mouth daily., Disp: 90 tablet, Rfl: 1 methylphenidate ER 18 MG tablet, Take 1 tablet by mouth daily every morning., Disp: , Rfl: Multiple Vitamin (multivitamin) tablet, Take 1 tablet by mouth daily., Disp: , Rfl: naratriptan 2.5 MG tablet, Take 1 tablet by mouth daily as needed (migraine). max 5mg/day; may repeat in 4 hr x1, Disp: 5 tablet, Rfl: 11 omeprazole [address] capsule, Take 1 capsule by mouth daily., Disp: 90 capsule, Rfl: 1 Ondansetron 4 MG Tab Dispersible tablet, Take 1 tablet by mouth every 8 hours as needed for Nausea / Vomiting., Disp: 21 tablet, Rfl: 0 pseudoephedrine-dextromethorphan- guaiFENesin (Capmist DM) 60-15-400 MG tablet, Take 1 tablet by mouth every 6 hours as needed for Cold Symptoms. (Patient not taking: Reported on 06/05/2024), Disp: 30 tablet, Rfl: 0 traMADol 50 MG tablet, Take 1 tablet by mouth every 6 hours as needed for up to 3 days., Disp: 10 tablet, Rfl: 0 ROS Review of Systems Constitutional: Negative for appetite change, chills, diaphoresis, fatigue, fever and unexpected weight change. HENT: Positive for ear pain. Negative for congestion, hearing loss, postnasal drip, rhinorrhea, sinus pressure, sore throat and trouble swallowing. Eyes: Negative for pain, discharge, redness and visual disturbance. Respiratory: Negative for apnea, cough, choking, chest tightness, shortness of breath and wheezing. Cardiovascular: Negative for chest pain, palpitations and leg swelling. Gastrointestinal: Negative for abdominal distention, abdominal pain, anal bleeding, blood in stool, constipation, diarrhea and nausea. Endocrine: Negative. Genitourinary: Negative for decreased urine volume, difficulty urinating, dysuria, flank pain, frequency, hematuria and urgency. Musculoskeletal: Positive for back pain. Negative for arthralgias, gait problem, joint swelling, myalgias and neck pain. Skin: Negative. Allergic/Immunologic: Negative. Neurological: Positive for numbness. Negative for dizziness, tremors, syncope, weakness, light-headedness and headaches. Hematological: Negative. Psychiatric/Behavioral: Negative. VITALS: Vitals: 06/05/24 1127 BP: 104/66 Pulse: 67 Resp: 20 Temp: 97.9 degrees F (36.6 degrees C) TempSrc: Temporal SpO2: 98% Weight: 79.1 kg (174 lb 6.4 oz) Height: 1.727 m (5' 8) Body mass index is 26.52 kg/m . Wt Readings from Last 3 Encounters: 06/05/24 79.1 kg (174 lb 6.4 oz) 01/08/24 78.5 kg (173 lb 1.6 oz) 11/09/23 76.2 kg (168 lb) PHYSICAL EXAM Physical Exam Vitals and nursing note reviewed. Constitutional: Appearance: Normal appearance. She is overweight. HENT: Head: Normocephalic. Right Ear: Tympanic membrane, ear canal and external ear normal. There is no impacted cerumen. Left Ear: Ear canal and external ear normal. A middle ear effusion is present. There is no impacted cerumen. Tympanic membrane is erythematous. Cardiovascular: Rate and Rhythm: Normal rate and regular rhythm. Pulses: Posterior tibial pulses are 2+ on the right side and 2+ on the left side. Heart sounds: Normal heart sounds. Pulmonary: Effort: Pulmonary effort is normal. Breath sounds: Normal breath sounds. Musculoskeletal: Right hand: Normal. Normal sensation. Left hand: Normal. Normal sensation. Feet: Right foot: Skin integrity: Skin integrity normal. Left foot: Skin integrity: Skin integrity normal. Comments: Decrease sensation to right foot, normal sensation to left foot. Skin: General: Skin is warm and dry. Neurological: Mental Status: She is alert and oriented to person, place, and time. Psychiatric: Mood and Affect: Mood normal. Behavior: Behavior normal. Thought Content: Thought content normal. Judgment: Judgment normal. ASSESSMENT/PLAN 1. Infection of left inner ear (Primary) Discussed conservative treatment measures. Rx for cefdinir. Discussed risks (side effects) and benefits of medication & encouraged to read about medication and take meds as directed. Also advised on use of OTC nasal steroid spray. Call or return to clinic if symptoms worsen or fail to improve. - Cefdinir (OMNICEF) 300 MG capsule; Take 1 capsule by mouth every 12 hours for 10 days. Dispense: 20 capsule; Refill: 0 2. Anxiety Medications are now managed by mental health provider. 3. Yeast infection Rx for diflucan to take on day 3 of the antibiotic or may hold and take if symptoms develop. - Fluconazole (Diflucan) 150 MG tablet; Take 1 tablet by mouth once for 1 dose. Dispense: 1 tablet; Refill: 0 4. Raynaud's phenomenon without gangrene Symptoms are consistent with Raynaud's. Will start on low dose amlodipine. Advised to monitor BP and contact the office if <100/60. Advised on s/sx of hypotension (light headedness, dizziness, or fatigue) and if she has them to stop the medication. Discussed risks (side effects) and benefits of medication & encouraged to read about medication and take meds as directed. - amLODIPine (Norvasc) 2.5 MG tablet; Take 1 tablet by mouth daily. Dispense: 30 tablet; Refill: 5 5. Fluctuating blood pressure She has had issues with her BP being >140/90 on the Concerta 36 mg dose so her dose was decreased to 18 mg. The 18 mg Concerta is not beneficial but the 36 mg dose was. Since I am starting her on the low dose of amlodipine, I advised that I would send her provider a letter advising that she could go back up on the 36 mg dose if appropriate for tx and that if her BP fluctuates high again even on the 2.5 mg dose of amlodipine that it could be increased to 5 mg which Ashlie could contact the office. Ashlie did sign a medical release of information to have this letter sent to Cindi Mcnamara CNP at the [facility]. - amLODIPine (Norvasc) 2.5 MG tablet; Take 1 tablet by mouth daily. Dispense: 30 tablet; Refill: 5 6. Bilateral hand numbness Differential diagnoses discussed for the cause which is intermittent numbness to her small fingers on her bilateral hands. Discussed getting EMG if symptoms worsen or fail to resolve completed. Return to clinic in 1 month or sooner prn. documented in this encounter [facility] 04-29-2024 Discharge summary [facility] 04-29-2024 Radiology Diagnostic study note [facility] Imaging Services [address] [place], [place] [id number] Chest 1 View (Portable) MR#: [id number] Acct: [id number] Name: ASHLIE MAALVE Rep #: [id number] : 1995 F 28 From: Maylin Crain MD PCP: MILLIE MackayC Status: REG E R Study:Chest 1 View (Portable) Date of Exam: 04/29/24 Exam# [id number] Ordering Dr: Moody Serrano MD PROCEDURE: CHEST 1 VIEW (PORTABLE) REASON FOR EXAM: 28-year-old female, chest pain, hypertension. TECHNIQUE: Frontal view of the chest. COMPARISON: None. FINDINGS: The heart size is normal. No focal consolidation, pleural effusion or pneumothorax. The bones are unremarkable. RAD/Chest 1 View (Portable) IMPRESSION: NEGATIVE CHEST. Reading Location: [facility] CC: CHARGEBACK ANALYST-C Vianney Morse; Dr. Moody Serrano MD ~ Pulmonology Technician: Signed [facility] 04-29-2024 Radiology Diagnostic study note [facility] Imaging Services [address] [place] [address] Brain/Head without Contrast MR#: [id number] Acct: [id number] Name: ASHLIE MALAVE Rep #: [id number] : 1995 F 28 From: Maylin Crain MD PCP: Vianney Morse NP-C Status: REG E R Study:Brain/Head without Contrast Date of Exa m: 04/29/24 Exam# [id number] Ordering Dr: Moody Serrano MD EXAM: BRAIN/HEAD WITHOUT CONTRAST CLINICAL HISTORY: 28 y/o F with HEADACHE. Left sided facial and arm numbness. COMPARISON: None. TECHNIQUE: Routine CT imaging of the head without IV contrast. Additional multiplanar reformats were obtained. Dose reduction techniques were used including intermediate exposure control (AEC),iterative reconstruction technique, and/or mA and/or KV dose adjustments based on patient's size. FINDINGS: No acute intracranial hemorrhage or mass effect. The lepe-white matter interfaces are maintained. Tiny pineal cyst. Mild scattered secretions throughout the visualized paranasal sinuses. Trace fluid within the right mastoid air cells. The orbits are unremarkable. No acute calvarial fracture or scalp hematoma. CT/Brain/Head without Contrast IMPRESSION: 1. No acute intracranial finding. 2. 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 If not recently performed, nonemergent brain MRI could be obtained for further characterization. Reading Location: [id number] CC: MANOJ Morse; Dr. Moody Serrano MD ~ Pulmonology Technician: Signed [facility] 04-29-2024 Discharge summary Note Date/Time April 29, 2024 10:32pm [facility] Medical Records Department [address] [place] [address] Emergency Department Summary 04/29/24 MR#: [id number] Acct: [id number] Name: ASHLIE MALAVE Rep #:[id number] : 1995 28 From: Moody Serrano MD PCP: MANOJ Mackay Status:REG E R Location: ED HPI History of Present Illness Chief Complaint: Neuro S/Sx Narrative Narrative: 28-year-old female past medical history of ADHD recently changed to Concerta, presents with headache that she rates 9 out of 10 as well as chest pain and pressure and left facial numbness as well as left arm pain and numbness. The symptoms began while she was at work at [employer]. 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 She is not really describing numbness but states that it feels funky. No exacerbating or alleviating factors. She was concerned because her blood pressure was elevated as well. This was after she had taken Excedrin. She said her blood pressure was in the 140s to 150s. PFSH PFSH Medical History no medical history Home Medications ?Medication ?Instructions ?Recorded ?Last Taken ?Type buspirone 15 mg tablet 15 mg PO DAILY 04/29/24 Unkn own History desvenlafaxine succinate 25 mg 25 mg PO DAILY 04/29/24 Unknown History tablet,extended release 24 hr (Pristiq) Allergy/AdvReac Type Severity Reaction Status Date / Time acetaminophen (From Percocet) Allergy Anaphylaxis Verified 04/29/24 18:05 cephalexin (From Keflex) Allergy Hives Verified 04/29/24 18:05 codeine Allergy Anaphylaxis Verified 04/29/24 18:05 oxycodone (From Percocet) Allergy Anaphylaxis Verified 04/29/24 18:05 Family History no significant family his Surgical History no surgical history Social History Smoking Status: Former smoker ROS ROS ED ROS Narrative Constitutional: No fever, no chills. HEENT: No sore throat. No neck pain. No loss of vision. Cardiovascular: Positive chest pain. No palpitations. No pedal edema. Respiratory: No cough, no shortness of breath. Abdominal: No abdominal pain. No nausea. No vomiting. Genitourinary: No dysuria. No hematuria. Musculoskeletal: No myalgias. No arthralgias. Neurologic: Positive headaches. No dizziness. No lightheadedness. Left facialfeeling funny/numbness, left arm pain and numbness. Skin: No rash. No change in color. EXAM Physical Exam Narrative Exam Narrative: Afebrile. Vital signs noted. Nontoxic-appearing. Cardiovascular examination reveals a regular rate and rhythm. Lungs are clear to auscultation bilaterally. Abdomen is soft and nontender without guarding or rebound. Positive bowel sounds. Neurological examination is nonfocal and nonlateralizing. NIH stroke scale is 0. No pedal edema. Patient was tearful prior to examination. Const Vital Signs: 04/29/24 18:05 04/29/24 18:59 04/29/24 19:10 Temperature 98 F Temperature Source Temporal Pulse Rate 69 74 Respiratory Rate 18 Blood Pressure 157/106 H 113/78 Blood Pressure Mean 123 89 Pulse Ox 100 100 100 Oxygen Delivery Method Room Air Room Air Room Air 04/29/24 20:03 04/29/24 22:00 Temperature Temperature Source Pulse Rate 58 L 67 Respiratory Rate 18 18 Blood Pressure 127/78 H 110/70 Blood Pressure Mean 94 83 Pulse Ox 100 99 Oxygen Delivery Method Room Air Room Air MDM MDM MDM Narrative Medical decision making narrative: Differential diagnosis includes but not limited to stroke versus intracranial hemorrhage versus mass versus atypical migraine. Her blood pressure may be elevated from her ADH meds in combination with her taking Excedrin which has caffeine. Her blood pressure has normalized to 113/78 currently and was 117 systolic while I was in the room. I do not feel that she meets stroke team criteria, and she is outside the window for TN K greater than 4 hours. Additionally she does not have a debilitating deficit. She will be given Compazine and Benadryl as well as IV fluids and comprehensive workup was pursued. I will obtain a CT of the brain to rule out mass or hemorrhage. Regarding her chest pain, comprehensive workup was pursued EKG was obtained and interpreted by myself independently as normal sinus rhythm with sinus arrhythmia at 63 bpm without other ectopy, no acute ST changes, no STEMI. I reviewed her laboratory work and she has normal white count of 5.7 with hemoglobin 12.2, hematocrit 35.5, platelet count normal at 159. BMP is grossly unremarkable, initial high-sensitivity troponin is less than 6. Chest x-ray interpreted by myself independently in 1 view shows no acute process, no pneumonia or pneumothorax. I reviewed the radiology report which confirms my independent interpretation. Additionally I reviewed the radiology report of theCT of the brain and there is no acute process, no hemorrhage or mass. Upon repeat examination, she states she is feeling improved. She no longer has facial numbness or arm pain. She thinks the IV fluids helped. She has normal blood pressure currently. At this point in time, as well as her second troponinis normal, I do feel that she could be discharged to follow-up. I feel this is probably more of an atypical migraine as her headache has improved with Compazine and Benadryl as well as the IV fluids. Her symptoms have essentially resolved. I do not feel that she requires observation or admission for stroke workup as she had a negative NIH stroke scale as well. Her repeat troponin is also less than 6. Her initial 1 had been less than 6 as stated previously. At this point in time, as her symptoms have essentially resolved I feel she can be discharged to follow-up with her primary care provider. Return instructions reviewed. Disposition is discharged home in stable condition. History & Record Review Discussion w/independent historian: Patient Lab Data Attestation: I reviewed the patient's lab results. Labs: Laboratory Results - last 24 hr 04/29/24 04/29/24 19:23 21:31 WBC 5.7 RBC 3.98 L Hgb 12.2 Hct 35.5 L MCV 89.2 MCH 30.7 MCHC 34.4 RDW Std Deviation 40.3 RDW Coeff of Kimberly 12.4 Plt Count 159 MPV 11.6 Immature Gran % (Auto) 0.400 Neut % (Auto) 62.8 Lymph % (Auto) 28.4 Gilmer % (Auto) 8.2 Eos % (Auto) 0.0 Baso % (Auto) 0.2 Absolute Neuts (auto) 3.6 Absolute Lymphs (auto) 1.62 Nucleated RBC % 0 Sodium 136 Potassium 4.2 Chloride 103 Carbon Dioxide 21.5 Anion Gap 11 BUN 11 Creatinine 0.70 Estim Creat Clear Calc 133.14 Est GFR (MDRD) Non-Af 121 BUN/Creatinine Ratio 15.9 Glucose 97 Calcium 8.9 Troponin T High Sens < 6 Troponin T Hi Sens 2 Hr < 6 Radiography Diagnostic Testing: Clinical Impression(s) from Imaging Studies Chest X-Ray 04/29/24 19:07 IMPRESSION: NEGATIVE CHEST. Reading Location: [facility] Brain CT 04/29/24 19:35 IMPRESSION: 1. No acute intracranial finding. 2. 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 If not recently performed, nonemergent brain MRI could be obtained for further characterization. Reading Location: [facility] Discharge Plan Triage Chief Complaint: Neuro S/Sx ED Provider: Moody Serrano Dx/Rx/DC Orders Clinical Impression: Chest pain, Headache, Facial paresthesia, Left arm pain Instructions: ED Chest Pain, Uncertain Cause, ED Pain, Acute, Uncertain Cause, ED Paraesthesias Prescriptions: No Action buspirone 15 mg tablet 15 mg PO DAILY desvenlafaxine succinate [Pristiq] 25 mg tablet extended release 24 hr 25 mg PO DAILY Primary Care Provider: Vianney Morse Referrals: Vianney Morse, [employer] [Primary Care Provider] - 3-5 Days if not improving Activity Restrictions/Additional Instructions: Return to the emergency department with new or worsening symptoms including chest pain, shortness of breath, fever, increased numbness or pain of your arm or face. Print Language: Nigerien Disposition Disposition: Home, Self Care What to do if you have Problems For any increased pain, shortness of breath, bleeding, nausea or vomiting, chestpain, or any unexpected problems, contact your Primary Care Provider. Call [facility] ([phone]) or report to the closest Emergency Room. Call 911 if necessary. 04/29/242231 <Electronically signed by Moody Serrano MD> Cosigner Signature (if applicable): CC: MANOJ Morse ~ Signed [facility] Work Phone: [phone] History of Present illness Narrative* Staci FRANKIE Soliz - 01/08/2024 5:45 PM EST HPI Ashlie Malave presents to the [facility] with Chief Complaint Patient presents with Ear Pain Urinary Pain Patient states she is having burning while urinating and frequency. She said that she feels like she still has to urinate after she is done urinating. Patient is also complaining of Right ear pain, and cough She has been having these symptoms for 3 or 4 days. Patient presents today with urinary frequency, and burning with urination for 3 days. Denies hematuria, or urinary urgency. Denies the use of harn-kzc-jrotvwu medications. Denies fevers, chills, bodyaches, nausea, vomiting, diarrhea, chest pain, shortness of breath, abdominal pain, or flank pain. Denies vaginal itching, irritation, or abnormal vaginal discharge. Patient states she would like testing completed in clinic. Denies concern for STI. Patient presents today with concern for right ear pain, and a nonproductive cough for 3 days as well. Denies the use of xqsb-wcz-[id number] medications. Denies sinus pressure, sore throat, ear drainage,lightheadedness, dizziness, or headaches. No known sick contacts The following sections were personally reviewed by me: Allergies Meds Problems Med Hx Surg Hx Fam Hx ROS Review of Systems 8 systems reviewed with patient, negative unless specifically mentioned in history of present illness PHYSICAL EXAM Visit Vitals BP 121/79 (BP Location: Right arm, BP Position: Sitting) Pulse 88 Temp 98.5 F (36.9 C) (Temporal) Resp 16 Ht 1.727 m (5' 8) Wt 78.5 kg (173 lb 1.6 oz) SpO2 99% BMI 26.32 kg/m Physical Exam Vitals and nursing note reviewed. Constitutional: General: She is not in acute distress. Appearance: Normal appearance. She is not ill-appearing. HENT: Head: Normocephalic. Right Ear: Tympanic membrane, ear canal and external ear normal. Left Ear: Tympanic membrane, ear canal and external ear normal. Nose: Congestion present. No rhinorrhea. Mouth/Throat: Mouth: Mucous membranes are moist. Pharynx: No oropharyngeal exudate or posterior oropharyngeal erythema. Eyes: Pupils: Pupils are equal, round, and reactive to light. Cardiovascular: Rate and Rhythm: Normal rate and regular rhythm. Pulses: Normal pulses. Heart sounds: Normal heart sounds. Pulmonary: Effort: Pulmonary effort is normal. No respiratory distress. Breath sounds: Normal breath sounds. No stridor. No wheezing, rhonchi or rales. Abdominal: General: Bowel sounds are normal. Palpations: Abdomen is soft. Tenderness: There is no abdominal tenderness. There is no right CVA tenderness or left CVA tenderness. Musculoskeletal: General: Normal range of motion. Lymphadenopathy: Cervical: No cervical adenopathy. Skin: General: Skin is warm and dry. Neurological: General: No focal deficit present. Mental Status: She is alert and oriented to person, place, and time. Psychiatric: Mood and Affect: Mood normal. Behavior: Behavior normal. Judgment: Judgment normal. RESULTS No results found for this or any previous visit (from the past 1 hour(s)). ASSESSMENT/PLAN 1. Viral illness 2. Dysuria Orders Placed This Encounter URINE CULTURE POCT URINE DIPSTICK AUTOMATED POCT URINE cobmdznmgytgakh-mwqgapblsjfcvjyx-povfLEDsiji (Capmist DM) 60-15-400 MG tablet POCT urine is not consistent with infection. Will culture urine and update treatment plan based on results. POCT urine negative. Patient presents today with concerns for right ear pain, and nasal congestion as well. Patient resting comfortably on exam, no acute distress. Nasal congestion noted, otherwise unremarkable exam. Clinically presents viral. Will move forward with Capmist DM. Discussed the risks, and possible side effects of taking Capmist Dm. Discussed supportive treatments, OTC medications and at home care. Encouraged patient to follow up with PCP. Encouraged patient to increase fluids and rest. Discussed red flag signs and symptoms that should prompt return to the clinic or ER. Patient agreeable to plan. If symptoms worsen patient was advised to follow up in our office, primary care provider or the Emergency Dept. Benefits, Risks, Contraindications, and Complications of recommended treatments were explained. The patient understands and agrees to proceed with the plan. [facility] History of Present illness Narrative* Yesenia Fox MA - 11/09/2023 10:45 AM EDT Depression: Her depression is not better but not a lot worse . She is taking her medications as ordered. Symptoms present include: Little Interest or Pleasure in doing things, Feeling down, depressed, or hopeless, Trouble Falling asleep, staying asleep, or sleeping too much, Feeling tired or havinglittle energy, Poor Appetite or Overeating, Feeling bad about themself, that they are a failure or h ave let others down, Trouble concentrating on things, and Moving or speaking slowly, or being fidgety or restless PHQ-9 Score: 17 ANXIETY: She Is taking her medication as ordered. She has not noticed a decrease in symptoms and denies side effects from medication. Symptoms present include: Feeling nervous, anxious, or on edge, Not being able to stop or control worrying, Worrying too much about different things, Trouble relaxing, Being so restless that it's hard to sit still, Becoming easily annoyed or irritable, and Feeling afraid as if something awful might happen KINSEY Score: 15 ADHD: She is currently taking methylphenidate for same. She denies medication side effects. She feels herADHD Is improving. GERD: She admits to having heartburn, denies swallowing difficulties, denies chest pains, Is takingher medication as prescribed. * MORIAH Mackay - 11/09/2023 10:45 AM EDT HISTORY OF PRESENT ILLNESS Ashlie Malave female 1995 presents today with Anxiety, Depression, Esophageal Reflux, and ADHD Depression: Her depression is not better but not a lot worse . She is taking her medications as ordered. Symptoms present include: Little Interest or Pleasure in doing things, Feeling down, depressed, or hopeless, Trouble Falling asleep, staying asleep, or sleeping too much, Feeling tired or havinglittle energy, Poor Appetite or Overeating, Feeling bad about themself, that they are a failure or h ave let others down, Trouble concentrating on things, and Moving or speaking slowly, or being fidgety or restless PHQ-9 Score: 17 ANXIETY: She Is taking her medication as ordered. She has not noticed a decrease in symptoms and denies side effects from medication. Symptoms present include: Feeling nervous, anxious, or on edge, Not being able to stop or control worrying, Worrying too much about different things, Trouble relaxing, Being so restless that it's hard to sit still, Becoming easily annoyed or irritable, and Feeling afraid as if something awful might happen KINSEY Score: 15 ADHD: She is currently taking methylphenidate for same. She denies medication side effects. She feels herADHD Is improving. GERD: She admits to having heartburn rarely, denies swallowing difficulties, denies chest pains, Istaking her medication as prescribed. LMP was 10/20/2023 but only lasted 2 days. In office test was negative. Since her gallbladder surgery she will have diarrhea if she eats anything with fat in it. She is following a healthy diet of chicken and vegetables and has lost 16 lbs since July. She is requesting options that can help if she has foods with some fat in it. HISTORY/MEDICATIONS: Allergies Allergen Reactions Oxycodone-Acetaminophen Anaphylaxis, Hives, Itching and Swelling Throat swelling Throat swelled when given after surgery Keflex [Cephalexin] Diarrhea Codeine Itching Past Medical History: Diagnosis Date ADD (attention deficit disorder) without hyperactivity Depression takes effexor Generalized anxiety disorder GERD (gastroesophageal reflux disease) Migraine Past Surgical History: Procedure Laterality Date CHOLECYSTECTOMY ROBOTIC N/A 09/08/2023 Laterality: N/A; Surgeon: Toni Burch DO; Location: [facility] ANKLE SURGERY Right 08/2010 x2 WISDOM TEETH EXTRACTION Family History Problem Relation Age of Onset Asthma Mother Depression Mother Diabetes Father Lipid Disorder Father Hypertension Father Asthma Maternal Grandmother Depression Maternal Grandmother Diabetes Maternal Grandmother Alcoholism Maternal Grandfather Cancer Maternal Grandfather Gout Maternal Grandfather Lipid Disorder Maternal Grandfather Hypertension Maternal Grandfather Lipid Disorder Paternal Grandmother Hypertension Paternal Grandmother Current Outpatient Medications: busPIRone 10 MG tablet, Take 1 tablet by mouth 3 times daily., Disp: 270 tablet, Rfl: 1 desvenlafaxine succinate 50 MG Tab SR 24 HR, Take 1 tablet by mouth daily., Disp: 90 tablet, Rfl: 1 methylphenidate LA 20 MG capsule, Take 1 capsule by mouth daily., Disp: 30 capsule, Rfl: 0 Multiple Vitamin (multivitamin) tablet, Take 1 tablet by mouth daily., Disp: , Rfl: naratriptan 2.5 MG tablet, Take 1 tablet by mouth daily as needed (migraine). max 5mg/day; may repeat in 4 hr x1, Disp: 5 tablet, Rfl: [address] omep[address] capsule, Take 1 capsule by mouth daily., Disp: 90 capsule, Rfl: 1 Ondansetron 4 MG Tab Dispersible tablet, Take 1 tablet by mouth every 8 hours as needed for Nausea / Vomiting., Disp: 21 tablet, Rfl: 0 traMADol 50 MG tablet, Take 1 tablet by mouth every 6 hours as needed for up to 3 days., Disp: 10 tablet, Rfl: 0 ROS Review of Systems Constitutional: Negative for appetite change, chills, diaphoresis, fatigue, fever and unexpected weight change. HENT: Negative for congestion, ear pain, hearing loss, rhinorrhea, sore throat and trouble swallowing. Eyes: Negative for pain, discharge, redness and visual disturbance. Respiratory: Negative for apnea, cough, choking, chest tightness, shortness of breath and wheezing. Cardiovascular: Negative for chest pain, palpitations and leg swelling. Gastrointestinal: Positive for diarrhea. Negative for abdominal distention, abdominal pain, anal bleeding, blood in stool, constipation and nausea. Endocrine: Negative. Genitourinary: Negative for decreased urine volume, difficulty urinating, dysuria, flank pain, frequency, hematuria and urgency. Musculoskeletal: Negative for arthralgias, back pain, gait problem, joint swelling, myalgias and neck pain. Skin: Negative. Allergic/Immunologic: Negative. Neurological: Negative for dizziness, tremors, syncope, weakness, light- headedness, numbness and headaches. Hematological: Negative. Psychiatric/Behavioral: Negative. VITALS: Vitals: 11/09/23 1050 BP: 118/70 Pulse: 75 Resp: 16 Temp: 97.7 degrees F (36.5 degrees C) SpO2: 99% Weight: 76.2 kg (168 lb) Height: 1.727 m (5' 8) Body mass index is 25.54 kg/m . Wt Readings from Last 3 Encounters: 11/09/23 76.2 kg (168 lb) 09/08/23 81.6 kg (180 lb) 08/31/23 82.2 kg (181 lb 3.2 oz) PHYSICAL EXAM Physical Exam Vitals and nursing note reviewed. Constitutional: Appearance: Normal appearance. She is normal weight. Cardiovascular: Rate and Rhythm: Normal rate and regular rhythm. Heart sounds: Normal heart sounds. Pulmonary: Effort: Pulmonary effort is normal. Breath sounds: Normal breath sounds. Abdominal: General: Bowel sounds are normal. Palpations: Abdomen is soft. Skin: General: Skin is warm and dry. Neurological: Mental Status: She is alert and oriented to person, place, and time. Psychiatric: Mood and Affect: Mood normal. Behavior: Behavior normal. Thought Content: Thought content normal. Judgment: Judgment normal. ASSESSMENT/PLAN 1. Anxiety Not to goal. Will increase Buspar from 10 mg to 15 mg bid. - busPIRone 15 MG tablet; Take 1 tablet by mouth 2 times daily. Dispense: 180 tablet; Refill: 1 2. Moderate episode of recurrent major depressive disorder Not to goal but she feels stable. Will continue pristiq. - desvenlafaxine succinate 50 MG Tab SR 24 HR; Take 1 tablet by mouth daily. Dispense: 90 tablet; Refill: 1 3. Attention deficit hyperactivity disorder (ADHD), unspecified ADHD type Stable, will continue current medication(s). I have checked an [facility] report on this patient today and there is no/low risk with the prescribing of a controlled medication based on my review of the report. - methylphenidate LA 20 MG capsule; Take 1 capsule by mouth daily. Dispense: 30 capsule; Refill: 0 - methylphenidate LA 20 MG capsule; Take 1 capsule by mouth daily. Dispense: 30 capsule; Refill: 0 - methylphenidate LA 20 MG capsule; Take 1 capsule by mouth daily. Dispense: 30 capsule; Refill: 0 4. Gastroesophageal reflux disease without esophagitis & 5. Hiatal hernia Stable, will continue current medication(s). - omeprazole [address] capsule; Take 1 capsule by mouth daily. Dispense: 90 capsule; Refill: 1 6. Irregular menses Negative urine test. - POCT URINE 7. Diarrhea, unspecified type Discussed conservative treatment measures. Rx for colestipol. Discussed risks (side effects) and benefits of medication & encouraged to read about medication and take meds as directed. - colestipol 1 g tablet; Take 1 tablet by mouth 2 times daily. Dispense: 60 tablet; Refill: 5 Return to clinic in 3 months or sooner prn. documented in this [facility] [place]07[facility] Emergency department Note* Willy Moseley RN - 09/15/2023 7:10 PM EDT Discharge instructions reviewed with pt, all questions answered. Pt verbalized understanding. Pt IVremoved. Pt ambulated with steady gait [facility] Emergency department Note* Willy Moseley RN - 09/15/2023 7:10 PM EDT Discharge instructions reviewed with pt, all questions answered. Pt verbalized understanding. Pt IVremoved. Pt ambulated with steady gait * Willy Moseley RN - 09/15/2023 5:40 PM EDT Pt does not have ride at home at this time. FRANKIE Aragon notified. documented in this [facility] Emergency department Note* Willy Moseley RN - 09/15/2023 5:40 PM EDT Pt does not have ride at home at this time. FRANKIE Aragon notified. [facility] Nurse Note* Kalie Latham RN - 09/08/2023 4:50 PM EDT Discharged via w/c in stable condition in care of boyfriend,denies further needs or concerns. * Kalie Latham RN - 09/08/2023 4:30 PM EDT Ambulated to BR w/slow,steady gait,voided lg amt,getting dressed w/boyfriends assistance. * Kalie Latham RN - 09/08/2023 3:50 PM EDT Discharge Instructions reviewed w/pt and boyfriend w/o further questions,pt is very drowsy,arouses to name,dozes w/o stimuli. * Kalie Latham RN - 09/08/2023 3:00 PM EDT Ambulated to BR w/slow gait,voided qs,returned to cart via w/c,crying,TLC and reassurance given,Pt encouraged to eat a small snack before receiving a pain pill. C/O nausea,medicated as ordered. * Tri Renteria RN - 09/08/2023 2:15 PM EDT Patient transferred to via cart in stable condition. Report given to JUSTINE Jade. Cart left in locked and lowest position with side rails up x2. Snack and call light given to patient. Monitors and alarms on and attached to patient. * Tri Renteria RN - 09/08/2023 2:12 PM EDT Armin MACK updated no new orders received. * Tri Renteria RN - 09/08/2023 2:01 PM EDT Armin MACK updated that patient is stable but still unresponsive.Patient still has oral airway in but maintaining oxygen level at 99% on room.All other VS within normal limits. Will continue to monitor at this time. documented in this [facility] Nurse Surgical operation note* Kalie Latham RN - 09/08/2023 4:50 PM EDT Discharged via w/c in stable condition in care of boyfriend,denies further needs or concerns. [facility] Surgical operation note* Kalie Latham RN - 09/08/2023 4:30 PM EDT Ambulated to BR w/slow,steady gait,voided lg amt,getting dressed w/boyfriends assistance. [facility] Surgical operation note* Kalie Latham RN - 09/08/2023 3:50 PM EDT Discharge Instructions reviewed w/pt and boyfriend w/o further questions,pt is very drowsy,arouses to name,dozes w/o stimuli. [facility] operation note* Kalie Latham RN - 09/08/2023 3:00 PM EDT Ambulated to w/slow gait,voided qs,returned to cart via w/c,crying,TLC and reassurance given,Pt encouraged to eat a small snack before receiving a pain pill. C/O nausea,medicated as ordered. [facility] operation note* Tri Renteria RN - 09/08/2023 2:15 PM EDT Patient transferred to via cart in stable condition. Report given to JUSTINE Jade. Cart left in locked and lowest position with side rails up x2. Snack and call light given to patient. Monitors and alarms on and attached to patient. [facility] operation note* Tri Renteria RN - 09/08/2023 2:12 PM EDT Armin MACK updated no new orders received. [facility] Surgical operation note* Tri Renteria RN - 09/08/2023 2:01 PM EDT Armin MACK updated that patient is stable but still unresponsive.Patient still has oral airway in but maintaining oxygen level at 99% on room.All other VS within normal limits. Will continue to monitor at this time. [facility] Hospital Discharge instructions* Discharge Instructions* Kalie Latham RN - 09/08/2023 1:05 PM EDT Images from the original note were not included. Laparoscopic Cholecystectomy Discharge Instructions The following instructions will help you know what to expect in the days following your surgery. Do not, however, hesitate to call if you have any questions or concerns. Activities 1 . You may be up and about as tolerated after your surgery. Climbing stairs is permitted, but take the stairs slowly and one at a time. Do not lift anything heavier than 10 to 15 pounds for 2 weeks or until your first follow-up appointment. Discuss your expected return to work with Dr. Burch at your follow-up appointment. Diet 5. Begin on a clear liquid, bland diet (toast, juice, tea, jello, crackers). Advance to a regular diet as tolerated 6. Eating small, frequent meals, instead of 3 large meals is better for you. 7. At all times, drink plenty of liquids to maintain an adequate fluid intake and avoid dehydration. 8. Avoid foods that may be constipating. If you have not had a bowel movement in 24 hours, begin taking Milk of Magnesia@. Pain Control You will be given a narcotic prescription for pain. You can either choose to take the narcotic painmedication or may choose to take acetaminophen (Tylenol@) as an alternative. If you choose to take Tylenol@, do not take the narcotic prescription pain medication (do not take both products; choose one or the other). Rest is an important part of your healing process. Too much activity will cause your discomfort to increase. Wound Care 1 . You may shower tomorrow. You have 4 small incisions on your abdomen. Skin glue is used to cover the wounds. No special care is needed. The skin glue will fall off on its own. Special Instructions [address], work with heavy equipment, or sign legal documents for 24 hours. No pools/tub baths for TWO weeks Rest at home for 24 hours following general anesthesia. Do not drink alcoholic beverages or take sleeping pills for the next 18 hours. You may experience muscle aches and a sore throat. You might experience loose bowel movements for the first few weeks, especially after fatty meals. 1 . If you experience difficulty breathing, chest pain, or shortness of breath seek immediate medical attention. When to Call Your Doctor 2. If your temperature is 101 degrees or higher, or if you experience fever and chills. 2. If you notice any unusual drainage coming from the incision or any increased redness or warmth around the incision. If you have increased swelling or pain unrelieved by rest, medication, and ice. If you have severe nausea and vomiting. Follow-up You will need to follow up with Dr. Burch in 14 days after your surgery. You will need to call his office to schedule an appointment. Do not hesitate to call if you have any questions or concerns [phone]. Toni Burch DO 09/08/2023 1:04 PM Patient Name Ashlie Malave DATE September 08, 2023 Time 1:04 PM Anesthesia Precautions & Expectations: After anesthesia, rest for [address], drink alcoholic beverages or make any important decisions during this time. General anesthesia may cause a sore throat, jaw discomfort or muscle aches. These symptoms can last for one or two days. The anti-nausea Scopolamine patch behind your ear can be left on for three days. Wash your hands thoroughly when you remove patch. Today you received a medication called Bridion (also called Sugammadex). This medication was used to reverse the effects of anesthesia at the end of your procedure in order for your body to start theprocess of awakening from sedation and relaxation and to begin breathing on your own. Like all medication, Bridion (Sugammedax) can interact with other medications that you may take. Inparticular, hormonal contraceptives such as control pills, vaginal ring, implant, or intrauterine device (IUD) may be made less effective by Bridion (Sugammadex) by temporarily reducing the amount of hormone you receive and therefore may not work as well to prevent The amount of your normal hormonal contraceptive that is lost is about the same as missing one oral contraceptive pill. If you currently use a hormonal contraceptive you should use an additional non-hormonal or backup method such as condom or spermicides for the next seven days. documented in this encounterTri[facility] Surgery Postoperative evaluation and management note* Op Note - Toni Burch DO - 09/08/2023 1:03 PM EDT PRE OP DIAGNOSES: Biliary Colic POST OP DIAGNOSES: Biliary Colic OPERATIONS PERFORMED: Laparoscopic cholecystectomy, robotic assisted SURGEON: Toni Burch DO ANESTHESIA: GETA ESTIMATED BLOOD LOSS IN MLS: 20 COMPLICATIONS: None SPECIMEN: Gallbladder PREOPERATIVE NOTE: The contemplated operative procedure, risks, benefits and alternatives to this procedure have been discussed with this patient and/or legal medical representative. The patient and/or legal medical representative acknowledge(s) understanding of the above and consent(s) to the procedure. OPERATIVE PROCEDURE: After informed consent, the patient was transferred to the operating room, placed in a supine position, and underwent general anesthesia. The abdomen was prepped and draped in the usual sterile fashion using ChloraPrep. Next a timeout was obtained that revealed the correct patient, position, and laterality of the procedure. Once this was done, an 8 mm transverse incision was made the supraumbilical location. A 5 mm scope was then inserted into the abdomen under direct visualization without difficulty. The abdomen was then insufflated with CO2 to a pressure of 15 mmHg. A left-sided 8 mm trochar was placed under direct v isualization. This was then followed by a 12 mm right-sided trocar and another 8 mm trocar. The patient was then placed in 20 of Trendelenburg with left tilt and the da Michi robot was docked to the patient in the usual fashion. I then took my position at the surgical console. The gallbladder was retracted up over the dome of the liver and down towards the right lower quadrant. The [place] dissector was then used to dissect out the cystic artery and the cystic duct. The critical view was obtained. This revealed 2 and only 2 tubular structures entering the gallbladder. This finding was confirmed with ICG. Following this, the cystic artery and cystic duct were doubly clipped and divided. The remaining attachments to the gallbladder fossa were taken down with the use of electrocautery. Hemostasis was confirmed. The gallbladder was then placed inside the endoscopic retrieval bag which was inserted mm port site. The gallbladder was then removed from the abdomen and pa ssed off to the back table as specimen. The 12 mm fascial site was then closed with an 0 Vicryl suture with the use of a Freddy-Roxana. The remaining instruments were removed from the abdomen and the robot was then undocked. All skin incisions were then closed with 4-0 Monocryl in a subcuticular fashion and sterile dressings were then applied. The patient tolerated the procedure well. All counts were correct at the end the procedure. The patient was transferred to PACU in stable condition. Toni Burch DO [facility]07-19-2024 Miscellaneous Notes* Op Note - Toni Burch DO - 09/08/2023 1:03 PM EDT PRE OP DIAGNOSES: Biliary Colic POST OP DIAGNOSES: Biliary Colic OPERATIONS PERFORMED: Laparoscopic cholecystectomy, robotic assisted SURGEON: Toni Burch DO ANESTHESIA: GETA ESTIMATED BLOOD LOSS IN MLS: 20 COMPLICATIONS: None SPECIMEN: Gallbladder PREOPERATIVE NOTE: The contemplated operative procedure, risks, benefits and alternatives to this procedure have been discussed with this patient and/or legal medical representative. The patient and/or legal medical representative acknowledge(s) understanding of the above and consent(s) to the procedure. OPERATIVE PROCEDURE: After informed consent, the patient was transferred to the operating room, placed in a supine position, and underwent general anesthesia. The abdomen was prepped and draped in the usual sterile fashion using ChloraPrep. Next a timeout was obtained that revealed the correct patient, position, and laterality of the procedure. Once this was done, an 8 mm transverse incision was made the supraumbilical location. A 5 mm scope was then inserted into the abdomen under direct visualization without difficulty. The abdomen was then insufflated with CO2 to a pressure of 15 mmHg. A left-sided 8 mm trochar was placed under direct v isualization. This was then followed by a 12 mm right-sided trocar and another 8 mm trocar. The patient was then placed in 20 of Trendelenburg with left tilt and the da Michi robot was docked to the patient in the usual fashion. I then took my position at the surgical console. The gallbladder was retracted up over the dome of the liver and down towards the right lower quadrant. The [place] dissector was then used to dissect out the cystic artery and the cystic duct. The critical view was obtained. This revealed 2 and only 2 tubular structures entering the gallbladder. This finding was confirmed with ICG. Following this, the cystic artery and cystic duct were doubly clipped and divided. The remaining attachments to the gallbladder fossa were taken down with the use of electrocautery. Hemostasis was confirmed. The gallbladder was then placed inside the endoscopic retrieval bag which was inserted mm port site. The gallbladder was then removed from the abdomen and pa ssed off to the back table as specimen. The 12 mm fascial site was then closed with an 0 Vicryl suture with the use of a Freddy-Roxana. The remaining instruments were removed from the abdomen and the robot was then undocked. All skin incisions were then closed with 4-0 Monocryl in a subcuticular fashion and sterile dressings were then applied. The patient tolerated the procedure well. All counts were correct at the end the procedure. The patient was transferred to PACU in stable condition. Toni Burch DO documented in this [facility] [place]07-11-2024 History of Present illness Narrative* Toni Burch DO - 08/31/2023 10:15 AM EDT HISTORY AND PHYSICAL Date: 08/31/2023 Patient: Ashlie Malave : 1995 PCP: Vianney Morse Chief Complaint Patient presents with Follow-up GERD and epigastric pain especially with eating HISTORY OF PRESENT ILLNESS Ashlie is seen today to discuss her abdominal pain. She continues to have pain daily with fatty foods. She recently underwent a HIDA scan which had a normal ejection fraction but it did reproduce herabdominal pain. PAST MEDICAL HISTORY Past Medical History: Diagnosis Date Depression takes effexor Generalized anxiety disorder PAST SURGICAL HISTORY Past Surgical History: Procedure Laterality Date ANKLE SURGERY Right 08/2010 x2 WISDOM TEETH EXTRACTION CURRENT MEDICATIONS Current Outpatient Medications: Atogepant (Qulipta) 30 MG tablet, Take 30 mg by mouth daily., Disp: 30 tablet, Rfl: 3 busPIRone 10 MG tablet, Take 1 tablet by mouth 3 times daily., Disp: 270 tablet, Rfl: 1 desvenlafaxine succinate 50 MG Tab SR 24 HR, Take 1 tablet by mouth daily., Disp: 90 tablet, Rfl: 1 [START ON 09/08/2023] methylphenidate LA 20 MG capsule, Take 1 capsule by mouth daily., Disp: 30 capsule, Rfl: 0 [START ON 11/07/2023] methylphenidate LA 20 MG capsule, Take 1 capsule by mouth daily., Disp: 30 capsule, Rfl: 0 [START ON 10/08/2023] methylphenidate LA 20 MG capsule, Take 1 capsule by mouth daily., Disp: 30 capsule, Rfl: 0 metroNIDAZOLE 500 MG tablet, , Disp: , Rfl: naratriptan 2.5 MG tablet, Take 1 tablet by mouth daily as needed (migraine). max 5mg/day; may repeat in 4 hr x1, Disp: 5 tablet, Rfl: [address] omep[address] capsule, Take 1 capsule by mouth daily., Disp: 90 capsule, Rfl: 1 Ondansetron 4 MG Tab Dispersible tablet, Take 1 tablet by mouth every 8 hours as needed for Nausea / Vomiting., Disp: 21 tablet, Rfl: 0 traMADol (Ultram) 50 MG tablet, Take 1 tablet by mouth every 6 hours as needed for up to 5 days., Disp: 10 tablet, Rfl: 0 ALLERGIES Allergies Allergen Reactions Oxycodone-Acetaminophen Anaphylaxis, Hives, Itching and Swelling Throat swelling Throat swelled when given after surgery Keflex [Cephalexin] Diarrhea Codeine Itching FAMILY MEDICAL HISTORY Family History Problem Relation Age of Onset Asthma Mother Depression Mother Diabetes Father Lipid Disorder Father Hypertension Father Asthma Maternal Grandmother Depression Maternal Grandmother Diabetes Maternal Grandmother Alcoholism Maternal Grandfather Cancer Maternal Grandfather Gout Maternal Grandfather Lipid Disorder Maternal Grandfather Hypertension Maternal Grandfather Lipid Disorder Paternal Grandmother Hypertension Paternal Grandmother SOCIAL HISTORY Social History Socioeconomic History Marital status: Single Tobacco Use Smoking status: Former Types: Cigarettes Smokeless tobacco: Never Vaping Use Vaping status: Some Days Substance and Sexual Activity Alcohol use: Yes Comment: socially Drug use: No Sexual activity: Not Currently Other Topics Concern Sleep Concern Yes Domestic Violence No Social Determinants of Health Financial Resource Strain: Medium Risk (08/08/2019) Overall Financial Resource Strain (CARDIA) Difficulty of Paying Living Expenses: Somewhat hard Food Insecurity: Food Insecurity Present (08/08/2019) Hunger Vital Sign Worried About Running Out of Food in the Last Year: Sometimes true Ran Out of Food in the Last Year: Sometimes true Transportation Needs: No Transportation Needs (08/08/2019) PRAPARE - Transportation Lack of Transportation (Medical): No Lack of Transportation (Non-Medical): No Physical Activity: Unknown (08/08/2019) Exercise Vital Sign Days of Exercise per Week: Patient declined Minutes of Exercise per Session: Patient declined Stress: No Stress Concern Present (08/08/2019) [place] [employer] - Occupational Stress Questionnaire Feeling of Stress : Only a little Social Connections: Unknown (08/08/2019) Social Connection and Isolation Panel [NHANES] Frequency of Communication with Friends and Family: Patient declined Frequency of Social Gatherings with Friends and Family: Patient declined Attends Yarsani Services: Patient declined Active Member of Clubs or Organizations: Patient declined Attends Club or Organization Meetings: Patient declined Marital Status: Patient declined Intimate Partner Violence: Not At Risk (08/08/2019) Humiliation, Afraid, Rape, and Kick questionnaire Fear of Current or Ex-Partner: No Emotionally Abused: No Physically Abused: No Sexually Abused: No REVIEW OF SYSTEMS Review of Systems Constitutional: Negative for chills, diaphoresis and fatigue. HENT: Negative for congestion, facial swelling and hearing loss. Eyes: Negative for pain, redness and itching. Respiratory: Negative for apnea, cough, choking and chest tightness. Cardiovascular: Negative for chest pain, palpitations and leg swelling. Gastrointestinal: Positive for abdominal pain. Negative for abdominal distention, constipation, diarrhea, nausea and vomiting. Endocrine: Negative for cold intolerance, heat intolerance and polyphagia. Genitourinary: Negative for difficulty urinating, dysuria, enuresis and flank pain. Musculoskeletal: Negative for arthralgias, back pain, gait problem and joint swelling. Skin: Negative for color change, pallor and rash. Allergic/Immunologic: Negative for environmental allergies, food allergies and immunocompromised state. Neurological: Negative for dizziness, light-headedness, numbness and headaches. Hematological: Negative for adenopathy. Does not bruise/bleed easily. Psychiatric/Behavioral: Negative for agitation, behavioral problems and confusion. PHYSICAL EXAMINATION BP 121/83 (BP Location: Left arm, BP Position: Sitting) Pulse 93 Resp 20 Ht 1.753 m (5' 9) Wt 82.2 kg (181 lb 3.2 oz) SpO2 98% BMI 26.76 kg/m Smoking Status Former Physical Exam Constitutional: Appearance: Normal appearance. She is normal weight. HENT: Head: Normocephalic and atraumatic. Nose: Nose normal. Mouth/Throat: Mouth: Mucous membranes are moist. Pharynx: Oropharynx is clear. Eyes: Extraocular Movements: Extraocular movements intact. Conjunctiva/sclera: Conjunctivae normal. Pupils: Pupils are equal, round, and reactive to light. Cardiovascular: Rate and Rhythm: Normal rate. Pulmonary: Effort: Pulmonary effort is normal. Abdominal: General: Abdomen is flat. Palpations: Abdomen is soft. Tenderness: There is no abdominal tenderness. There is no guarding or rebound. Musculoskeletal: General: Normal range of motion. Cervical back: Normal range of motion. Skin: General: Skin is warm and dry. Neurological: General: No focal deficit present. Mental Status: She is alert and oriented to person, place, and time. Mental status is at baseline. Psychiatric: Mood and Affect: Mood normal. Behavior: Behavior normal. Thought Content: Thought content normal. Judgment: Judgment normal. DIAGNOSIS ICD-10-CM 1. Biliary colic K80.50 ASSESSMENT I recommended a laparoscopic cholecystectomy and explained the risks and benefits of the procedure to her. She would like to proceed with surgery. I also explained to her that it is possible this does not resolve her abdominal pain. She is understanding and still wishes to proceed. I spent greater than 30 minutes in total reviewing the patient's chart, interviewing the patient, and documenting today's visit. Toni Burch DO 08/31/2023 [facility] [address] [facility] [address] documented in this encounterTri[facility]06-[facility] History of Present illness Narrative* Yesenia Fox MA - 08/09/2023 1:45 PM EDT ADHD: She is currently taking adderall for same. She admits to medication side effects, makes her lopez. She feels her ADHD Is improving. Headaches/Migraines: She describes the pain as: throbbing pain, dull pain, sharp pain, squeezing pain. She says things that relieve it are: unable to obtain relief with OTC meds. She states: no to any warning signs prior to her headache/migraine coming on. Pain has been a: 07/30. Headache days a month: 12 Migraine days a month: 12 How long have you suffered from migraines: years Have you been evaluated for overuse of headache medication: yes * Vianney Morse, [employer] - 08/09/2023 1:45 PM EDT Subjective History of Present Illness Ashlie Malave is a 27 y.o. female who comes in for evaluation of the following complaints: had concerns including ADHD and Migraine. ADHD: She is currently taking adderall for same. She was switched from methylphenidate ER 20 mg dose due to shortage of the medication. She admits to medication side effects, makes her lopez. She feels her ADHD Is improving. Headaches/Migraines: She describes the pain as: throbbing pain, dull pain, sharp pain, squeezing pain. She says things that relieve it are: unable to obtain relief with OTC meds. Naratriptan helps. She states: no to any warning signs prior to her headache/migraine coming on. Pain has been a: 07/30. Headache days a month: 12 Migraine days a month: 12 How long have you suffered from migraines: years Have you been evaluated for overuse of headache medication: yes She was seen in ER and by Dr Velasquez for her abdominal pain. She has HIDA scan scheduled next week. has a past medical history of Depression and Generalized anxiety disorder. has a past surgical history that includes ankle surgery (Right, 08/2010) and wisdom teeth extraction. Outpatient Medications Prior to Visit: amphetamine-dextroamphetamine XR 20 MG Cap SR 24HR capsule, Take 1 capsule by mouth daily every morning. busPIRone 10 MG tablet, Take 1 tablet by mouth 3 times daily. desvenlafaxine succinate 50 MG Tab SR 24 HR, Take 1 tablet by mouth daily. metroNIDAZOLE 500 MG tablet, omeprazole [address] capsule, Take 1 capsule by mouth daily. Ondansetron 4 MG Tab Dispersible tablet, Take 1 tablet by mouth every 8 hours as needed for Nausea / Vomiting. traMADol (Ultram) 50 MG tablet, Take 1 tablet by mouth every 6 hours as needed for up to 5 days. methylphenidate LA 10 MG capsule, naratriptan 2.5 MG tablet, Take 1 tablet by mouth once as needed (migraine) for up to 1 dose. max 5mg/day; may repeat in 4 hr x1 [id number] (Capmist DM) 60-15-400 MG tablet, Take 1 tablet by mouth every 6 hours as needed. (Patient not taking: Reported on 08/03/2023) is allergic to oxycodone-acetaminophen, keflex [cephalexin], and codeine. Objective Review of Systems Constitutional: Negative for appetite change, chills, diaphoresis, fatigue, fever and unexpected weight change. HENT: Negative for congestion, ear pain, hearing loss, rhinorrhea, sore throat and trouble swallowing. Eyes: Negative for pain, discharge, redness and visual disturbance. Respiratory: Negative for apnea, cough, choking, chest tightness, shortness of breath and wheezing. Cardiovascular: Negative for chest pain, palpitations and leg swelling. Gastrointestinal: Positive for abdominal pain. Negative for abdominal distention, anal bleeding, blood in stool, constipation, diarrhea and nausea. Endocrine: Negative. Genitourinary: Negative for decreased urine volume, difficulty urinating, dysuria, flank pain, frequency, hematuria and urgency. Musculoskeletal: Negative for arthralgias, back pain, gait problem, joint swelling, myalgias and neck pain. Skin: Negative. Allergic/Immunologic: Negative. Neurological: Positive for headaches. Negative for dizziness, tremors, syncope, weakness, light-headedness and numbness. Hematological: Negative. Psychiatric/Behavioral: Negative. Psych Review of Symptoms: Depressive Symptoms: No fatigue. Elimination Symptoms: No constipation. Vitals: Blood pressure 122/70, pulse 115, temperature 99 F (37.2 C), resp. rate 16, height 1.753 m (5' 9), weight 83.5 kg (184 lb), last menstrual period 07/24/2023, SpO2 100%, not currently . Body mass index is 27.17 kg/m . Physical Exam Vitals and nursing note reviewed. Constitutional: Appearance: Normal appearance. She is obese. HENT: Head: Normocephalic. Eyes: Extraocular Movements: Extraocular movements intact. Pupils: Pupils are equal, round, and reactive to light. Cardiovascular: Rate and Rhythm: Normal rate and regular rhythm. Heart sounds: Normal heart sounds. Pulmonary: Effort: Pulmonary effort is normal. Breath sounds: Normal breath sounds. Skin: General: Skin is warm and dry. Neurological: Mental Status: She is alert and oriented to person, place, and time. Psychiatric: Mood and Affect: Mood normal. Behavior: Behavior normal. Thought Content: Thought content normal. Judgment: Judgment normal. Neurological Exam Mental Status Alert. Oriented to person, place, and time. Cranial Nerves CN III, IV, : Extraocular movements intact bilaterally. Pupils equal round and reactive to light bilaterally. Assessment and Plan 1. Chronic migraine without aura without status migrainosus, not intractable Discussed conservative treatment measures. Rx for quilipta. Discussed risks (side effects) and benefits of medication & encouraged to readabout medication and take meds as directed. Refill of naratriptan as well. - naratriptan 2.5 MG tablet; Take 1 tablet by mouth daily as needed (migraine). max 5mg/day; may repeat in 4 hr x1 Dispense: 5 tablet; Refill: 11 - Atogepant (Qulipta) 30 MG tablet; Take 30 mg by mouth daily. Dispense: 30 tablet; Refill: 3 2. Attention deficit hyperactivity disorder (ADHD), unspecified ADHD type Stable, will continue current medication(s). I have checked an [facility] report on this patient today and there is no/low risk with the prescribing of a controlled medication based on my review of the report. - methylphenidate LA 20 MG capsule; Take 1 capsule by mouth daily. Dispense: 30 capsule; Refill: 0 - methylphenidate LA 20 MG capsule; Take 1 capsule by mouth daily. Dispense: 30 capsule; Refill: 0 - methylphenidate LA 20 MG capsule; Take 1 capsule by mouth daily. Dispense: 30 capsule; Refill: 0 Return to clinic in 3 months or sooner prn. documented in this encounterTri[facility]06[facility] Physician Emergency department Note* MORIAH Trevino - 08/04/2023 3:47 PM EDT Emergency Department Report [facility] EM[facility]ENCY [facility]PART[facility] Service Date:.08/04/23 PCP: Vianney Morse Chief Complaint: Chief Complaint Patient presents with Abdominal Pain States was seen by Dr. Burch yesterday and was told has gall stones . Has US scheduled for Monday but states pain is too bad. N/v. HPI Ashlie Malave is a 27 y.o. female presents to the ED today due to abdominal pain. Patient was seen yesterday by Dr. Burch for concerns of abdominal pain. He did an outpatient ultrasound to rule outcholecystitis. This is scheduled for August 09, 2023. Patient reports that she has had worsening abdominal pain that started last night and into today. She does report having nausea no vomiting. She was recently being treated for GERD however per Dr. Burch's report he believes that she may be having gallbladder issues. She is taken [id number] NSAIDs with little relief. Review of Systems: Review of Systems Constitutional: Negative. HENT: Negative. Eyes: Negative. Respiratory: Negative. Cardiovascular: Negative. Gastrointestinal: Positive for abdominal pain and nausea. Endocrine: Negative. Genitourinary: Negative. Musculoskeletal: Negative. Skin: Negative. Allergic/Immunologic: Negative. Neurological: Negative. Hematological: Negative. Psychiatric/Behavioral: Negative. Past Medical History: Past Medical History: Diagnosis Date Depression takes effexor Generalized anxiety disorder Past Surgical History: Past Surgical History: Procedure Laterality Date ANKLE SURGERY Right 08/2010 x2 WISDOM TEETH EXTRACTION Allergies: Allergies Allergen Reactions Oxycodone-Acetaminophen Anaphylaxis, Hives, Itching and Swelling Throat swelling Throat swelled when given after surgery Keflex [Cephalexin] Diarrhea Codeine Itching Medications: Patient's Medications New Prescriptions ONDANSETRON 4 MG TAB DISPERSIBLE TABLET Take 1 tablet by mouth every 8 hours as needed for Nausea /Vomiting. TRAMADOL (ULTRAM) 50 MG TABLET Take 1 tablet by mouth every 6 hours as needed for up to 5 days. Previous Medications AMPHETAMINE-DEXTROAMPHETAMINE XR 20 MG CAP SR 24HR CAPSULE Take 1 capsule by mouth daily every morning. BUSPIRONE 10 MG TABLET Take 1 tablet by mouth 3 times daily. DESVENLAFAXINE SUCCINATE 50 MG TAB SR 24 HR Take 1 tablet by mouth daily. NARATRIPTAN 2.5 MG TABLET Take 1 tablet by mouth once as needed (migraine) for up to 1 dose. max 5mg/day; may repeat in 4 hr x1 OMEPRAZOLE [address] CAPSULE Take 1 capsule by mouth daily. [id number] (CAPMIST DM) 60-15-400 MG TABLET Take 1 tablet by mouth every 6 hours as needed. Modified Medications No medications on file Discontinued Medications No medications on file Family History: Family History Problem Relation Age of Onset Asthma Mother Depression Mother Diabetes Father Lipid Disorder Father Hypertension Father Asthma Maternal Grandmother Depression Maternal Grandmother Diabetes Maternal Grandmother Alcoholism Maternal Grandfather Cancer Maternal Grandfather Gout Maternal Grandfather Lipid Disorder Maternal Grandfather Hypertension Maternal Grandfather Lipid Disorder Paternal Grandmother Hypertension Paternal Grandmother Social History: Social History Socioeconomic History Marital status: Single Spouse name: Not on file Number of children: Not on file Years of education: Not on file Highest education level: Not on file Occupational History Not on file Tobacco Use Smoking status: Former Types: Cigarettes Smokeless tobacco: Never Vaping Use Vaping status: Some Days Substance and Sexual Activity Alcohol use: Yes Comment: socially Drug use: No Sexual activity: Not Currently Other Topics Concern Service Not Asked Blood Transfusions Not Asked Caffeine Concern Not Asked Occupational Exposure Not Asked Hobby Hazards Not Asked Sleep Concern Yes Stress Concern Not Asked Weight Concern Not Asked Special Diet Not Asked Back Care Not Asked Exercise Not Asked Bike Helmet Not Asked Seat Belt Not Asked Domestic Violence No Social History Narrative Not on file Social Determinants of Health Financial Resource Strain: Medium Risk (08/08/2019) Overall Financial Resource Strain (CARDIA) Difficulty of Paying Living Expenses: Somewhat hard Food Insecurity: Food Insecurity Present (08/08/2019) Hunger Vital Sign Worried About Running Out of Food in the Last Year: Sometimes true Ran Out of Food in the Last Year: Sometimes true Transportation Needs: No Transportation Needs (08/08/2019) PRAPARE - Transportation Lack of Transportation (Medical): No Lack of Transportation (Non-Medical): No Physical Activity: Unknown (08/08/2019) Exercise Vital Sign Days of Exercise per Week: Patient declined Minutes of Exercise per Session: Patient declined Stress: No Stress Concern Present (08/08/2019) [employer] [place] [employer] - Occupational Stress Questionnaire Feeling of Stress : Only a little Social Connections: Unknown (08/08/2019) Social Connection and Isolation Panel [NHANES] Frequency of Communication with Friends and Family: Patient declined Frequency of Social Gatherings with Friends and Family: Patient declined Attends Yarsani Services: Patient declined Active Member of Clubs or Organizations: Patient declined Attends Club or Organization Meetings: Patient declined Marital Status: Patient declined Intimate Partner Violence: Not At Risk (08/08/2019) Humiliation, Afraid, Rape, and Kick questionnaire Fear of Current or Ex-Partner: No Emotionally Abused: No Physically Abused: No Sexually Abused: No Housing Stability: Not on file Physical Exam: Physical Exam Vitals and nursing note reviewed. Constitutional: General: She is not in acute distress. Appearance: She is not ill-appearing. HENT: Head: Normocephalic and atraumatic. Nose: Nose normal. Mouth/Throat: Mouth: Mucous membranes are moist. Pharynx: Oropharynx is clear. Eyes: Extraocular Movements: Extraocular movements intact. Conjunctiva/sclera: Conjunctivae normal. Pupils: Pupils are equal, round, and reactive to light. Cardiovascular: Rate and Rhythm: Normal rate and regular rhythm. Pulmonary: Effort: Pulmonary effort is normal. No respiratory distress. Breath sounds: Normal breath sounds. Abdominal: General: Abdomen is flat. Bowel sounds are normal. There is no distension or abdominal bruit. Thereare no signs of injury. Palpations: Abdomen is soft. There is no shifting dullness, fluid wave, hepatomegaly, splenomegaly,mass or pulsatile mass. Tenderness: There is abdominal tenderness in the right upper quadrant. There is no right CVA tenderness, left CVA tenderness, guarding or rebound. Positive signs include German's sign. Negative signsinclude Rovsing's sign, McBurney's sign, psoas sign and obturator sign. Musculoskeletal: Cervical back: Normal range of motion. Skin: General: Skin is warm and dry. Neurological: General: No focal deficit present. Mental Status: She is alert and oriented to person, place, and time. Psychiatric: Mood and Affect: Mood normal. Vital Signs During ED Visit Patient Vitals for the past 24 hrs: BP Temp Temp src Pulse Resp SpO2 Height Weight 08/04/23 1723 118/73 -- -- 84 16 100 % -- -- 08/04/23 1612 129/83 -- -- 92 18 100 % -- -- 08/04/23 1518 -- -- -- -- -- -- 1.753 m (5' 9) 81.6 kg (180 lb) 08/04/23 1517 138/79 98.7 F (37.1 C) Temporal 106 18 100 % -- -- Orders/Results: Orders Placed This Encounter US ABDOMEN RUQ/LIVER/GB COMPREHENSIVE METABOLIC PANEL LIPASE MAGNESIUM CBC, EDIF, PLATELET PROTIME-INR LACTATE, BLOOD SEDIMENTATION RATE, AUTOMATED C REACTIVE PROTEIN Sodium chloride 0.9% IV solution 1,000 mL Sodium chloride 0.9% IV solution Ondansetron 4mg/2ml (ZOFRAN) injection 4 mg HYDROmorphone (DILAUDID) injection 1 mg traMADol (Ultram) 50 MG tablet Ondansetron 4 MG Tab Dispersible tablet Results for orders placed or performed during the hospital encounter of 08/04/23 COMPREHENSIVE METABOLIC PANEL Result Value Ref Range Glucose 111 (H) 70 - 100 MG/DL BUN 10 7 - 20 MG/DL CREATININE SERUM 0.80 0.70 - 1.20 MG/DL SODIUM 140 137 - 145 MMOL/L POTASSIUM 3.6 3.5 - 5.1 MMOL/L CHLORIDE 104 98 - 107 MMOL/L CALCIUM 9.6 8.4 - 10.2 MG/DL PROTEIN, TOTAL 8.2 6.3 - 8.2 GM/DL Albumin 5.1 (H) 3.5 - 5.0 G/dl BILIRUBIN, TOTAL 1.0 0.2 - 1.3 MG/DL AST 24 14 - 36 IU/L ALKALINE PHOSPHATASE 41 38 - 126 IU/L CARBON DIOXIDE (CO2) 28 22 - 30 MMOL/L A/G Ratio 1.6 RATIO ALT 22 <35 IU/L ESTIMATED GFR, NON AMER 92 ml/min/1.73sq.m ESTIMATED GFR, 112 ml/min/1.73sq.m GFR COMMENT Average GFR for 20-29 years old = 116. LIPASE Result Value Ref Range LIPASE 43 23 - 300 U/L MAGNESIUM Result Value Ref Range MAGNESIUM 2.1 1.6 - 2.3 MG/DL CBC, EDIF, PLATELET Result Value Ref Range WBC (WHITE BLOOD COUNT) 6.6 3.6 - 11.0 10*3/uL RBC 4.37 4.0 - 5.4 10*6/uL HEMOGLOBIN (HGB) 13.3 12.0 - 16.0 G/DL HEMATOCRIT (HCT) 39.7 36.0 - 48.0 % MEAN CELL VOLUME 90.7 80.0 - 100.0 FL Mean Cell HGB 30.4 26.0 - 35.0 PG MEAN CELL HGB CONCENTRATION 33.5 27.0 - 37.0 G/DL RBC DISTRIBUTION 13.4 11.5 - 14.5 % PLATELET COUNT 205 130 - 400 10*3/uL MEAN PLATELET VOLUME 8.8 7.4 - 11.0 FL DIFFERENTIAL TYPE AUTO DIFF % NEUTROPHILS 71.6 37.0 - 75.0 % LYMPHOCYTE 21.8 20.0 - 55.0 % MONOCYTE % 6.6 0.0 - 10.0 % EOSINOPHIL % 0.0 0.0 - 11.0 % BASOPHIL % 0.0 0.0 - 2.0 % Absolute Neutrophil Count 4.7 1.4 - 6.5 10*3/uL LYMPHOCYTES, ABSOLUTE 1.4 1.2 - 3.4 10*3/uL MONOCYTES, ABSOLUTE 0.4 0.0 - 0.7 10*3/uL ABSOLUTE EOSINOPHIL COUNT 0.0 0.0 - 0.7 10*3/uL ABSOLUTE BASOPHIL COUNT 0.0 0.0 - 0.2 10*3/uL PROTIME-INR Result Value Ref Range PT 12.7 11.8 - 14.4 SEC INR 0.94 0.85 - 1.10 LACTATE, BLOOD Result Value Ref Range LACTATE 0.7 0.7 - 2.0 mmol/L SEDIMENTATION RATE, AUTOMATED Result Value Ref Range SEDIMENTATION RATE AUTOMATED 4 0 - 15 MM/HR C REACTIVE PROTEIN Result Value Ref Range C-Reactive Protein 6.5 0 - 10 MG/L Radiographic Imaging US ABDOMEN RUQ/LIVER/GB Final Result IMPRESSION: No cholelithiasis. Hepatic steatosis. Procedures: Procedures Moderate Sedation Procedure: No ED Summary/MDM Right upper quadrant abdominal pain. Review of labs chemistries are unremarkable coags and CBC are unremarkable. Sed rate C-reactive protein are negative. Ultrasound of the right upper quadrant livergallbladder shows no cholelithiasis, hepatic steatosis. ER course consisted of IV hydration. Zofranfor nausea control. Dilaudid for pain control. Upon re-evaluation the patient she reports her symptoms are improved. She has no signs or symptoms of peritonitis. We did discuss concerns for gallbladder issues. There is no gallstones seen on ultrasound. She was no elevated liver enzymes or lipase. She was afebrile in his no elevated white count I do not believe patient is having acute cholecystitis. I do believe it she presents with symptoms of dysfunction of the gallbladder in a HIDA scan may be helpful in further evaluation. This was discussed with the patient that a HIDA scan of the an outpatient procedure to follow with her surgeon for this testing. Patient was in agreement with this plan of care. We discussed low-fat diet. Increase p.o. hydration. Clear liquid diet advance as tolerated. We will send Zofran for nausea control. Ultram for pain control. Patient was in agreement with this plan of care she is alert oriented stable in no acute distress in his discharged home. Clinical Impression: 1. Right upper quadrant abdominal pain No follow-ups on file. New Prescriptions ONDANSETRON 4 MG TAB DISPERSIBLE TABLET Take 1 tablet by mouth every 8 hours as needed for Nausea /Vomiting. TRAMADOL (ULTRAM) 50 MG TABLET Take 1 tablet by mouth every 6 hours as needed for up to 5 days. Discontinued Medications No medications on file An After Visit Summary was printed and given to the patient with above information. . . MORIAH Trevino 08/04/23 1747 [facility]06-14-2024 Emergency department Note* MORIAH Trevino - 08/04/2023 3:47 PM EDT Emergency Department Report [facility] EMERGENCY DEPARTMENT Service Date:.08/04/23 PCP: Vianney Morse Chief Complaint: Chief Complaint Patient presents with Abdominal Pain States was seen by Dr. Burch yesterday and was told has gall stones . Has US scheduled for Monday but states pain is too bad. N/v. HPI Ashlie Malave is a 27 y.o. female presents to the ED today due to abdominal pain. Patient was seen yesterday by Dr. Burch for concerns of abdominal pain. He did an outpatient ultrasound to rule outcholecystitis. This is scheduled for August 09, 2023. Patient reports that she has had worsening abdominal pain that started last night and into today. She does report having nausea no vomiting. She was recently being treated for GERD however per Dr. Burch's report he believes that she may be having gallbladder issues. She is taken [id number] NSAIDs with little relief. Review of Systems: Review of Systems Constitutional: Negative. HENT: Negative. Eyes: Negative. Respiratory: Negative. Cardiovascular: Negative. Gastrointestinal: Positive for abdominal pain and nausea. Endocrine: Negative. Genitourinary: Negative. Musculoskeletal: Negative. Skin: Negative. Allergic/Immunologic: Negative. Neurological: Negative. Hematological: Negative. Psychiatric/Behavioral: Negative. Past Medical History: Past Medical History: Diagnosis Date Depression takes effexor Generalized anxiety disorder Past Surgical History: Past Surgical History: Procedure Laterality Date ANKLE SURGERY Right 08/2010 x2 WISDOM TEETH EXTRACTION Allergies: Allergies Allergen Reactions Oxycodone-Acetaminophen Anaphylaxis, Hives, Itching and Swelling Throat swelling Throat swelled when given after surgery Keflex [Cephalexin] Diarrhea Codeine Itching Medications: Patient's Medications New Prescriptions ONDANSETRON 4 MG TAB DISPERSIBLE TABLET Take 1 tablet by mouth every 8 hours as needed for Nausea /Vomiting. TRAMADOL (ULTRAM) 50 MG TABLET Take 1 tablet by mouth every 6 hours as needed for up to 5 days. Previous Medications AMPHETAMINE-DEXTROAMPHETAMINE XR 20 MG CAP SR 24HR CAPSULE Take 1 capsule by mouth daily every morning. BUSPIRONE 10 MG TABLET Take 1 tablet by mouth 3 times daily. DESVENLAFAXINE SUCCINATE 50 MG TAB SR 24 HR Take 1 tablet by mouth daily. NARATRIPTAN 2.5 MG TABLET Take 1 tablet by mouth once as needed (migraine) for up to 1 dose. max 5mg/day; may repeat in 4 hr x1 OMEPRAZOLE [address] CAPSULE Take 1 capsule by mouth daily. [id number] (CAPMIST DM) 60-15-400 MG TABLET Take 1 tablet by mouth every 6 hours as needed. Modified Medications No medications on file Discontinued Medications No medications on file Family History: Family History Problem Relation Age of Onset Asthma Mother Depression Mother Diabetes Father Lipid Disorder Father Hypertension Father Asthma Maternal Grandmother Depression Maternal Grandmother Diabetes Maternal Grandmother Alcoholism Maternal Grandfather Cancer Maternal Grandfather Gout Maternal Grandfather Lipid Disorder Maternal Grandfather Hypertension Maternal Grandfather Lipid Disorder Paternal Grandmother Hypertension Paternal Grandmother Social History: Social History Socioeconomic History Marital status: Single Spouse name: Not on file Number of children: Not on file Years of education: Not on file Highest education level: Not on file Occupational History Not on file Tobacco Use Smoking status: Former Types: Cigarettes Smokeless tobacco: Never Vaping Use Vaping status: Some Days Substance and Sexual Activity Alcohol use: Yes Comment: socially Drug use: No Sexual activity: Not Currently Other Topics Concern Service Not Asked Blood Transfusions Not Asked Caffeine Concern Not Asked Occupational Exposure Not Asked Hobby Hazards Not Asked Sleep Concern Yes Stress Concern Not Asked Weight Concern Not Asked Special Diet Not Asked Back Care Not Asked Exercise Not Asked Bike Helmet Not Asked Seat Belt Not Asked Domestic Violence No Social History Narrative Not on file Social Determinants of Health Financial Resource Strain: Medium Risk (08/08/2019) Overall Financial Resource Strain (CARDIA) Difficulty of Paying Living Expenses: Somewhat hard Food Insecurity: Food Insecurity Present (08/08/2019) Hunger Vital Sign Worried About Running Out of Food in the Last Year: Sometimes true Ran Out of Food in the Last Year: Sometimes true Transportation Needs: No Transportation Needs (08/08/2019) PRAPARE - Transportation Lack of Transportation (Medical): No Lack of Transportation (Non-Medical): No Physical Activity: Unknown (08/08/2019) Exercise Vital Sign Days of Exercise per Week: Patient declined Minutes of Exercise per Session: Patient declined Stress: No Stress Concern Present (08/08/2019) [employer] [place] [employer] - Occupational Stress Questionnaire Feeling of Stress : Only a little Social Connections: Unknown (08/08/2019) Social Connection and Isolation Panel [NHANES] Frequency of Communication with Friends and Family: Patient declined Frequency of Social Gatherings with Friends and Family: Patient declined Attends Yarsani Services: Patient declined Active Member of Clubs or Organizations: Patient declined Attends Club or Organization Meetings: Patient declined Marital Status: Patient declined Intimate Partner Violence: Not At Risk (08/08/2019) Humiliation, Afraid, Rape, and Kick questionnaire Fear of Current or Ex-Partner: No Emotionally Abused: No Physically Abused: No Sexually Abused: No Housing Stability: Not on file Physical Exam: Physical Exam Vitals and nursing note reviewed. Constitutional: General: She is not in acute distress. Appearance: She is not ill-appearing. HENT: Head: Normocephalic and atraumatic. Nose: Nose normal. Mouth/Throat: Mouth: Mucous membranes are moist. Pharynx: Oropharynx is clear. Eyes: Extraocular Movements: Extraocular movements intact. Conjunctiva/sclera: Conjunctivae normal. Pupils: Pupils are equal, round, and reactive to light. Cardiovascular: Rate and Rhythm: Normal rate and regular rhythm. Pulmonary: Effort: Pulmonary effort is normal. No respiratory distress. Breath sounds: Normal breath sounds. Abdominal: General: Abdomen is flat. Bowel sounds are normal. There is no distension or abdominal bruit. Thereare no signs of injury. Palpations: Abdomen is soft. There is no shifting dullness, fluid wave, hepatomegaly, splenomegaly,mass or pulsatile mass. Tenderness: There is abdominal tenderness in the right upper quadrant. There is no right CVA tenderness, left CVA tenderness, guarding or rebound. Positive signs include German's sign. Negative signsinclude Rovsing's sign, McBurney's sign, psoas sign and obturator sign. Musculoskeletal: Cervical back: Normal range of motion. Skin: General: Skin is warm and dry. Neurological: General: No focal deficit present. Mental Status: She is alert and oriented to person, place, and time. Psychiatric: Mood and Affect: Mood normal. Vital Signs During ED Visit Patient Vitals for the past 24 hrs: BP Temp Temp src Pulse Resp SpO2 Height Weight 08/04/23 1723 118/73 -- -- 84 16 100 % -- -- 08/04/23 1612 129/83 -- -- 92 18 100 % -- -- 08/04/23 1518 -- -- -- -- -- -- 1.753 m (5' 9) 81.6 kg (180 lb) 08/04/23 1517 138/79 98.7 F (37.1 C) Temporal 106 18 100 % -- -- Orders/Results: Orders Placed This Encounter US ABDOMEN RUQ/LIVER/GB COMPREHENSIVE METABOLIC PANEL LIPASE MAGNESIUM CBC, EDIF, PLATELET PROTIME-INR LACTATE, BLOOD SEDIMENTATION RATE, AUTOMATED C REACTIVE PROTEIN Sodium chloride 0.9% IV solution 1,000 mL Sodium chloride 0.9% IV solution Ondansetron 4mg/2ml (ZOFRAN) injection 4 mg HYDROmorphone (DILAUDID) injection 1 mg traMADol (Ultram) 50 MG tablet Ondansetron 4 MG Tab Dispersible tablet Results for orders placed or performed during the hospital encounter of 08/04/23 COMPREHENSIVE METABOLIC PANEL Result Value Ref Range Glucose 111 (H) 70 - 100 MG/DL BUN 10 7 - 20 MG/DL CREATININE SERUM 0.80 0.70 - 1.20 MG/DL SODIUM 140 137 - 145 MMOL/L POTASSIUM 3.6 3.5 - 5.1 MMOL/L CHLORIDE 104 98 - 107 MMOL/L CALCIUM 9.6 8.4 - 10.2 MG/DL PROTEIN, TOTAL 8.2 6.3 - 8.2 GM/DL Albumin 5.1 (H) 3.5 - 5.0 G/dl BILIRUBIN, TOTAL 1.0 0.2 - 1.3 MG/DL AST 24 14 - 36 IU/L ALKALINE PHOSPHATASE 41 38 - 126 IU/L CARBON DIOXIDE (CO2) 28 22 - 30 MMOL/L A/G Ratio 1.6 RATIO ALT 22 <35 IU/L ESTIMATED GFR, NON AMER 92 ml/min/1.73sq.m ESTIMATED GFR, 112 ml/min/1.73sq.m GFR COMMENT Average GFR for 20-29 years old = 116. LIPASE Result Value Ref Range LIPASE 43 23 - 300 U/L MAGNESIUM Result Value Ref Range MAGNESIUM 2.1 1.6 - 2.3 MG/DL CBC, EDIF, PLATELET Result Value Ref Range WBC (WHITE BLOOD COUNT) 6.6 3.6 - 11.0 10*3/uL RBC 4.37 4.0 - 5.4 10*6/uL HEMOGLOBIN (HGB) 13.3 12.0 - 16.0 G/DL HEMATOCRIT (HCT) 39.7 36.0 - 48.0 % MEAN CELL VOLUME 90.7 80.0 - 100.0 FL Mean Cell HGB 30.4 26.0 - 35.0 PG MEAN CELL HGB CONCENTRATION 33.5 27.0 - 37.0 G/DL RBC DISTRIBUTION 13.4 11.5 - 14.5 % PLATELET COUNT 205 130 - 400 10*3/uL MEAN PLATELET VOLUME 8.8 7.4 - 11.0 FL DIFFERENTIAL TYPE AUTO DIFF % NEUTROPHILS 71.6 37.0 - 75.0 % LYMPHOCYTE 21.8 20.0 - 55.0 % MONOCYTE % 6.6 0.0 - 10.0 % EOSINOPHIL % 0.0 0.0 - 11.0 % BASOPHIL % 0.0 0.0 - 2.0 % Absolute Neutrophil Count 4.7 1.4 - 6.5 10*3/uL LYMPHOCYTES, ABSOLUTE 1.4 1.2 - 3.4 10*3/uL MONOCYTES, ABSOLUTE 0.4 0.0 - 0.7 10*3/uL ABSOLUTE EOSINOPHIL COUNT 0.0 0.0 - 0.7 10*3/uL ABSOLUTE BASOPHIL COUNT 0.0 0.0 - 0.2 10*3/uL PROTIME-INR Result Value Ref Range PT 12.7 11.8 - 14.4 SEC INR 0.94 0.85 - 1.10 LACTATE, BLOOD Result Value Ref Range LACTATE 0.7 0.7 - 2.0 mmol/L SEDIMENTATION RATE, AUTOMATED Result Value Ref Range SEDIMENTATION RATE AUTOMATED 4 0 - 15 MM/HR C REACTIVE PROTEIN Result Value Ref Range C-Reactive Protein 6.5 0 - 10 MG/L Radiographic Imaging US ABDOMEN RUQ/LIVER/GB Final Result IMPRESSION: No cholelithiasis. Hepatic steatosis. Procedures: Procedures Moderate Sedation Procedure: No ED Summary/MDM Right upper quadrant abdominal pain. Review of labs chemistries are unremarkable coags and CBC are unremarkable. Sed rate C-reactive protein are negative. Ultrasound of the right upper quadrant livergallbladder shows no cholelithiasis, hepatic steatosis. ER course consisted of IV hydration. Zofranfor nausea control. Dilaudid for pain control. Upon re-evaluation the patient she reports her symptoms are improved. She has no signs or symptoms of peritonitis. We did discuss concerns for gallbladder issues. There is no gallstones seen on ultrasound. She was no elevated liver enzymes or lipase. She was afebrile in his no elevated white count I do not believe patient is having acute cholecystitis. I do believe it she presents with symptoms of dysfunction of the gallbladder in a HIDA scan may be helpful in further evaluation. This was discussed with the patient that a HIDA scan of the an outpatient procedure to follow with her surgeon for this testing. Patient was in agreement with this plan of care. We discussed low-fat diet. Increase p.o. hydration. Clear liquid diet advance as tolerated. We will send Zofran for nausea control. Ultram for pain control. Patient was in agreement with this plan of care she is alert oriented stable in no acute distress in his discharged home. Clinical Impression: 1. Right upper quadrant abdominal pain No follow-ups on file. New Prescriptions ONDANSETRON 4 MG TAB DISPERSIBLE TABLET Take 1 tablet by mouth every 8 hours as needed for Nausea /Vomiting. TRAMADOL (ULTRAM) 50 MG TABLET Take 1 tablet by mouth every 6 hours as needed for up to 5 days. Discontinued Medications No medications on file An After Visit Summary was printed and given to the patient with above information. . . Anirudh , [employer] 08/04/23 1317 [facility] History of Present illness Narrative* Toni Burch, DO - 08/03/2023 1:45 PM EDT HISTORY AND PHYSICAL Date: 08/03/2023 Patient: Ashlie Malave : 1995 PCP: Vianney Morse Chief Complaint Patient presents with New Patient GERD HISTORY OF PRESENT ILLNESS Ashlie is seen today for a complaint of GERD and epigastric pain. The pain occurs every day and is worsened by food, especially fatty or greasy food. She is taking omeprazole which does not seem to help. She did have an EGD last year which revealed a hiatal hernia. The pain lasts for 1 hour and then resolves. PAST MEDICAL HISTORY Past Medical History: Diagnosis Date Depression takes effexor Generalized anxiety disorder PAST SURGICAL HISTORY Past Surgical History: Procedure Laterality Date ANKLE SURGERY Right 08/2010 x2 WISDOM TEETH EXTRACTION CURRENT MEDICATIONS Current Outpatient Medications: amphetamine-dextroamphetamine XR 20 MG Cap SR 24HR capsule, Take 1 capsule by mouth daily every morning., Disp: 30 capsule, Rfl: 0 busPIRone 10 MG tablet, Take 1 tablet by mouth 3 times daily., Disp: 270 tablet, Rfl: 1 desvenlafaxine succinate 50 MG Tab SR 24 HR, Take 1 tablet by mouth daily., Disp: 90 tablet, Rfl: 1 omepraz[address] capsule, Take 1 capsule by mouth daily., Disp: 90 capsule, Rfl: 1 naratriptan 2.5 MG tablet, Take 1 tablet by mouth once as needed (migraine) for up to 1 dose. max 5mg/day; may repeat in 4 hr x1, Disp: 5 tablet, Rfl: 5 ivfebdjzyitwshw-vibrczunaejnehux-ihxgFGDhnqb (Capmist DM) 60-15-400 MG tablet, Take 1 tablet by mouth every 6 hours as needed. (Patient not taking: Reported on 08/03/2023), Disp: 30 tablet, Rfl: 0 ALLERGIES Allergies Allergen Reactions Oxycodone-Acetaminophen Anaphylaxis, Hives, Itching and Swelling Throat swelling Throat swelled when given after surgery Keflex [Cephalexin] Diarrhea Codeine Itching FAMILY MEDICAL HISTORY Family History Problem Relation Age of Onset Asthma Mother Depression Mother Diabetes Father Lipid Disorder Father Hypertension Father Asthma Maternal Grandmother Depression Maternal Grandmother Diabetes Maternal Grandmother Alcoholism Maternal Grandfather Cancer Maternal Grandfather Gout Maternal Grandfather Lipid Disorder Maternal Grandfather Hypertension Maternal Grandfather Lipid Disorder Paternal Grandmother Hypertension Paternal Grandmother SOCIAL HISTORY Social History Socioeconomic History Marital status: Single Tobacco Use Smoking status: Former Types: Cigarettes Smokeless tobacco: Never Vaping Use Vaping status: Some Days Substance and Sexual Activity Alcohol use: Yes Comment: socially Drug use: No Sexual activity: Not Currently Other Topics Concern Sleep Concern Yes Domestic Violence No Social Determinants of Health Financial Resource Strain: Medium Risk (08/08/2019) Overall Financial Resource Strain (CARDIA) Difficulty of Paying Living Expenses: Somewhat hard Food Insecurity: Food Insecurity Present (08/08/2019) Hunger Vital Sign Worried About Running Out of Food in the Last Year: Sometimes true Ran Out of Food in the Last Year: Sometimes true Transportation Needs: No Transportation Needs (08/08/2019) PRAPARE - Transportation Lack of Transportation (Medical): No Lack of Transportation (Non-Medical): No Physical Activity: Unknown (08/08/2019) Exercise Vital Sign Days of Exercise per Week: Patient declined Minutes of Exercise per Session: Patient declined Stress: No Stress Concern Present (08/08/2019) [employer] [place] [employer] - Occupational Stress Questionnaire Feeling of Stress : Only a little Social Connections: Unknown (08/08/2019) Social Connection and Isolation Panel [NHANES] Frequency of Communication with Friends and Family: Patient declined Frequency of Social Gatherings with Friends and Family: Patient declined Attends Yarsani Services: Patient declined Active Member of Clubs or Organizations: Patient declined Attends Club or Organization Meetings: Patient declined Marital Status: Patient declined Intimate Partner Violence: Not At Risk (08/08/2019) Humiliation, Afraid, Rape, and Kick questionnaire Fear of Current or Ex-Partner: No Emotionally Abused: No Physically Abused: No Sexually Abused: No REVIEW OF SYSTEMS Review of Systems Constitutional: Negative for chills, diaphoresis and fatigue. HENT: Negative for congestion, facial swelling and hearing loss. Eyes: Negative for pain, redness and itching. Respiratory: Negative for apnea, cough, choking and chest tightness. Cardiovascular: Negative for chest pain, palpitations and leg swelling. Gastrointestinal: Positive for abdominal pain. Negative for abdominal distention, constipation, diarrhea, nausea and vomiting. Endocrine: Negative for cold intolerance, heat intolerance and polyphagia. Genitourinary: Negative for difficulty urinating, dysuria, enuresis and flank pain. Musculoskeletal: Negative for arthralgias, back pain, gait problem and joint swelling. Skin: Negative for color change, pallor and rash. Allergic/Immunologic: Negative for environmental allergies, food allergies and immunocompromised state. Neurological: Negative for dizziness, light-headedness, numbness and headaches. Hematological: Negative for adenopathy. Does not bruise/bleed easily. Psychiatric/Behavioral: Negative for agitation, behavioral problems and confusion. PHYSICAL EXAMINATION BP 118/80 (BP Location: Left arm, BP Position: Sitting) Ht 1.753 m (5' 9) Wt 85.1 kg (187 lb 9.6 oz) BMI 27.70 kg/m Smoking Status Former Physical Exam Constitutional: Appearance: Normal appearance. She is normal weight. HENT: Head: Normocephalic and atraumatic. Nose: Nose normal. Mouth/Throat: Mouth: Mucous membranes are moist. Pharynx: Oropharynx is clear. Eyes: Extraocular Movements: Extraocular movements intact. Conjunctiva/sclera: Conjunctivae normal. Pupils: Pupils are equal, round, and reactive to light. Cardiovascular: Rate and Rhythm: Normal rate. Pulmonary: Effort: Pulmonary effort is normal. Abdominal: General: Abdomen is flat. Palpations: Abdomen is soft. Tenderness: There is no abdominal tenderness. There is no guarding or rebound. Musculoskeletal: General: Normal range of motion. Cervical back: Normal range of motion. Skin: General: Skin is warm and dry. Neurological: General: No focal deficit present. Mental Status: She is alert and oriented to person, place, and time. Mental status is at baseline. Psychiatric: Mood and Affect: Mood normal. Behavior: Behavior normal. Thought Content: Thought content normal. Judgment: Judgment normal. DIAGNOSIS ICD-10-CM 1. Abdominal pain, epigastric R10.13 ASSESSMENT I recommended a RUQ ultrasound to evaluate her gallbladder. Her symptoms sound more typical of biliary colic than true GERD. I also suggested taking her omeprazole BID to see if that helps. If her ultrasound is negative will proceed with a HIDA scan. I spent greater than 30 minutes in total reviewing the patient's chart, interviewing the patient, and documenting today's visit. Toni Burch DO 08/03/2023 [facility] [id number] [facility] [place] [address] documented in this encounterTri[facility] History of Present illness Narrative* Chery Qureshi - 05/23/2023 10:45 AM EDT ADHD: She is currently taking methylphenidate LA 20 MG for same. She has medication side effects. Pt states that if she doesn't eat with medication she will get nauseas and dizziness. No shortness of breath, chest pain, or palpitations She feels her ADHD Is improving. Depression: Her depression is stable. She is taking her medications as ordered. Symptoms present include: Little Interest or Pleasure in doing things, Feeling down, depressed, or hopeless, Trouble Falling asleep, staying asleep, or sleeping too much, Feeling tired or having little energy, Poor Appetite or Overeating, Feeling bad about themself, that they are a failure or have let others down, Trouble concentrating on things, and Moving or speaking slowly, or being fidgety or restless PHQ-9 Score: 13 * MORIAH Mackay - 05/23/2023 10:45 AM EDT Subjective History of Present Illness Ashlie Malave is a 27 y.o. female who comes in for evaluation of the following complaints: had concerns including Anxiety, Depression, and ADHD. ADHD: She is currently taking methylphenidate LA 20 MG for same. She has medication side effects. Pt states that if she doesn't eat with medication she will get nauseas and dizziness. No shortness of breath, chest pain, or palpitations She feels her ADHD Is improving. Anxiety/Depression: Her depression and anxiety stable. She is taking her medications as ordered. Symptoms present include: Little Interest or Pleasure in doing things, Feeling down, depressed, or hopeless, Trouble Falling asleep, staying asleep, or sleeping too much, Feeling tired or having little energy, Poor Appetite or Overeating, Feeling bad about themself, that they are a failure or have letothers down, Trouble concentrating on things, and Moving or speaking slowly, or being fidgety or restless PHQ-9 Score: 13 GERD: She admits to having heartburn, admits to reflux, denies swallowing difficulties, denies chest pains, is taking her medication as prescribed.Her sister has saw Dr Burch and he was helpful so she is requesting a consultation as well. Her EGD from 04/28/2022 Impression: - Normal nasopharynx. - Gaping lower esophageal sphincter. - Medium-sized hiatal hernia. - Normal stomach. - Normal examined duodenum. - No specimens collected. has a past medical history of Depression and Generalized anxiety disorder. Outpatient Medications Prior to Visit: [id number] (Capmist DM) 60-15-400 MG tablet, Take 1 tablet by mouth every 6 hours as needed. busPIRone 10 MG tablet, Take 1 tablet by mouth 3 times daily. busPIRone 15 MG tablet, Take 1 tablet by mouth 3 times daily as needed. desvenlafaxine succinate 25 MG Tab SR 24 HR, Take 1 tablet by mouth daily. desvenlafaxine succinate 50 MG Tab SR 24 HR, Take 1 tablet by mouth daily. (Patient taking differently: Take by mouth daily.) omeprazole [address] capsule, Take 1 capsule by mouth daily. naratriptan 2.5 MG tablet, Take 1 tablet by mouth once as needed (migraine) for up to 1 dose. max 5mg/day; may repeat in 4 hr x1 methylphenidate LA 20 MG capsule, Take 1 capsule by mouth daily. is allergic to oxycodone-acetaminophen, keflex [cephalexin], and codeine. Objective Review of Systems Constitutional: Negative for appetite change, chills, diaphoresis, fatigue, fever and unexpected weight change. HENT: Negative for congestion, ear pain, hearing loss, rhinorrhea, sore throat and trouble swallowing. Eyes: Negative for pain, discharge, redness and visual disturbance. Respiratory: Negative for apnea, cough, choking, chest tightness, shortness of breath and wheezing. Cardiovascular: Negative for chest pain, palpitations and leg swelling. Gastrointestinal: Negative for abdominal distention, abdominal pain, anal bleeding, blood in stool,constipation, diarrhea and nausea. Positive for heart burn and reflux Endocrine: Negative. Genitourinary: Negative for decreased urine volume, difficulty urinating, dysuria, flank pain, frequency, hematuria and urgency. Musculoskeletal: Negative for arthralgias, back pain, gait problem, joint swelling, myalgias and neck pain. Skin: Negative. Allergic/Immunologic: Negative. Neurological: Negative for dizziness, tremors, syncope, weakness, light- headedness, numbness and headaches. Hematological: Negative. Psychiatric/Behavioral: Positive for dysphoric mood. Negative for agitation, behavioral problems, confusion, decreased concentration, hallucinations, self- injury, sleep disturbance and suicidal ideas. The patient is nervous/anxious. The patient is not hyperactive. Psych Review of Symptoms: Depressive Symptoms: No fatigue. Elimination Symptoms: No constipation. Psychotic Symptoms: No hallucinations. Vitals: Blood pressure 118/90, pulse 89, resp. rate 16, height 1.753 m (5' 9), weight 91.1 kg (200lb 12.8 oz), last menstrual period 05/01/2023, SpO2 98%, not currently . Physical Exam Vitals and nursing note reviewed. Constitutional: Appearance: Normal appearance. She is obese. HENT: Head: Normocephalic. Cardiovascular: Rate and Rhythm: Normal rate and regular rhythm. Heart sounds: Normal heart sounds. Pulmonary: Effort: Pulmonary effort is normal. Breath sounds: Normal breath sounds. Abdominal: General: Bowel sounds are normal. There is no distension. Palpations: Abdomen is soft. Tenderness: There is no abdominal tenderness. Skin: General: Skin is warm and dry. Neurological: Mental Status: She is alert and oriented to person, place, and time. Psychiatric: Mood and Affect: Mood normal. Behavior: Behavior normal. Thought Content: Thought content normal. Judgment: Judgment normal. Neurological Exam Mental Status Alert. Oriented to person, place, and time. Assessment and Plan 1. Attention deficit hyperactivity disorder (ADHD), unspecified ADHD type Stable, will continue current medication(s). I have checked an [facility]ARRS report on this patient today and there is no/low risk with the prescribing of a controlled medication based on my review of the report. - methylphenidate LA 20 MG capsule; Take 1 capsule by mouth daily. Dispense: 30 capsule; Refill: 0 - methylphenidate LA 20 MG capsule; Take 1 capsule by mouth daily. Dispense: 30 capsule; Refill: 0 - methylphenidate LA 20 MG capsule; Take 1 capsule by mouth daily. Dispense: 30 capsule; Refill: 0 2. Moderate episode of recurrent major depressive disorder Stable, will continue current medication(s). - desvenlafaxine succinate 50 MG Tab SR 24 HR; Take 1 tablet by mouth daily. Dispense: 90 tablet; Refill: 1 3. Anxiety Stable, will continue current medication(s). - busPIRone 10 MG tablet; Take 1 tablet by mouth 3 times daily. Dispense: 270 tablet; Refill: 1 4. Gastroesophageal reflux disease without esophagitis & 5. Hiatal hernia Referral to Dr Burch per her request. - omeprazole [address] capsule; Take 1 capsule by mouth daily. Dispense: 90 capsule; Refill: 1 - AMB REFERRAL TO GENERAL SURGERY Return to clinic in 3 months or sooner prn. documented in this encounterTri[facility] Emergency department Note* Adrianna Noonan RN - 05/13/2023 7:30 PM EDT Patient safe for discharge. Patient understands discharge instructions; no further needs expressed at this time. Patient is ambulatory with a steady gait and has all belongings. [facility] Emergency department Note* Adrianna Noonan RN - 05/13/2023 7:30 PM EDT Patient safe for discharge. Patient understands discharge instructions; no further needs expressed at this time. Patient is ambulatory with a steady gait and has all belongings. * Adin Thakkar MD - 05/13/2023 6:20 PM EDT DEPARTMENT OF EMERGENCY MEDICINE CHIEF COMPLAINT Vomiting (Patient states she has had a recent bacterial infection in her Vagina. Patient states shewas prescribed Doxycycline Patient states she has recently had burning in her chest and vomiting. Patient states her symptoms started immediately after she began taking her anti-biotic medications. ) OSMANY Malave is a 27 y.o. female who presents with heartburn. She was recently treated with an antibiotic doxycycline. She is now having acid reflux symptoms. Comes up out of her stomach and into her throat. It is a burning that is moderate and constant. She has not on any antacid medications. She states she has had acid reflux in the past. REVIEW OF SYSTEMS Review of Systems See history of present illness. PAST MEDICAL HISTORY Past Medical History: Diagnosis Date Depression takes effexor Generalized anxiety disorder SURGICAL HISTORY Past Surgical History: Procedure Laterality Date ANKLE SURGERY Right 08/2010 x2 WISDOM TEETH EXTRACTION CURRENT MEDICATIONS Current Facility-Administered Medications Medication Dose Route Frequency Provider Last Rate Last Admin GI cocktail: alum/mag hydrox-simethicone(30ml)+lidocaine 2%(10ml) oral suspension 40 mL 40 mL Oral Once Adin Thakkar MD ondansetron (ZOFRAN-ODT) disintegrating tablet 4 mg 4 mg Oral Once Adin Thakkar MD Current Outpatient Medications Medication Sig Dispense Refill busPIRone 10 MG tablet Take 1 tablet by mouth 3 times daily. 90 tablet 5 busPIRone 15 MG tablet Take 1 tablet by mouth 3 times daily as needed. desvenlafaxine succinate 25 MG Tab SR 24 HR Take 1 tablet by mouth daily. desvenlafaxine succinate 50 MG Tab SR 24 HR Take 1 tablet by mouth daily. (Patient taking differently: Take by mouth daily.) 90 tablet 1 methylphenidate LA 20 MG capsule Take 1 capsule by mouth daily. 30 capsule 0 naratriptan 2.5 MG tablet Take 1 tablet by mouth once as needed (migraine) for up to 1 dose. max 5mg/day; may repeat in 4 hr x1 5 tablet 5 [id number]-[id number] (Capmist DM) 60-15-400 MG tablet Take 1 tablet by mouth every 6 hours as needed. 30 tablet 0 ALLERGIES Allergies Allergen Reactions Oxycodone-Acetaminophen Anaphylaxis, Hives, Itching and Swelling Throat swelling Throat swelled when given after surgery Keflex [Cephalexin] Diarrhea Codeine Itching FAMILY HISTORY Family History Problem Relation Age of Onset Asthma Mother Depression Mother Diabetes Father Lipid Disorder Father Hypertension Father Asthma Maternal Grandmother Depression Maternal Grandmother Diabetes Maternal Grandmother Alcoholism Maternal Grandfather Cancer Maternal Grandfather Gout Maternal Grandfather Lipid Disorder Maternal Grandfather Hypertension Maternal Grandfather Lipid Disorder Paternal Grandmother Hypertension Paternal Grandmother SOCIAL HISTORY Social History Socioeconomic History Marital status: Single Spouse name: Not on file Number of children: Not on file Years of education: Not on file Highest education level: Not on file Occupational History Not on file Tobacco Use Smoking status: Never Smokeless tobacco: Never Vaping Use Vaping status: Some Days Substance and Sexual Activity Alcohol use: Yes Comment: here and there Drug use: No Sexual activity: Not Currently Other Topics Concern Service Not Asked Blood Transfusions Not Asked Caffeine Concern Not Asked Occupational Exposure Not Asked Hobby Hazards Not Asked Sleep Concern Yes Stress Concern Not Asked Weight Concern Not Asked Special Diet Not Asked Back Care Not Asked Exercise Not Asked Bike Helmet Not Asked Seat Belt Not Asked Domestic Violence No Social History Narrative Not on file Social Determinants of Health Financial Resource Strain: Medium Risk (08/08/2019) Overall Financial Resource Strain (CARDIA) Difficulty of Paying Living Expenses: Somewhat hard Food Insecurity: Food Insecurity Present (08/08/2019) Hunger Vital Sign Worried About Running Out of Food in the Last Year: Sometimes true Ran Out of Food in the Last Year: Sometimes true Transportation Needs: No Transportation Needs (08/08/2019) PRAPARE - Transportation Lack of Transportation (Medical): No Lack of Transportation (Non-Medical): No Physical Activity: Unknown (08/08/2019) Exercise Vital Sign Days of Exercise per Week: Patient declined Minutes of Exercise per Session: Patient declined Stress: No Stress Concern Present (08/08/2019) [employer] [place] [employer] - Occupational Stress Questionnaire Feeling of Stress : Only a little Social Connections: Unknown (08/08/2019) Social Connection and Isolation Panel [NHANES] Frequency of Communication with Friends and Family: Patient declined Frequency of Social Gatherings with Friends and Family: Patient declined Attends Yarsani Services: Patient declined Active Member of Clubs or Organizations: Patient declined Attends Club or Organization Meetings: Patient declined Marital Status: Patient declined Intimate Partner Violence: Not At Risk (08/08/2019) Humiliation, Afraid, Rape, and Kick questionnaire Fear of Current or Ex-Partner: No Emotionally Abused: No Physically Abused: No Sexually Abused: No Housing Stability: Not on file PHYSICAL EXAM Smoking Status Never Physical Exam The patient is well-developed, well-nourished, and in no acute distress. Head is atraumatic and normocephalic. Pupils are equal and reactive. Face is symmetric. Mucous membranes are moist. Neck is supple. Heart is regular rate and rhythm. Lungs are clear to auscultation. Abdomen is soft, nontender, nondistended. Skin is warm and dry. Extremities are warm and well perfused and without acute deformity. Neurologically, the patient is awake, alert, and without acute deficit. Psychiatrically, the patient is calm and cooperative. ED COURSE & MEDICAL DECISION MAKING Abdominal exam is benign. Patient appears to have a gastritis/acid reflux secondary to recent antibiotic. She feels improved after a GI cocktail. I will start her on a proton pump inhibitor and have her follow up with primary care. Adin Thakkar MD 05/13/[id number] documented in this encounterTri[facility] Physician Emergency department Note* Adin Thakkar MD - 05/13/2023 6:20 PM EDT DEPARTMENT OF EMERGENCY MEDICINE CHIEF COMPLAINT Vomiting (Patient states she has had a recent bacterial infection in her Vagina. Patient states shewas prescribed Doxycycline Patient states she has recently had burning in her chest and vomiting. Patient states her symptoms started immediately after she began taking her anti-biotic medications. ) OSMANY Ashlie Malave is a 27 y.o. female who presents with heartburn. She was recently treated with an antibiotic doxycycline. She is now having acid reflux symptoms. Comes up out of her stomach and into her throat. It is a burning that is moderate and constant. She has not on any antacid medications. She states she has had acid reflux in the past. REVIEW OF SYSTEMS Review of Systems See history of present illness. PAST MEDICAL HISTORY Past Medical History: Diagnosis Date Depression takes effexor Generalized anxiety disorder SURGICAL HISTORY Past Surgical History: Procedure Laterality Date ANKLE SURGERY Right 08/2010 x2 WISDOM TEETH EXTRACTION CURRENT MEDICATIONS Current Facility-Administered Medications Medication Dose Route Frequency Provider Last Rate Last Admin GI cocktail: alum/mag hydrox-simethicone(30ml)+lidocaine 2%(10ml) oral suspension 40 mL 40 mL Oral Once Adin Thakkar MD ondansetron (ZOFRAN-ODT) disintegrating tablet 4 mg 4 mg Oral Once Adin Thakkar MD Current Outpatient Medications Medication Sig Dispense Refill busPIRone 10 MG tablet Take 1 tablet by mouth 3 times daily. 90 tablet 5 busPIRone 15 MG tablet Take 1 tablet by mouth 3 times daily as needed. desvenlafaxine succinate 25 MG Tab SR 24 HR Take 1 tablet by mouth daily. desvenlafaxine succinate 50 MG Tab SR 24 HR Take 1 tablet by mouth daily. (Patient taking differently: Take by mouth daily.) 90 tablet 1 methylphenidate LA 20 MG capsule Take 1 capsule by mouth daily. 30 capsule 0 naratriptan 2.5 MG tablet Take 1 tablet by mouth once as needed (migraine) for up to 1 dose. max 5mg/day; may repeat in 4 hr x1 5 tablet 5 [id number] (Capmist DM) 60-15-400 MG tablet Take 1 tablet by mouth every 6 hours as needed. 30 tablet 0 ALLERGIES Allergies Allergen Reactions Oxycodone-Acetaminophen Anaphylaxis, Hives, Itching and Swelling Throat swelling Throat swelled when given after surgery Keflex [Cephalexin] Diarrhea Codeine Itching FAMILY HISTORY Family History Problem Relation Age of Onset Asthma Mother Depression Mother Diabetes Father Lipid Disorder Father Hypertension Father Asthma Maternal Grandmother Depression Maternal Grandmother Diabetes Maternal Grandmother Alcoholism Maternal Grandfather Cancer Maternal Grandfather Gout Maternal Grandfather Lipid Disorder Maternal Grandfather Hypertension Maternal Grandfather Lipid Disorder Paternal Grandmother Hypertension Paternal Grandmother SOCIAL HISTORY Social History Socioeconomic History Marital status: Single Spouse name: Not on file Number of children: Not on file Years of education: Not on file Highest education level: Not on file Occupational History Not on file Tobacco Use Smoking status: Never Smokeless tobacco: Never Vaping Use Vaping status: Some Days Substance and Sexual Activity Alcohol use: Yes Comment: here and there Drug use: No Sexual activity: Not Currently Other Topics Concern Service Not Asked Blood Transfusions Not Asked Caffeine Concern Not Asked Occupational Exposure Not Asked Hobby Hazards Not Asked Sleep Concern Yes Stress Concern Not Asked Weight Concern Not Asked Special Diet Not Asked Back Care Not Asked Exercise Not Asked Bike Helmet Not Asked Seat Belt Not Asked Domestic Violence No Social History Narrative Not on file Social Determinants of Health Financial Resource Strain: Medium Risk (08/08/2019) Overall Financial Resource Strain (CARDIA) Difficulty of Paying Living Expenses: Somewhat hard Food Insecurity: Food Insecurity Present (08/08/2019) Hunger Vital Sign Worried About Running Out of Food in the Last Year: Sometimes true Ran Out of Food in the Last Year: Sometimes true Transportation Needs: No Transportation Needs (08/08/2019) PRAPARE - Transportation Lack of Transportation (Medical): No Lack of Transportation (Non-Medical): No Physical Activity: Unknown (08/08/2019) Exercise Vital Sign Days of Exercise per Week: Patient declined Minutes of Exercise per Session: Patient declined Stress: No Stress Concern Present (08/08/2019) [employer] [place] [employer] - Occupational Stress Questionnaire Feeling of Stress : Only a little Social Connections: Unknown (08/08/2019) Social Connection and Isolation Panel [NHANES] Frequency of Communication with Friends and Family: Patient declined Frequency of Social Gatherings with Friends and Family: Patient declined Attends Yarsani Services: Patient declined Active Member of Clubs or Organizations: Patient declined Attends Club or Organization Meetings: Patient declined Marital Status: Patient declined Intimate Partner Violence: Not At Risk (08/08/2019) Humiliation, Afraid, Rape, and Kick questionnaire Fear of Current or Ex-Partner: No Emotionally Abused: No Physically Abused: No Sexually Abused: No Housing Stability: Not on file PHYSICAL EXAM Smoking Status Never Physical Exam The patient is well-developed, well-nourished, and in no acute distress. Head is atraumatic and normocephalic. Pupils are equal and reactive. Face is symmetric. Mucous membranes are moist. Neck is supple. Heart is regular rate and rhythm. Lungs are clear to auscultation. Abdomen is soft, nontender, nondistended. Skin is warm and dry. Extremities are warm and well perfused and without acute deformity. Neurologically, the patient is awake, alert, and without acute deficit. Psychiatrically, the patient is calm and cooperative. ED COURSE & MEDICAL DECISION MAKING Abdominal exam is benign. Patient appears to have a gastritis/acid reflux secondary to recent antibiotic. She feels improved after a GI cocktail. I will start her on a proton pump inhibitor and have her follow up with primary care. dAin Thakkar MD 05/13/231904 [facility]01-14-2024 History of Present illness Narrative* Babatunde Dinero, H[employer] NEEDLE MACHINE OPERATOR - 03/05/2023 3:40 PM EST HPI Ashlie Malave female 1995 presents to the [facility] with Chief Complaint Patient presents with Sore Throat Exposed to covid within the past week, chest congestion, sore throat and fatigue 27-year-old female presents today with concerns of COVID exposure. Patient states she has been experiencing cough and congestion for the last 4 days. Patient has been using [id number] Tylenol and ibuprofen without full relief of symptoms. Patient denies fever, pain. She does report mild whichis relieved with rest. However sitting in the room she is sitting comfortably nontoxic and non-ill appearing. History Allergies Allergen Reactions Oxycodone-Acetaminophen Anaphylaxis, Hives, Itching and Swelling Throat swelling Throat swelled when given after surgery Keflex [Cephalexin] Diarrhea Codeine Itching Current Outpatient Medications Medication Sig busPIRone 10 MG tablet Take 1 tablet by mouth 3 times daily. busPIRone 15 MG tablet Take 1 tablet by mouth 3 times daily as needed. desvenlafaxine succinate 25 MG Tab SR 24 HR Take 1 tablet by mouth daily. desvenlafaxine succinate 50 MG Tab SR 24 HR Take 1 tablet by mouth daily. (Patient taking differently: Take by mouth daily.) [START ON 04/21/2023] methylphenidate LA 20 MG capsule Take 1 capsule by mouth daily. methylphenidate LA 20 MG capsule Take 1 capsule by mouth. methylphenidate LA 20 MG capsule Take 1 capsule by mouth daily. [START ON 03/23/2023] methylphenidate LA 20 MG capsule Take 1 capsule by mouth daily. naratriptan 2.5 MG tablet Take 1 tablet by mouth once as needed (migraine) for up to 1 dose. max 5mg/day; may repeat in 4 hr x1 gflwycpzikufnrs-gqxwjsxobgivlnsj-ixanBPUuhsl (Capmist DM) 60-15-400 MG tablet Take 1 tablet by mouth every 6 hours as needed. Family History Problem Relation Age of Onset Asthma Mother Depression Mother Diabetes Father Lipid Disorder Father Hypertension Father Asthma Maternal Grandmother Depression Maternal Grandmother Diabetes Maternal Grandmother Alcoholism Maternal Grandfather Cancer Maternal Grandfather Gout Maternal Grandfather Lipid Disorder Maternal Grandfather Hypertension Maternal Grandfather Lipid Disorder Paternal Grandmother Hypertension Paternal Grandmother Past Medical History: Diagnosis Date Depression takes effexor Generalized anxiety disorder Past Surgical History: Procedure Laterality Date ANKLE SURGERY Right 08/2010 x2 WISDOM TEETH EXTRACTION Social History Socioeconomic History Marital status: Single Spouse name: Not on file Number of children: Not on file Years of education: Not on file Highest education level: Not on file Occupational History Not on file Tobacco Use Smoking status: Never Smokeless tobacco: Never Vaping Use Vaping Use: Some days Substance and Sexual Activity Alcohol use: Yes Comment: here and there Drug use: No Sexual activity: Not Currently Other Topics Concern Service Not Asked Blood Transfusions Not Asked Caffeine Concern Not Asked Occupational Exposure Not Asked Hobby Hazards Not Asked Sleep Concern Yes Stress Concern Not Asked Weight Concern Not Asked Special Diet Not Asked Back Care Not Asked Exercise Not Asked Bike Helmet Not Asked Seat Belt Not Asked Domestic Violence No Social History Narrative Not on file Social Determinants of Health Financial Resource Strain: Medium Risk (08/08/2019) Overall Financial Resource Strain (CARDIA) Difficulty of Paying Living Expenses: Somewhat hard Food Insecurity: Food Insecurity Present (08/08/2019) Hunger Vital Sign Worried About Running Out of Food in the Last Year: Sometimes true Ran Out of Food in the Last Year: Sometimes true Transportation Needs: No Transportation Needs (08/08/2019) PRAPARE - Transportation Lack of Transportation (Medical): No Lack of Transportation (Non-Medical): No Physical Activity: Unknown (08/08/2019) Exercise Vital Sign Days of Exercise per Week: Patient declined Minutes of Exercise per Session: Patient declined Stress: No Stress Concern Present (08/08/2019) [employer] [place] [employer] - Occupational Stress Questionnaire Feeling of Stress : Only a little Social Connections: Unknown (08/08/2019) Social Connection and Isolation Panel [NHANES] Frequency of Communication with Friends and Family: Patient declined Frequency of Social Gatherings with Friends and Family: Patient declined Attends Yarsani Services: Patient declined Active Member of Clubs or Organizations: Patient declined Attends Club or Organization Meetings: Patient declined Marital Status: Patient declined Intimate Partner Violence: Not At Risk (08/08/2019) Humiliation, Afraid, Rape, and Kick questionnaire Fear of Current or Ex-Partner: No Emotionally Abused: No Physically Abused: No Sexually Abused: No Housing Stability: Not on file ROS Review of Systems Constitutional: Negative. HENT: Positive for congestion, postnasal drip and rhinorrhea. Negative for sinus pressure and sinuspain. Eyes: Negative. Respiratory: Positive for cough. Cardiovascular: Negative. Gastrointestinal: Negative. Musculoskeletal: Negative. Skin: Negative. Neurological: Negative. Psychiatric/Behavioral: Negative. 8 systems reviewed with patient, negative unless specifically mentioned in history of present illness PHYSICAL EXAM Visit Vitals BP 122/70 Pulse 91 Temp 97.7 F (36.5 C) (Temporal) Resp 16 Ht 1.753 m (5' 9) Wt 93 kg (205 lb) LMP 03/05/2023 (Exact Date) SpO2 100% BMI 30.27 kg/m Physical Exam Vitals and nursing note reviewed. Constitutional: General: She is not in acute distress. Appearance: She is well-developed. She is not diaphoretic. HENT: Head: Normocephalic and atraumatic. Right Ear: Hearing and external ear normal. A middle ear effusion is present. Tympanic membrane is not erythematous. Left Ear: Hearing and external ear normal. A middle ear effusion is present. Tympanic membrane is not erythematous. Nose: Rhinorrhea present. Right Sinus: No maxillary sinus tenderness or frontal sinus tenderness. Left Sinus: No frontal sinus tenderness. Mouth/Throat: Pharynx: Uvula midline. Posterior oropharyngeal erythema present. Eyes: General: No scleral icterus. Right eye: No discharge. Left eye: No discharge. Conjunctiva/sclera: Conjunctivae normal. Cardiovascular: Rate and Rhythm: Normal rate and regular rhythm. Heart sounds: Normal heart sounds. Pulmonary: Effort: Pulmonary effort is normal. No respiratory distress. Breath sounds: Normal breath sounds. No wheezing. Abdominal: General: Bowel sounds are normal. Palpations: Abdomen is soft. There is no mass. Tenderness: There is no abdominal tenderness. There is no guarding. Musculoskeletal: Cervical back: Normal range of motion and neck supple. Lymphadenopathy: Cervical: No cervical adenopathy. Skin: General: Skin is warm and dry. Neurological: Mental Status: She is alert and oriented to person, place, and time. Psychiatric: Behavior: Behavior normal. Thought Content: Thought content normal. Judgment: Judgment normal. RESULTS Recent Results (from the past 1 hour(s)) SARS-COV-2 RAPID ANTIGEN (CLINIC ONLY) Collection Time: 03/05/23 3:53 PM Specimen: NARES Result Value Ref Range SARS-COV-2 Rapid Antigen NOT DETECTED NOT DETECTED NARRATIVE -1 This test was performed using lateral flow immunoassay and has been approved as Emergency Use Authorization (EUA). This test does not differentiate between SARS-CoV and SARS-CoV2. POCT INFLUENZA, A B Collection Time: 03/05/23 4:06 PM Result Value Ref Range POCT Influenza A Negative Negative, Not Tested, Invalid POCT Influenza B Negative Negative, Not Tested, Invalid POCT RAPID STREP A Collection Time: 03/05/23 4:06 PM Result Value Ref Range POCT RAPID STREP A NEG (+/-) ASSESSMENT/PLAN 1. Upper respiratory tract infection, unspecified type 2. Acute cough Orders Placed This Encounter SARS-COV-2 RAPID ANTIGEN (CLINIC ONLY) POCT INFLUENZA, A B POCT RAPID STREP A djiaqisiagwumdv-olehwvzakmchmmeo-igdySVInsxs (Capmist DM) 60-15-400 MG tablet Discussed the likely viral nature of the illness in detail with the patient. Discussed prn fu for increasing or new symptoms or if no improvement over the next 7 days. Your symptoms and exam suggest that you're suffering from a Viral Reparatory Illness. You should improve gradually over that time with rest, hydration and good nutrition. You may use OTC acetaminophen if tolerated for fever or pain. Saline sinus rinses can be very helpful and are available at almost any pharmacy over the counter.. Please return for further evaluation or follow up with your regular physician if your symptoms worsen or change dramatically, specifics discussed include, worsening SOB, persistent fevers, change or worsening in cough. Side effects and risks of medication discussed. All questions answered, patient agrees with plan. Also discussed the risks of secondary bacterial infections and need for follow-up for worsening symptoms. Can use over the counter options for symptoms if not contraindicated. If symptoms worsen patient was advised to follow up in our office, primary care provider or the Emergency Dept. Benefits, Risks, Contraindications, and Complications of recommended treatments were explained. The patient understands and agrees to proceed with plan. Babatunde Dinero, MORIAH 03/05/2023 documented in this [facility] [place]01-02-2024 History of Present illness Narrative* Staci Sales - 02/21/2023 11:15 AM EST ADHD: She is currently taking methylphenidate LA 20 MG for same. She has medication side effects. Pt states that if she doesn't eat with medication she will get nauseas and dizziness. No shortness of breath, chest pain, or palpitations She feels her ADHD Is improving. Depression: Her depression is stable. She is taking her medications as ordered. Symptoms present include: Little Interest or Pleasure in doing things, Feeling down, depressed, or hopeless, Trouble Falling asleep, staying asleep, or sleeping too much, Feeling tired or having little energy, Poor Appetite or Overeating, Feeling bad about themself, that they are a failure or have let others down, Trouble concentrating on things, and Moving or speaking slowly, or being fidgety or restless PHQ-9 Score: 13 Urinary Tract Infection (UTI): She noticed her symptoms began 2 week(s). She admits to having back/pelvic pain/pressure, admits to having urinary frequency/urgency, admits to having painful urination, and she denies blood in her urine that she can see. * MORIAH Mackay - 02/21/2023 11:15 AM EST Subjective History of Present Illness Ashlie Malave is a 27 y.o. female who comes in for evaluation of the following complaints: had concerns including ADHD, Depression, and Urinary Pain. ADHD: She is currently taking methylphenidate LA 20 MG for same. She has medication side effects. Pt states that if she doesn't eat with medication she will get nauseas and dizziness. No shortness of breath, chest pain, or palpitations She feels her ADHD Is improving. Last fill was 01/20/2023. Depression: Her depression is stable. She is taking her medications as ordered. Symptoms present include: Little Interest or Pleasure in doing things, Feeling down, depressed, or hopeless, Trouble Falling asleep, staying asleep, or sleeping too much, Feeling tired or having little energy, Poor Appetite or Overeating, Feeling bad about themself, that they are a failure or have let others down, Trouble concentrating on things, and Moving or speaking slowly, or being fidgety or restless PHQ-9 Score: 13 Possible Urinary Tract Infection (UTI): She noticed her symptoms began 2 week(s). She admits to having back/pelvic pain/pressure, admits to having urinary frequency/urgency, admits to having painful urination, and she denies blood in her urine that she can see. Denies concern for STD's. has a past medical history of Depression and Generalized anxiety disorder. Outpatient Medications Prior to Visit: busPIRone 10 MG tablet, Take 1 tablet by mouth 3 times daily. desvenlafaxine succinate 50 MG Tab SR 24 HR, Take 1 tablet by mouth daily. methylphenidate LA 20 MG capsule, Take 1 capsule by mouth daily. naratriptan 2.5 MG tablet, Take 1 tablet by mouth once as needed (migraine) for up to 1 dose. max 5mg/day; may repeat in 4 hr x1 is allergic to oxycodone-acetaminophen, keflex [cephalexin], and codeine. Objective Review of Systems Constitutional: Negative for appetite change, chills, diaphoresis, fatigue, fever and unexpected weight change. HENT: Negative for congestion, ear pain, hearing loss, rhinorrhea, sore throat and trouble swallowing. Eyes: Negative for pain, discharge, redness and visual disturbance. Respiratory: Negative for apnea, cough, choking, chest tightness, shortness of breath and wheezing. Cardiovascular: Negative for chest pain, palpitations and leg swelling. Gastrointestinal: Positive for nausea. Negative for abdominal distention, abdominal pain, anal bleeding, blood in stool, constipation and diarrhea. Endocrine: Negative. Genitourinary: Positive for dysuria, frequency and urgency. Negative for decreased urine volume, difficulty urinating, flank pain and hematuria. Musculoskeletal: Negative for arthralgias, back pain, gait problem, joint swelling, myalgias and neck pain. Skin: Negative. Allergic/Immunologic: Negative. Neurological: Negative for dizziness, tremors, syncope, weakness, light- headedness, numbness and headaches. Hematological: Negative. Psychiatric/Behavioral: Negative. Vitals: Blood pressure 108/68, pulse 104, temperature 97.2 F (36.2 C), temperature source Temporal,resp. rate 18, weight 94.6 kg (208 lb 9.6 oz), last menstrual period 02/06/2023, SpO2 97 %, not currently . Physical Exam Vitals and nursing note reviewed. Constitutional: Appearance: Normal appearance. She is obese. Cardiovascular: Rate and Rhythm: Normal rate and regular rhythm. Heart sounds: Normal heart sounds. Pulmonary: Effort: Pulmonary effort is normal. Breath sounds: Normal breath sounds. Abdominal: General: Bowel sounds are normal. Palpations: Abdomen is soft. Tenderness: There is no right CVA tenderness or left CVA tenderness. Skin: General: Skin is warm and dry. Neurological: Mental Status: She is alert and oriented to person, place, and time. Psychiatric: Mood and Affect: Mood normal. Behavior: Behavior normal. Thought Content: Thought content normal. Judgment: Judgment normal. Neurological Exam Mental Status Alert. Oriented to person, place, and time. Assessment and Plan 1. Attention deficit hyperactivity disorder (ADHD), unspecified ADHD type Stable, will continue current medication(s). I have checked an [facility]AR[facility] report on this patient today and there is no/low risk with the prescribing of a controlled medication based on my review of the report. - methylphenidate LA 20 MG capsule; Take 1 capsule by mouth daily. Dispense: 30 capsule; Refill: 0 - methylphenidate LA 20 MG capsule; Take 1 capsule by mouth daily. Dispense: 30 capsule; Refill: 0 - methylphenidate LA 20 MG capsule; Take 1 capsule by mouth daily. Dispense: 30 capsule; Refill: 0 2. Moderate episode of recurrent major depressive disorder Stable, will continue current medication(s). - desvenlafaxine succinate 50 MG Tab SR 24 HR; Take 1 tablet by mouth daily. Dispense: 90 tablet; Refill: 1 3. Dysuria Positive for protein and is cloudy but otherwise normal. - POCT URINALYSIS DIPSTICK AUTOMATED W/O SCOP 4. Acute cystitis without hematuria Will tx for presumptive UTI and check culture results. Rx for Bactrim. Discussed risks (side effects) and benefits of medication & encouraged to read about medication and take meds as directed. Continue to push po water. - URINE CULTURE; Future - Sulfamethoxazole-trimethoprim (Bactrim DS) 800-160 MG per tablet; Take 1 tablet by mouth 2 times daily for 7 days. Dispense: 14 tablet; Refill: 0 Return to clinic in 3 months or sooner prn. documented in this [facility] [place]09-26-2023 History of Present illness Narrative* Yesenia Fox MA - 11/15/2022 11:30 AM EDT Anxiety: She Is taking her medication as ordered. She has not noticed a decrease in symptoms. denies side effects from medication. Symptoms present include: .Feeling nervous, anxious, or on edge, Notbeing able to stop or control worrying, Worrying too much about different things, Trouble relaxing,Becoming easily annoyed or irritable and Feeling afraid as if something awful might happen KINSEY: 11 Ashlie sees Nat becker through [facility] she prescribes her desvenlafaxine succinate and her methylphenidate. * MORIAH Mackay - 11/15/2022 11:30 AM EDT Subjective History of Present Illness Ashlie Malave is a 27 y.o. female who comes in for evaluation of the following complaints: had concerns including Anxiety, Depression, and ADHD. Anxiety: She Is taking her medication as ordered. She has not noticed a decrease in symptoms. denies side effects from medication. Symptoms present include: .Feeling nervous, anxious, or on edge, Notbeing able to stop or control worrying, Worrying too much about different things, Trouble relaxing,Becoming easily annoyed or irritable and Feeling afraid as if something awful might happen KINSEY-7: 11 Depression: Her depression is stable. She views the depression as mild. She is taking her medications as ordered. Symptoms present now include depressed mood. PHQ-9 score today is 11. ADHD: She is currently taking Methylphenidate 10 mg ER for same. Current side effects include: none. She feels her ADHD Is stable but not to goal. She still struggles with her focus and staying on task. Ashlie sees Nat becker through [facility] she prescribes her desvenlafaxine succinatem, buspar andher methylphenidate. She would like to switch her care to here. has a past medical history of Depression and Generalized anxiety disorder. Outpatient Medications Prior to Visit: desvenlafaxine succinate 50 MG Tab SR 24 HR, methylphenidate LA 10 MG capsule, naratriptan 2.5 MG tablet, Take 1 tablet by mouth once as needed (migraine) for up to 1 dose. max 5mg/day; may repeat in 4 hr x1 buPROPion 300 MG tablet XL, Take 1 tablet by mouth daily every morning. (Patient not taking: Reported on 11/15/2022) busPIRone 10 MG tablet, Take 1 tablet by mouth 2 times daily. chlordiazepoxide-clidinium (Librax) 5-2.5 MG capsule, Take 1 capsule by mouth 3 times daily. (Patient not taking: Reported on 11/15/2022) citalopram 40 MG tablet, Take 1 tablet by mouth daily. (Patient not taking: Reported on 11/15/2022) dicyclomine 20 MG tablet, TAKE 1 TABLET BY MOUTH EVERY 6 HOURS (Patient not taking: Reported on 11/15/2022) omeprazole [address] capsule, Take 1 capsule by mouth daily. (Patient not taking: Reported on 11/15/2022) ondansetron (Zofran ODT) 4 MG Tab Dispersible tablet, Take 1 tablet by mouth every 8 hours as needed for Nausea / Vomiting. (Patient not taking: Reported on 11/15/2022) is allergic to oxycodone-acetaminophen, keflex [cephalexin], and codeine. Objective Review of Systems Constitutional: Negative for appetite change, chills, diaphoresis, fatigue, fever and unexpected weight change. HENT: Negative for congestion, ear pain, hearing loss, rhinorrhea, sore throat and trouble swallowing. Eyes: Negative for pain, discharge, redness and visual disturbance. Respiratory: Negative for apnea, cough, choking, chest tightness, shortness of breath and wheezing. Cardiovascular: Negative for chest pain, palpitations and leg swelling. Gastrointestinal: Negative for abdominal distention, abdominal pain, anal bleeding, blood in stool,constipation, diarrhea and nausea. Endocrine: Negative. Genitourinary: Negative for decreased urine volume, difficulty urinating, dysuria, flank pain, frequency, hematuria and urgency. Musculoskeletal: Negative for arthralgias, back pain, gait problem, joint swelling, myalgias and neck pain. Skin: Negative. Allergic/Immunologic: Negative. Neurological: Negative for dizziness, tremors, syncope, weakness, light- headedness, numbness and headaches. Hematological: Negative. Psychiatric/Behavioral: Positive for decreased concentration and dysphoric mood. Negative for agitation, behavioral problems, confusion, hallucinations, self- injury and sleep disturbance. The patientis nervous/anxious. The patient is not hyperactive. Vitals: Blood pressure 132/72, pulse 82, temperature 97.4 F (36.3 C), resp. rate 18, height 1.727 m(5' 8), weight 93.6 kg (206 lb 6.4 oz), last menstrual period 11/14/2022, SpO2 97 %, not currentlybreastfeeding. Physical Exam Vitals and nursing note reviewed. Constitutional: Appearance: Normal appearance. She is obese. HENT: Head: Normocephalic. Cardiovascular: Rate and Rhythm: Normal rate and regular rhythm. Heart sounds: Normal heart sounds. Pulmonary: Effort: Pulmonary effort is normal. Breath sounds: Normal breath sounds. Skin: General: Skin is warm and dry. Neurological: Mental Status: She is alert and oriented to person, place, and time. Psychiatric: Mood and Affect: Mood normal. Behavior: Behavior normal. Thought Content: Thought content normal. Judgment: Judgment normal. Neurological Exam Mental Status Alert. Oriented to person, place, and time. Assessment and Plan 1. Anxiety Not to goal. Will increase dose of Buspar from 10 mg bid to tid. - busPIRone 10 MG tablet; Take 1 tablet by mouth 3 times daily. Dispense: 90 tablet; Refill: 5 2. Moderate episode of recurrent major depressive disorder Stable, will continue current med. - desvenlafaxine succinate 50 MG Tab SR 24 HR; Take 1 tablet by mouth daily. Dispense: 90 tablet; Refill: 1 3. Attention deficit hyperactivity disorder (ADHD), unspecified ADHD type Not to goal. Struggling with focus and staying on task. Will increase the methylphenidate from 10 to 20 mg. - methylphenidate LA 20 MG capsule; Take 1 capsule by mouth daily. Dispense: 30 capsule; Refill: 0 - methylphenidate LA 20 MG capsule; Take 1 capsule by mouth daily. Dispense: 30 capsule; Refill: 0 - methylphenidate LA 20 MG capsule; Take 1 capsule by mouth daily. Dispense: 30 capsule; Refill: 0 Return to clinic in 3 months or sooner prn. documented in this [facility] [place]03-09-2023 Nurse Note* Iris Berumen RN - 04/28/2022 12:[address] Cuadra states pt can be discharged with abdominal pain. This nurse encouraged patient to rest, drink fluids and take pain medications from home. Pt and boyfriend agree. * Iris Berumen RN - 04/28/2022 11:[address] Cuadra at bedside to give results and discharge instructions. Pt allowed to be discharged when criteria met. * Iris Berumen RN - 04/28/2022 11:51 AM EST Up to the edge of the bed. Pt remains with pain in abdomen. Dr Cuadra notified. * Iris Berumen RN - 04/28/2022 11:46 AM EST Discharge instructions reviewed with pt and family, understanding verbalized. * Iris Berumen RN - 04/28/2022 11:42 AM EST Pt remains with some pain. Pt able to swallow without difficulty * Iris Berumen RN - 04/28/2022 11:32 AM EST HOB elevated pt c/o abdomen pain. Pt states that she is lightheaded. This nurse encouraged to pass any gas in abdomen. Drink offered. * Iris Berumen RN - 04/28/2022 11:16 AM EST Pt returned to bay in stable condition, IV patent. No c/o pain. Boyfriend at bedside. [facility] Surgical operation note* Iris Berumen RN - 04/28/2022 12:[address] Cuadra states pt can be discharged with abdominal pain. This nurse encouraged patient to rest, drink fluids and take pain medications from home. Pt and boyfriend agree. [id number] Nurse Surgical operation note* Iris Berumen RN - 04/28/2022 11:[address] Cuadra at bedside to give results and discharge instructions. Pt allowed to be discharged when criteria met. [id number] Nurse Surgical operation note* Iris Berumen RN - 04/28/2022 11:51 AM EST Up to the edge of the bed. Pt remains with pain in abdomen. Dr Cuadra notified. [id number] Nurse Surgical operation note* Iris Berumen RN - 04/28/2022 11:46 AM EST Discharge instructions reviewed with pt and family, understanding verbalized. [facility]03-09-2023 Nurse Surgical operation note* Iris Berumen RN - 04/28/2022 11:42 AM EST Pt remains with some pain. Pt able to swallow without difficulty [facility]03-09-2023 Nurse Surgical operation note* Iris Berumen RN - 04/28/2022 11:32 AM EST HOB elevated pt c/o abdomen pain. Pt states that she is lightheaded. This nurse encouraged to pass any gas in abdomen. Drink offered. [facility]03-09-2023 Nurse Surgical operation note* Iris Berumen RN - 04/28/2022 11:16 AM EST Pt returned to bay in stable condition, IV patent. No c/o pain. Boyfriend at bedside. [facility]03-09-2023 History and physical note* Stefano Cuadra Jr., - 04/28/2022 10:30 AM EST Office follow-up Date and Time: April 28, 2022 7:37 AM Patient Demographics: Ashlie Malave female 1995 [address] from Last 1 Encounters: 04/27/22 105.7 kg (233 lb) Chief Complaint: 26-year-old lady seen previously for IBS type symptomatology She was initiated on trial of anti-IBS medications which she had increasing constipation from her dietary and discontinued medications and no further follow-up was performed at that time Patient still describes classic [place] criteria for IBS with variability of stool bloating etc. We discussed Diagnostic and therapeutic intervention with Medications,Dosage and adjustment for each individual person We discussed possibly increasing the spasm of the bowel by aggressive initiation of medications andpossibly a lower dose with gradual titration may be more effective Ht 1.727 m (5' 8) Wt 105.7 kg (233 lb) BMI 35.43 kg/m Smoking Status Never Past Medical History: Diagnosis Date Depression takes effexor Generalized anxiety disorder Past Surgical History: Procedure Laterality Date ANKLE SURGERY Right 08/2010 x2 WISDOM TEETH EXTRACTION Social History Socioeconomic History Marital status: Single Tobacco Use Smoking status: Never Smokeless tobacco: Never Vaping Use Vaping Use: Never used Substance and Sexual Activity Alcohol use: Yes Comment: here and there Drug use: No Sexual activity: Not Currently Other Topics Concern Sleep Concern Yes Domestic Violence No Current Outpatient Medications: buPROPion 300 MG tablet XL, Take 1 tablet by mouth daily every morning., Disp: 90 tablet, Rfl: 1 busPIRone 10 MG tablet, Take 1 tablet by mouth 2 times daily., Disp: 60 tablet, Rfl: 5 citalopram 40 MG tablet, Take 1 tablet by mouth daily., Disp: 90 tablet, Rfl: 1 dicyclomine 20 MG tablet, TAKE 1 TABLET BY MOUTH EVERY 6 HOURS, Disp: 360 tablet, Rfl: 1 naratriptan 2.5 MG tablet, Take 1 tablet by mouth once as needed (migraine) for up to 1 dose. max 5mg/day; may repeat in 4 hr x1, Disp: 5 tablet, Rfl: 5 omepraz[address] capsule, Take 1 capsule by mouth daily., Disp: 30 capsule, Rfl: 2 ondansetron (Zofran ODT) 4 MG Tab Dispersible tablet, Take 1 tablet by mouth every 8 hours as needed for Nausea / Vomiting., Disp: 30 tablet, Rfl: 0 Percocet [oxycodone-acetaminophen], Keflex [cephalexin], and Codeine ROS: Cardiovascular-no reported chest pain or shortness of breath Respiratory-no coughing or wheezing Gastroenterology-as per chief complaint Extremities-no gross edema deformity or dysfunction Neurologic-no focal deficits or tremor Physical Exam: Alert lady no gross apparent distress to evaluation no obvious skin lesions or gross secondary changes of liver disease no deformity Cardiovascular-no JVD or ectopy Respiratory-no coughing or wheeze Abdomen-mildly obese nontender nondistended Extremities no deformity Neurologic-intact Assessment: [place] criteria positive IBS symptoms Side effects with initial dose of antispasmodic medications No current GI alarm symptoms Plan: Reinitiated dicyclomine at 10 mg before meals and at bedtime, patient to call back in 24 hours withresultant medication trial, still increasing symptomatology may be a candidate for liver dose medication such as hyoscyamine 0.125 mg every 6 hours and titration Further recommendations pending results [facility]03-09-2023 History and physical note* Stefano Cuadra Jr., DO - 04/28/2022 10:30 AM EST Please see GI consultation recently completed for details regarding this admission Patient with history of chronic GI distress here for EGD colonoscopy to rule out structural etiology Physical examination: Alert lady no gross apparent distress to evaluation Cardiovascular-regular rhythm and rate Respiratory-clear Abdomen-obese nondistended Extremities-no edema no deformity Neurologic-intact no tremor Impression: Persistent abdominal pain of undetermined etiology here for structural rule out Plan: EGD and colonoscopy Please see anesthesia preop [facility]03-09-2023 History and physical note* Stefano Cuadra Jr., DO - 04/28/2022 10:30 AM EST Office follow-up Date and Time: April 28, 2022 7:37 AM Patient Demographics: Ashlie Malave female 1995 [address] from Last 1 Encounters: 04/27/22 105.7 kg (233 lb) Chief Complaint: 26-year-old lady seen previously for IBS type symptomatology She was initiated on trial of anti-IBS medications which she had increasing constipation from her dietary and discontinued medications and no further follow-up was performed at that time Patient still describes classic [place] criteria for IBS with variability of stool bloating etc. We discussed Diagnostic and therapeutic intervention with Medications,Dosage and adjustment for each individual person We discussed possibly increasing the spasm of the bowel by aggressive initiation of medications andpossibly a lower dose with gradual titration may be more effective Ht 1.727 m (5' 8) Wt 105.7 kg (233 lb) BMI 35.43 kg/m Smoking Status Never Past Medical History: Diagnosis Date Depression takes effexor Generalized anxiety disorder Past Surgical History: Procedure Laterality Date ANKLE SURGERY Right 08/2010 x2 WISDOM TEETH EXTRACTION Social History Socioeconomic History Marital status: Single Tobacco Use Smoking status: Never Smokeless tobacco: Never Vaping Use Vaping Use: Never used Substance and Sexual Activity Alcohol use: Yes Comment: here and there Drug use: No Sexual activity: Not Currently Other Topics Concern Sleep Concern Yes Domestic Violence No Current Outpatient Medications: buPROPion 300 MG tablet XL, Take 1 tablet by mouth daily every morning., Disp: 90 tablet, Rfl: 1 busPIRone 10 MG tablet, Take 1 tablet by mouth 2 times daily., Disp: 60 tablet, Rfl: 5 citalopram 40 MG tablet, Take 1 tablet by mouth daily., Disp: 90 tablet, Rfl: 1 dicyclomine 20 MG tablet, TAKE 1 TABLET BY MOUTH EVERY 6 HOURS, Disp: 360 tablet, Rfl: 1 naratriptan 2.5 MG tablet, Take 1 tablet by mouth once as needed (migraine) for up to 1 dose. max 5mg/day; may repeat in 4 hr x1, Disp: 5 tablet, Rfl: 5 omeprazole [address] capsule, Take 1 capsule by mouth daily., Disp: 30 capsule, Rfl: 2 ondansetron (Zofran ODT) 4 MG Tab Dispersible tablet, Take 1 tablet by mouth every 8 hours as needed for Nausea / Vomiting., Disp: 30 tablet, Rfl: 0 Percocet [oxycodone-acetaminophen], Keflex [cephalexin], and Codeine ROS: Cardiovascular-no reported chest pain or shortness of breath Respiratory-no coughing or wheezing Gastroenterology-as per chief complaint Extremities-no gross edema deformity or dysfunction Neurologic-no focal deficits or tremor Physical Exam: Alert lady no gross apparent distress to evaluation no obvious skin lesions or gross secondary changes of liver disease no deformity Cardiovascular-no JVD or ectopy Respiratory-no coughing or wheeze Abdomen-mildly obese nontender nondistended Extremities no deformity Neurologic-intact Assessment: [place] criteria positive IBS symptoms Side effects with initial dose of antispasmodic medications No current GI alarm symptoms Plan: Reinitiated dicyclomine at 10 mg before meals and at bedtime, patient to call back in 24 hours withresultant medication trial, still increasing symptomatology may be a candidate for liver dose medication such as hyoscyamine 0.125 mg every 6 hours and titration Further recommendations pending results * Stefano Cuadra Jr., DO - 04/28/2022 10:30 AM EST Please see GI consultation recently completed for details regarding this admission Patient with history of chronic GI distress here for EGD colonoscopy to rule out structural etiology Physical examination: Alert lady no gross apparent distress to evaluation Cardiovascular-regular rhythm and rate Respiratory-clear Abdomen-obese nondistended Extremities-no edema no deformity Neurologic-intact no tremor Impression: Persistent abdominal pain of undetermined etiology here for structural rule out Plan: EGD and colonoscopy Please see anesthesia preop [facility]* Nursing Notes - Lizabeth Doan LPN - 04/28/2022 10:09 AM EST Data collected at 10am per Bong Doan [facility]03-09-2023 Miscellaneous Notes* Nursing Notes - Lizabeth Doan LPN - 04/28/2022 10:09 AM EST Data collected at 10am per Bong Doan documented in this encounterTri[facility] History of Present illness Narrative* Amanda Hamm LPN - 03/29/2022 1:30 PM EST Never had scopes * Stefano Cuadra Jr., - 03/29/2022 1:30 PM EST Office follow-up Date and Time: March 30, 2022 10:40 AM Patient Demographics: Ashlie Malave female 1995 [address] [employer] from Last 1 Encounters: 09/27/21 105.8 kg (233 lb 3.2 oz) Chief Complaint: 26-year-old lady seen previously for IBS type symptomatology She was initiated on trial of anti-IBS medications which she had increasing constipation from her dietary and discontinued medications and no further follow-up was performed at that time Patient still describes classic [place] criteria for IBS with variability of stool bloating etc. We discussed Diagnostic and therapeutic intervention with Medications,Dosage and adjustment for each individual person We discussed possibly increasing the spasm of the bowel by aggressive initiation of medications andpossibly a lower dose with gradual titration may be more effective Smoking Status Never Past Medical History: Diagnosis Date Depression takes effexor Generalized anxiety disorder Past Surgical History: Procedure Laterality Date ANKLE SURGERY Right 08/2010 x2 WISDOM TEETH EXTRACTION Social History Socioeconomic History Marital status: Single Tobacco Use Smoking status: Never Smokeless tobacco: Never Vaping Use Vaping Use: Never used Substance and Sexual Activity Alcohol use: Yes Comment: here and there Drug use: No Sexual activity: Not Currently Other Topics Concern Sleep Concern Yes Domestic Violence No Current Outpatient Medications: buPROPion 300 MG tablet XL, Take 1 tablet by mouth daily every morning., Disp: 90 tablet, Rfl: 1 busPIRone 10 MG tablet, Take 1 tablet by mouth 2 times daily., Disp: 60 tablet, Rfl: 5 citalopram 40 MG tablet, Take 1 tablet by mouth daily., Disp: 90 tablet, Rfl: 1 dicyclomine 20 MG tablet, TAKE 1 TABLET BY MOUTH EVERY 6 HOURS, Disp: 360 tablet, Rfl: 1 omeprazole [address] capsule, Take 1 capsule by mouth daily., Disp: 30 capsule, Rfl: 2 ondansetron (Zofran ODT) 4 MG Tab Dispersible tablet, Take 1 tablet by mouth every 8 hours as needed for Nausea / Vomiting., Disp: 30 tablet, Rfl: 0 naratriptan 2.5 MG tablet, Take 1 tablet by mouth once as needed (migraine) for up to 1 dose. max 5mg/day; may repeat in 4 hr x1, Disp: 5 tablet, Rfl: 5 Percocet [oxycodone-acetaminophen], Keflex [cephalexin], and Codeine ROS: Cardiovascular-no reported chest pain or shortness of breath Respiratory-no coughing or wheezing Gastroenterology-as per chief complaint Extremities-no gross edema deformity or dysfunction Neurologic-no focal deficits or tremor Physical Exam: Alert lady no gross apparent distress to evaluation no obvious skin lesions or gross secondary changes of liver disease no deformity Cardiovascular-no JVD or ectopy Respiratory-no coughing or wheeze Abdomen-mildly obese nontender nondistended Extremities no deformity Neurologic-intact Assessment: Med[place] criteria positive IBS symptoms Side effects with initial dose of antispasmodic medications No current GI alarm symptoms Plan: Reinitiated dicyclomine at 10 mg before meals and at bedtime, patient to call back in 24 hours withresultant medication trial, still increasing symptomatology may be a candidate for liver dose medication such as hyoscyamine 0.125 mg every 6 hours and titration Further recommendations pending results documented [facility] encounter[facility] History of Present illness Narrative* Amanda Hamm LPN - 12/08/2021 11:00 AM EDT Never had scopes done. Ins. Will Be changing to [facility] 3 weeks for secondary * Stefano Cuadra Jr., DO - 12/08/2021 11:00 AM EDT Office consultation Date and Time: December 08, 2021 12:48 PM Patient Demographics: Ashlie Malave female 1995 [address] [employer] from Last 1 Encounters: 09/27/21 105.8 kg (233 lb 3.2 oz) Chief Complaint: 26-year-old lady here regarding persistent abdominal distress and pain Patient reports midepigastric and right-sided abdominal pain increasing with stressful situations She does have classic [place] criteria with bloating borborygmi incomplete evacuation, also postprandial urgency Patient denies fevers chills or night sweats no melena and/or hematochezia She does have mucoid stool Patient has had some weight loss which she attributes to reflux symptoms and early satiety Duration of symptoms is been 1-2 years Patient did have structural evaluation with an ultrasound the CT scan of the abdomen and pelvis which revealed hepatomegaly and splenomegaly no signs of cirrhotic disease She is had no recent laboratory evaluation There is no significant reported history of family GI disease Only medication so far been a trial of omeprazole which had some improvement but not on her lower GI symptomatology We discussed structural versus functional bowel disorders We discussed diagnostic and therapeutic intervention with medications We discussed Medford criteria for IBS We discussed gastroesophageal reflux disease increased intra-abdominal pressure possible bacterial overgrowth syndromes Smoking Status Never Past Medical History: Diagnosis Date Depression takes effexor Generalized anxiety disorder Past Surgical History: Procedure Laterality Date ANKLE SURGERY Right 08/2010 x2 Social History Socioeconomic History Marital status: Single Tobacco Use Smoking status: Never Smokeless tobacco: Never Vaping Use Vaping Use: Never used Substance and Sexual Activity Alcohol use: Not Currently Comment: here and there Drug use: No Sexual activity: Not Currently Other Topics Concern Sleep Concern Yes Domestic Violence No Current Outpatient Medications: buPROPion 300 MG tablet XL, Take 1 tablet by mouth daily every morning., Disp: 90 tablet, Rfl: 1 busPIRone 10 MG tablet, Take 1 tablet by mouth 2 times daily., Disp: 60 tablet, Rfl: 5 citalopram 40 MG tablet, Take 1 tablet by mouth daily., Disp: 90 tablet, Rfl: 1 naratriptan 2.5 MG tablet, Take 1 tablet by mouth once as needed (migraine) for up to 1 dose. max 5mg/day; may repeat in 4 hr x1, Disp: 5 tablet, Rfl: 5 ondansetron (Zofran ODT) 4 MG Tab Dispersible tablet, Take 1 tablet by mouth every 8 hours as needed for Nausea / Vomiting., Disp: 30 tablet, Rfl: 0 omeprazole [address] capsule, Take 1 capsule by mouth daily. (Patient not taking: Reported on 12/08/2021), Disp: 30 capsule, Rfl: 2 Percocet [oxycodone-acetaminophen], Keflex [cephalexin], and Codeine ROS: Cardiovascular-no reported chest pain or shortness of breath Respiratory-no coughing or wheezing Gastroenterology-as per chief complaint Extremities-no gross edema deformity or dysfunction Neurologic-no gross focal deficits or tremor Physical Exam: Alert lady appears her stated age no gross apparent distress to evaluation exogenous obesity no obvious deformities no skin lesions are grossly noted Cardiovascular-no JVD or ectopy Respiratory-no coughing no wheezing Abdomen-obese nondistended Extremities-no edema no deformity Neurologic-no focal deficits noted no tremor Assessment: Chronic abdominal pain of undetermined etiology 1-2 year duration consistent with IBS and Medford criteria No previous trial of anti-IBS medications Increased stress with 2 small children No current GI alarm symptoms No significant family history of GI disease Plan: Empiric trial of anti-IBS medications with titration of does Patient was asked to call back in 1-2 days with resultant medication trial for adjustment or change Possible endoscopic evaluation if symptoms persist documented [facility] this encounter[facility] History of Present illness Narrative* Yesenia Fox LPN - 09/27/2021 3:15 PM EDT Anxiety: She Is taking her medication as ordered. She has not noticed a decrease in symptoms. She admits to insomnia, admits to mood swings, denies palpitations, admits to irritability. She denies side effects from medication. KINSEY-7 score today is 17. Depression: Her depression is stable. She is taking her medications as ordered. Symptoms present now : sadness yes, tiredness yes, trouble focusing or concentrating yes, unhappiness yes, anger no, irritability yes, frustration yes, loss of interests in pleasurable or fun activities yes, sleep problems (too little or too much) yes, fatigue yes, anxiety yes, suicidal ideation no. PHQ-9: 19 Ashlie has stopped seeing a counselor, she stated it brought up too much and it wasn't good for her. Urinary Tract Infection (UTI): She noticed her symptoms began 2 week(s). She admits to having back/pelvic pain/pressure, admits to having urinary frequency/urgency, admits to having painful urination, and she denies blood in her urine that she can see. Lab Results Component Value Date APPEARANCE Cloudy 09/27/2021 COLOR Dark Yellow 09/27/2021 SPECIFICGRAV >=1.030 09/27/2021 BLOOD Mod 09/27/2021 PH 6.0 09/27/2021 PROTEIN Neg 09/27/2021 UROBILINOGEN 0.2 09/27/2021 NITRITE Neg 09/27/2021 LEUKOCYTE Neg 09/27/2021 LEUKOCESTUR TRACE (A) 11/06/2020 * Vianney Morse APRN-TOREY - 09/27/2021 3:15 PM EDT History of Present Illness Ashlie Malave is a 25 y.o. female who comes in for evaluation of the following complaints: had concerns including Anxiety, Depression, and Bladder Infection. Anxiety: She Is taking her medication as ordered. She has not noticed a decrease in symptoms. She admits to insomnia, admits to mood swings, denies palpitations, admits to irritability. She denies side effects from medication. KINSEY-7 score today is 17. Depression: Her depression is stable. She is taking her medications as ordered. Symptoms present now : sadness yes, tiredness yes, trouble focusing or concentrating yes, unhappiness yes, anger no, irritability yes, frustration yes, loss of interests in pleasurable or fun activities yes, sleep problems (too little or too much) yes, fatigue yes, anxiety yes, suicidal ideation no. PHQ-9: 19 Ashlie has stopped seeing a counselor, she stated it brought up too much and it wasn't good for her. Urinary Tract Infection (UTI): She noticed her symptoms began 2 week(s). She admits to having back/pelvic pain/pressure, admits to having urinary frequency/urgency, admits to having painful urination, and she denies blood in her urine that she can see. Lab Results Component Value Date APPEARANCE Cloudy 09/27/2021 COLOR Dark Yellow 09/27/2021 SPECIFICGRAV >=1.030 09/27/2021 BLOOD Mod 09/27/2021 PH 6.0 09/27/2021 PROTEIN Neg 09/27/2021 UROBILINOGEN 0.2 09/27/2021 NITRITE Neg 09/27/2021 LEUKOCYTE Neg 09/27/2021 LEUKOCESTUR TRACE (A) 11/06/2020 Abdominal pain: Intermittent epigastric pain with nausea and intermittent constipation and diarrhea. Ongoing for a year. Was referred last year but never made it to appt for scope. has a past medical history of Depression and Generalized anxiety disorder. Outpatient Medications Prior to Visit: ondansetron (Zofran ODT) 4 MG Tab Dispersible tablet, Take 1 tablet by mouth every 8 hours as needed for Nausea / Vomiting. buPROPion 300 MG tablet XL, Take 1 tablet by mouth daily every morning. citalopram 40 MG tablet, Take 1 tablet by mouth daily. naratriptan 2.5 MG tablet, Take 1 tablet by mouth once as needed (migraine) for up to 1 dose. max 5mg/day; may repeat in 4 hr x1 is allergic to percocet [oxycodone-acetaminophen], keflex [cephalexin], and codeine. Review of Systems Constitutional: Negative for appetite change, chills, diaphoresis, fatigue, fever and unexpected weight change. HENT: Negative for congestion, ear pain, hearing loss, rhinorrhea, sore throat and trouble swallowing. Eyes: Negative for pain, discharge, redness and visual disturbance. Respiratory: Negative for apnea, cough, choking, chest tightness, shortness of breath and wheezing. Cardiovascular: Negative for chest pain, palpitations and leg swelling. Gastrointestinal: Negative for abdominal distention, abdominal pain, anal bleeding, blood in stool,constipation, diarrhea and nausea. Endocrine: Negative. Genitourinary: Positive for dysuria, frequency and urgency. Negative for decreased urine volume, difficulty urinating, flank pain and hematuria. Musculoskeletal: Negative for arthralgias, back pain, gait problem, joint swelling, myalgias and neck pain. Skin: Negative. Allergic/Immunologic: Negative. Neurological: Negative for dizziness, tremors, syncope, weakness, light- headedness, numbness and headaches. Hematological: Negative. Psychiatric/Behavioral: Positive for dysphoric mood. Negative for agitation, behavioral problems, confusion, decreased concentration, hallucinations, self- injury, sleep disturbance and suicidal ideas. The patient is nervous/anxious. The patient is not hyperactive. Vitals: Blood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 unspecified Moderate episode of recurrent major depressive disorder Attention deficit hyperactivity disorder (ADHD), unspecified ADHD type [facility]* Diagnosis Attention deficit hyperactivity disorder (ADHD), unspecified ADHD type- Primary Moderate episode of recurrent major depressive disorder Dysuria Acute cystitis without hematuria Acute cystitis [facility]* Diagnosis Upper respiratory tract infection, unspecified type- Primary Acute cough [facility]* Diagnosis Other instability, right ankle Difficulty in walking, not elsewhere classified Sprain of other ligament of right ankle, initial encounter Other specified osteochondropathies, right ankle and foot documented in this encounter [facility] Work Phone: Evaluation note* Diagnosis Gastroesophageal reflux disease, unspecified whether esophagitis present- Primary [facility]* Diagnosis Attention deficit hyperactivity disorder (ADHD), unspecified ADHD type- Primary Moderate episode of recurrent major depressive disorder Anxiety Anxiety state, unspecified Gastroesophageal reflux disease without esophagitis Esophageal reflux Hiatal hernia Diaphragmatic hernia without mention of obstruction or gangrene [facility] Diagnosis Abdominal pain, epigastric- Primary documented [facility]* Diagnosis Right upper quadrant abdominal pain- Primary Abdominal pain, right upper quadrant documented [facility]* Diagnosis Abdominal pain, acute Abdominal pain, unspecified site documented [facility]* Diagnosis Chronic migraine without aura without status migrainosus, not intractable- Primary Chronic migraine without aura, without mention of intractable migraine without mention of status migrainosus Attention deficit hyperactivity disorder (ADHD), unspecified ADHD type documented [facility]* Diagnosis Biliary colic- Primary Calculus of gallbladder without mention of cholecystitis or obstruction Pre-op testing- Primary Preoperative examination, unspecified Biliary colic Calculus of gallbladder without mention of cholecystitis or obstruction documented [facility]* Diagnosis Biliary colic Calculus of gallbladder without mention of cholecystitis or obstruction Pre-op testing Preoperative examination, unspecified documented [facility]* Diagnosis Anxiety- Primary Anxiety state, unspecified Moderate episode of recurrent major depressive disorder Attention deficit hyperactivity disorder (ADHD), unspecified ADHD type Gastroesophageal reflux disease without esophagitis Esophageal reflux Hiatal hernia Diaphragmatic hernia without mention of obstruction or gangrene Irregular menses Irregular menstrual cycle Diarrhea, unspecified type documented [facility]* Diagnosis Viral illness- Primary Unspecified viral infection, in conditions classified elsewhere and of unspecified site Dysuria documented [facility]* Diagnosis Acute postoperative abdominal pain- Primary Other acute postoperative pain [facility]No assessment information [facility] Work Phone: Evaluation note* Diagnosis Infection of left inner ear- Primary Anxiety Anxiety state, unspecified Yeast infection Other and unspecified mycoses Raynaud's phenomenon without gangrene Fluctuating blood pressure Other abnormal clinical finding Bilateral hand numbness Disturbance of skin sensation [facility] Diagnosis Raynaud's phenomenon without gangrene- Primary Fluctuating blood pressure Other abnormal clinical finding Chronic bilateral low back pain, unspecified whether sciatica present Spotting between menses Metrorrhagia [facility]* Diagnosis Numbness and tingling of right lower extremity [facility]* Attachments The following attachments cannot be sent through Care Everywhere. * Acid-Reducing Medicines: General Info ([place]) [facility]* Attachments The following attachments cannot be sent through Care Everywhere. * Abdominal Pain ([place]) * Restricted Fat Diet ([facility]) ([place]) documented [facility]* Attachments The following attachments cannot be sent through Care Everywhere. * Abdominal Pain ([place]) * Pain Post-Surgery: Acute ([place]) [facility] Additional Instructions Return to the emergency department with new or worsening symptoms including chest pain, shortness of breath, fever, increased numbness or pain of your arm or face.[facility] Work Phone: Instructions* Attachments The following attachments cannot be sent through Care Everywhere. * URI (Upper Respiratory Infection) ([place]) documented [facility]* Attachments The following attachments cannot be sent through Care Everywhere. * Viral Infections ([place]) documented in this [facility] (narrative)* Consultation (Routine) - New Request Specialty Diagnoses / Procedures Referred By Carolyn burdick Referred To Contact Gastroenterology Diagnoses Epigastric pain Vianney Morse, H[employer] NEEDLE MACHINE OPERATOR [address] [place] [address] Referral ID Status Reason Start Date Expiration Date V isits Requested Visits Authorized [id number] New Request 09/27/2021 10/22/2022 1 1 [facility] Consultation (Routine) - New Request Specialty Diagnoses / Procedures Referred By Contac t Referred To Contact Family Medicine Diagnoses Gastroesophageal reflux disease, unspecified whether esophagitis present Adin Thakkar MD [address] [place] [id number] Referral ID Status Reason Start Date Expiration Date V isits Requested Visits Authorized [id number] New Request 05/13/2023 06/06/2024 1 1 [facility] ([facility])* Consultation (Routine) - New Request Specialty Diagnoses / Procedures Referred By Contac t Referred To Contact General Surgery Diagnoses Gastroesophageal reflux disease without esophagitis Hiatal hernia Vianney Morse APRN-CNP [address] [place] [phone] Toni Burch, DO [address] [place] [address] Referral ID Status Reason Start Date Expiration Date V isits Requested Visits Authorized [id number] New Request 05/23/2023 06/16/2024 1 1 [facility]ative)No reason for referral information availableWHarrison [facility] Work Phone: Reason for visit Narrative* Radiology (Routine) - Open Specialty Diagnoses / Procedures Referred By Contac t Referred To Contact Diagnoses Numbness and tingling of right lower extremity Procedures EMG & NERVE CONDUCTION Vianney Morse APRN-CNP [address] [place] [phone] Phone: tel: fax: Tennille Boyce MD [address] [place] [address] Phone: tel: fax: Referral ID Status Reason Start Date Expiration Date Visits Re quested Visits Authorized [id number] Open 06/24/2024 07/19/2025 1 1 [facility] Summary Purpose Family History No Family History Records FoundNo Family History Records FoundNo Family History Records FoundNo Family History Records FoundNo Family History Records FoundNo Family History Records FoundNo Family History Records FoundNo Family History Records FoundNo Family History Records FoundNo Family History Records FoundNo Family History Records Found Advance Directives No Advanced Directives Records FoundLatest Code Status on File Code Status Date Activated Date Inactivated Comments Full Code 08/09/2019 4:00 AM Latest Code Status on File Code Status Date Activated Date Inactivated Comments Full Code 08/09/2019 4:00 AM Latest Code Status on File Code Status Date Activated Date Inactivated Comments Full Code 08/09/2019 4:00 AM Latest Code Status on File Code Status Date Activated Date Inactivated Comments Full Code 08/09/2019 4:00 AM Date Activated Date Inactivated Comments 08/09/2019 4:00 AM Date Activated Date Inactivated Comments 08/09/2019 4:00 AM Advance Directive Response Recorded Date/ Time Living Will No April 29, 2024 6:54pm Power of Qa Intern No April 29 6:54pm History of Present Illness * Vianney Morse, H[employer] NEEDLE MACHINE OPERATOR - 02/05/2018 10:30 AM EST Formatting of this note may be different from the original. History of Present Illness Ashlie Malave is a 22 y.o. female who comes in for follow-up for generalized depression disorder. Ashlie Malave 's depression screening is 6. Ashlie states her depression has improved greatly - she states she does have some depression and intermittent concentration issues - she is requesting to discuss change of medication due to side effects that are ongoing excessive sweating, nausea, hot sensation in the mornings. She Is taking her medications as ordered. She Is not having insomnia. She denies having changes in interest, Is having depressed mood, denies crying spells, Is having fatigue, Is having problems concentrating, admits to changes in appetite,denies a visible slowing of physical and emotional reactions, denies emotional distress and restlessness, denies suicidal ideation. Ashlie Malave is a 22 y.o. year-old female is following up on generalized anxiety disorder. Ashlie Malave 's anxiety screening is 4. She Is taking her medication as ordered. She has noticed a decrease in symptoms. Ashlie states anxiety increases when she is in a situation that makes her anxious/SOB or discussing something that shedoes not want to discuss. Ashlie states if she has a lot to do (grocery shopping, etc) she can become anxious at that time. She denies insomnia, admits to anxiety/anxious, admits to SOB/chest tightness, denies to palpitations, denies to mood swings,denies irritability. She admits to side effects from medication if warranted, side effects that are ongoing excessive sweating, nausea, hot sensation in the mornings. Ashlie Malave is a 22 y.o. female, here today for a follow-up of Insomnia. Any difficulty falling asleep? yes Any difficulty staying asleep? yes She uses the following medication(s) for sleep: Trazodone. She describes the symptoms as frequent night time awakening and non-restful sleep when she can take trazodone - she does not take nightly due to having a young child. She also complains of anxiety, depression, fatigue, stress and bad dreams. She denies frequent nighttime urination, leg cramps, restless legs and unusual behavior during sleep. Ashlie Malave is a 22 y.o. No obstetric history on file. who desires contraception. She is not sexually active. No LMP recorded. Patient has had an injection. Ashlie has been on DEPO for 6 months andhas been having ongoing persistent bright red vaginal bleeding - intermittently heavy bleeding. Eveliahas gained 30 pounds as well over the course of 6 months. Her last intercourse was May 2017. She is currently is using Depotmedroxyprogesterone acetate. She does not use condoms for STD protection.She has used Oral contraceptive pills in the past with no side effects. She does not desire STD testing today. She is not a candidate for emergency contraception today. Ashlie Malave is a 22 y.o. year old female present today for an evaluation of menstrual/vaginal bleeding. Blood pressure 120/74, pulse 89, temperature 96.8 F (36 C), temperature source Temporal, resp. rate18, height 1.727 m (5' 8), weight 100.1 kg (220 lb 9.6 oz), SpO2 98 %. Vaginal bleeding is unchanged for approx 6 months. She is currently on control - DEPO injection Her periods are not regular . Her menstrual bleeding is light to heavy and consistent since starting DEPO injection. She is not unusual discharge. She is not currently sexually active control methods include: DEPO She does not currently feel she is at risk for a sexually transmitted infection. Ashlie Malave is a 22 y.o. year old female who is present today for a possible upper respiratory infection/bronchitis. Onset of symptoms was 1 1/2 weeks ago. Clinical course - unchanged since that time. Current symptoms include chest pain, congestion, myalgias, rhinorrhea, rigors, sinus pain, sore throat and wheezing, which are of moderate severity. She has tried the following treatments: fluids, other meds: Robitussin, rest and sleep. They have been not very effective in relieving symptoms. Tobacco use or second hand smoke exposure - No Sputum production - Yes: - greenish thick phlegm - nasal congestion is yellowish thick coloration Fevers over 100.5 No Shortness of breath Yes: SOB/wheezing Chest pain Yes: chest tightness/chest discomfort - harsh productive coughing. Sister dx with Bronchitis and mother dx with Pleurisy - wants to ensure she does not have start of bronchitis Immune problems No (ex. - Cancer, HIV, medications that suppress immune system, lung disease) Past Medical History: Diagnosis Date Depression Generalized anxiety disorder Outpatient Medications Prior to Visit Medication Sig Dispense Refill escitalopram (LEXAPRO) 10 MG Tab tablet Take 1 tablet by mouth daily. 30 tablet 1 traZODone 50 MG Tab Take 1 tablet by mouth at bedtime. 30 tablet 0 hydrOXYzine HCl 25 MG Tab tablet Take 1 tablet by mouth 3 times daily as needed for Anxiety or Insomnia. (Patient not taking: Reported on 02/05/2018 ) 60 tablet 1 No facility-administered medications prior to visit. Allergies Allergen Reactions Percocet [Oxycodone-Acetaminophen] Codeine Itching Social History Social History Marital status: Single Spouse name: N/A Number of children: N/A Years of education: N/A Occupational History Not on file. Social History Main Topics Smoking status: Never Smoker Smokeless tobacco: Never Used Alcohol use No Drug use: No Sexual activity: Not Currently Other Topics Concern Domestic Violence No Social History Narrative No narrative on file Review of Systems Constitutional: Negative for appetite change, chills, diaphoresis, fatigue, fever and unexpected weight change. HENT: Positive for congestion, postnasal drip, rhinorrhea and sinus pain. Negative for ear pain, hearing loss, sore throat and trouble swallowing. Eyes: Negative for pain, discharge, redness and visual disturbance. Respiratory: Negative for apnea, cough, choking, chest tightness, shortness of breath and wheezing. Cardiovascular: Negative for chest pain, palpitations and leg swelling. Gastrointestinal: Negative for abdominal distention, abdominal pain, anal bleeding, blood in stool,constipation, diarrhea and nausea. Endocrine: Negative. Genitourinary: Negative for decreased urine volume, difficulty urinating, dysuria, flank pain, frequency, hematuria and urgency. Musculoskeletal: Negative for arthralgias, back pain, gait problem, joint swelling, myalgias and neck pain. Skin: Negative. Allergic/Immunologic: Negative. Neurological: Negative for dizziness, tremors, syncope, weakness, light- headedness, numbness and headaches. Hematological: Negative. Psychiatric/Behavioral: Positive for dysphoric mood and sleep disturbance (improved). Negative for agitation, behavioral problems, confusion, decreased concentration, hallucinations, self-injury and suicidal ideas. The patient is nervous/anxious. The patient is not hyperactive. Vitals: Blood pressure 120/74, pulse 89, temperature 96.8 F (36 C), temperature source Temporal, resp. rate 18, height 1.727 m (5' 8), weight 100.1 kg (220 lb 9.6 oz), SpO2 98 %. Physical Exam Constitutional: She is oriented to person, place, and time. She appears well- developed and well-nourished. HENT: Head: Normocephalic. Right Ear: Tympanic membrane, external ear and ear canal normal. Left Ear: Tympanic membrane, external ear and ear canal normal. Nose: Mucosal edema, rhinorrhea and sinus tenderness present. Right sinus exhibits maxillary sinus tenderness and frontal sinus tenderness. Left sinus exhibits maxillary sinus tenderness and frontal sinus tenderness. Mouth/Throat: Oropharynx is clear and moist. Eyes: Conjunctivae are normal. Neck: Neck supple. Cardiovascular: Normal rate, regular rhythm and normal heart sounds. Pulmonary/Chest: Effort normal and breath sounds normal. Lymphadenopathy: She has no cervical adenopathy. Neurological: She is alert and oriented to person, place, and time. Skin: Skin is warm and dry. Psychiatric: She has a normal mood and affect. Her behavior is normal. Judgment and thought contentnormal. Nursing note and vitals reviewed. Neurologic Exam Mental Status Oriented to person, place, and time. Assessment and Plan 1. Primary insomnia Improved, will continue current med. - traZODone 50 MG Tab; Take 1 tablet by mouth at bedtime. Dispense: 90 tablet; Refill: 1 2. Anxiety &3. Severe episode of recurrent major depressive disorder, without psychotic features Improved, but not to goal, will increase to 20 mg daily. - escitalopram 20 MG Tab tablet; Take 1 tablet by mouth daily. Dispense: 90 tablet; Refill: 1 4. Encounter for initial prescription of contraceptive pills -Last Depo injection was 12 weeks ago. Will start OCP today. The use of the oral contraceptive has been fully discussed with her. This includes the proper method to initiate (Second day of next normal menstrual onset) and continue the pills, the need for regular compliance to ensure adequate contraceptive effect, the physiology which make the pill effective,the instructions for what to do in event of a missed pill, and warnings about anticipated minor side effects such as breakthrough spotting, nausea, breast tenderness, weight changes, acne, headaches,etc. She has been told of the more serious potential side effects such as DE, stroke, and deep veinthrombosis, all of which are very unlikely. She has been asked to report any signs of such serious problems immediately. She should back up the pill with a condom during any cycle in which antibiotics are prescribed, and during the first cycle as well. The need for additional protection, such as a condom, to prevent exposure to sexually transmitted diseases has also been discussed- she has been clearly reminded that OCP s cannot protect her against diseases such as HIV and others. She understood and wished to take the medication as prescribed. - norgestimate-ethinyl estradiol (ORTHO TRI-CYCLEN LO) 0.18/0.215/0.25 MG-25 MCG Tab; Take 1 tabletby mouth daily. Note for RPh: Generic for Ortho Tri-Cyclen Lo Dispense: 3 Package; Refill: 3 5. Upper respiratory tract infection, unspecified type Discussed risks (side effects) and benefits of medication & encouraged to read about medicationand take meds as directed. Discussed symptomatic management as well. - azithromycin (ZITHROMAX Z-JEFF) 250 MG Tab tablet; Take 2 tablets on Day 1, then 1 tablet every day (days 2 to 5) until gone. Dispense: 6 tablet; Refill: 0 Return to clinic in 6 months or sooner prn. * Shilpa Saldaña LPN - 02/05/2018 10:30 AM EST Formatting of this note may be different from the original. Ashlie Malave is a 22 y.o. female who comes in for follow-up for generalized depression disorder. Ashlie Malave 's depression screening is 6. Ashlie states her depression has improved greatly - she states she does have some depression and intermittent concentration issues - she is requesting to discuss change of medication due to side effects that are ongoing excessive sweating, nausea, hot sensation in the mornings. She Is taking her medications as ordered. She Is not having insomnia. She denies having changes in interest, Is having depressed mood, denies crying spells, Is having fatigue, Is having problems concentrating, admits to changes in appetite,denies a visible slowing of physical and emotional reactions, denies emotional distress and restlessness, denies suicidal ideation. Ashlie Malave is a 22 y.o. year-old female is following up on generalized anxiety disorder. Ashlie Malave 's anxiety screening is 4. She Is taking her medication as ordered. She has noticed a decrease in symptoms. Ashlie states anxiety increases when she is in a situation that makes her anxious/SOB or discussing something that shedoes not want to discuss. Ashlie states if she has a lot to do (grocery shopping, etc) she can become anxious at that time. She denies insomnia, admits to anxiety/anxious, admits to SOB/chest tightness, denies to palpitations, denies to mood swings,denies irritability. She admits to side effects from medication if warranted, side effects that are ongoing excessive sweating, nausea, hot sensation in the mornings. Ashlie Malave is a 22 y.o. female, here today for a follow-up of Insomnia. Any difficulty falling asleep? yes Any difficulty staying asleep? yes She uses the following medication(s) for sleep: Trazodone. She describes the symptoms as frequent night time awakening and non-restful sleep when she can take trazodone - she does not take nightly due to having a young child. She also complains of anxiety, depression, fatigue, stress and bad dreams. She denies frequent nighttime urination, leg cramps, restless legs and unusual behavior during sleep. Ashlie Malave is a 22 y.o. No obstetric history on file. who desires contraception. She is not sexually active. No LMP recorded. Patient has had an injection. Ashlie has been on DEPO for 6 months andhas been having ongoing persistent bright red vaginal bleeding - intermittently heavy bleeding. Eveliahas gained 30 pounds as well over the course of 6 months. Her last intercourse was May 2017. She is currently is using Depotmedroxyprogesterone acetate. She does not use condoms for STD protection.She has used Oral contraceptive pills in the past with no side effects. She does not desire STD testing today. She is not a candidate for emergency contraception today. Ashlie Malave is a 22 y.o. year old female present today for an evaluation of menstrual/vaginal bleeding. Blood pressure 120/74, pulse 89, temperature 96.8 F (36 C), temperature source Temporal, resp. rate18, height 1.727 m (5' 8), weight 100.1 kg (220 lb 9.6 oz), SpO2 98 %. Vaginal bleeding is unchanged for approx 6 months. She is currently on control - DEPO injection Her periods are not regular . Her menstrual bleeding is light to heavy and consistent since starting DEPO injection. She is not unusual discharge. She is not currently sexually active control methods include: DEPO She does not currently feel she is at risk for a sexually transmitted infection. Ashlie Malave is a 22 y.o. year old female who is present today for a possible upper respiratory infection/bronchitis. Onset of symptoms was 1 1/2 weeks ago. Clinical course - unchanged since that time. Current symptoms include chest pain, congestion, myalgias, rhinorrhea, rigors, sinus pain, sore throat and wheezing, which are of moderate severity. She has tried the following treatments: fluids, other meds: Robitussin, rest and sleep. They have been not very effective in relieving symptoms. PAST MEDICAL HISTORY, SURGICAL HISTORY, FAMILY HISTORY, SOCIAL HISTORY, MEDICATIONS, AND ALLERGIES WERE REVIEWED: yes Allergies Allergen Reactions Percocet [Oxycodone-Acetaminophen] Codeine Itching Tobacco use or second hand smoke exposure - No Sputum production - Yes: - greenish thick phlegm - nasal congestion is yellowish thick coloration Fevers over 100.5 No Shortness of breath Yes: SOB/wheezing Chest pain Yes: chest tightness/chest discomfort - harsh productive coughing. Sister dx with Bronchitis and mother dx with Pleurisy - wants to ensure she does not have start of bronchitis Immune problems No (ex. - Cancer, HIV, medications that suppress immune system, lung disease) Blood pressure 120/74, pulse 89, temperature 96.8 F (36 C), temperature source Temporal, resp. rate18, height 1.727 m (5' 8), weight 100.1 kg (220 lb 9.6 oz), SpO2 98 %. Outpatient Encounter Prescriptions as of 02/05/2018 Medication Sig Dispense Refill escitalopram (LEXAPRO) 10 MG Tab tablet Take 1 tablet by mouth daily. 30 tablet 1 traZODone 50 MG Tab Take 1 tablet by mouth at bedtime. 30 tablet 0 hydrOXYzine HCl 25 MG Tab tablet Take 1 tablet by mouth 3 times daily as needed for Anxiety or Insomnia. (Patient not taking: Reported on 02/05/2018 ) 60 tablet 1 No facility-administered encounter medications on file as of 02/05/2018. in this encounter* Vianney Morse APRN-CNP - 06/28/2018 1:41 PM EDT See telephone encounter note documented in this encounter* Vianney Morse APRN-CNP - 07/30/2018 1:30 PM EDT History of Present Illness Chief Complaint Patient presents with Depression Ashlie is present for routine follow up on depression - mild depression currently. Anxiety Ashlie is present for routine follow up on anxiety- has worsened - taking Hydroxyzine more recently Contraception Discuss OCP - currently was switched to ZOVIA 06/28/18 due to prolonged menstrual bleeding - bleeding stopped approx 2 weeks ago - has been out of OCP for 3-4 days - requesting test in office Abdominal Pain Requesting to run UA to r/o infection Insomnia Trazodone 50 mg daily at bedtime - controlling insomnia Ashlie Malave is a 22 y.o. No obstetric history on file. who desires refill of contraception. Discuss OCP - currently was switched to ZOVIA 06/28/18 due to prolonged menstrual bleeding - bleeding stopped approx 2 weeks ago - has been out of OCP for 3-4 days - requesting test in office. She states she is having suprapubic pressure/abdominal cramping and intermittent breast tenderness forapprox 2 weeks and requesting UA to r/o infection. She is sexually active. Patient's last menstrualperiod was 07/16/2018.. Her last intercourse was approx 3 weeks ago. She is currently using Oral contraceptive pills and Condoms - condom is intermittent, not consistent. She sometimes use condoms for STD protection. She has used Oral contraceptive pills in the past with concerns of ongoing mense -changed 06/28/18 by PCP to higher progesterone medication - ZOVIA - she has been currently out for 3-4 days. . She does not desire STD testing today. She is not a candidate for emergency contraception today. Ashlie Malave is a 22 y.o. female who comes in for follow-up for generalized depression disorder. Ashlie Malave 's depression screening is 10. She Is taking her medications as ordered. She Is not having insomnia. She reports having changes in interest, Is having depressed mood, denies crying spells, Is having fatigue, Is having problems concentrating, reports changes in appetite (over eating - has increased from 220.6 lbs to 244.2 lbs in the last 5 months ,denies a visible slowing of physical and emotional reactions, denies emotional distress and restlessness, denies suicidal ideation. Ashlie Malave is a 22 y.o. year-old female is following up on generalized anxiety disorder. Ashlie Malave 's anxiety screening is 14. She states 2-3 times a week - anxiety is uncontrolled. She Is taking her medication as ordered. She has not noticed a decrease in symptoms recently as sheis currently taking hydroxyzine more often - she states some days anxiety be worse than other days.. She denies insomnia, admits to anxiety/anxious, reports SOB/chest tightness, reports to palpitations, reports to mood swings,reports irritability. She denies side effects from medication if warranted. Ashlie Malave is a 22 y.o. female, here today for a follow-up of Insomnia. Any difficulty falling asleep? no Any difficulty staying asleep? no She uses the following medication(s) for sleep: Trazodone. She also complains of anxiety, depression, fatigue, irritability and stress. Past Medical History: Diagnosis Date Depression Generalized anxiety disorder Outpatient Medications Prior to Visit Medication Sig Dispense Refill escitalopram 20 MG Tab tablet Take 1 tablet by mouth daily. 90 tablet 1 ethynodiol-ethinyl estradiol (ZOVIA E, ,) 1-35 MG-MCG Tab Take 1 tablet by mouth daily. 1 tabPO tid x3 days, then 1 tab PO bid 5 days, then 1 tab PO qd until all active tabs given, skip inert tabs 1 Package 0 hydrOXYzine HCl 25 MG Tab tablet Take 1 tablet by mouth 3 times daily as needed for Anxiety or Insomnia. 60 tablet 1 traZODone 50 MG Tab Take 1 tablet by mouth at bedtime. 90 tablet 1 No facility-administered medications prior to visit. Allergies Allergen Reactions Percocet [Oxycodone-Acetaminophen] Codeine Itching Review of Systems Constitutional: Negative for appetite change, chills, diaphoresis, fatigue, fever and unexpected weight change. HENT: Negative for congestion, ear pain, hearing loss, rhinorrhea, sore throat and trouble swallowing. Eyes: Negative for pain, discharge, redness and visual disturbance. Respiratory: Negative for apnea, cough, choking, chest tightness, shortness of breath and wheezing. Cardiovascular: Negative for chest pain, palpitations and leg swelling. Gastrointestinal: Negative for abdominal distention, abdominal pain, anal bleeding, blood in stool,constipation, diarrhea and nausea. Endocrine: Negative. Genitourinary: Negative for decreased urine volume, difficulty urinating, dysuria, flank pain, frequency, hematuria, menstrual problem (improved, see hpi) and urgency. Positive for breast tenderness Musculoskeletal: Negative for arthralgias, back pain, gait problem, joint swelling, myalgias and neck pain. Skin: Negative. Allergic/Immunologic: Negative. Neurological: Negative for dizziness, tremors, syncope, weakness, light- headedness, numbness and headaches. Hematological: Negative. Psychiatric/Behavioral: Negative. Vitals: Blood pressure 130/84, pulse 87, temperature 97.8 F (36.6 C), temperature source Temporal, weight 110.8 kg (244 lb 3.2 oz), last menstrual period 07/16/2018. Physical Exam Constitutional: She is oriented to person, place, and time. She appears well- developed and well-nourished. Cardiovascular: Normal rate, regular rhythm, normal heart sounds and intact distal pulses. Pulmonary/Chest: Effort normal and breath sounds normal. Abdominal: Soft. Bowel sounds are normal. She exhibits no distension and no mass. There is no tenderness. Neurological: She is alert and oriented to person, place, and time. Skin: Skin is warm and dry. Psychiatric: Her speech is normal and behavior is normal. Judgment and thought content normal. Her mood appears anxious. Cognition and memory are normal. Nursing note and vitals reviewed. Neurologic Exam Mental Status Oriented to person, place, and time. Speech: speech is normal Assessment and Plan 1. Suprapubic pressure & 2. Breast tenderness Negative test and normal UA. Advised symptoms are SE from taking increased dose previous of OCP to control menses. - POCT URINALYSIS DIPSTICK AUTOMATED W/O SCOP - POCT URINE 3. Dysfunctional uterine bleeding Improved, will continue current med. - ethynodiol-ethinyl estradiol (ZOVIA 1/35E, 28,) 1-35 MG-MCG Tab; Take 1 tablet by mouth daily. Dispense: 3 Package; Refill: 3 4. Anxiety & 5. Moderate episode of recurrent major depressive disorder, without psychotic features Anxiety uncontrolled on lexapro and has had weight gain. Will stop lexapro and start on Venlafaxine. Discussed risks (side effects) and benefits of medication & encouraged to read about medication and take meds as directed. - hydrOXYzine HCl 25 MG Tab tablet; Take 1 tablet by mouth 3 times daily as needed for Anxiety or Insomnia. Dispense: 60 tablet; Refill: 5 - venlafaxine (EFFEXOR XR) 75 MG Cap SR 24HR capsule XR; Take 1 capsule by mouth daily. Dispense: 30 capsule; Refill: 1 6. Primary insomnia Stable, will continue current med. - traZODone 50 MG Tab; Take 1 tablet by mouth at bedtime. Dispense: 90 tablet; Refill: 1 7. Obesity (BMI 30-39.9) We discussed a balanced diet (mainly whole food plant-based diet with minimal animal protein, refined CHO's, and fat), and aerobic exercise. After changing lexapro to venlafaxine, if she continues to suffer from uncontrolled appetite and anxiety is controlled, will start on Adipex. Return to clinic in 1 month or sooner prn. * Shilpa Saldaña, KEON - 07/30/2018 1:30 PM EDT Chief Complaint Patient presents with Depression Ashlie is present for routine follow up on depression - mild depression currently. Anxiety Ashlie is present for routine follow up on anxiety- has worsened - taking Hydroxyzine more recently Contraception Discuss OCP - currently was switched to ZOVIA 06/28/18 due to prolonged menstrual bleeding - bleeding stopped approx 2 weeks ago - has been out of OCP for 3-4 days - requesting test in office Abdominal Pain Requesting to run UA to r/o infection Insomnia Trazodone 50 mg daily at bedtime - controlling insomnia Ashlie Malave is a 22 y.o. No obstetric history on file. who desires refill of contraception. Discuss OCP - currently was switched to ZOVIA 06/28/18 due to prolonged menstrual bleeding - bleeding stopped approx 2 weeks ago - has been out of OCP for 3-4 days - requesting test in office. She states she is having suprapubic pressure/abdominal cramping and intermittent breast tenderness forapprox 2 weeks and requesting UA to r/o infection. She is sexually active. Patient's last menstrualperiod was 07/16/2018.. Her last intercourse was approx 3 weeks ago. She is currently using Oral contraceptive pills and Condoms - condom is intermittent, not consistent. She sometimes use condoms for STD protection. She has used Oral contraceptive pills in the past with concerns of ongoing mense -changed 06/28/18 by PCP to higher progesterone medication - ZOVIA - she has been currently out for 3-4 days. . She does not desire STD testing today. She is not a candidate for emergency contraception today. Ashlie Malave is a 22 y.o. female who comes in for follow-up for generalized depression disorder. Ashlie Malave 's depression screening is 10. She Is taking her medications as ordered. She Is not having insomnia. She reports having changes in interest, Is having depressed mood, denies crying spells, Is having fatigue, Is having problems concentrating, reports changes in appetite (over eating - has increased from 220.6 lbs to 244.2 lbs in the last 5 months ,denies a visible slowing of physical and emotional reactions, denies emotional distress and restlessness, denies suicidal ideation. Ashlie Malave is a 22 y.o. year-old female is following up on generalized anxiety disorder. Ashlie Malave 's anxiety screening is 14. She states 2-3 times a week - anxiety is uncontrolled. She Is taking her medication as ordered. She has not noticed a decrease in symptoms recently as sheis currently taking hydroxyzine more often - she states some days anxiety be worse than other days.. She denies insomnia, admits to anxiety/anxious, reports SOB/chest tightness, reports to palpitations, reports to mood swings,reports irritability. She denies side effects from medication if warranted. Ashlie Malave is a 22 y.o. female, here today for a follow-up of Insomnia. Any difficulty falling asleep? no Any difficulty staying asleep? no She uses the following medication(s) for sleep: Trazodone. She also complains of anxiety, depression, fatigue, irritability and stress. documented in this encounter* Vianney Morse APRN-TOREY - 10/11/2018 3:10 PM EDT History of Present Illness Chief Complaint Patient presents with Anxiety Follow up anxiety and depression Headache ongoing headache for approx one month- becoming severe Insomnia She states she has been out of trazodone for approx 1 1/2 weeks Contraception She states she has been out of OCP for approx 1 1/2 weeks - poor compliance - severe cramping on mense 10/09/18 - [facility] for vaginal bleeding. Started menstrual cycle. Negative test was neg. Ashlie Malave is a 22 y.o. year-old female is following up on generalized anxiety disorder. Ashlie Malave 's anxiety screening is 20. She Is not taking her medication as ordered. She has not noticed a decrease in symptoms. She reports insomnia - out of Trazodone medication currently, reports anxiety/anxious, reports SOB/chest tightness, reports to palpitations, reports to mood swings,reports irritability. Symptoms on effexor were significantly improved until running out of med. Ashlie Malave is a 22 y.o. female who comes in for follow-up for generalized depression disorder. Ashlie Malave 's depression screening is 19. She Is not taking her medications as ordered. She is having insomnia. She reports having changes in interest, Is having depressed mood, reports crying spells, Is having fatigue, Is having problems concentrating, reports changes in appetite,reports a visible slowing of physical and emotional reactions, reports emotional distress and restlessness. Ashlie Malave is a 22 y.o. year old female present today for an follow-up of menstrual/vaginal bleeding. She does have bad headaches during mense - she has headache which she states ongoing for approx one month. LMP - 10/11/18 (current) Vaginal bleeding is rapidly worsening since NOT taking Zovia, very poor compliance and she is out of medication to regulate mense's and help with cramping pains. She is not currently on control. Her menstrual bleeding is heavy at this time. She is not having unusual discharge. She is currently sexually active - last sexual intercourse date approx 2 weeks ago. control methods include: Zovia 1 tablet daily with poor compliance. She does not currently feel she is at risk for a sexually transmitted infection. She has not had any diagnosed sexually transmitted infections in the past. Past Medical History: Diagnosis Date Depression Generalized anxiety disorder Outpatient Medications Prior to Visit Medication Sig Dispense Refill ethynodiol-ethinyl estradiol (ZOVIA E, 28,) 1-35 MG-MCG Tab Take 1 tablet by mouth daily. (Patient not taking: Reported on 10/11/2018) 3 Package 3 hydrOXYzine HCl 25 MG Tab tablet Take 1 tablet by mouth 3 times daily as needed for Anxiety or Insomnia. (Patient not taking: Reported on 10/11/2018) 60 tablet 5 traZODone 50 MG Tab Take 1 tablet by mouth at bedtime. (Patient not taking: Reported on 10/11/2018) 90 tablet 1 venlafaxine (EFFEXOR XR) 75 MG Cap SR 24HR capsule XR Take 1 capsule by mouth daily. (Patient not taking: Reported on 10/11/2018) 30 capsule 1 No facility-administered medications prior to visit. Allergies Allergen Reactions Percocet [Oxycodone-Acetaminophen] Codeine Itching Review of Systems Constitutional: Negative for appetite change, chills, diaphoresis, fatigue, fever and unexpected weight change. HENT: Positive for congestion, postnasal drip, sinus pressure, sore throat and voice change. Negative for ear pain, hearing loss, rhinorrhea and trouble swallowing. Eyes: Negative for pain, discharge, redness and visual disturbance. Respiratory: Negative for apnea, cough, choking, chest tightness, shortness of breath and wheezing. Cardiovascular: Negative for chest pain, palpitations and leg swelling. Gastrointestinal: Negative for abdominal distention, abdominal pain, anal bleeding, blood in stool,constipation, diarrhea and nausea. Endocrine: Negative. Genitourinary: Negative for decreased urine volume, difficulty urinating, dysuria, flank pain, frequency, hematuria and urgency. Musculoskeletal: Negative for arthralgias, back pain, gait problem, joint swelling, myalgias and neck pain. Skin: Negative. Allergic/Immunologic: Negative. Neurological: Negative for dizziness, tremors, syncope, weakness, light- headedness, numbness and headaches. Hematological: Negative. Psychiatric/Behavioral: Positive for dysphoric mood. Negative for agitation, behavioral problems, confusion, decreased concentration, hallucinations, self- injury, sleep disturbance and suicidal ideas. The patient is nervous/anxious. The patient is not hyperactive. Vitals: Blood pressure 110/80, pulse 107, temperature 97.7 F (36.5 C), temperature source Temporal,resp. rate 18, height 1.727 m (5' 8), weight 104.3 kg (230 lb), last menstrual period 10/11/2018, SpO2 96 %. Physical Exam Constitutional: She is oriented to person, place, and time. She appears well- developed and well-nourished. HENT: Head: Normocephalic. Right Ear: Tympanic membrane, external ear and ear canal normal. Left Ear: Tympanic membrane, external ear and ear canal normal. Nose: Mucosal edema, rhinorrhea and sinus tenderness present. Right sinus exhibits maxillary sinus tenderness and frontal sinus tenderness. Left sinus exhibits maxillary sinus tenderness and frontal sinus tenderness. Mouth/Throat: Posterior oropharyngeal erythema present. Eyes: Conjunctivae are normal. Neck: Neck supple. Cardiovascular: Normal rate, regular rhythm and normal heart sounds. Pulmonary/Chest: Effort normal and breath sounds normal. Lymphadenopathy: She has no cervical adenopathy. Neurological: She is alert and oriented to person, place, and time. Skin: Skin is warm and dry. Capillary refill takes less than 2 seconds. Psychiatric: Her speech is normal and behavior is normal. Judgment and thought content normal. Her mood appears anxious. Cognition and memory are normal. She exhibits a depressed mood. Nursing note and vitals reviewed. Neurologic Exam Mental Status Oriented to person, place, and time. Speech: speech is normal Assessment and Plan 1. Primary insomnia Stable, will continue current med. - traZODone 50 MG Tab; Take 1 tablet by mouth at bedtime. Dispense: 90 tablet; Refill: 1 2. Anxiety Controlled when taking med, will start back on medication. - venlafaxine (EFFEXOR XR) 75 MG Cap SR 24HR capsule XR; Take 1 capsule by mouth daily. Dispense: 90 capsule; Refill: 1 - hydrOXYzine HCl 25 MG Tab tablet; Take 1 tablet by mouth 3 times daily as needed for Anxiety or Insomnia. Dispense: 60 tablet; Refill: 5 3. Moderate episode of recurrent major depressive disorder Controlled when taking med, will start back on medication. - venlafaxine (EFFEXOR XR) 75 MG Cap SR 24HR capsule XR; Take 1 capsule by mouth daily. Dispense: 90 capsule; Refill: 1 4. Dysfunctional uterine bleeding Stable, will continue current med. - ethynodiol-ethinyl estradiol (ZOVIA , ,) 1-35 MG-MCG Tab; Take 1 tablet by mouth daily. Dispense: 3 Package; Refill: 3 5. Chronic migraine without aura without status migrainosus, not intractable The nature of migraine has been discussed. Various episodic and prophylactic choices have been explained. Neurodiagnostic studies have been discussed. Recommendations: lie in darkened room and apply cold packs prn for pain, side effect profile discussed in detail, asked to keep headache diary and patient reassured that neurodiagnostic workup not indicated from benign H & P. Abortive triptan prescribed. Discussed risks (side effects) and benefits of medication & encouraged to read about medication and take meds as directed. - naratriptan 2.5 MG Tab; Take 1 tablet by mouth once as needed (migraine) for up to 1 dose. max 5mg/day; may repeat in 4 hr x1 Dispense: 5 tablet; Refill: 5 6. Sore throat Negative for strep - POCT RAPID STREP A 7. Acute recurrent maxillary sinusitis Discussed conservative treatment measures. Will tx with Augmentin. Discussed risks (side effects) and benefits of medication & encouraged to read about medication and take meds as directed. - amoxicillin-clavulanate 875-125 MG Tab tablet; Take 1 tablet by mouth every 12 hours for 10 days.Dispense: 20 tablet; Refill: 0 8. Antibiotic-induced yeast infection Discussed risks (side effects) and benefits of medication & encouraged to read about medicationand take meds as directed. - fluconazole (DIFLUCAN) 150 MG Tab tablet; Take 1 tablet by mouth once for 1 dose. Dispense: 1 tablet; Refill: 0 Return to clinic in 6 months or sooner prn. * Shilpa Saldaña LPN - 10/11/2018 3:10 PM EDT Chief Complaint Patient presents with Anxiety Ashlie is present for routine follow up with anxiety/depression - she states she has been taking escitalopram and did not switch to Effexor - she states she was not aware but she no show'ed for follow up appt as well. She has been completely off medication for 1 1/2 weeks. Headache ongoing headache for approx one month- becoming severe Insomnia She states she has been out of trazodone for approx 1 1/2 weeks Contraception She states she has been out of OCP for approx 1 1/2 weeks - poor compliance - severe cramping on mense She states she has been taking escitalopram and did not switch to Effexor - she states she was not aware but she no show'ed for follow up appt as well and she is aware. I explained to her the switch of medications and she stated she understood. She has been completely off medication for 1 1/2 weeks. 10/09/18 - [facility] for vaginal bleeding. Started menstrual cycle. Negative test was neg. Ashlie Malave is a 22 y.o. year-old female is following up on generalized anxiety disorder. Ashlie Malave 's anxiety screening is 20. She Is not taking her medication as ordered. She has not noticed a decrease in symptoms. She reports insomnia - out of Trazodone medication currently, reports anxiety/anxious, reports SOB/chest tightness, reports to palpitations, reports to mood swings,reports irritability. She has continued to take escitalopram which was causing weight gain previously and was her complaint. Ashlie Malave is a 22 y.o. female who comes in for follow-up for generalized depression disorder. Ashlie Malave 's depression screening is 19. She Is not taking her medications as ordered. She is having insomnia. She reports having changes in interest, Is having depressed mood, reports crying spells, Is having fatigue, Is having problems concentrating, reports changes in appetite,reports a visible slowing of physical and emotional reactions, reports emotional distress and restlessness. Ashlie Malave is a 22 y.o. year old female present today for an follow-up of menstrual/vaginal bleeding. She does have bad headaches during mense - she has headache which she states ongoing for approx one month. LMP - 10/11/18 (current) Blood pressure 110/80, pulse 107, temperature 97.7 F (36.5 C), temperature source Temporal, resp. rate 18, height 1.727 m (5' 8), weight 104.3 kg (230 lb), last menstrual period 10/11/2018, SpO2 96 %. Vaginal bleeding is rapidly worsening since NOT taking Zovia, very poor compliance and she is out of medication to regulate mense's and help with cramping pains. She is not currently on control. Her menstrual bleeding is heavy at this time. She is not having unusual discharge. She is currently sexually active - last sexual intercourse date approx 2 weeks ago. control methods include: Zovia 1 tablet daily with poor compliance. She does not currently feel she is at risk for a sexually transmitted infection. She has not had any diagnosed sexually transmitted infections in the past. documented in this encounter* Vianney Morse, [employer]INE OPERATOR - 04/09/2019 2:00 PM EST History of Present Illness Chief Complaint Patient presents with 16 weeks - Dr. [facility] ([facility]) is her PRESERVATIVE [employer] MACHINE OPERATOR. She has been sick during and has lost approx 30 lbs. Depression venlafaxine 75 mg daily - discuss increase dosage if possible Insomnia difficulty with sleeping - d/c trazodone per PRES[employer]ATIVE FILLER MACHINE OPERATOR. Does take Unisom with some benefit Anxiety Controlled on venlafaxine Ashlie Malave is a 23 y.o. female who comes in for follow-up for generalized depression disorder. Ashlie Malave 's depression screening is 22. 16 weeks - Dr. Green ([facility]) is her PRESERVATIVE FILLER MACHINE OPERATOR. She has been sick during and has lost approx 30 lbs. She Is taking her medications as ordered. She Is having insomnia -difficulty with sleeping - d/c trazodone per PRESERVATIVE FILLER MACHINE OPERATOR. Does take Unisom with some benefit . She reports having changes in interest, Is having depressed mood, reports crying spells, Is having fatigue, Is having problems concentrating, reports changes in appetite - nauseated constantly - Promethazine prescribed by PRESERVATIVE FILLER MACHINE OPERATOR end of Jan 2019 - giving her bad nightmares,reports a visible slowing of physical and emotional reactions, reports emotional distress and restlessness, denies suicidal ideation. She is following up on generalized anxiety disorder. Ashlie Malave 's anxiety screening is 7. She Is not taking her medication as ordered - 16 weeks - Dr. Green ([facility]) is her PRESERVATIVE FILLER MACHINE OPERATOR and advised to discontinue hydroxyzine. She has not noticed a decrease in symptoms. She does find if she takes a drive and listens to music with her daughter, relieves anxiety. She reports insomnia, reports anxiety/anxious with increased activity - overwhelmed at home with needing to do chores but very fatigued, reports SOB/chest tightness (once), denies to palpitations, reports to mood swings,denies irritability. She denies side effects from medication if warranted. Past Medical History: Diagnosis Date Depression Generalized anxiety disorder Outpatient Medications Prior to Visit Medication Sig Dispense Refill venlafaxine (EFFEXOR XR) 75 MG Cap SR 24HR capsule XR Take 1 capsule by mouth daily. 90 capsule 1 naratriptan 2.5 MG Tab Take 1 tablet by mouth once as needed (migraine) for up to 1 dose. max 5mg/day; may repeat in 4 hr x1 5 tablet 5 ethynodiol-ethinyl estradiol (ZOVIA 1/35E, 28,) 1-35 MG-MCG Tab Take 1 tablet by mouth daily. (Patient not taking: Reported on 04/09/2019) 3 Package 3 hydrOXYzine HCl 25 MG Tab tablet Take 1 tablet by mouth 3 times daily as needed for Anxiety or Insomnia. (Patient not taking: Reported on 04/09/2019) 60 tablet 5 traZODone 50 MG Tab Take 1 tablet by mouth at bedtime. (Patient not taking: Reported on 04/09/2019) 90 tablet 1 No facility-administered medications prior to visit. Allergies Allergen Reactions Percocet [Oxycodone-Acetaminophen] Codeine Itching Review of Systems Constitutional: Negative for appetite change, chills, diaphoresis, fatigue, fever and unexpected weight change. HENT: Negative for congestion, ear pain, hearing loss, rhinorrhea, sore throat and trouble swallowing. Eyes: Negative for pain, discharge, redness and visual disturbance. Respiratory: Negative for apnea, cough, choking, chest tightness, shortness of breath and wheezing. Cardiovascular: Negative for chest pain, palpitations and leg swelling. Gastrointestinal: Negative for abdominal distention, abdominal pain, anal bleeding, blood in stool,constipation, diarrhea and nausea. Endocrine: Negative. Genitourinary: Negative for decreased urine volume, difficulty urinating, dysuria, flank pain, frequency, hematuria and urgency. Musculoskeletal: Negative for arthralgias, back pain, gait problem, joint swelling, myalgias and neck pain. Skin: Negative. Allergic/Immunologic: Negative. Neurological: Negative for dizziness, tremors, syncope, weakness, light- headedness, numbness and headaches. Hematological: Negative. Psychiatric/Behavioral: Positive for dysphoric mood and sleep disturbance. Negative for agitation, behavioral problems, confusion, decreased concentration, hallucinations, self-injury and suicidal ideas. The patient is nervous/anxious. The patient is not hyperactive. Vitals: Blood pressure 124/72, pulse 117, temperature 97.2 F (36.2 C), temperature source Temporal,resp. rate 18, height 1.727 m (5' 8), weight 102 kg (224 lb 12.8 oz), SpO2 99 %. Physical Exam Vitals signs and nursing note reviewed. Constitutional: Appearance: Normal appearance. Neurological: Mental Status: She is alert and oriented to person, place, and time. Psychiatric: Mood and Affect: Mood is depressed. Mood is not anxious. Behavior: Behavior normal. Thought Content: Thought content normal. Judgment: Judgment normal. Neurologic Exam Mental Status Oriented to person, place, and time. Assessment and Plan ICD-10-CM 1. Moderate episode of recurrent major depressive disorder F33.1 venlafaxine (Effexor XR) 75 MG CapSR 24HR capsule XR 2. Anxiety F41.9 venlafaxine (Effexor XR) 75 MG Cap SR 24HR capsule XR Discussed use of SNRI during with Dr Billings, he advised against increasing dose and recommended changing to SSRI. She has been on Zoloft previous which did not help. I did discuss prozac with her. She would prefer to stay on the Venlafaxine and will talk to her TOOL CRIB MANAGER regarding safety of staying on and possible dose increase. Refuses counseling/psychiatry at this time. Nausea is improving which she feels is helping some with her depression. Return to clinic in 6 months or sooner prn. * Shilpa Saldaña LPN - 04/09/2019 2:00 PM EST Chief Complaint Patient presents with 16 weeks - Dr. [facility] ([facility]) is her PRESERVATIVE FILLER MACHINE OPERATOR. She has been sick during and has lost approx 30 lbs. Nausea Promethazine prescribed by PRESERVATIVE FILLER MACHINE OPERATOR end of Jan 2019 - giving her bad nightmares Depression venlafaxine 75 mg daily - discuss increase dosage if possible Insomnia difficulty with sleeping - d/c trazodone per PRESERVATIVE FILLER MACHINE OPERATOR. Does take Unisom with some benefit Anxiety uncontrolled anxiety Ashlie Malave is a 23 y.o. female who comes in for follow-up for generalized depression disorder. Ashlie Malave 's depression screening is 22. 16 weeks - Dr. Green ([facility]) is her PRESERVATIVE FILLER MACHINE OPERATOR. She has been sick during and has lost approx 30 lbs. She Is taking her medications as ordered. She Is having insomnia -difficulty with sleeping - d/c trazodone per PRESERVATIVE FILLER MACHINE OPERATOR. Does take Unisom with some benefit . She reports having changes in interest, Is having depressed mood, reports crying spells, Is having fatigue, Is having problems concentrating, reports changes in appetite - nauseated constantly - Promethazine prescribed by PRESERVATIVE FILLER MACHINE OPERATOR end of Jan 2019 - giving her bad nightmares,reports a visible slowing of physical and emotional reactions, reports emotional distress and restlessness, denies suicidal ideation. Ashlie Malave is a 23 y.o. year-old female is following up on generalized anxiety disorder. Ashlie Malave 's anxiety screening is 7. She Is not taking her medication as ordered - 16 weeks - Dr. Green ([facility]) is her PRESERVATIVE FILLER MACHINE OPERATOR and advised to discontinue hydroxyzine. She has not noticed a decrease in symptoms. She does find if she takes a drive and listens to music with her daughter, relieves anxiety. She reports insomnia, reports anxiety/anxious with increased activity - overwhelmed at home with needing to do chores but very fatigued, reports SOB/chest tightness (once), denies to palpitations, reports to mood swings,denies irritability. She denies side effects from medication if warranted. documented in this encounter Assessments Diagnosis Primary insomnia - Primary Persistent disorder of initiating or maintaining sleep Anxiety Anxiety state, unspecified Severe episode of recurrent major depressive disorder, without psychotic features Encounter for initial prescr iption of contraceptive pills General counseling for prescription of oral contraceptives Upper respiratory tract infe ction, unspecified type Diagnosis Dysfunctional uterine bleeding- Primary Other disorder of menstruation and other abnormal bleeding from female genital tract Diagnosis Suprapubic pressure- Primary Abdominal pain, other specified site Breast tenderness Mastodynia Dysfunctional uterine bleeding Other disorder of menstruation and other abnormal bleeding from female genital tract Anxiety Anxiety state, unspecified Moderate episode of recurrent major depressive disorder Primary insomnia Persistent disorder of initiating or maintaining sleep Obesity (BMI 30-39.9) Obesity, unspecified Diagnosis Primary insomnia- Primary Persistent disorder of initiating or maintaining sleep Anxiety Anxiety state, unspecified Moderate episode of recurrent major depressive disorder Dysfunctional uterine bleeding Other disorder of menstruation and other abnormal bleeding from female genital tract Chronic migraine without aura without status migrainosus, not intractable Chronic migraine without aura, without mention of intractable migraine without mention of status migrainosus Sore throat Acute pharyngitis Acute recurrent maxillary sinusitis Acute maxillary sinusitis Antibiotic-induced yeast infection Diagnosis Moderate episode of recurrent major depressive disorder Anxiety Anxiety state, unspecified Diagnosis Vaginal bleeding- Primary Other specified noninflammatory disorder of vagina Reason for Referral Status Reason Specialty Diagnoses / Procedures Referred By Contact Referred To Contact New Request Family Medicine Diagnoses Vaginal bleeding Adin Thakkar MD [address] [place], [place] [id number] Vianney Morse HIGH SCALER-TWO NEEDLE MACHINE OPERATOR [address] [place], [place] [phone] Specialty Diagnoses / Procedures Referred By Contac t Referred To Contact Diagnoses Irritable bowel syndrome with diarrhea Bloating Constipation, unspecified constipation type Abdominal pain, epigastric Procedures DIAGNOSTIC UPPER ENDOSCOPY MA ESOPHAGOGASTRODUODENOSCOPY TRANSORAL DIAGNOSTIC Stefano Cuadra Jr., DO [address] [place], [place] [phone] Referral ID Status Reason Start Date Expiration Date Visits Re quested Visits Authorized [id number] Closed 04/13/2022 05/08/2023 1 1 Specialty Diagnoses / Procedures Referred By Contac t Referred To Contact Diagnoses Irritable bowel syndrome with diarrhea Bloating Constipation, unspecified constipation type Abdominal pain, epigastric Procedures DIAGNOSTIC COLONOSCOPY MA COLONOSCOPY FLX DX W/COLLJ SPEC WHEN PFRMD Stefano Cuadra Jr., DO [address] [place], [place] [phone] Referral ID Status Reason Start Date Expiration Date Visits Re quested Visits Authorized [id number] Closed 04/13/2022 05/08/2023 1 1 Specialty Diagnoses / Procedures Referred By Contac t Referred To Contact Diagnoses Moderate episode of recurrent major depressive disorder Vianney Morse, HIGH SCALER-TWO NEEDLE MACHINE OPERATOR [address] [place] [phone] Referral ID Status Reason Start Date Expiration Date Visits Re quested Visits Authorized [id number] Closed 1 1 Specialty Diagnoses / Procedures Referred By Contac t Referred To Contact Radiology Diagnoses Other instability, right ankle Difficulty in walking, not elsewhere classified Sprain of other ligament of right ankle, initial encounter Other specified osteochondropathies, right ankle and foot Procedures MR ankle right wo IV contrast FasciJanelle taylor, DPM [address] [place] [address] Referral ID Status Reason Start Date Expiration Date Visits Requested Visits Authorized [id number] Authorized Perform Procedure 3 02/16/2024 1 1 Specialty Diagnoses / Procedures Referred By Contac t Referred To Contact Diagnoses Abdominal pain, epigastric Procedures US ABDOMEN RUQ/LIVER/GB Toni Burch, DO [address] [place] [address] Referral ID Status Reason Start Date Expiration Date V isits Requested Visits Authorized [id number] Authorized 08/03/2023 08/27/2024 1 1 Specialty Diagnoses / Procedures Referred By Contac t Referred To Contact Procedures US ABDOMEN RUQ/LIVER/GB Anirudh Alvarez, HIGH SCALER-TWO NEEDLE MACHINE OPERATOR [address] [place] [address] Referral ID Status Reason Start Date Expiration Date V isits Requested Visits Authorized [id number] New Request 08/04/2023 08/28/2024 1 1 Specialty Diagnoses / Procedures Referred By Contac t Referred To Contact Diagnoses Abdominal pain, acute Procedures NUC HEPATOBILIARY WITH EJECTION FRACTION CHG HEPATOBIL SYST IMAG INC GB W/PHARMA INTERVENJ Toni Burch, DO [address] [place] [address] Referral ID Status Reason Start Date Expiration Date Visits Re quested Visits Authorized [id number] Closed 08/07/2023 08/31/2024 1 1 Specialty Diagnoses / Procedures Referred By Contac t Referred To Contact Diagnoses Chronic migraine without aura without status migrainosus, not intractable Vianney Morse, HIGH SCALER-TWO NEEDLE MACHINE OPERATOR [address] [place] [address] Referral ID Status Reason Start Date Expiration Date Visits Re quested Visits Authorized [id number] Closed 1 1 Referral ID Status Reason Start Date Expiration Date V isits Requested Visits Authorized [id number] Pending Review 11/09/2023 12/03/2024 1 1 Discharge Instructions * Attachments The following attachments cannot be sent through Care Everywhere. * Vaginal Bleeding ([place]ien) documented in this encounter Chief Complaint and Reason for Visit Chief Complaint Admit Date NEURO S/S April 29, 2024 6:0 1pm Additional Source Comments INFORMATION SOURCE (unrecogn ized section and content) DATE CREATED AUTHOR 08/10/2017 [facility] DATE CREATED AUTHOR AUTHOR'S ORGANIZ ATION 09/15/2017 [facility] DATE CREATED AUTHOR AUTHOR'S ORGANIZ ATION 10/13/2017 [facility] DATE CREATED AUTHOR AUTHOR'S ORGANIZ ATION 08/18/2018 [facility] DATE CREATED AUTHOR AUTHOR'S ORGANIZ ATION 06/30/2020 [facility] DATE CREATED AUTHOR AUTHOR'S ORGANIZ ATION 03/31/2022 [facility] DATE CREATED AUTHOR AUTHOR'S ORGANIZ ATION 11/24/2022 [facility] DATE CREATED AUTHOR AUTHOR'S ORGANIZ ATION 10/05/2023 [facility] DATE CREATED AUTHOR AUTHOR'S ORGANIZ ATION 07/25/2024 [facility] DATE CREATED AUTHOR AUTHOR'S ORGANIZ ATION 07/28/2024 [facility] DATE CREATED AUTHOR AUTHOR'S ORGANIZ ATION 11/02/2024 [facility] Reason for Visit (unrecogniz ed section and content) Reason Comments Contraception Ashlie is requesting to switch from DEPO - next injection due tomorrow - to oral contraceptive medication Depression escitalopram 10mg da kaushik - requesting evaluation for depression - side effects: excessive sweating and nausea continued Anxiety escitalopram 10mg da kaushik - requesting evaluation for anxiety - - side effects: excessive sweating and nausea continued Insomnia trazodone 50mg daily at HS for insomnia URI s/sx of URI - cough/ scratchy throat/congestion Menstrual Problem Approx six months of DEPO injection - having persistent vaginal bleeding daily (intermittently heavy bleeding bright red blood) Reason Comments Irregular Menses Reason Comments Depression Ashlie is present fo r routine follow up on depression - mild depression currently. Anxiety Ashlie is present fo r routine follow up on anxiety- has worsened - taking Hydroxyzine more recently Contraception Discuss OCP - miladis hodge was switched to ZOVIA 06/28/18 due to prolonged menstrual bleeding - bleeding stopped approx 2 weeks ago - has been out of OCP for 3-4 days - requesting test in office Abdominal Pain Requesting to run UA to r/o infection Insomnia Trazodone 50 mg joel y at bedtime - controlling insomnia Reason Comments Menstrual Problem Reason Comments Menstrual Problem excessive menstrual bleeding Reason Comments Anxiety Follow up anxiety an d depression Headache ongoing headache for approx one month- becoming severe Insomnia She states she has b een out of trazodone for approx 1 1/2 weeks Contraception She states she has b een out of OCP for approx 1 1/2 weeks - poor compliance - severe cramping on mense Reason Comments 16 weeks - [facility]. [facility] ([facility]) is her PRESERVATIVE FILLER MACHINE OPERATOR. She has been sick during and has lost approx 30 lbs. Depression venlafaxine 75 mg da kaushik - discuss increase dosage if possible Insomnia difficulty with slee ping - d/c trazodone per PRESERVATIVE FILLER MACHINE OPERATOR. Does take Unisom with some benefit Anxiety Controlled on venlaf axine Reason Comments Spotting has had 2 positive p regnancy test, bleeding started yesterday, pt was 3 days late on period, c/o cramping pain 08/29, tylenol taken @ 1700 Reason Comments Other Reason Comments Depression Anxiety Migraine Reason Comments Medication Problem went to ER in [place] on 09/11[place]20; legs and lower back hurting and diagnosed with UTI gave cephalexin. and gave diarrhea for 3 days, made her sick to her stomach. Said her PCP can't get her in and sent her here. States she wants a different medication and now has a yeast infection. Reason Comments Anxiety Depression Bladder Infection Reason Comments Gastroesophageal Reflux Disease Epigastric Pain Specialty Diagnoses / Procedures Referred By Carolyn burdick Referred To Contact Gastroenterology Diagnoses Epigastric pain Vianney Morse, HIGH SCALER-TWO NEEDLE MACHINE OPERATOR [address] [place] [address] Stefano Cuadra Jr., [address] [place] [address] Referral ID Status Reason Start Date Expiration Date Visits Re quested Visits Authorized [id number] Open 09/27/2021 10/22/2022 1 1 Reason Comments Nausea Vomiting Diarrhea Weight Loss 13 lbs in 2 months Specialty Diagnoses / Procedures Referred By Carolyn burdick Referred To Contact Diagnoses Irritable bowel syndrome with diarrhea Bloating Constipation, unspecified constipation type Abdominal pain, epigastric Procedures DIAGNOSTIC COLONOSCOPY MA COLONOSCOPY FLX DX W/COLLJ SPEC WHEN PFRMD Stefano Cuadra Jr., [address] [place] [address] Referral ID Status Reason Start Date Expiration Date Visits Re quested Visits Authorized [id number] Closed 04/13/2022 05/08/2023 1 1 Reason Comments Anxiety Depression ADHD Reason Comments ADHD Depression Urinary Pain Reason Comments Sore Throat Exposed to covid wit hin the past week, chest congestion, sore throat and fatigue Specialty Diagnoses / Procedures Referred By Carolyn burdick Referred To Contact Diagnoses Other instability, right ankle Difficulty in walking, not elsewhere classified Sprain of other ligament of right ankle, initial encounter Other specified osteochondropathies, right ankle and foot Procedures CHG MRI ANY JT LOWER EXTREM W/[facility] [address] [place] [address] Referral ID Status Reason Start Date Expiration Date Visits Re quested Visits Authorized [id number] 1 1 Reason Comments Vomiting Patient states she h as had a recent bacterial infection in her Vagina. Patient states she was prescribed Doxycycline Patient states she has recently had burning in her chest and vomiting. Patient states her symptoms started immediately after she began taking her anti-biotic medications. Reason Comments Anxiety Depression ADHD Reason Comments New Patient GERD Specialty Diagnoses / Procedures Referred By Carolyn burdick Referred To Contact General Surgery Diagnoses Gastroesophageal reflux disease without esophagitis Hiatal hernia Vianney Morse, HIGH SCALER-TWO NEEDLE MACHINE OPERATOR [address] [place] [address] Toni Burch, DO [address] [place] [address] Referral ID Status Reason Start Date Expiration Date V isits Requested Visits Authorized [id number] New Request 05/23/2023 06/16/2024 1 1 Reason Comments Abdominal Pain States was seen by Christopher Burch yesterday and was told has gall stones . Has US scheduled for Monday but states pain is too bad. N/v. Specialty Diagnoses / Procedures Referred By Carolyn t Referred To Contact Diagnoses Abdominal pain, acute Procedures NUC HEPATOBILIARY WITH EJECTION FRACTION CHG HEPATOBIL SYST IMAG INC GB W/PHARMA INTERVENJ Toni Burch, DO [address] [place] [address] Referral ID Status Reason Start Date Expiration Date Visits Re quested Visits Authorized [id number] Closed 08/07/2023 08/31/2024 1 1 Reason Comments ADHD Migraine Reason Comments Follow-up GERD and epigastric pain especially with eating Specialty Diagnoses / Procedures Referred By Carolyn burdick Referred To Contact Diagnoses Biliary colic Biliary colic [K80.50] Procedures MA LAPAROSCOPY SURG CHOLECYSTECTOMY CHOLECYSTECTOMY ROBOTIC Toni Burch, DO [address] [place] [address] Referral ID Status Reason Start Date Expiration Date Visits Re quested Visits Authorized [id number] 08/31/2023 1 1 Reason Comments Anxiety Depression Esophageal Reflux ADHD Reason Comments Ear Pain Urinary Pain Patient states she i s having burning while urinating and frequency. She said that she feels like she still has to urinate after she is done urinating. Patient is also complaining of Right ear pain, and cough She has been having these symptoms for 3 or 4 days. Reason Comments Abdominal Pain Patient states that she is having upper abdominal pain, cramping, and bilateral thigh pain. Patient states she had her gallbladder removed last Monday and has been in pain since then. States she was positive for a fever two days ago and has the chills. Patient is negative for a fever at this time. Patient states she took tramadol around 10pm last night and 800mg ibuprofen at midnight. Reason Comments Back Pain Elevated Blood Pressure Without Diagnosi s Of Hypertension Tingling Bilateral feet and h ands Ear Pain left Reason Comments Raynaud's Syndrome Other Fluctuating blood pr essure Vaginal Discharge Back Pain <item><item> Privacy Markings (unrecogniz ed section and content) Section Author: Vanessa Trivedi PROHIBITION ON REDISCLOSURE OF CONFIDENTIAL INFORMATION This notice accompanies a disclosure of information concerning a client made to you with the consent of such client. Section Author: Vanessa Trivedi PROHIBITION ON REDISCLOSURE OF CONFIDENTIAL INFORMATION This notice accompanies a disclosure of information concerning a client made to you with the consent of such client. Care Teams (unrecognized sec tion and content) Professor Of Surgery Relationship Specialty Start Date End Date Vianney Morse APRN-[facility] PCP - General Certified Nurse Practitioner 12/18/17 Luisa Green, [address] [place] [address] PCP - OBGYN TOOL CRIB MANAGER 08/09/19 Professor Of Surgery Relationship Specialty Start Date End Date Vianney Morse APRN-CNP PCP - General Certified Nurse Practitioner 12/18/17 Luisa Green DO [address] [place] [address] PCP - OBGYN TOOL CRIB MANAGER 08/09/19 Professor Of Surgery Relationship Specialty Start Date End Date Vianney Morse, HIGH SCALER-TWO NEEDLE MACHINE OPERATOR PCP - General Certified Nurse Practitioner 12/18/17 Luisa Green, DO [address] [place] [address] [place] [address] PCP - OBGYN Obstetrics & Gynecology 08/09/19 Professor Of Surgery Relationship Specialty Start Date End Date Morse Vianney, HIGH SCALER-TWO NEEDLE MACHINE OPERATOR PCP - General Certified Nurse Practitioner 12/18/17 Luisa Green, DO [address] [place] [address] PCP - OBGYN Obstetrics & Gynecology 08/09/19 Professor Of Surgery Relationship Specialty Start Date End Date Vianney Morse, HIGH SCALER - TWO NEEDLE MACHINE OPERATOR [address] [place] [address] PCP - General 03/16/22 Professor Of Surgery Relationship Specialty Start Date End Date Morse Vianney HIGH SCALER-TWO NEEDLE MACHINE OPERATOR PCP - General Certified Nurse Practitioner 12/18/17 Luisa Green, [address] [place] [address] PCP - OBGYN Obstetrics & Gynecology 08/09/19 Professor Of Surgery Relationship Specialty Start Date End Date Vianney Morse HIGH SCALER-TWO NEEDLE MACHINE OPERATOR PCP - General Certified Nurse Practitioner 12/18/17 Luisa Green, DO [address] [place] [address] PCP - OBGYN Obstetrics & Gynecology 08/09/19 Professor Of Surgery Relationship Specialty Start Date End Date Vianney Morse HIGH SCALER-TWO NEEDLE MACHINE OPERATOR PCP - General Certified Nurse Practitioner 12/18/17 Luisa Green DO [address] [place] [address] PCP - OBGYN Obstetrics & Gynecology 08/09/19 Professor Of Surgery Relationship Specialty Start Date End Date Vianney Morse HIGH SCALER-TWO NEEDLE MACHINE OPERATOR PCP - General Certified Nurse Practitioner 12/18/17 Luisa Green DO [address] [place] [address] PCP - OBGYN Obstetrics & Gynecology 08/09/19 Professor Of Surgery Relationship Specialty Start Date End Date Vianney Morse HIGH SCALER-TWO NEEDLE MACHINE OPERATOR PCP - General Certified Nurse Practitioner 12/18/17 Luisa Green DO [address] [place] [address] PCP - OBGYN Obstetrics & Gynecology 08/09/19 Professor Of Surgery Relationship Specialty Start Date End Date Vianney Morse, HIGH SCALER-TWO NEEDLE MACHINE OPERATOR [address] [place] [address] PCP - General 11/16/22 Professor Of Surgery Relationship Specialty Start Date End Date Vianney Morse HIGH SCALER-TWO NEEDLE MACHINE OPERATOR PCP - General Certified Nurse Practitioner 12/18/17 Luisa Green DO [address] [place] [address] PCP - OBGYN Obstetrics & Gynecology 08/09/19 Professor Of Surgery Relationship Specialty Start Date End Date Lito Vianney, -[facility] PCP - General Certified Nurse Practitioner 12/18/17 Luisa Green DO [address] [place] [address] PCP - OBGYN Obstetrics & Gynecology 08/09/19 Professor Of Surgery Relationship Specialty Start Date End Date Vianney Morse, -[facility] PCP - General Certified Nurse Practitioner 12/18/17 Luisa Green DO [address] [place] [place] [address] PCP - OBGYN Obstetrics & Gynecology 08/09/19 Professor Of Surgery Relationship Specialty Start Date End Date MorseVianney -[facility] PCP - General Certified Nurse Practitioner 12/18/17 Luisa Green DO [address] [place] [facility] [place] [address] PCP - OBGYN Obstetrics & Gynecology 08/09/19 Professor Of Surgery Relationship Specialty Start Date End Date Vianney Morse, -[facility] PCP - General Certified Nurse Practitioner 12/18/17 Luisa Green DO [address] [place] [address] PCP - OBGYN Obstetrics & Gynecology 08/09/19 Professor Of Surgery Relationship Specialty Start Date End Date Vianney Morse, -[facility] PCP - General Certified Nurse Practitioner 12/18/17 Luisa Green DO [address] [place] [address] PCP - OBGYN Obstetrics & Gynecology 08/09/19 Professor Of Surgery Relationship Specialty Start Date End Date Vianney Mores, -[facility] PCP - General Certified Nurse Practitioner 12/18/17 Luisa Green DO [address] [place] [address] PCP - OBGYN Obstetrics & Gynecology 08/09/19 Professor Of Surgery Relationship Specialty Start Date End Date Vianney Morse, -[facility] PCP - General Certified Nurse Practitioner 12/18/17 Luisa Green DO [address] [place] [address] PCP - OBGYN Obstetrics & Gynecology 08/09/19 Professor Of Surgery Relationship Specialty Start Date End Date Vianney Morse, [employer] PCP - General Certified Nurse Practitioner 12/18/17 Luisa Green DO [address] [place] [address] PCP - OBGYN Obstetrics & Gynecology 08/09/19 Professor Of Surgery Relationship Specialty Start Date End Date Vianney Morse APRN-TOREY PCP - General Certified Nurse Practitioner 12/18/17 Luisa Green DO [address] [place] [address] PCP - OBGYN Obstetrics & Gynecology 08/09/19 Team Status: Active Member Role Status Dates MANOJ Mcakay Primary Care Provider Active Team Status: Inactive Member Role Status Dates Moody Serrano MD Emergency Provider Active Star t: April 29, 2024 End: April 29, 2024 MANOJ Mackay Primary Care Provider Active Start: April 29, 2024 End: April 29, 2024 Professor Of Surgery Relationship Specialty Start Date End Date Vianney Morse H[employer] PCP - General Certified Nurse Practitioner 12/18/17 Luisa Green DO PCP - OBGYN Obstetrics & Gynecology 08/09/19 Professor Of Surgery Relationship Specialty Start Date End Date Vianney Morse APRN-TOREY PCP - General Certified Nurse Practitioner 12/18/17 Luisa Green DO PCP - OBGYN Obstetrics & Gynecology 08/09/19 Professor Of Surgery Relationship Specialty Start Date End Date Vianney Morse [employer] OPER[employer] [address] [place] [id number] PCP - General Certified Nurse Practitioner 12/18/17 Luisa Green DO [address] [place] [address] PCP - OBGYN Obstetrics & Gynecology 08/09/19 Scheduled Active and Recently Administ ered Medications (unrecognized section and content) Medication Order 05/11/2023 05/12/2023 05/13/2023 GI cocktail: alum/mag hydrox-simethicone(30ml)+lidocaine 2%(10ml) oral suspension 40 mL (COMPLETED) 40 mL, Oral, ONCE, 1 dose, On 05/13/23 at 1900 1850 (Given - Provid er: Helena Lopez RN) ondansetron (ZOFRAN-ODT) disintegrating tablet 4 mg (COMPLETED) 4 mg, Oral, ONCE, 1 dose, On 05/13/23 at 1900 1850 (Given - Provid er: Helena Lopez RN) Pantoprazole (PROTONIX) tablet DR 40 mg (COMPLETED) 40 mg, Oral, ONCE, 1 dose, On 05/13/23 at 1945, Swallow whole; do not crush or chew., Indications: GERD 1922 (Given - Provid er: Adrianna Noonan RN) Scheduled Medication Order 08/02/2023 08/03/2023 08/04/2023 HYDROmorphone (DILAUDID) injection 1 mg (COMPLETED) 1 mg, Intravenous, ONCE, 1 dose, On 08/04/23 at 1600 1537 (Given - Provid er: Alesha Chambers RN) Ondansetron 4mg/2ml (ZOFRAN) injection 4 mg (COMPLETED) 4 mg, Intravenous, ONCE, 1 dose, On Mon08/04/23 at 1600 1537 (Given - Provid er: Alesha Chambers RN) Sodium chloride 0.9% IV solution 1,000 mL (COMPLETED) 1,000 mL, Intravenous, at 999 mL/hr, ONCE, 1 dose, On Mon08/04/23 at 1600 1537 ($$New Bag$$ - Provider: Alesha Chambers RN)1712 (Stopped - Provider: Alesha Chambers RN) Scheduled Medication Order 09/06/2023 09/07/2023 09/08/2023 clindamycin (CLEOCIN) 900 mg in normal saline 50 ml premix IVPB 900 mg, Intravenous, Administer over 30 Minutes, ONCE, 1 dose, On April 09/07/23 at 0700, Pre-op/Pre-Proc 0700 (Due) Indocyanine green (IC-GREEN) topical/IV 1.25 mg (COMPLETED) 1.25 mg, Intravenous, ONCE, 1 dose, On Mon09/08/23 at 1030, Give as soon as iv is placed in preop , Pre-op/Pre-Proc 1112 (Given - Provid er: Kalie Latham RN) Scopolamine (TRANSDERM-SCOP) patch 1 patch(Linked Group 1) 1 patch, Transdermal, ONCE, 1 dose, On Mon09/08/23 at 1100 1109 (Patch Applied - Provider: Kalie Latham RN)1650 (Due: Patch Removed - Provider: System Discharge - Comment: Time automatically adjusted from order being discontinued) VERIFY LINKED PATCH PLACEMENT(Linked Group 1) Other, EVERY 12 HOURS, First dose on Mon09/08/23 at 1100, Until Discontinued, Confirm continued adhesion of scopolamine 1.5 mg/72hr patch at documented site. 1100 (Canceled Entry - Provider: System Discharge - Comment: Automatically canceled at discontinue of medication order) Continuous Medication Order 09/06/2023 09/07/2023 09/08/2023 Sodium chloride 0.9% IV solution Intravenous, at 100 mL/hr, CONTINUOUS, Starting on Mon09/08/23 at 1030, Until Mon09/08/23 at 1907, With extension tubing, Pre-op/Pre-Proc 1100 ($$New Bag$$ - Provider: Kalie Latham RN)1640 (Stopped - Provider: Kalie Latham RN) PRN Medication Order 09/06/2023 09/07/2023 09/08/2023 BUPivacaine-EPINEPHrine (MARCAINE;SENSORCAINE-MPF) 0.5% -[id number] injection (CANCELED) NEEDED, Starting on Mon09/08/23 at 1241, Until Mon09/08/23 at 1324, Intra-op/Intra-Proc 1241 (Given - Provid er: Toni Burch DO) HYDROmorphone (DILAUDID) injection 0.5 mg 0.5 mg, Intravenous, EVERY 15 MINUTES NEEDED, 3 doses, Starting on Mon09/08/23 at 1432, Until Mon09/08/23 at 1907, Severe Pain, Recovery Ondansetron 4mg/2ml (ZOFRAN) injection 4 mg (COMPLETED) 4 mg, Intravenous, ONCE NEEDED, 1 dose, Starting on Mon09/08/23 at 1432, Until Mon09/08/23 at 1504, Nausea / Vomiting, Recovery 1504 (Given - Provid er: Kalie Latham RN) Sodium chloride 0.9 % irrigation (CANCELED) NEEDED, Starting on Mon09/08/23 at 1241, Until Mon09/08/23 at 1324, Intra-op/Intra-Proc 1241 (Given - Provid er: Toni Burch DO) traMADol (ULTRAM) tablet 50 mg (COMPLETED) 50 mg, Oral, ONCE NEEDED, 1 dose, Starting on Mon09/08/23 at 1435, Until Mon09/08/23 at 1505, Moderate Pain, Severe Pain 1505 (Given - Provid er: Kalie Latham RN) Linked Groups Order Group 1: Scopolamine (TRANSDERM-SCOP) patch 1 patchJump to med 1 patch, Transdermal, ONCE, 1 dose, On Mon09/08/23 at 1100 And VERIFY LINKED PATCH PLACEMENTJump to med Other, EVERY 12 HOURS, First dose on Mon09/08/23 at 1100, Until Discontinued, Confirm continued adhesion of scopolamine 1.5 mg/72hr patch at documented site. Scheduled Medication Order 09/13/2023 09/14/2023 09/15/2023 HYDROmorphone (DILAUDID) injection 1 mg 1 mg, Intravenous, ONCE, 1 dose, On Mon09/15/23 at 1800 1806 (Not Given - Pr ovider: Willy Moseley RN - Reason: Patient/family refused - Comment: Patient does not have ride home) iohexol (OMNIPAQUE) 350 MG/ML injection 75 mL (COMPLETED) 75 mL, Intravenous, ONCE, 1 dose, On Mon09/15/23 at 1815, Extravasation Risk, Radiology Procedure 1724 (Given - Radiol ogy - Provider: Eneida Eller) Ondansetron 4mg/2ml (ZOFRAN) injection 4 mg 4 mg, Intravenous, ONCE, 1 dose, On Mon09/15/23 at 1800 1807 (Not Given - Pr ovider: Willy Moseley RN - Reason: Patient/family refused) Sodium chloride 0.9% IV solution 1,000 mL (COMPLETED) 1,000 mL, Intravenous, ONCE, 1 dose, On Mon09/15/23 at 1700 1646 ($$New Bag$$ - Provider: Hayde Mills RN)1806 (Stopped - Provider: Willy Moseley RN) Sodium chloride 0.9% IV solution 75 mL (COMPLETED) 75 mL, Intravenous, ONCE, 1 dose, On Mon09/15/23 at 1815, Radiology Procedure 1724 ($$New Bag$$ - Provider: Eneida Eller)1806 (Stopped - Provider: Willy Moseley RN) Goals (unrecognized section and content) Goals may be documented in a n alternate section FOR RECORDS PERTAINING TO PATIENTS WHO ARE OR HAVE BEEN ENROLLED IN A CHEMICAL DEPENDENCY/SUBSTANCEABUSE PROGRAM, SOME INFORMATION MAY BE OMITTED. This clinical summary was aggregated from multiple sources. Caution should be exercised in using it in the provision of clinical care. This summary normalizes information from multiple sources, and as a consequence, information in this document may materially change the coding, format and clinical context of patient data. In addition, data may be omitted in some cases. CLINICAL DECISIONS SHOULD BE BASED ON THE PRIMARY CLINICAL RECORDS. [email or web address] [email or web address]. provides no warranty or guarantee of the accuracy or completeness of information in this document.
[2024-12-13 18:06] LABS: Mucous, Urine 0 SEEN /hpf (<or=2+); Squamous Epithelial Cells - UA 0 SEEN /hpf (5-10)
[2024-12-13 18:08] LABS: Hematocrit 39.9 % (37-47); Hemoglobin 13.8 g/dL (12.0-15.0); Immature Granulocytes Count 0.020 X10^3/uL (0.0-0.0); Mean Corp Hgb Conc 34.6 g/dL (32-36); Mean Corpuscular Volume 91.3 fL (81-99); Mean Platelet Vol. 10.9 fl (6.2-12.0); NRBC Flagged by Analyzer 0 % (0-5); Platelet Count 187 K/mm3 (150-450); RBC Distribution Width CV 12.2 % (11.6-14.6); RBC Distribution Width SD 40.8 fl (35.1-43.9); Red Blood Count 4.37 M/mm3 (4.2-5.4); White Blood Count 7.3 K/mm3 (4.4-11.0)
[2024-12-13 18:16] LABS: Color, Urine Straw (Yellow); Glucose, Dipstick Normal (Normal); Ketone-Dipstick Negative (Negative); Leukocyte Esterase-Dipstick Negative /ul (Negative); Nitrite-Dipstick Negative (Negative); Occult Blood-Urine 250 /ul (Negative); Protein-Dipstick 15 mg/dl (Negative); Specific Gravity, Urine 1.010 (1.002-1.030); Urine Bilirubin Dipstick Negative (Negative)
[2024-12-13 18:34] LABS: Red Blood Cells-Urine 25-50 SEEN /hpf (0-5)
[2024-12-13 18:41] LABS: Internal QC Validated? YES +Cl - CLEAR BKGD; Pregnancy, Serum, hCG Quali. NEGATIVE Negative; Record Kit Lot#, Serum Preg. 980607
[2024-12-13 18:54] VITALS: BP 120/71; PULSE 69; RESP 16; TEMP 37.1; O2SAT 99
== END 2024-12-13 18:55 | disposition home or self-care (01) ==
PROVIDERS: Emergency Provider Emergency Medicine; PCP Nurse Practitioner Family; Visit Provider Emergency Medicine
DX: N93.8 Other specified abnormal uterine and vaginal bleeding (principal); Z87.891 Personal history of nicotine dependence; R10.20 Pelvic and perineal pain unspecified side
CPT/HCPCS: 81001; 84703; 85025; 86900; 86901; 96374; 96376; 99284; A4216; J2405